=== PATIENT | female | born 1930 | race Caucasian/White ===

== ENCOUNTER → 2016-04-02 | Outpatient (REF) | payer MEDICARE ==
[~2016-04-02] MED LIST: ASPI1TAB PO; ATEN50TA2 PO; BIMA01SOL OU; COUM2TAB10 PO; DRIS50002 PO; FLON1SPR; FLUTISP; LASI80TA PO; LIPI20TA PO; LOSA50TA20 PO; NORT25CA2 PO; OMEP40CA2 PO; PERC5TAB6 PO; SIMB1SUS OU; TRAM37.53 PO; [UNRECOGNIZED DRUG - OTHER] OU; flonase; lumigan OU
[2016-04-02 19:10] LABS: INR 1.7
== END ==
LOC: M SFHCCAPE 10:58
PROVIDERS: ATTEND Internal Medicine
DX: I48.91 Unspecified atrial fibrillation (principal)

== ENCOUNTER → 2016-05-12 | Outpatient (REF) | payer MEDICARE ==
[2016-05-12 16:53] LABS: INR 1.17
== END ==
LOC: M SFHCCAPE 11:10
PROVIDERS: ATTEND Internal Medicine
DX: Z51.81 Encounter for therapeutic drug level monitoring (principal); Z79.01 Long term (current) use of anticoagulants; I48.91 Unspecified atrial fibrillation

== ENCOUNTER → 2016-05-19 | Outpatient (REF) | payer MEDICARE ==
[2016-05-19 16:47] LABS: INR 2.1
== END ==
LOC: M SFHCCAPE 10:11
PROVIDERS: ATTEND Internal Medicine
DX: Z51.81 Encounter for therapeutic drug level monitoring (principal); Z79.01 Long term (current) use of anticoagulants; I48.91 Unspecified atrial fibrillation

== ENCOUNTER → 2016-06-05 | Outpatient (REF) | payer MEDICARE ==
[2016-06-05 18:00] LABS: MEAN CORPUSCULAR HEMOGLOBIN 30.7 pg (27.0-33.0); MEAN CORPUSCULAR HGB CONC 33.3 g/dl (32.0-36.5); MEAN CORPUSCULAR VOLUME 92.1 fl (80.0-96.0); RED CELL DISTRIBUTION WIDTH 13.1 % (11.5-14.5); WHITE BLOOD COUNT 5.7 K/mm3 (4.0-10.0)
[2016-06-05 18:01] LABS: ALBUMIN 3.5 GM/DL (3.2-5.2); ALBUMIN/GLOBULIN RATIO 1.17 (1.00-1.93); BILIRUBIN,TOTAL 0.8 MG/DL (0.2-1.0); CALCIUM LEVEL 9.4 MG/DL (8.8-10.2); CREATININE FOR GFR 1.03 MG/DL (0.55-1.02); GLOMERULAR FILTRATION RATE 54.3 (>32); TOTAL PROTEIN 6.5 GM/DL (6.4-8.2)
== END ==
LOC: M SFHCCAPE 09:44
PROVIDERS: ATTEND Internal Medicine
DX: Z01.818 Encounter for other preprocedural examination (principal); I10 Essential (primary) hypertension; R73.01 Impaired fasting glucose; E78.00 Pure hypercholesterolemia, unspecified; Z79.01 Long term (current) use of anticoagulants; T84.84XD Pain due to internal orthopedic prosthetic devices, implants and grafts, subsequent encounter; R04.0 Epistaxis; K58.9 Irritable bowel syndrome, unspecified; M19.90 Unspecified osteoarthritis, unspecified site; I73.9 Peripheral vascular disease, unspecified

== ENCOUNTER → 2016-07-02 | Outpatient (REF) | payer MEDICARE ==
[2016-07-02 17:11] LABS: INR 2.07
== END ==
LOC: M SFHCPLAZ 10:18
PROVIDERS: ATTEND Internal Medicine
DX: I48.91 Unspecified atrial fibrillation (principal); Z51.81 Encounter for therapeutic drug level monitoring; Z79.01 Long term (current) use of anticoagulants

== ENCOUNTER → 2016-09-25 | Outpatient (REF) | payer MEDICARE ==
[~2016-09-25] MED LIST changes: -COUM2TAB10 PO; +COUM2TAB22 PO; +PERC5TAB12 PO; -PERC5TAB6 PO
[2016-09-25 17:13] LABS: INR 1.36
== END ==
LOC: M SFHCCAPE 09:37
PROVIDERS: ATTEND Internal Medicine
DX: Z51.81 Encounter for therapeutic drug level monitoring (principal); Z79.01 Long term (current) use of anticoagulants; I48.91 Unspecified atrial fibrillation; J22 Unspecified acute lower respiratory infection; H66.002 Acute suppurative otitis media without spontaneous rupture of ear drum, left ear
CPT/HCPCS: 36415; 85610; G0463

== ENCOUNTER → 2016-10-28 | Outpatient (REF) | payer MEDICARE ==
[2016-10-28 17:05] LABS: INR 1.92
== END ==
LOC: M SFHCCAPE 10:12
PROVIDERS: ATTEND Internal Medicine
DX: Z51.81 Encounter for therapeutic drug level monitoring (principal); Z79.01 Long term (current) use of anticoagulants; I48.91 Unspecified atrial fibrillation; L03.115 Cellulitis of right lower limb
CPT/HCPCS: 85610; G0463

== ENCOUNTER → 2016-11-27 | Outpatient (REF) | payer MEDICARE ==
[2016-11-27 17:14] LABS: INR 1.52
== END ==
LOC: M LABDRWCV 16:22
PROVIDERS: ATTEND Nurse Practitioner Family
DX: Z51.81 Encounter for therapeutic drug level monitoring (principal); Z79.01 Long term (current) use of anticoagulants

== ENCOUNTER → 2017-02-03 | Outpatient (REF) | payer MEDICARE | LOC: M SFHCPLAZ 12:25 | PROVIDERS: ATTEND Internal Medicine | DX: I10 Essential (primary) hypertension (principal); R73.01 Impaired fasting glucose; E78.00 Pure hypercholesterolemia, unspecified ==

== ENCOUNTER → 2017-02-04 | Outpatient (REF) | payer MEDICARE ==
[2017-02-04 18:39] LABS: ALBUMIN 3.6 GM/DL (3.2-5.2); ALBUMIN/GLOBULIN RATIO 1.06 (1.00-1.93); ALKALINE PHOSPHATASE 72 U/L (45-117); ALT/SGPT 67 U/L (12-78); ANION GAP 8 MEQ/L (8-16); AST/SGOT 42 U/L (7-37); BILIRUBIN,TOTAL 1.1 MG/DL (0.2-1.0); BLOOD UREA NITROGEN 19 MG/DL (7-18); CALCIUM LEVEL 9.3 MG/DL (8.8-10.2); CARBON DIOXIDE LEVEL 26 MEQ/L (21-32); CHLORIDE LEVEL 106 MEQ/L (98-107); CHOLESTEROL LEVEL 215 MG/DL (<200); CREATININE FOR GFR 0.94 MG/DL (0.55-1.02); GLOMERULAR FILTRATION RATE > 60.0 (>32); GLUCOSE, FASTING 138 MG/DL (83-110); MAGNESIUM LEVEL 1.9 MG/DL (1.8-2.4); POTASSIUM SERUM 4.2 MEQ/L (3.5-5.1); SODIUM LEVEL 140 MEQ/L (136-145); TRIGLYCERIDES LEVEL 74 MG/DL (<150)
== END ==
LOC: M SFHCPLAZ 10:13
PROVIDERS: ATTEND Internal Medicine
DX: I10 Essential (primary) hypertension (principal); R73.01 Impaired fasting glucose; E78.00 Pure hypercholesterolemia, unspecified; I48.91 Unspecified atrial fibrillation

== ENCOUNTER → 2017-05-12 | Outpatient (REF) | payer MEDICARE ==
[2017-05-12 17:23] LABS: ESTIMATED AVERAGE GLUCOSE 128 MG/DL (60-110); HEMOGLOBIN A1c 6.1 %
[2017-05-12 17:33] LABS: ALBUMIN 3.5 GM/DL (3.2-5.2); ALBUMIN/GLOBULIN RATIO 1.09 (1.00-1.93); ALKALINE PHOSPHATASE 81 U/L (45-117); ALT/SGPT 67 U/L (12-78); ANION GAP 10 MEQ/L (8-16); AST/SGOT 58 U/L (7-37); BILIRUBIN,TOTAL 0.7 MG/DL (0.2-1.0); BLOOD UREA NITROGEN 16 MG/DL (7-18); CARBON DIOXIDE LEVEL 28 MEQ/L (21-32); CHLORIDE LEVEL 106 MEQ/L (98-107); CHOLESTEROL LEVEL 191 MG/DL (<200); CREATININE FOR GFR 0.92 MG/DL (0.55-1.30); GLOMERULAR FILTRATION RATE > 60.0 (>32); GLUCOSE, FASTING 106 MG/DL (70-100); HDL CHOLESTEROL 50 MG/DL (>40); LDL CHOLESTEROL 116.8 MG/DL (<100); MAGNESIUM LEVEL 1.8 MG/DL (1.8-2.4); NON-HDL-C 141 MG/DL; POTASSIUM SERUM 4.1 MEQ/L (3.5-5.1); SODIUM LEVEL 144 MEQ/L (136-145); TOTAL PROTEIN 6.7 GM/DL (6.4-8.2); TRIGLYCERIDES LEVEL 121 MG/DL (<150)
[2017-05-12 19:20] LABS: HEMATOCRIT 44.4 % (36.0-47.0); HEMOGLOBIN 14.6 g/dl (12.0-16.0); MEAN CORPUSCULAR HEMOGLOBIN 30.4 pg (27.0-33.0); MEAN CORPUSCULAR HGB CONC 32.9 g/dl (32.0-36.5); MEAN CORPUSCULAR VOLUME 92.3 fl (80.0-96.0); PLATELET COUNT, AUTOMATED 246 10^3/uL (150-450); RED BLOOD COUNT 4.81 10^6/uL (4.00-5.40); RED CELL DISTRIBUTION WIDTH 13.5 % (11.5-14.5); WHITE BLOOD COUNT 6.5 10^3/uL (4.0-10.0)
== END ==
LOC: M SFHCCAPE 09:46
DX: I10 Essential (primary) hypertension (principal); R73.01 Impaired fasting glucose; E78.00 Pure hypercholesterolemia, unspecified; Z51.81 Encounter for therapeutic drug level monitoring; Z79.01 Long term (current) use of anticoagulants
CPT/HCPCS: 83735

== ENCOUNTER → 2017-09-09 | Outpatient (REF) | payer MEDICARE ==
[2017-09-09 17:22] LABS: ANION GAP 11 MEQ/L (8-16); BLOOD UREA NITROGEN 24 MG/DL (7-18); CALCIUM LEVEL 8.9 MG/DL (8.8-10.2); CARBON DIOXIDE LEVEL 27 MEQ/L (21-32); CHLORIDE LEVEL 105 MEQ/L (98-107); CREATININE FOR GFR 1.41 MG/DL (0.55-1.30); GLOMERULAR FILTRATION RATE 37.7 (>32); GLUCOSE, FASTING 124 MG/DL (70-100); POTASSIUM SERUM 4.1 MEQ/L (3.5-5.1); SODIUM LEVEL 143 MEQ/L (136-145)
== END ==
LOC: M SFHCCAPE 08:46
DX: I48.91 Unspecified atrial fibrillation (principal)
CPT/HCPCS: 80048

== ENCOUNTER → 2017-10-15 | Outpatient (REF) | payer MEDICARE ==
[2017-10-15 17:34] LABS: INR 1.49; PROTHROMBIN TIME 18.3 SECONDS (12.1-14.4)
[2017-10-15 18:51] LABS: ANION GAP 11 MEQ/L (8-16); BLOOD UREA NITROGEN 17 MG/DL (7-18); CALCIUM LEVEL 8.9 MG/DL (8.8-10.2); CARBON DIOXIDE LEVEL 26 MEQ/L (21-32); CHLORIDE LEVEL 107 MEQ/L (98-107); CREATININE FOR GFR 0.99 MG/DL (0.55-1.30); GLOMERULAR FILTRATION RATE 56.8 (>32); GLUCOSE, FASTING 155 MG/DL (70-100); POTASSIUM SERUM 4.1 MEQ/L (3.5-5.1); SODIUM LEVEL 144 MEQ/L (136-145)
== END ==
LOC: M SFHCCAPE 09:51
DX: I48.91 Unspecified atrial fibrillation (principal); Z79.01 Long term (current) use of anticoagulants
CPT/HCPCS: 80048

== ENCOUNTER → 2017-11-30 | Outpatient (REF) | payer MEDICARE | LOC: M SFHCPLAZ 12:03 | DX: I48.91 Unspecified atrial fibrillation (principal); R73.01 Impaired fasting glucose; I11.9 Hypertensive heart disease without heart failure; R53.82 Chronic fatigue, unspecified; Z53.8 Procedure and treatment not carried out for other reasons ==

== ENCOUNTER → 2018-02-11 | Outpatient (REF) | payer MEDICARE ==
[2018-02-11 17:20] LABS: INR 2.19; PROTHROMBIN TIME 24.8 SECONDS (12.1-14.4)
== END ==
LOC: M SFHCPLAZ 10:48
DX: I48.91 Unspecified atrial fibrillation (principal); Z51.81 Encounter for therapeutic drug level monitoring; Z79.01 Long term (current) use of anticoagulants; Z23 Encounter for immunization
CPT/HCPCS: 85610

== ENCOUNTER → 2018-07-07 | Outpatient (REF) | payer MEDICARE ==
[~2018-07-07] MED LIST changes: -ASPI1TAB PO; +ASPI81TA26 PO; -DRIS50002 PO; +DRIS50003 PO; +FLUT50SP17; -FLUTISP; -LASI80TA PO; +LASI80TA3 PO; -LOSA50TA20 PO; +LOSA50TA88 PO
[2018-07-07 13:31] LABS: BASO # 0.1 10^3/uL (0.0-0.2); BASO % 1.1 % (0.0-1.0); EOS # 0.3 10^3/uL (0.0-0.50); EOS % 3.4 % (0.0-3.0); HEMATOCRIT 45.2 % (36.0-47.0); HEMOGLOBIN 14.5 g/dl (12.0-15.5); LYMPH # 2.6 10^3/uL (1.5-4.5); LYMPH % 29.9 % (24.0-44.0); MEAN CORPUSCULAR HGB CONC 32.1 g/dl (32.0-36.5); MEAN CORPUSCULAR VOLUME 93.6 fl (80.0-96.0); MONO # 0.8 10^3/uL (0.0-0.8); MONO % 8.8 % (0.0-5.0); NEUTROPHILS % 56.6 % (36.0-66.0); PLATELET COUNT, AUTOMATED 219 10^3/uL (150-450); RED BLOOD COUNT 4.83 10^6/uL (4.00-5.40); WHITE BLOOD COUNT 8.8 10^3/uL (4.0-10.0)
[2018-07-07 14:03] LABS: ALBUMIN 3.2 GM/DL (3.2-5.2); ALT/SGPT 57 U/L (12-78); BILIRUBIN,TOTAL 0.7 MG/DL (0.2-1.0); BLOOD UREA NITROGEN 19 MG/DL (7-18); C REACTIVE PROTEIN QUANTITATIV 0.85 MG/DL (0.00-0.30); CALCIUM LEVEL 8.7 MG/DL (8.8-10.2); CARBON DIOXIDE LEVEL 29 MEQ/L (21-32); CHLORIDE LEVEL 108 MEQ/L (98-107); CHOLESTEROL LEVEL 179 MG/DL (<200); CHOLESTEROL RISK RATIO 3.977 (<5); CREATININE FOR GFR 0.88 MG/DL (0.55-1.30); GLOMERULAR FILTRATION RATE > 60.0 (>32); GLUCOSE, FASTING 115 MG/DL (70-100); HDL CHOLESTEROL 45 MG/DL (>40); LDL CHOLESTEROL 97 MG/DL (<100); MAGNESIUM LEVEL 1.9 MG/DL (1.8-2.4); NON-HDL-C 134 MG/DL; NT-PRO BNP 1805 PG/ML (<450); POTASSIUM SERUM 4.2 MEQ/L (3.5-5.1); SODIUM LEVEL 145 MEQ/L (136-145); TOTAL PROTEIN 6.7 GM/DL (6.4-8.2); TRIGLYCERIDES LEVEL 186 MG/DL (<150)
[2018-07-07 15:13] LABS: ERYTHROCYTE SEDIMENTATION RATE 6 mm/hr (0-42)
[2018-07-07 16:16] LABS: HEMOGLOBIN A1c 6.5 %
== END ==
LOC: M SFHCPLAZ 11:22
PROVIDERS: ATTEND Internal Medicine
DX: I48.91 Unspecified atrial fibrillation (principal); R06.09 Other forms of dyspnea; I11.9 Hypertensive heart disease without heart failure; R73.01 Impaired fasting glucose; E78.00 Pure hypercholesterolemia, unspecified; R04.0 Epistaxis; M19.90 Unspecified osteoarthritis, unspecified site
CPT/HCPCS: 36415; 80053; 80061; 83036; 83735; 83880; 85025; 85610; 85652; 86140; G0463

== ENCOUNTER → 2018-09-22 | Outpatient (REF) | payer MEDICARE ==
[2018-09-23 15:06] LABS: INR 3.37; PROTHROMBIN TIME 34.1 SECONDS (11.8-14.0)
== END ==
LOC: M SFHCCAPE 14:35 → M SFHCPLAZ 14:35
PROVIDERS: ATTEND Nurse Practitioner Adult Health
DX: I48.91 Unspecified atrial fibrillation (principal); L08.9 Local infection of the skin and subcutaneous tissue, unspecified
CPT/HCPCS: 36415; 85610; 87070; 87077; 87186; G0463

== ENCOUNTER → 2018-10-25 | Outpatient (REF) | payer MEDICARE ==
[2018-10-25 17:48] LABS: ALBUMIN 3.6 GM/DL (3.2-5.2); BILIRUBIN,TOTAL 0.6 MG/DL (0.2-1.0); CALCIUM LEVEL 9.6 MG/DL (8.8-10.2); CREATININE FOR GFR 1.06 MG/DL (0.55-1.30); GLOMERULAR FILTRATION RATE 52.3 (>32); POTASSIUM SERUM 4.1 MEQ/L (3.5-5.1); TOTAL PROTEIN 6.8 GM/DL (6.4-8.2)
[2018-10-25 17:51] LABS: INR 1.08; PROTHROMBIN TIME 13.7 SECONDS (11.8-14.0)
[2018-10-25 18:55] LABS: HEMOGLOBIN A1c 6.4 %
== END ==
LOC: M SFHCPLAZ 10:31
PROVIDERS: ATTEND Internal Medicine
DX: I11.9 Hypertensive heart disease without heart failure (principal); R73.01 Impaired fasting glucose; R06.09 Other forms of dyspnea; I48.91 Unspecified atrial fibrillation; Z79.01 Long term (current) use of anticoagulants

== ENCOUNTER 2018-11-23 18:51 | Inpatient (IN) | payer MEDICARE ==
[~2018-11-23] VITALS: Ht 157.5 cm; Wt 97.3 kg
[~2018-11-23 18:51] MED LIST changes: -OMEP40CA2 PO; +OMEP40CA97 PO
[2018-11-23 19:19] LABS: BASO # 0.1 10^3/uL (0.0-0.2); EOS # 0.3 10^3/uL (0.0-0.5); EOS % 3.4 % (0.0-3.0); HEMATOCRIT 47.2 % (36.0-47.0); HEMOGLOBIN 15.4 g/dl (12.0-15.5); LYMPH # 2.3 10^3/uL (1.5-5.0); LYMPH % 32.1 % (24.0-44.0); MEAN CORPUSCULAR HEMOGLOBIN 30.5 pg (27.0-33.0); MEAN CORPUSCULAR HGB CONC 32.6 g/dl (32.0-36.5); MEAN CORPUSCULAR VOLUME 93.5 fl (80.0-96.0); MONO # 0.6 10^3/uL (0.0-0.8); MONO % 8.8 % (0.0-5.0); NEUTROPHILS % 54.4 % (36.0-66.0); PLATELET COUNT, AUTOMATED 220 10^3/uL (150-450); RED BLOOD COUNT 5.05 10^6/uL (4.00-5.40); WHITE BLOOD COUNT 7.3 10^3/uL (4.0-10.0)
[2018-11-23 19:30] LABS: INR 1.18; PROTHROMBIN TIME 14.7 SECONDS (11.8-14.0)
--- NOTE | 2018-11-23 19:34 | ECGEPIP ---
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
[2018-11-23 19:49] LABS: ALBUMIN 3.5 GM/DL (3.2-5.2); ALT/SGPT 54 U/L (12-78); BILIRUBIN,DIRECT 0.4 MG/DL (0.0-0.2); BILIRUBIN,TOTAL 1.3 MG/DL (0.2-1.0); BLOOD UREA NITROGEN 14 MG/DL (7-18); CALCIUM LEVEL 9.2 MG/DL (8.8-10.2); CARBON DIOXIDE LEVEL 31 MEQ/L (21-32); CHLORIDE LEVEL 104 MEQ/L (98-107); CK-MB VALUE MASS < 1.0 NG/ML (<3.6); CPK CREATINE PHOSPHOKINASE 54 U/L (26-192); CREATININE FOR GFR 1.15 MG/DL (0.55-1.30); GLOMERULAR FILTRATION RATE 47.6 (>32); GLUCOSE, FASTING 123 MG/DL (70-100); MB/CK RELATIVE INDEX 1.85 (< OR =4); POTASSIUM SERUM 3.6 MEQ/L (3.5-5.1); SODIUM LEVEL 143 MEQ/L (136-145); TOTAL PROTEIN 6.8 GM/DL (6.4-8.2); TROPONIN I < 0.02 NG/ML (< 0.10)
--- NOTE | 2018-11-23 20:15 | REPVR ---
EXAM: CT Head Without Contrast EXAM DATE/TIME: 11/23/2018 7:19 PM CLINICAL HISTORY: 88 years old, female; Altered mental status/memory loss TECHNIQUE: Imaging protocol: Computed tomography of the head without contrast. Radiation optimization: All CT scans at this facility use at least one of these dose optimization techniques: automated exposure control; mA and/or kV adjustment per patient size (includes targeted exams where dose is matched to clinical indication); or iterative reconstruction. COMPARISON: No relevant prior studies available. FINDINGS: Brain: There is no evidence of intracranial bleed. There are patchy areas of low density in the periventricular white matter consistent with chronic ischemic changes. There is prominence of the occipital horn and temporal horn of left lateral ventricle probably the result of focal atrophy. Ventricles: There is a 2.2 CM low density area contiguous with the occipital horn of left lateral ventricle consistent with an area of old ischemic change. Bones/joints: There is no evidence of fracture. Sinuses: Clear ethmoid sinuses. Mastoid air cells: Clear mastoid air cells. Soft tissues: Unremarkable. Vasculature: There is calcification of the carotid siphon bilaterally. IMPRESSION: 1. Area of old stroke left occipital lobe. 2. Chronic ischemic changes. An MRI scan would be a more sensitive exam for acute ischemic change. Electronically signed by: Johny Burton On 11/23/2018 20:14:37 PM
[2018-11-23] MEDS: WARFARIN SOD 2 MG TAB PO SCH (21:00)
[2018-11-23] MEDS: NORTRIPTYLINE 25 MG CAP PO SCH (21:00)
[2018-11-23] MEDS: ATORVASTATIN 20 MG TAB PO SCH (21:00)
[2018-11-23] MEDS: BRIMONIDINE 0.1% OPHTH SOLN 5 ML OU SCH (21:00)
[2018-11-23 22:14] VITALS: O2SAT 97
[2018-11-23] MEDS ORDERED: TETRACAINE 0.5% OPHTH SOLN 4ML OU ONE (22:15)
--- NOTE | 2018-11-23 22:53 | REPVR ---
EXAM: MR Head Without Contrast EXAM DATE/TIME: 11/23/2018 9:57 PM CLINICAL HISTORY: 88 years old, female; Visual disturbance; Additional info: CVA TECHNIQUE: Imaging protocol: MR of the head without contrast. COMPARISON: CT Head without contrast 11/23/2018 7:15 PM FINDINGS: Brain: There is a linear area of bright signal intensity on the diffusion sequence involving the medial aspect of the temporal lobe following the temporal horn of the right lateral ventricle. This area is low in signal intensity on the ADC and consistent with a new area of ischemic change. In addition there is a small round area of bright signal intensity right occipital lobe probably also representing a small area of ischemic change. There is an area of old stroke left occipital lobe. There are patchy areas of bright signal intensity throughout the white matter consistent with chronic ischemic changes. There is mild diffuse atrophy. Vertebral arteries: There is no flow in the left vertebral artery at the base of the skull. IMPRESSION: On DWI sequence there is a linear area of bright signal intensity medial aspect of the right temporal lobe following the right temporal horn of the lateral ventricle consistent with an area of acute stroke. There is also a 5 mm small round area of bright signal intensity right occipital lobe suspicious for a small area of new stroke. Electronically signed by: Johny Burton On 11/23/2018 22:52:47 PM
--- NOTE | 2018-11-23 22:57 | REPVR ---
EXAM: MR Angiogram Head Without Contrast, Arteries EXAM DATE/TIME: 11/23/2018 9:57 PM CLINICAL HISTORY: 88 years old, female; Visual disturbance; [place]; Central area; Bilateral; Additional info: CVA TECHNIQUE: Imaging protocol: MR angiogram head without contrast. Exam focused on the arteries. 3D rendering: MIP reconstructed images were created and reviewed. COMPARISON: MRA BRAIN W/O CONTRAST 09/07/2008 11:30 AM Left vertebral artery: Suspect occlusion of the left vertebral artery as there is no evidence of significant flow at the level of the base of the skull. Basilar artery: The basilar artery is visualized and there is no vertebrobasilar aneurysm. Other vasculature: There is no evidence of aneurysm of the [place]. Normal appearing middle cerebral arteries. 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
[2018-11-23] MEDS ORDERED: FLUT50SP33 (23:33)
[2018-11-23] MEDS ORDERED: ASPI-161 PO (23:33)
[2018-11-23] MEDS ORDERED: D200CAP2 PO (23:33)
[2018-11-23] MEDS ORDERED: NORT50CA PO (23:33)
[2018-11-24] MEDS ORDERED: CLOPIDOGREL 75 MG TAB PO ONE
[2018-11-24] MEDS ORDERED: WARFARIN SOD 5 MG TAB PO ONE
[2018-11-24] MEDS ORDERED: FURO80TA2 PO (00:01)
[2018-11-24] MEDS ORDERED: VOLT1GEL15 TD (00:01)
[2018-11-24] MEDS ORDERED: WARF4TAB51 PO (00:01)
[2018-11-24] MEDS ORDERED: BRIM1OPD OU (00:04)
[2018-11-24 00:42] LABS: INR 1.24; PROTHROMBIN TIME 15.3 SECONDS (11.8-14.0)
[2018-11-24 00:43] LABS: PARTIAL THROMBOPLASTIN TIME 27.5 SECONDS (25.0-38.4)
--- NOTE | 2018-11-24 01:17 | HPEPDOC ---
General Date of Admission Nov 23, 2018 at 23:48 Date of Service: Nov 24, 2018 Primary Care Physician: Azam Kuo Attending Physician: AYUSH HERNANDEZ DO Chief Complaint The patient is a 88-year-old female admitted with a reason for visit of Afib,Cerebrovasculat Accident,Occlusion Of Vertaer. Source: Patient, Family History of Present Illness Patient is 88 years old female with past medical history of stroke in 2000, patient was on the aspirin 81 mg, hypertension, atrial fibrillation on warfarin presented hospital with headache and flash lights in her eyes. Patient stated that flash lights started few weeks ago, became more intense for past 7-10 days. For past week patient increased difficulties in walking, she notices worsening balance, 2 weeks ago she felt because of dizziness. 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 There is also a 5 mm small round area of bright signal intensity right occipital lobe suspicious for a small area of new stroke on MRI. Of note, patient's INR is subtherapeutic. She states that she usually check INR one time in a month Home Medications Scheduled Aspirin (Aspirin EC) 81 Mg Tablet.dr, 81 MG PO DAILY, (Reported) Atenolol (Atenolol) 50 Mg Tab, 50 MG PO QPM, (Reported) Atenolol (Atenolol) 50 Mg Tab, 25 MG PO DAILY, (Reported) Brimonidine Tartrate (Alphagan P) 0.1% 5ML Drops, 1 DROP OU BID, (Reported) Cholecalciferol (Vitamin D3) (Vitamin D3) 2,000 Unit Capsule, 2,000 UNIT PO DAILY, (Reported) Fluticasone Propionate (Fluticasone Propionate) 15.8 Ml [place].susp, 2 SPRAYS NA DAILY, (Reported) Furosemide (Lasix) 80 Mg Tab, 40 MG PO Q2D, (Reported) Furosemide (Furosemide) 80 Mg Tablet, 80 MG PO Q2D, (Reported) Losartan Potassium (Losartan Potassium) 50 Mg Tab, 25 MG PO QHS, (Reported) Nortriptyline HCl (Nortriptyline HCl) 50 Mg Capsule, 50 MG PO BID, (Reported) Omeprazole (Omeprazole) 40 Mg Cap, 40 MG PO DAILY, (Reported) Warfarin Sodium (Coumadin) 2 Mg Tab, 2 MG PO 3XW, (Reported) THURSDAY, THURSDAY AND THURSDAY AT QHS Warfarin Sodium (Warfarin Sodium) 2 Mg Tablet, 4 MG PO 4XWK, (Reported) THURSDAY, THURSDAY, THURSDAY AND THURSDAY AT [facility] Scheduled PRN Diclofenac Sodium (Voltaren) 100 Gm Gel..gram., 1 DOSE TD DAILY PRN for PAIN, (Reported) APPLIES TO RIGHT THUMB Allergies Coded Allergies: Penicillins (Verified Allergy, Mild, RASH, 11/23/18) GUDELIA Inhibitors (Verified Allergy, Unknown, 11/23/18) SEASONAL ALLERGIES (Verified Allergy, Unknown, 11/23/18) doxycycline (Verified Allergy, Unknown, 11/23/18) ibuprofen (Verified Allergy, Unknown, 11/23/18) prazosin (Verified Allergy, Unknown, 11/23/18) codeine (Verified Adverse Reaction, Mild, CONFUSION, 11/23/18) Past Medical History Medical History Hypertension, atrial fibrillation, stroke in 2000, both knees replacement, migraine, gallbladder removal Surgical History Bilateral knee replacement, cholecystectomy Family History Father had GA Social History * Smoker: former Smoker Alcohol: occationally Drugs: denies A-FIB/CHADSVASC A-FIB History Current/History of A-Fib/PAF?: Yes Current PO Anticoag Therapy: Yes Treatment Treatment ordered: Warfarin Review of Systems Constitutional: Denies: Chills, Fever Eyes: Reports: Vision change (flushes); Denies: Pain, Conjunctivae inflammation ENT: Reports: Head Aches (frontal and occipital headache) Skin: Denies: Rash, Lesions Pulmonary: Denies: Dyspnea, Cough Cardiovascular: Reports: Palpitations; Denies: Chest Pain Gastrointestinal: Denies: Nausea Genitourinary: Denies: Dysuria, Frequency Hematologic: Denies: Bruising Endocrine: Denies: Polydipsia, Polyphagia Musculoskeletal: Denies: Neck Pain, Back Pain Neurological: Reports: Weakness (left leg, left arm), Incoordination; Denies: Numbness Psych: Reports: Mood Normal Physical Examination General Exam: Positive: Alert, Cooperative, No Acute Distress Eye Exam: Positive: PERRLA, EOMI ENT Exam: Positive: Atraumatic Neck Exam: Positive: Supple; Negative: JVD Chest Exam: Positive: Clear to auscultation Heart Exam: Positive: Irregular Rhythm Telemetry: Positive: Atrial fibrillation Abdomen Exam: Positive: Normal bowel sounds Extremity Exam: Negative: Clubbing, Cyanosis Skin Exam: Negative: Nl turgor and temperature Neuro Exam: Positive: Cranial Nerves 3-12 NL, Other (left leg 3 out of 5, left arm 3 out of 5) Psych Exam: Positive: Mental status NL Vital Signs Vital Signs Date Time Temp Pulse Resp B/P (MAP) Pulse Ox O2 Delivery O2 Flow Rate FiO2 11/24/18 00:15 92 97 11/23/18 23:00 17 11/23/18 22:15 140/90 (107) 11/23/18 22:14 Room Air 11/23/18 19:05 99.0 Laboratory Data Labs 24H Laboratory Tests 2 11/23/18 19:12: Immature Granulocyte % (Auto) 0.3, White Blood Count 7.3, Red Blood Count 5.05, Hemoglobin 15.4, Hematocrit 47.2H, Mean Corpuscular Volume 93.5, Mean Corpuscular Hemoglobin 30.5, Mean Corpuscular Hemoglobin Concent 32.6, Red Cell Distribution Width 13.4, Platelet Count 220, Neutrophils (%) (Auto) 54.4, Lymphocytes (%) (Auto) 32.1, Monocytes (%) (Auto) 8.8H, Eosinophils (%) (Auto) 3.4H, Basophils (%) (Auto) 1.0, Neutrophils # (Auto) 4.0, Lymphocytes # (Auto) 2.3, Monocytes # (Auto) 0.6, Eosinophils # (Auto) 0.3, Basophils # (Auto) 0.1, Nucleated Red Blood Cells % (auto) 0.0, Prothrombin Time 14.7H, Prothromb Time International Ratio 1.18, Anion Gap 8, Glomerular Filtration Rate 47.6, Calcium Level 9.2, Aspartate Amino Transf (AST/SGOT) 53H, Alanine Aminotransferase (ALT/SGPT) 54, Alkaline Phosphatase 64, Total Bilirubin 1.3H, Direct Bilirubin 0.4H, Ammonia < 10, Total Creatine Kinase 54, Creatine Kinase MB < 1.0, Creatine Kinase MB Relative Index 1.85, Troponin I < 0.02, Total Protein 6.8, Albumin 3.5, Albumin/Globulin Ratio 1.06, Thyroid Stimulating Hormone (TSH) 2.120 11/23/18 20:35: Bedside Glucose (Misc Panel) 107 11/24/18 00:10: Prothrombin Time 15.3H, Prothromb Time International Ratio 1.24, Activated Partial Thromboplast Time 27.5 CBC/BMP Laboratory Tests 11/23/18 19:12 Red Blood Count 5.05, Mean Corpuscular Volume 93.5, Mean Corpuscular Hemoglobin 30.5, Mean Corpuscular Hemoglobin Concent 32.6, Red Cell Distribution Width 13.4, Neutrophils (%) (Auto) 54.4, Lymphocytes (%) (Auto) 32.1, Monocytes (%) (Auto) 8.8 H, Eosinophils (%) (Auto) 3.4 H, Basophils (%) (Auto) 1.0, Neutrophils # (Auto) 4.0, Lymphocytes # (Auto) 2.3, Monocytes # (Auto) 0.6, Eosinophils # (Auto) 0.3, Basophils # (Auto) 0.1 Assessment/Plan Patient is 88 years old female with past medical history of stroke in 2000, patient was on the aspirin 81 mg, hypertension, atrial fibrillation on warfarin presented hospital with headache and flash lights in her eyes. Patient stated that flash lights started few weeks ago, became more intense for past 7-10 days. For past week patient increased difficulties in walking, she notices worsening balance, 2 weeks ago she felt because of dizziness. 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 There is also a 5 mm small round area of bright signal intensity right occipital lobe suspicious for a small area of new stroke on MRI. Of note, patient's INR is subtherapeutic. She states that she usually check INR one time in a month Problems (1) Cerebrovascular accident Status: Acute Problem Text: Appreciate/agree with the neurologist consult Speech evaluation Aspiration precaution Echo Telemetry Plavix (2) Afib Status: Chronic Problem Text: INR is subtherapeutic Warfarin 5 mg now Continue home dose of warfarin daily, adjust if necessary Heart rate is under control for now (3) Occlusion of vertebral artery Status: Acute Problem Text: Appreciate/agree with neurologist consult Patient will benefit from vascular surgeon consult Plan / VTE VTE Prophylaxis Ordered?: Yes AYUSH HERNANDEZ DO Nov 24, 2018 01:17
[2018-11-24 01:55] VITALS: BP 168/72
[2018-11-24] MEDS: LOSARTAN 50 MG TAB PO SCH ×2 (02:32→20:51)
[2018-11-24] MEDS: ATORVASTATIN 20 MG TAB PO SCH ×2 (02:33→20:52)
[2018-11-24] MEDS: atenoloL 50 MG TAB PO SCH ×2 (02:33→20:55)
[2018-11-24 06:00] VITALS: BP_SYST 142; BP_SYST 159; BP_DIAS 73; BP_DIAS 78
[2018-11-24 06:14] LABS: HEMATOCRIT 42.9 % (36.0-47.0); HEMOGLOBIN 14.2 g/dl (12.0-15.5); MEAN CORPUSCULAR HEMOGLOBIN 30.7 pg (27.0-33.0); MEAN CORPUSCULAR HGB CONC 33.1 g/dl (32.0-36.5); MEAN CORPUSCULAR VOLUME 92.9 fl (80.0-96.0); PLATELET COUNT, AUTOMATED 203 10^3/uL (150-450); RED BLOOD COUNT 4.62 10^6/uL (4.00-5.40); WHITE BLOOD COUNT 7.4 10^3/uL (4.0-10.0)
[2018-11-24 06:25] LABS: INR 1.23; PROTHROMBIN TIME 15.2 SECONDS (11.8-14.0)
[2018-11-24 06:37] LABS: CALCIUM LEVEL 9.2 MG/DL (8.8-10.2); CREATININE FOR GFR 0.97 MG/DL (0.55-1.30); MAGNESIUM LEVEL 1.6 MG/DL (1.8-2.4); POTASSIUM SERUM 3.5 MEQ/L (3.5-5.1)
[2018-11-24] MEDS ORDERED: PREVNAR 13 VACCINE SYRINGE (CPT CODE:90670) IM ONE (09:00)
[2018-11-24] MEDS: OMEPRAZOLE 20 MG CAP PO SCH (09:21)
[2018-11-24] MEDS: NORTRIPTYLINE 25 MG CAP PO SCH ×2 (09:21→20:45)
[2018-11-24] MEDS: CLOPIDOGREL 75 MG TAB PO SCH (09:21)
[2018-11-24] MEDS: FUROSEMIDE 80 MG TAB PO SCH (09:21)
[2018-11-24] MEDS: BRIMONIDINE 0.1% OPHTH SOLN 5 ML OU SCH ×2 (09:25→20:44)
--- NOTE | 2018-11-24 09:29 | REP ---
CAROTID ULTRASOUND: Real-time ultrasound evaluation and duplex Doppler interrogation of the extracranial carotid vasculature is performed. There is mild plaquing and narrowing in both carotid bulbs extending into the internal and external carotid arteries. Luminal narrowing is less than 50%. There is no evidence of hemodynamically significant stenosis of either internal carotid artery. Normal flow velocities are seen. The right vertebral artery demonstrates normal direction of flow. The left vertebral artery is not visualized. RIGHT LEFT Peak systolic velocity ICA 49.3 cm/s 49.9 cm/s End diastolic velocity ICA 14.4 cm/s 16.6 cm/s Peak systolic velocity CCA 59.2 cm/s 70.7 cm/s Peak systolic velocity ECA 48.2 cm/s 53.8 cm/s ICA/CCA ratio 0.83 0.71 IMPRESSION: Bilateral luminal narrowing of the internal carotid arteries less than 50%. No evidence of hemodynamically significant stenosis. Electronically Signed by Jimi Giordano MD 11/24/2018 09:21 A
--- NOTE | 2018-11-24 12:09 | IPNPDOC ---
Text Note Date of Service The patient was seen on 11/24/18. NOTE SUBJECTIVE: No acute events overnight. Patient is aware that she has had a st roke but is confused about what the plan moving forward is. We discussed the need to correct her INR so that she did not get an additional stroke and that we were doing an U/S of her neck to make sure there was no significant stenosis requiring surgery. She restated her symptoms stating that beginning sometime last week and becoming worse on Thursday she experienced subjective dizziness that she thought would resolve. It became worse on Thursday when she began seeing flashing lights. Per the EMR, she follows with Dr. Chavez and on 10/18 her INR was supratherapeutic at ~4 so she was instructed to hold it for 4 days and then restart it but apparently never restarted the medication per [facility] and on 10/25 when it was remeasured, it was 1.08. While today she reports compliance with her medications, her most recent INR was 1.23. Presently the patient continues to complain of subjective dizziness OBJECTIVE: PHYSICAL EXAM: Vitals: (see below) General: No acute distress, sitting comfortably in chair. HEENT: Normocephalic, atraumatic. EOMI. No scleral icterus. Moist mucous membranes. No pharyngeal erythema or uvular deviation. Neck: No JVD, lymphadenopathy, or thyromegaly. Cardiac: RRR, Normal S1 and S2, No murmurs, gallops, rubs. Pulm: Clear to auscultation b/l. Symmetric thorax. No wheezing, crackles, rhonchi Abd: Bowel Sounds present. Abdomen is soft, non-tender, non-distended. Ext: 1+ pitting edema Neuro: CN2-12 intact. Strength in UE and LE intact, I did NOT appreciate decreased strength on my physical exam. LABORATORY DATA, MICROBIOLOGY: Please see below. IMAGING STUDIES: 11/23/[address]: 1. Area of old stroke left occipital lobe. 2. Chronic ischemic changes. An MRI scan would be a more sensitive exam for acute ischemic change. 11/23/18 brain MRI without contrast: On DWI sequence there is a linear area of bright signal intensity medial aspect of the right temporal lobe following the right temporal horn of the lateral ventricle consistent with an area of acute stroke. There is also a 5 mm small round area of bright signal intensity right occipital lobe suspicious for a small area of new stroke. 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 11/24/18 vascular ultrasound: Bilateral luminal narrowing of the internal carotid arteries less than 50%. No evidence of hemodynamically significant stenosis. ASSESSMENT AND PLAN: #. CVA - MRI showing acute stroke in R-temporal, occipital lobes with occlusion of left vertebral artery. Carotid U/S negative. - Neurology is aware of patient and will see them today, recommendations appreciated. - I suspect this stroke is likely due to a subtherapeutic INR, will restart patient's home dose and continue to monitor. She was started on plavix and atorvastatin last night. We will increase her atorvastatin to 40mg as she needs to be on high dose statin. #. Atrial fibrillation -Rate controlled on atenolol, will restart home Coumadin dose and adjust as necessary #. Hypertensive heart disease -Patient receives alternating doses of Lasix every other day. We will continue this for the time being. -Will continue losartan #. GERD - Continue omeprazole DVT prophylaxis:On coumadin VS,Fishbone, I+O VS, Fishbone, I+O Laboratory Tests 11/23/18 19:12 Red Blood Count 5.05, Mean Corpuscular Volume 93.5, Mean Corpuscular Hemoglobin 30.5, Mean Corpuscular Hemoglobin Concent 32.6, Red Cell Distribution Width 13.4, Neutrophils (%) (Auto) 54.4, Lymphocytes (%) (Auto) 32.1, Monocytes (%) (Auto) 8.8 H, Eosinophils (%) (Auto) 3.4 H, Basophils (%) (Auto) 1.0, Neutrophils # (Auto) 4.0, Lymphocytes # (Auto) 2.3, Monocytes # (Auto) 0.6, Eosinophils # (Auto) 0.3, Basophils # (Auto) 0.1 11/24/18 05:44 Red Blood Count 4.62, Mean Corpuscular Volume 92.9, Mean Corpuscular Hemoglobin 30.7, Mean Corpuscular Hemoglobin Concent 33.1, Red Cell Distribution Width 13.5, Calcium Level 9.2 Vital Signs Date Time Temp Pulse Resp B/P (MAP) Pulse Ox O2 Delivery O2 Flow Rate FiO2 11/24/18 06:00 99.1 83 18 142/73 (96) 94 11/23/18 22:14 Room Air I&O- Last 24 Hours up to 6 AM 11/24/18 06:00 Intake Total 60 ml Output Total 575 ml Balance -515 ml GME ATTESTATION GME ATTESTATION My faculty preceptor for this patient encounter was physically present during the encounter and was fully available. All aspects of the patient interview, examination, medical decision making process, and medical care plan development were reviewed and approved by the faculty preceptor. The faculty preceptor is aware and concurs with the plan as stated in the body of this note and will attest to such by his/her cosignature. ATTENDING NOTE I, Naren Chiang, have independently examined this patient and performed my own physical exam, as well as reviewed the documentation and edited where necessary. I have discussed in detail with the resident / student the findings and plan of treatment as documented by the resident / student and edited their note. I agree with their findings and treatment plan and have edited their documentation. I will continue to follow the patient during this hospital stay. SAMY WEBSTER DO Nov 24, 2018 12:09 NAREN CHIANG MD Nov 24, 2018 14:43
[2018-11-24 12:45] VITALS: BP_SYST 110; BP_SYST 112; BP_DIAS 62
[2018-11-24 14:00] VITALS: BP 110/70
[2018-11-24] MEDS: MAGNESIUM CHLORIDE 64 MG TABCR (SLO MAG) PO SCH (14:50)
[2018-11-24 16:00] VITALS: BP 132/64
[2018-11-24] MEDS: WARFARIN SOD 2 MG TAB PO SCH (20:45)
[2018-11-24 22:00] VITALS: BP 140/90
[2018-11-25] MEDS: NYSTATIN 100,000 UNITS/GM TOPICAL PWD 15 GM TOP SCH ×3 (01:15→20:14)
[2018-11-25 06:00] VITALS: BP 145/80
[2018-11-25 06:50] LABS: INR 1.36; PROTHROMBIN TIME 16.5 SECONDS (11.8-14.0)
--- NOTE | 2018-11-25 08:00 | ECHO ---
DATE OF PROCEDURE: 11/24/2018 REFERRING PHYSICIAN: Dr. Dmitriy Kirk REASON FOR ECHOCARDIOGRAM: Cerebral vascular accident (CVA). 2D MEASUREMENT: IVS - 1.1 cm LV - 4.9 cm LVPW - 1.0 cm LA - 4.7 cm Aorta - 2.8 cm IVC - 2.2 cm DOPPLER MEASUREMENT: Peak velocity across the aortic valve - 1.9 m/s Peak velocity across the LVOT - 0.62 m/s Peak gradient across the aortic valve - 14 mmHg Mitral E - 1.6. Maximum tricuspid valve velocity 2.5 m/s 2D COMMENTS: 1. Normal left ventricular size, wall thickness, and normal global left ventricular systolic function. The estimated left ventricular systolic ejection fraction is 60-65%. 2. Mildly enlarged left atrium. Normal right atrium and right ventricle. 3. The atrial septum appeared to be normal without evidence of defect or shunt. 4. Normal aortic root. 5. Trace pericardial effusion noted, no evidence of cardiac component. 6. Mildly calcified aortic valve with minimally restricted leaflet motion. Mildly calcified mitral annulus with normal anterior mitral valve leaflet motion. Normal tricuspid valve. The pulmonic valve and proximal pulmonary artery branches were not well visualized. 7. The inferior vena cava was mildly enlarged, central venous pressure might be elevated. DOPPLER: It detects mild aortic regurgitation, moderate mitral regurgitation, and mild tricuspid regurgitation. The calculated pulmonary artery systolic pressure varies between 30-40 mmHg. Assessment of the left ventricular diastolic function was limited in view of the underlying arrhythmias while the patient seems to be in atrial fibrillation but with a controlled ventricular rate. IMPRESSION: 1. Normal global left ventricular systolic function. 2. Aortic valve sclerosis with mild aortic radiation and trivial aortic stenosis. 3. Mitral annulus calcification with a mildly enlarged left atrium and moderate mitral regurgitation. 4. Mild tricuspid regurgitation with mild pulmonary hypertension. 5. Trace pericardial effusion was noted, no evidence of cardiac tamponade. 6. There are some features of elevated central venous pressure, the inferior vena cava was mildly enlarged. 7. No intracardiac shunt detected in this transthoracic echocardiogram. MTDD
[2018-11-25 08:35] LABS: HEMATOCRIT 42.9 % (36.0-47.0); HEMOGLOBIN 14.1 g/dl (12.0-15.5); MEAN CORPUSCULAR HEMOGLOBIN 30.5 pg (27.0-33.0); MEAN CORPUSCULAR HGB CONC 32.9 g/dl (32.0-36.5); MEAN CORPUSCULAR VOLUME 92.9 fl (80.0-96.0); PLATELET COUNT, AUTOMATED 218 10^3/uL (150-450); RED BLOOD COUNT 4.62 10^6/uL (4.00-5.40); WHITE BLOOD COUNT 7.9 10^3/uL (4.0-10.0)
[2018-11-25 08:37] LABS: CALCIUM LEVEL 8.8 MG/DL (8.8-10.2); CREATININE FOR GFR 1.05 MG/DL (0.55-1.30); GLOMERULAR FILTRATION RATE 52.9 (>32); POTASSIUM SERUM 3.4 MEQ/L (3.5-5.1)
[2018-11-25] MEDS: OMEPRAZOLE 20 MG CAP PO SCH (09:14)
[2018-11-25] MEDS: MAGNESIUM CHLORIDE 64 MG TABCR (SLO MAG) PO SCH (09:14)
[2018-11-25] MEDS: CLOPIDOGREL 75 MG TAB PO SCH (09:15)
[2018-11-25] MEDS: NORTRIPTYLINE 25 MG CAP PO SCH ×2 (09:15→20:09)
[2018-11-25] MEDS: BRIMONIDINE 0.1% OPHTH SOLN 5 ML OU SCH ×2 (09:17→20:09)
[2018-11-25] MEDS: POTASSIUM CHLORIDE 10 MEQ SR TABLET PO SCH ×2 (11:45→20:13)
[2018-11-25 14:00] VITALS: BP 107/49
--- NOTE | 2018-11-25 15:45 | IPNPDOC ---
Text Note Date of Service The patient was seen on 11/25/18. NOTE SUBJECTIVE: No acute events overnight. Patient continues to have periods of d izziness or flashing lights that is worse when sitting up. No additional complaints at this time. Brief HPI: Beginning sometime last week and becoming worse on Thursday she experienced subjective dizziness that she thought would resolve. It became worse on Thursday when she began seeing flashing lights. Per the EMR, she follows with Dr. Kuo and on 10/18 her INR was supra-therapeutic at ~4 so she was instructed to hold it for 4 days and then restart it but apparently never restarted the medication per [facility] and on 10/25 when it was remeasured, it was 1.08. OBJECTIVE: PHYSICAL EXAM: Vitals: (see below) General: No acute distress, resting comfortably in bed with multiple Thursday crossword puzzles completed next to her bed. HEENT: Normocephalic, atraumatic. EOMI. No scleral icterus. Moist mucous membranes. No pharyngeal erythema or uvular deviation. Neck: No JVD, lymphadenopathy, or thyromegaly. Cardiac: RRR, Normal S1 and S2, No murmurs, gallops, rubs. Pulm: Clear to auscultation b/l. Symmetric thorax. No wheezing, crackles, rhonchi Abd: Bowel Sounds present. Abdomen is soft, non-tender, non-distended. Ext: 1+ pitting edema Neuro: CN2-12 intact. Strength intact. Patient experiencing only unilateral dizziness/flashing lights in R-eye, not in left. LABORATORY DATA, MICROBIOLOGY: Please see below. IMAGING STUDIES: 11/23/[address]: 1. Area of old stroke left occipital lobe. 2. Chronic ischemic changes. An MRI scan would be a more sensitive exam for acute ischemic change. 11/23/18 brain MRI without contrast: On DWI sequence there is a linear area of bright signal intensity medial aspect of the right temporal lobe following the right temporal horn of the lateral ventricle consistent with an area of acute stroke. There is also a 5 mm small round area of bright signal intensity right occipital lobe suspicious for a small area of new stroke. 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 11/24/18 vascular ultrasound: Bilateral luminal narrowing of the internal carotid arteries less than 50%. No evidence of hemodynamically significant stenosis. ASSESSMENT AND PLAN: #. CVA - MRI showing acute stroke in R-temporal, occipital lobes with occlusion of left vertebral artery. Carotid U/S negative. - Neurology has seen patient, recommendations appreciated. - I suspect this stroke is likely due to a subtherapeutic INR, will restart patient's home dose and continue to monitor. She was started on plavix and samantha rvastatin last night. We will increase her atorvastatin to 40mg as she needs to be on high dose statin. - Patient continues to work with physical therapy, still not safe for discharge. #. Atrial fibrillation -Rate controlled on atenolol, will restart home Coumadin dose and adjust as necessary #. Hypertensive heart disease -Patient receives alternating doses of Lasix every other day. -Continue losartan #. GERD - Continue omeprazole DVT prophylaxis:On coumadin VS,Fishbone, I+O VS, Fishbone, I+O Laboratory Tests 11/25/18 06:11 Red Blood Count 4.62, Mean Corpuscular Volume 92.9, Mean Corpuscular Hemoglobin 30.5, Mean Corpuscular Hemoglobin Concent 32.9, Red Cell Distribution Width 13.6, Calcium Level 8.8 Vital Signs Date Time Temp Pulse Resp B/P (MAP) Pulse Ox O2 Delivery O2 Flow Rate FiO2 11/25/18 14:00 98.0 79 18 107/49 (68) 97 11/23/18 22:14 Room Air I&O- Last 24 Hours up to 6 AM 11/25/18 06:00 Intake Total 820 ml Output Total 450 ml Balance 370 ml GME ATTESTATION GME ATTESTATION My faculty preceptor for this patient encounter was physically present during the encounter and was fully available. All aspects of the patient interview, examination, medical decision making process, and medical care plan development were reviewed and approved by the faculty preceptor. The faculty preceptor is aware and concurs with the plan as stated in the body of this note and will attest to such by his/her cosignature. ATTENDING NOTE I, Naren Chiang, have independently examined this patient and performed my own physical exam, as well as reviewed the documentation and edited where necessary. I have discussed in detail with the resident / student the findings and plan of treatment as documented by the resident / student and edited their note. I agree with their findings and treatment plan and have edited their documentation. I will continue to follow the patient during this hospital stay. SAMY WEBSTER DO Nov 25, 2018 15:45 NAREN CHIANG MD Nov 25, 2018 16:24
--- NOTE | 2018-11-25 16:52 | CR ---
DATE OF CONSULTATION: 11/25/2018 REASON FOR CONSULTATION: Acute stroke. Jessica Mandel is an 88-year-old female with past medical history for prior stroke in 2000. The patient was on aspirin 81 mg daily as well as Coumadin. She states she ran out of her Coumadin. Her INR was reported to be 1.2 on admission. The patient noted flashing lights out of her visual rodriguez. She was noted to have a right occipital lobe 5 mm small focus of stroke with incidental right temporal lateral to the ventral horn ischemic stroke as well. Her left vertebral artery is occluded. The patient has less than 50% ICA bilateral stenosis. The patient presently has some weakness on the left leg and left arm, some of the weakness in the left leg has been old from prior back trouble. The patient denies any change in speech at the present time. The patient is being dosed on her Coumadin again to keep her INR therapeutic between 2 and 3. The patient's stroke is likely due to subtherapeutic INR. REVIEW OF SYSTEMS 14-point review of systems obtained is negative except as per HPI. ALLERGIES PENICILLIN, GUDELIA INHIBITORS, DOXYCYCLINE, IBUPROFEN, PRAZOSIN, CODEINE. PAST MEDICAL HISTORY Hypertension, atrial fibrillation on anticoagulation, subtherapeutic INR presently, stroke in 2000, migraine headaches. PAST SURGICAL HISTORY Bilateral knee replacement, cholecystectomy. FAMILY HISTORY Noncontributory. SOCIAL HISTORY The patient is a former smoker. Denies use of any alcohol or illicit drugs. PHYSICAL EXAMINATION Blood pressure is 168/72, pulse rate 90, respiratory rate is 18, temperature is 98.1 degrees Fahrenheit, oxygenation 97% on room air. Current height is 5 feet 2 inches. Current weight is 97.3 kg. The patient is awake, alert, oriented to person, place and time. Speech, language and comprehension are intact. Pupils are 2.5 mm round, reactive to light. Extraocular movements are intact in all directions without nystagmus. Sensation V1, V2-V3 is intact to light touch. There is no visual field loss on confrontational testing. Sensation V1, V2-V3 is intact to light touch. No facial asymmetry to activation. Palate elevates symmetrically. Tongue is midline. There is no weakness of sternocleidomastoids. The patient has weakness in bilateral deltoids, grade 5-, biceps of 5/5, triceps on the left is 5- and 5 on the right. Iliopsoas is 5- on the left, iliopsoas quadriceps is 5/5 bilaterally. Tibialis anterior is 5- on the left and 5+ on the right. Sensory is intact to light touch in all four extremities. Coordination without any gross ataxia, dysmetria. Gait deferred. ASSESSMENT 88-year-old female with MRI evidence of right temporal and right occipital ischemic stroke in the setting of subtherapeutic INR of 1.24 in the presence medical noncompliance. The patient running out of her medications. PLAN Continue aspirin 81 mg by mouth (p.o.) daily. Restart warfarin with goal INR between 2 and 3. Physical therapy (PT)/occupational therapy (OT) evaluation. Echocardiogram to be completed. Keep systolic blood pressure 140-180 times 48 hours then normalize. The patient to follow up in the [facility] in 4-6 weeks post discharge.
[2018-11-25] MEDS: WARFARIN SOD 2 MG TAB PO SCH (20:10)
[2018-11-25] MEDS: ATORVASTATIN 20 MG TAB PO SCH (20:12)
[2018-11-25] MEDS: LOSARTAN 50 MG TAB PO SCH (20:12)
[2018-11-25] MEDS: atenoloL 50 MG TAB PO SCH (20:13)
[2018-11-25] MEDS ORDERED: ACETAMINOPHEN 500 MG TAB PO ONE (21:45)
[2018-11-25 22:00] VITALS: BP 128/69
[2018-11-26 06:00] VITALS: BP 139/71
[2018-11-26 07:08] LABS: HEMATOCRIT 43.1 % (36.0-47.0); HEMOGLOBIN 14.3 g/dl (12.0-15.5); MEAN CORPUSCULAR HEMOGLOBIN 31.3 pg (27.0-33.0); MEAN CORPUSCULAR HGB CONC 33.2 g/dl (32.0-36.5); MEAN CORPUSCULAR VOLUME 94.3 fl (80.0-96.0); PLATELET COUNT, AUTOMATED 201 10^3/uL (150-450); RED BLOOD COUNT 4.57 10^6/uL (4.00-5.40); WHITE BLOOD COUNT 7.4 10^3/uL (4.0-10.0)
[2018-11-26 07:19] LABS: INR 1.89; PROTHROMBIN TIME 21.5 SECONDS (11.8-14.0)
[2018-11-26 08:39] LABS: CALCIUM LEVEL 9.2 MG/DL (8.8-10.2); CREATININE FOR GFR 1.07 MG/DL (0.55-1.30); GLOMERULAR FILTRATION RATE 51.8 (>32); POTASSIUM SERUM 3.7 MEQ/L (3.5-5.1)
[2018-11-26] MEDS: NORTRIPTYLINE 25 MG CAP PO SCH ×2 (08:43→21:44)
[2018-11-26] MEDS: OMEPRAZOLE 20 MG CAP PO SCH (08:43)
[2018-11-26] MEDS: FUROSEMIDE 80 MG TAB PO SCH (08:43)
[2018-11-26] MEDS: CLOPIDOGREL 75 MG TAB PO SCH (08:44)
[2018-11-26] MEDS: POTASSIUM CHLORIDE 10 MEQ SR TABLET PO SCH ×2 (08:44→21:45)
[2018-11-26] MEDS: BRIMONIDINE 0.1% OPHTH SOLN 5 ML OU SCH ×2 (08:44→21:45)
[2018-11-26] MEDS: NYSTATIN 100,000 UNITS/GM TOPICAL PWD 15 GM TOP SCH ×2 (08:44→21:41)
[2018-11-26] MEDS: MAGNESIUM CHLORIDE 64 MG TABCR (SLO MAG) PO SCH (08:44)
--- NOTE | 2018-11-26 09:52 | IPNPDOC ---
Text Note Date of Service The patient was seen on 11/26/18. NOTE SUBJECTIVE: No acute events overnight. Patient states her dizziness is signif icantly improved from yesterday. Brief HPI: Beginning sometime last week and becoming worse on Thursday she experienced subjective dizziness that she thought would resolve. It became worse on Thursday when she began seeing flashing lights. Per the EMR, she follows with Dr. Kuo and on 10/18 her INR was supra-therapeutic at ~4 so she was instructed to hold it for 4 days and then restart it but apparently never restarted the medication per [facility] and on 10/25 when it was remeasured, it was 1.08. OBJECTIVE: PHYSICAL EXAM: Vitals: (see below) General: No acute distress, sitting up next to her bed doing cross word puzzles. HEENT: Normocephalic, atraumatic. EOMI. No scleral icterus. Moist mucous mem branes. No pharyngeal erythema or uvular deviation. Neck: No JVD, lymphadenopathy, or thyromegaly. Cardiac: RRR, Normal S1 and S2, No murmurs, gallops, rubs. Pulm: Clear to auscultation b/l. Symmetric thorax. No wheezing, crackles, rhonchi Abd: Bowel Sounds present. Abdomen is soft, non-tender, non-distended. Ext: 1+ pitting edema Neuro: CN2-12 intact. Strength intact. LABORATORY DATA, MICROBIOLOGY: Please see below. IMAGING STUDIES: 11/23/[address]: 1. Area of old stroke left occipital lobe. 2. Chronic ischemic changes. An MRI scan would be a more sensitive exam for acute ischemic change. 11/23/18 brain MRI without contrast: On DWI sequence there is a linear area of bright signal intensity medial aspect of the right temporal lobe following the right temporal horn of the lateral ventricle consistent with an area of acute stroke. There is also a 5 mm small round area of bright signal intensity right occipital lobe suspicious for a small area of new stroke. 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 11/24/18 vascular ultrasound: Bilateral luminal narrowing of the internal carotid arteries less than 50%. No evidence of hemodynamically significant stenosis. ASSESSMENT AND PLAN: #. CVA secondary to afib and subtherapeutic INR - MRI showing acute stroke in R-temporal, occipital lobes with occlusion of left vertebral artery. Carotid U/S negative. - Neurology consulted, recommending 4-6 follow up with [facility] clinic, resume 81 mg aspirin. Plavix will be discontinued. - Continue statin therapy - Continues with PT, they will work with her today, but are anticipating Thursday discharge. #. Atrial fibrillation -Rate controlled on atenolol, INR now 1.89, continue home dose #. Hypertensive heart disease -Patient receives alternating doses of Lasix every other day. -Continue losartan #. GERD - Continue omeprazole DVT prophylaxis: warfarin VS,Fishbone, I+O VS, Fishbone, I+O Laboratory Tests 11/26/18 06:54 Red Blood Count 4.57, Mean Corpuscular Volume 94.3, Mean Corpuscular Hemoglobin 31.3, Mean Corpuscular Hemoglobin Concent 33.2, Red Cell Distribution Width 13.4, Calcium Level 9.2 Vital Signs Date Time Temp Pulse Resp B/P (MAP) Pulse Ox O2 Delivery O2 Flow Rate FiO2 11/26/18 06:00 96.6 75 18 139/71 (93) 96 11/23/18 22:14 Room Air I&O- Last 24 Hours up to 6 AM 11/26/18 06:00 Intake Total 780 ml Output Total 400 ml Balance 380 ml GME ATTESTATION GME ATTESTATION My faculty preceptor for this patient encounter was physically present during the encounter and was fully available. All aspects of the patient interview, examination, medical decision making process, and medical care plan development were reviewed and approved by the faculty preceptor. The faculty preceptor is aware and concurs with the plan as stated in the body of this note and will attest to such by his/her cosignature. ATTENDING NOTE I, Naren Chiang, have independently examined this patient and performed my own physical exam, as well as reviewed the documentation and edited where necessary. I have discussed in detail with the resident / student the findings and plan of treatment as documented by the resident / student and edited their note. I agree with their findings and treatment plan and have edited their documentation. I will continue to follow the patient during this hospital stay. SAMY WEBSTER DO Nov 26, 2018 09:52 NAREN CHIANG MD Nov 26, 2018 14:30
[2018-11-26] MEDS: ASPIRIN 81 MG ENTERIC TAB PO SCH (11:00)
[2018-11-26 14:00] VITALS: BP 139/71
[2018-11-26 20:00] VITALS: BP 152/79
[2018-11-26] MEDS: LOSARTAN 50 MG TAB PO SCH (21:42)
[2018-11-26] MEDS: WARFARIN SOD 2 MG TAB PO SCH (21:43)
[2018-11-26] MEDS: ATORVASTATIN 20 MG TAB PO SCH ×2 (21:44→21:45)
[2018-11-26] MEDS: atenoloL 50 MG TAB PO SCH (21:44)
[2018-11-27 06:00] VITALS: BP 146/79
[2018-11-27 06:33] LABS: HEMATOCRIT 43.6 % (36.0-47.0); HEMOGLOBIN 14.2 g/dl (12.0-15.5); MEAN CORPUSCULAR HEMOGLOBIN 30.8 pg (27.0-33.0); MEAN CORPUSCULAR HGB CONC 32.6 g/dl (32.0-36.5); MEAN CORPUSCULAR VOLUME 94.6 fl (80.0-96.0); PLATELET COUNT, AUTOMATED 208 10^3/uL (150-450); RED BLOOD COUNT 4.61 10^6/uL (4.00-5.40); WHITE BLOOD COUNT 7.4 10^3/uL (4.0-10.0)
[2018-11-27 06:40] LABS: INR 2.48; PROTHROMBIN TIME 26.7 SECONDS (11.8-14.0)
[2018-11-27 06:50] LABS: CALCIUM LEVEL 9.2 MG/DL (8.8-10.2); CREATININE FOR GFR 1.15 MG/DL (0.55-1.30); GLOMERULAR FILTRATION RATE 47.6 (>32); POTASSIUM SERUM 3.6 MEQ/L (3.5-5.1)
[2018-11-27] MEDS: POTASSIUM CHLORIDE 10 MEQ SR TABLET PO SCH ×2 (08:51→21:07)
[2018-11-27] MEDS: MAGNESIUM CHLORIDE 64 MG TABCR (SLO MAG) PO SCH (08:51)
[2018-11-27] MEDS: OMEPRAZOLE 20 MG CAP PO SCH (08:51)
[2018-11-27] MEDS: NORTRIPTYLINE 25 MG CAP PO SCH ×2 (08:52→21:07)
[2018-11-27] MEDS: NYSTATIN 100,000 UNITS/GM TOPICAL PWD 15 GM TOP SCH ×2 (08:52→21:07)
[2018-11-27] MEDS: ASPIRIN 81 MG ENTERIC TAB PO SCH (08:52)
[2018-11-27] MEDS: BRIMONIDINE 0.1% OPHTH SOLN 5 ML OU SCH ×2 (08:52→21:08)
--- NOTE | 2018-11-27 09:12 | IPNPDOC ---
Text Note Date of Service The patient was seen on 11/27/18. NOTE SUBJECTIVE: No acute events overnight. Patient did have some intermittent diz ziness yesterday that resolved after a few minutes. Brief HPI: Beginning sometime last week and becoming worse on Thursday she experienced subjective dizziness that she thought would resolve. It became worse on Thursday when she began seeing flashing lights. Per the EMR, she follows with Dr. Kuo and on 10/18 her INR was supra-therapeutic at ~4 so she was instructed to hold it for 4 days and then restart it but apparently never restarted the medication per [facility] and on 10/25 when it was remeasured, it was 1.08. OBJECTIVE: PHYSICAL EXAM: Vitals: (see below) General: No acute distress, sitting up next to her bed doing cross word puzzles. HEENT: Normocephalic, atraumatic. EOMI. No scleral icterus. Moist mucous membranes. No pharyngeal erythema or uvular deviation. Neck: No JVD, lymphadenopathy, or thyromegaly. Cardiac: RRR, Normal S1 and S2, No murmurs, gallops, rubs. Pulm: Clear to auscultation b/l. Symmetric thorax. No wheezing, crackles, rhonchi Abd: Bowel Sounds present. Abdomen is soft, non-tender, non-distended. Ext: 1+ pitting edema Neuro: CN2-12 intact. Strength intact. LABORATORY DATA, MICROBIOLOGY: Please see below. IMAGING STUDIES: 11/23/[address]: 1. Area of old stroke left occipital lobe. 2. Chronic ischemic changes. An MRI scan would be a more sensitive exam for acute ischemic change. 11/23/18 brain MRI without contrast: On DWI sequence there is a linear area of bright signal intensity medial aspect of the right temporal lobe following the right temporal horn of the lateral ventricle consistent with an area of acute stroke. There is also a 5 mm small round area of bright signal intensity right occipital lobe suspicious for a small area of new stroke. 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 11/24/18 vascular ultrasound: Bilateral luminal narrowing of the internal carotid arteries less than 50%. No evidence of hemodynamically significant stenosis. ASSESSMENT AND PLAN: #. CVA secondary to afib and subtherapeutic INR - MRI showing acute stroke in R-temporal, occipital lobes with occlusion of left vertebral artery. Carotid U/S negative. - Neurology consulted, recommending 4-[address] [facility]rology clinic, resume 81 mg aspirin. - Continue statin therapy - Continues with PT, not safe for D/C at this time, PT recommending home with services. #. Atrial fibrillation -Rate controlled on atenolol, INR now 2.48, lowering dose from 4 to 3mg to maintain therapeutic levels. #. Hypertensive heart disease -Patient receives alternating doses of Lasix every other day. -Continue losartan #. GERD - Continue omeprazole DVT prophylaxis: Warfarin Disposition: Pending PT clearance, Transition to ALC status today VS,Fishbone, I+O VS, Fishbone, I+O Laboratory Tests 11/27/18 06:10 Red Blood Count 4.61, Mean Corpuscular Volume 94.6, Mean Corpuscular Hemoglobin 30.8, Mean Corpuscular Hemoglobin Concent 32.6, Red Cell Distribution Width 13.3, Calcium Level 9.2 Vital Signs Date Time Temp Pulse Resp B/P (MAP) Pulse Ox O2 Delivery O2 Flow Rate FiO2 11/27/18 06:00 98.1 74 18 146/79 (101) 94 11/23/18 22:14 Room Air I&O- Last 24 Hours up to 6 AM 11/27/18 06:00 Intake Total 2040 ml Output Total 1200 ml Balance 840 ml GME ATTESTATION GME ATTESTATION My faculty preceptor for this patient encounter was physically present during the encounter and was fully available. All aspects of the patient interview, examination, medical decision making process, and medical care plan development were reviewed and approved by the faculty preceptor. The faculty preceptor is aware and concurs with the plan as stated in the body of this note and will attest to such by his/her cosignature. ATTENDING NOTE I, Naren Chiang, have independently examined this patient and performed my own physical exam, as well as reviewed the documentation and edited where necessary. I have discussed in detail with the resident / student the findings and plan of treatment as documented by the resident / student and edited their note. I agree with their findings and treatment plan and have edited their documentation. I will continue to follow the patient during this hospital stay. SAMY WEBSTER DO Nov 27, 2018 09:12 NAREN CHIANG MD Nov 27, 2018 14:36
[2018-11-27] MEDS ORDERED: WARFARIN SOD 3 MG TAB PO SCH (21:00)
[2018-11-27] MEDS: ATORVASTATIN 20 MG TAB PO SCH (21:07)
[2018-11-27] MEDS: LOSARTAN 50 MG TAB PO SCH (21:08)
[2018-11-27] MEDS: atenoloL 50 MG TAB PO SCH (21:08)
[2018-11-28 06:00] VITALS: BP 151/86
[2018-11-28 06:28] LABS: HEMATOCRIT 43.1 % (36.0-47.0); HEMOGLOBIN 14.2 g/dl (12.0-15.5); MEAN CORPUSCULAR HEMOGLOBIN 30.3 pg (27.0-33.0); MEAN CORPUSCULAR HGB CONC 32.9 g/dl (32.0-36.5); MEAN CORPUSCULAR VOLUME 92.1 fl (80.0-96.0); PLATELET COUNT, AUTOMATED 202 10^3/uL (150-450); RED BLOOD COUNT 4.68 10^6/uL (4.00-5.40); WHITE BLOOD COUNT 10.2 10^3/uL (4.0-10.0)
[2018-11-28 06:40] LABS: INR 2.79; PROTHROMBIN TIME 29.3 SECONDS (11.8-14.0)
[2018-11-28 06:58] LABS: CALCIUM LEVEL 8.9 MG/DL (8.8-10.2); CREATININE FOR GFR 1.14 MG/DL (0.55-1.30); GLOMERULAR FILTRATION RATE 48.1 (>32)
[2018-11-28] MEDS: NYSTATIN 100,000 UNITS/GM TOPICAL PWD 15 GM TOP SCH ×2 (09:36→21:15)
[2018-11-28] MEDS: ASPIRIN 81 MG ENTERIC TAB PO SCH (09:36)
[2018-11-28] MEDS: NORTRIPTYLINE 25 MG CAP PO SCH ×2 (09:37→21:12)
[2018-11-28] MEDS: MAGNESIUM CHLORIDE 64 MG TABCR (SLO MAG) PO SCH (09:37)
[2018-11-28] MEDS: OMEPRAZOLE 20 MG CAP PO SCH (09:37)
[2018-11-28] MEDS: FUROSEMIDE 40 MG TAB PO SCH (09:37)
[2018-11-28] MEDS: POTASSIUM CHLORIDE 10 MEQ SR TABLET PO SCH ×2 (09:37→21:12)
[2018-11-28] MEDS: BRIMONIDINE 0.1% OPHTH SOLN 5 ML OU SCH ×2 (09:37→21:14)
[2018-11-28] MEDS ORDERED: WARFARIN SOD 2 MG TAB PO SCH (21:00)
[2018-11-28] MEDS: ATORVASTATIN 20 MG TAB PO SCH (21:14)
[2018-11-28] MEDS: atenoloL 50 MG TAB PO SCH (21:14)
[2018-11-28] MEDS: LOSARTAN 50 MG TAB PO SCH (21:14)
[2018-11-29 06:00] VITALS: BP 153/73
[2018-11-29 06:52] LABS: HEMATOCRIT 42.7 % (36.0-47.0); MEAN CORPUSCULAR HEMOGLOBIN 31.2 pg (27.0-33.0); MEAN CORPUSCULAR HGB CONC 32.8 g/dl (32.0-36.5); MEAN CORPUSCULAR VOLUME 95.1 fl (80.0-96.0); PLATELET COUNT, AUTOMATED 198 10^3/uL (150-450); RED BLOOD COUNT 4.49 10^6/uL (4.00-5.40); WHITE BLOOD COUNT 7.3 10^3/uL (4.0-10.0)
[2018-11-29 07:01] LABS: INR 3.35; PROTHROMBIN TIME 33.9 SECONDS (11.8-14.0)
[2018-11-29 07:10] LABS: CALCIUM LEVEL 8.7 MG/DL (8.8-10.2); CREATININE FOR GFR 1.1 MG/DL (0.55-1.30); GLOMERULAR FILTRATION RATE 50.1 (>32); POTASSIUM SERUM 3.9 MEQ/L (3.5-5.1)
[2018-11-29] MEDS: NORTRIPTYLINE 25 MG CAP PO SCH ×2 (09:00→20:24)
[2018-11-29] MEDS: MAGNESIUM CHLORIDE 64 MG TABCR (SLO MAG) PO SCH (09:23)
[2018-11-29] MEDS: ASPIRIN 81 MG ENTERIC TAB PO SCH (09:23)
[2018-11-29] MEDS: POTASSIUM CHLORIDE 10 MEQ SR TABLET PO SCH ×2 (09:24→20:24)
[2018-11-29] MEDS: BRIMONIDINE 0.1% OPHTH SOLN 5 ML OU SCH ×2 (09:24→20:25)
[2018-11-29] MEDS: FUROSEMIDE 40 MG TAB PO SCH (09:24)
[2018-11-29] MEDS: OMEPRAZOLE 20 MG CAP PO SCH (09:24)
[2018-11-29] MEDS: NYSTATIN 100,000 UNITS/GM TOPICAL PWD 15 GM TOP SCH ×2 (09:25→20:25)
[2018-11-29 09:28] VITALS: BP 112/68
[2018-11-29] MEDS: ATORVASTATIN 20 MG TAB PO SCH (20:24)
[2018-11-29] MEDS: LOSARTAN 50 MG TAB PO SCH (20:26)
[2018-11-29] MEDS: atenoloL 50 MG TAB PO SCH (20:26)
[2018-11-30 06:00] VITALS: BP 125/94
[2018-11-30 06:16] LABS: HEMATOCRIT 42.6 % (36.0-47.0); MEAN CORPUSCULAR HEMOGLOBIN 30.5 pg (27.0-33.0); MEAN CORPUSCULAR HGB CONC 32.9 g/dl (32.0-36.5); MEAN CORPUSCULAR VOLUME 92.8 fl (80.0-96.0); PLATELET COUNT, AUTOMATED 221 10^3/uL (150-450); RED BLOOD COUNT 4.59 10^6/uL (4.00-5.40); WHITE BLOOD COUNT 8.1 10^3/uL (4.0-10.0)
[2018-11-30 06:27] LABS: INR 3.49; PROTHROMBIN TIME 35.1 SECONDS (11.8-14.0)
[2018-11-30 06:39] LABS: CALCIUM LEVEL 8.8 MG/DL (8.8-10.2); CREATININE FOR GFR 1.12 MG/DL (0.55-1.30); GLOMERULAR FILTRATION RATE 49.1 (>32); POTASSIUM SERUM 3.9 MEQ/L (3.5-5.1)
[2018-11-30] MEDS: NYSTATIN 100,000 UNITS/GM TOPICAL PWD 15 GM TOP SCH ×2 (09:04→20:01)
[2018-11-30] MEDS: MAGNESIUM CHLORIDE 64 MG TABCR (SLO MAG) PO SCH (09:04)
[2018-11-30] MEDS: BRIMONIDINE 0.1% OPHTH SOLN 5 ML OU SCH ×2 (09:04→20:02)
[2018-11-30] MEDS: NORTRIPTYLINE 25 MG CAP PO SCH ×2 (09:05→20:03)
[2018-11-30] MEDS: POTASSIUM CHLORIDE 10 MEQ SR TABLET PO SCH ×2 (09:05→20:03)
[2018-11-30] MEDS: FUROSEMIDE 40 MG TAB PO SCH (09:05)
[2018-11-30] MEDS: OMEPRAZOLE 20 MG CAP PO SCH (09:05)
[2018-11-30] MEDS: ASPIRIN 81 MG ENTERIC TAB PO SCH (09:05)
[2018-11-30] MEDS: atenoloL 50 MG TAB PO SCH (20:02)
[2018-11-30] MEDS: ATORVASTATIN 20 MG TAB PO SCH (20:03)
[2018-11-30] MEDS: LOSARTAN 50 MG TAB PO SCH (20:03)
[2018-12-01 06:00] VITALS: BP 112/55
[2018-12-01 08:09] LABS: HEMATOCRIT 42.5 % (36.0-47.0); HEMOGLOBIN 13.7 g/dl (12.0-15.5); MEAN CORPUSCULAR HGB CONC 32.2 g/dl (32.0-36.5); MEAN CORPUSCULAR VOLUME 93.2 fl (80.0-96.0); PLATELET COUNT, AUTOMATED 224 10^3/uL (150-450); RED BLOOD COUNT 4.56 10^6/uL (4.00-5.40); WHITE BLOOD COUNT 8.7 10^3/uL (4.0-10.0)
[2018-12-01 08:13] LABS: CALCIUM LEVEL 8.8 MG/DL (8.8-10.2); CREATININE FOR GFR 1.18 MG/DL (0.55-1.30); GLOMERULAR FILTRATION RATE 46.2 (>32)
[2018-12-01 08:19] LABS: INR 2.79; PROTHROMBIN TIME 29.3 SECONDS (11.8-14.0)
[2018-12-01] MEDS: NYSTATIN 100,000 UNITS/GM TOPICAL PWD 15 GM TOP SCH ×2 (09:53→21:47)
[2018-12-01] MEDS: OMEPRAZOLE 20 MG CAP PO SCH (09:53)
[2018-12-01] MEDS: MAGNESIUM CHLORIDE 64 MG TABCR (SLO MAG) PO SCH (09:53)
[2018-12-01] MEDS: NORTRIPTYLINE 25 MG CAP PO SCH ×2 (09:53→21:44)
[2018-12-01] MEDS: BRIMONIDINE 0.1% OPHTH SOLN 5 ML OU SCH ×2 (09:53→21:47)
[2018-12-01] MEDS: POTASSIUM CHLORIDE 10 MEQ SR TABLET PO SCH ×2 (09:54→21:44)
[2018-12-01] MEDS: ASPIRIN 81 MG ENTERIC TAB PO SCH (09:54)
[2018-12-01] MEDS: FUROSEMIDE 40 MG TAB PO SCH (09:54)
[2018-12-01 14:00] VITALS: BP 114/60
[2018-12-01] MEDS: LOSARTAN 50 MG TAB PO SCH (21:45)
[2018-12-01] MEDS: ATORVASTATIN 20 MG TAB PO SCH (21:46)
[2018-12-01] MEDS: atenoloL 50 MG TAB PO SCH (21:46)
[2018-12-02 06:00] VITALS: BP 142/79
[2018-12-02 06:08] LABS: HEMOGLOBIN 14.2 g/dl (12.0-15.5); MEAN CORPUSCULAR HEMOGLOBIN 31.3 pg (27.0-33.0); MEAN CORPUSCULAR VOLUME 94.7 fl (80.0-96.0); PLATELET COUNT, AUTOMATED 215 10^3/uL (150-450); RED BLOOD COUNT 4.54 10^6/uL (4.00-5.40); WHITE BLOOD COUNT 7.7 10^3/uL (4.0-10.0)
[2018-12-02 06:21] LABS: INR 2.4
[2018-12-02 06:32] LABS: CALCIUM LEVEL 8.7 MG/DL (8.8-10.2); CREATININE FOR GFR 1.24 MG/DL (0.55-1.30); GLOMERULAR FILTRATION RATE 43.7 (>32); POTASSIUM SERUM 3.7 MEQ/L (3.5-5.1)
[2018-12-02] MEDS: MAGNESIUM CHLORIDE 64 MG TABCR (SLO MAG) PO SCH (07:55)
[2018-12-02] MEDS: FUROSEMIDE 40 MG TAB PO SCH (07:55)
[2018-12-02] MEDS: OMEPRAZOLE 20 MG CAP PO SCH (07:56)
[2018-12-02] MEDS: NORTRIPTYLINE 25 MG CAP PO SCH ×2 (07:56→20:59)
[2018-12-02] MEDS: BRIMONIDINE 0.1% OPHTH SOLN 5 ML OU SCH ×2 (07:56→21:00)
[2018-12-02] MEDS: POTASSIUM CHLORIDE 10 MEQ SR TABLET PO SCH ×2 (07:56→20:59)
[2018-12-02] MEDS: ASPIRIN 81 MG ENTERIC TAB PO SCH (07:56)
[2018-12-02] MEDS: NYSTATIN 100,000 UNITS/GM TOPICAL PWD 15 GM TOP SCH ×2 (07:57→21:03)
--- NOTE | 2018-12-02 10:04 | IPNPDOC ---
Text Note Date of Service The patient was seen on 12/02/18. NOTE SUBJECTIVE: No acute events since last encounter, patient still reports trans ient dizziness that resolves after some time, it mainly occurs when moving from sitting to standing position. Brief HPI: Beginning sometime last week and becoming worse on Thursday she experienced subjective dizziness that she thought would resolve. It became worse on Thursday when she began seeing flashing lights. Per the EMR, she follows with Dr. Kuo and on 10/18 her INR was supra-therapeutic at ~4 so she was instructed to hold it for 4 days and then restart it but apparently never restarted the medication per [facility] and on 10/25 when it was remeasured, it was 1.08. OBJECTIVE: PHYSICAL EXAM: Vitals: (see below) General: No acute distress, sitting up next to her bed doing cross word puzzles. HEENT: Normocephalic, atraumatic. EOMI. No scleral icterus. Moist mucous membranes. No pharyngeal erythema or uvular deviation. Neck: No JVD, lymphadenopathy, or thyromegaly. Cardiac: RRR, Normal S1 and S2, No murmurs, gallops, rubs. Pulm: Clear to auscultation b/l. Symmetric thorax. No wheezing, crackles, rhonchi Abd: Bowel Sounds present. Abdomen is soft, non-tender, non-distended. Ext: 1+ pitting edema Neuro: CN2-12 intact. Strength intact. LABORATORY DATA, MICROBIOLOGY: Please see below. IMAGING STUDIES: 11/23/[address]: 1. Area of old stroke left occipital lobe. 2. Chronic ischemic changes. An MRI scan would be a more sensitive exam for acute ischemic change. 11/23/18 brain MRI without contrast: On DWI sequence there is a linear area of bright signal intensity medial aspect of the right temporal lobe following the right temporal horn of the lateral ventricle consistent with an area of acute stroke. There is also a 5 mm small round area of bright signal intensity right occipital lobe suspicious for a small area of new stroke. 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 11/24/18 vascular ultrasound: Bilateral luminal narrowing of the internal carotid arteries less than 50%. No evidence of hemodynamically significant stenosis. ASSESSMENT AND PLAN: #. CVA secondary to afib and subtherapeutic INR - MRI showing acute stroke in R-temporal, occipital lobes with occlusion of left vertebral artery. Carotid U/S negative. - Neurology consulted, recommending 4-6 follow up with [facility] clinic, resume 81 mg aspirin. - Continue statin therapy - Patient was anticipated to be stable for discharge today and when I saw her this seemed feasible, however while working with PT she experienced another episode of dizziness and PT feels she remains unsafe at this time. Will await their clearance for discharge. #. Atrial fibrillation -Rate controlled on atenolol, her coumadin was held with last dose on 11/29. She currently is therapeutic, will resume her coumadin at 2 mg beginning tonight. #. Hypertensive heart disease -Patient receives alternating doses of Lasix every other day. -Continue losartan #. GERD - Continue omeprazole DVT prophylaxis: Warfarin Disposition: Pending PT clearance I saw and evaluated the patient. I agree with the findings and plan of care as documented in the above note VS,Jamele, I+O VS, Jamele, I+O Laboratory Tests 12/02/18 05:29 Red Blood Count 4.54, Mean Corpuscular Volume 94.7, Mean Corpuscular Hemoglobin 31.3, Mean Corpuscular Hemoglobin Concent 33.0, Red Cell Distribution Width 13.2, Calcium Level 8.7 L Vital Signs Date Time Temp Pulse Resp B/P (MAP) Pulse Ox O2 Delivery O2 Flow Rate FiO2 12/02/18 06:00 97.2 83 18 142/79 (100) 96 I&O- Last 24 Hours up to 6 AM 12/02/18 05:59 Intake Total 540 ml Output Total 500 ml Balance 40 ml GME ATTESTATION GME ATTESTATION My faculty preceptor for this patient encounter was physically present during the encounter and was fully available. All aspects of the patient interview, examination, medical decision making process, and medical care plan development were reviewed and approved by the faculty preceptor. The faculty preceptor is aware and concurs with the plan as stated in the body of this note and will attest to such by his/her cosignature. SAMY WEBSTER DO Dec 02, 2018 10:04 CHAIM DENISE MD Dec 03, 2018 09:58
[2018-12-02] MEDS ORDERED: FLUBLOK(EGG FREE)(QUAD)INFLUENZA VACC 0.5ML SYRINGE (90682)18YRS&OLDER IM ONE (11:00)
[2018-12-02] MEDS: WARFARIN SOD 2 MG TAB PO SCH (16:48)
[2018-12-02] MEDS: ATORVASTATIN 20 MG TAB PO SCH (20:56)
[2018-12-02] MEDS: LOSARTAN 50 MG TAB PO SCH (20:58)
[2018-12-02] MEDS: atenoloL 50 MG TAB PO SCH (20:59)
[2018-12-03 06:00] VITALS: BP 112/52
[2018-12-03 06:48] LABS: HEMATOCRIT 42.2 % (36.0-47.0); HEMOGLOBIN 13.7 g/dl (12.0-15.5); MEAN CORPUSCULAR HEMOGLOBIN 30.6 pg (27.0-33.0); MEAN CORPUSCULAR HGB CONC 32.5 g/dl (32.0-36.5); MEAN CORPUSCULAR VOLUME 94.4 fl (80.0-96.0); PLATELET COUNT, AUTOMATED 229 10^3/uL (150-450); RED BLOOD COUNT 4.47 10^6/uL (4.00-5.40)
[2018-12-03 06:57] LABS: INR 2.02; PROTHROMBIN TIME 22.6 SECONDS (11.8-14.0)
[2018-12-03 07:11] LABS: CALCIUM LEVEL 8.8 MG/DL (8.8-10.2); CREATININE FOR GFR 1.23 MG/DL (0.55-1.30); GLOMERULAR FILTRATION RATE 44.1 (>32)
[2018-12-03] MEDS: ASPIRIN 81 MG ENTERIC TAB PO SCH (08:25)
[2018-12-03] MEDS: NORTRIPTYLINE 25 MG CAP PO SCH ×2 (08:25→21:17)
[2018-12-03] MEDS: MAGNESIUM CHLORIDE 64 MG TABCR (SLO MAG) PO SCH (08:25)
[2018-12-03] MEDS: BRIMONIDINE 0.1% OPHTH SOLN 5 ML OU SCH ×2 (08:25→21:36)
[2018-12-03] MEDS: POTASSIUM CHLORIDE 10 MEQ SR TABLET PO SCH ×2 (08:26→21:18)
[2018-12-03] MEDS: FUROSEMIDE 40 MG TAB PO SCH (08:26)
[2018-12-03] MEDS: OMEPRAZOLE 20 MG CAP PO SCH (08:26)
[2018-12-03] MEDS: NYSTATIN 100,000 UNITS/GM TOPICAL PWD 15 GM TOP SCH ×2 (08:27→21:36)
[2018-12-03 16:00] VITALS: BP 128/66
[2018-12-03] MEDS: WARFARIN SOD 2 MG TAB PO SCH (16:57)
[2018-12-03] MEDS: ATORVASTATIN 20 MG TAB PO SCH (21:18)
[2018-12-03] MEDS: LOSARTAN 50 MG TAB PO SCH (21:21)
[2018-12-03] MEDS: atenoloL 50 MG TAB PO SCH (21:22)
[2018-12-03 22:00] VITALS: BP 141/71
[2018-12-04 06:00] VITALS: BP 150/78
[2018-12-04 06:45] LABS: HEMATOCRIT 41.2 % (36.0-47.0); HEMOGLOBIN 13.6 g/dl (12.0-15.5); MEAN CORPUSCULAR HEMOGLOBIN 31.3 pg (27.0-33.0); MEAN CORPUSCULAR VOLUME 94.7 fl (80.0-96.0); PLATELET COUNT, AUTOMATED 228 10^3/uL (150-450); RED BLOOD COUNT 4.35 10^6/uL (4.00-5.40); WHITE BLOOD COUNT 8.2 10^3/uL (4.0-10.0)
[2018-12-04 06:56] LABS: INR 1.97; PROTHROMBIN TIME 22.2 SECONDS (11.8-14.0)
[2018-12-04 07:10] LABS: CALCIUM LEVEL 8.9 MG/DL (8.8-10.2); CREATININE FOR GFR 1.17 MG/DL (0.55-1.30); GLOMERULAR FILTRATION RATE 46.7 (>32); POTASSIUM SERUM 3.8 MEQ/L (3.5-5.1)
[2018-12-04] MEDS: POTASSIUM CHLORIDE 10 MEQ SR TABLET PO SCH ×2 (08:37→22:13)
[2018-12-04] MEDS: ASPIRIN 81 MG ENTERIC TAB PO SCH (08:38)
[2018-12-04] MEDS: FUROSEMIDE 40 MG TAB PO SCH (08:38)
[2018-12-04] MEDS: OMEPRAZOLE 20 MG CAP PO SCH (08:38)
[2018-12-04] MEDS: MAGNESIUM CHLORIDE 64 MG TABCR (SLO MAG) PO SCH (08:41)
[2018-12-04] MEDS: NYSTATIN 100,000 UNITS/GM TOPICAL PWD 15 GM TOP SCH ×2 (08:41→22:14)
[2018-12-04] MEDS: NORTRIPTYLINE 25 MG CAP PO SCH ×2 (08:41→22:13)
[2018-12-04] MEDS: BRIMONIDINE 0.1% OPHTH SOLN 5 ML OU SCH ×2 (08:42→22:15)
[2018-12-04 14:00] VITALS: BP 118/55
[2018-12-04] MEDS: WARFARIN SOD 2.5 MG TAB PO SCH (17:37)
[2018-12-04 22:00] VITALS: BP 129/62
[2018-12-04] MEDS: ATORVASTATIN 20 MG TAB PO SCH (22:13)
[2018-12-04] MEDS: atenoloL 50 MG TAB PO SCH (22:15)
[2018-12-04] MEDS: LOSARTAN 50 MG TAB PO SCH (22:15)
[2018-12-05 06:00] VITALS: BP 128/57
[2018-12-05 06:40] LABS: HEMATOCRIT 41.4 % (36.0-47.0); HEMOGLOBIN 13.7 g/dl (12.0-15.5); MEAN CORPUSCULAR HEMOGLOBIN 31.3 pg (27.0-33.0); MEAN CORPUSCULAR HGB CONC 33.1 g/dl (32.0-36.5); MEAN CORPUSCULAR VOLUME 94.5 fl (80.0-96.0); PLATELET COUNT, AUTOMATED 248 10^3/uL (150-450); RED BLOOD COUNT 4.38 10^6/uL (4.00-5.40); WHITE BLOOD COUNT 8.6 10^3/uL (4.0-10.0)
[2018-12-05 06:53] LABS: INR 2.28; PROTHROMBIN TIME 24.9 SECONDS (11.8-14.0)
[2018-12-05 07:06] LABS: CALCIUM LEVEL 8.9 MG/DL (8.8-10.2); CREATININE FOR GFR 1.26 MG/DL (0.55-1.30); GLOMERULAR FILTRATION RATE 42.9 (>32); POTASSIUM SERUM 3.8 MEQ/L (3.5-5.1)
[2018-12-05] MEDS: NORTRIPTYLINE 25 MG CAP PO SCH ×2 (08:45→22:42)
[2018-12-05] MEDS: BRIMONIDINE 0.1% OPHTH SOLN 5 ML OU SCH ×2 (08:45→22:45)
[2018-12-05] MEDS: OMEPRAZOLE 20 MG CAP PO SCH (08:45)
[2018-12-05] MEDS: POTASSIUM CHLORIDE 10 MEQ SR TABLET PO SCH ×2 (08:45→22:43)
[2018-12-05] MEDS: MAGNESIUM CHLORIDE 64 MG TABCR (SLO MAG) PO SCH (08:45)
[2018-12-05] MEDS: ASPIRIN 81 MG ENTERIC TAB PO SCH (08:45)
[2018-12-05] MEDS: FUROSEMIDE 40 MG TAB PO SCH (08:46)
[2018-12-05] MEDS: NYSTATIN 100,000 UNITS/GM TOPICAL PWD 15 GM TOP SCH ×2 (09:38→22:45)
[2018-12-05] MEDS: WARFARIN SOD 2.5 MG TAB PO SCH (17:09)
[2018-12-05 22:00] VITALS: BP 135/76
[2018-12-05] MEDS: atenoloL 50 MG TAB PO SCH (22:43)
[2018-12-05 22:44] VITALS: BP 136/78
[2018-12-05] MEDS: LOSARTAN 50 MG TAB PO SCH (22:44)
[2018-12-05] MEDS: ATORVASTATIN 20 MG TAB PO SCH (22:44)
[2018-12-06 06:00] VITALS: BP 137/53
[2018-12-06 06:36] LABS: HEMATOCRIT 40.1 % (36.0-47.0); HEMOGLOBIN 13.3 g/dl (12.0-15.5); MEAN CORPUSCULAR HEMOGLOBIN 31.2 pg (27.0-33.0); MEAN CORPUSCULAR HGB CONC 33.2 g/dl (32.0-36.5); MEAN CORPUSCULAR VOLUME 94.1 fl (80.0-96.0); PLATELET COUNT, AUTOMATED 246 10^3/uL (150-450); RED BLOOD COUNT 4.26 10^6/uL (4.00-5.40); WHITE BLOOD COUNT 8.3 10^3/uL (4.0-10.0)
[2018-12-06 06:54] LABS: INR 2.55; PROTHROMBIN TIME 27.3 SECONDS (11.8-14.0)
[2018-12-06 07:02] LABS: CREATININE FOR GFR 1.17 MG/DL (0.55-1.30); GLOMERULAR FILTRATION RATE 46.7 (>32); POTASSIUM SERUM 3.9 MEQ/L (3.5-5.1)
[2018-12-06] MEDS: ASPIRIN 81 MG ENTERIC TAB PO SCH (09:52)
[2018-12-06] MEDS: FUROSEMIDE 40 MG TAB PO SCH (09:52)
[2018-12-06] MEDS: OMEPRAZOLE 20 MG CAP PO SCH (09:52)
[2018-12-06] MEDS: NORTRIPTYLINE 25 MG CAP PO SCH (09:52)
[2018-12-06] MEDS: MAGNESIUM CHLORIDE 64 MG TABCR (SLO MAG) PO SCH (09:52)
[2018-12-06] MEDS: POTASSIUM CHLORIDE 10 MEQ SR TABLET PO SCH (09:52)
[2018-12-06] MEDS: NYSTATIN 100,000 UNITS/GM TOPICAL PWD 15 GM TOP SCH (09:53)
[2018-12-06] MEDS: BRIMONIDINE 0.1% OPHTH SOLN 5 ML OU SCH (09:54)
[2018-12-06 14:00] VITALS: BP 134/69
[2018-12-06] MEDS: WARFARIN SOD 2.5 MG TAB PO SCH (17:21)
--- NOTE | 2018-12-06 18:53 | DS.PDOC ---
Discharge Summary General Date of Admission Nov 23, 2018 at 23:48 Date of Discharge 12/06/18 Primary Care Physician: Azam Kuo Attending Physician: CHAIM DENISE MD Specialist/Consultants Involve: SERA LUU MD Discharge Summary PROCEDURES PERFORMED DURING STAY: None. ADMITTING DIAGNOSES: 1. CVA 2. Atrial Fibrillation 3. Occlusion of Vertebral Artery DISCHARGE DIAGNOSES: 1. CVA 2. A-fib 3. Occlusion of Vertebral Artery COMPLICATIONS/CHIEF COMPLAINT: Afib,Cerebrovasculat Accident,Occlusion Of Vertaer. HISTORY OF PRESENT ILLNESS: Patient is am 88 year old female who presented to the [facility] ER with complaint of headache and flashing lights in her eyes. Her visual changes had started a few weeks ago however had increased in intensity over the next 7-10 days. Patient had also noticed increased difficulties in walking. Additionally, she had noticed worsening balance. She did admit to feeling dizzy. The patient had received imaging in the ER which demonstrated occlusion of the left vertebral artery at the base of the skull. Patient also had a a 5 mm small round area of bright signal intensity right occipital lobe suspicious for a small area of new stroke. The patient was subsequently admitted for acute CVA. Neurology was consulted who evaluated the patient. At admission her INR was subtherapeutic secondary to medication noncompliance. The patient was continued on aspirin and warfarin. Patient was evaluated by PT and planned for discharge for home PT and follow-up with Neurology outpatient. DISCHARGE MEDICATIONS: Please see below. ALLERGIES: Please see below. PHYSICAL EXAMINATION ON DISCHARGE: VITAL SIGNS: Please see below. GENERAL: Awake, alert and oriented. appears in no acute distress HEENT: Atraumatic, normocephalic. Eyes are nonicteric. Trachea is midline NECK: No cervical, axillary, or supraclavicular lymphadenopathy CARDIOVASCULAR EXAMINATION: Irregularly irregular rhythm. Normal rate. No clicks rubs, or murmurs RESPIRATORY EXAMINATION: Clear vesicular breath sounds bilaterally with good respiratory effort. No wheezes, rhonchi or rales ABDOMINAL EXAMINATION:Nondistended. Nontender to palpation. Normoactive bowel sounds EXTREMITIES: Trace bilateral edema SKIN: No lesions or rashes NEUROLOGICAL EXAMINATION: CN 2-12 grossly intact PSYCHIATRIC EXAMINATION: Mood and affect appropriate LABORATORY DATA: Please see below. IMAGING: EXAM: CT Head Without Contrast EXAM DATE/TIME: 11/23/2018 7:19 PM CLINICAL HISTORY: 88 years old, female; Altered mental status/memory loss TECHNIQUE: Imaging protocol: Computed tomography of the head without contrast. Radiation optimization: All CT scans at this facility use at least one of these dose optimization techniques: automated exposure control; mA and/or kV adjustment per patient size (includes targeted exams where dose is matched to clinical indication); or iterative reconstruction. COMPARISON: No relevant prior studies available. FINDINGS: Brain: There is no evidence of intracranial bleed. There are patchy areas of low density in the periventricular white matter consistent with chronic ischemic changes. There is prominence of the occipital horn and temporal horn of left lateral ventricle probably the result of focal atrophy. Ventricles: There is a 2.2 CM low density area contiguous with the occipital horn of left lateral ventricle consistent with an area of old ischemic change. Bones/joints: There is no evidence of fracture. Sinuses: Clear ethmoid sinuses. Mastoid air cells: Clear mastoid air cells. Soft tissues: Unremarkable. Vasculature: There is calcification of the carotid siphon bilaterally. IMPRESSION: 1. Area of old stroke left occipital lobe. 2. Chronic ischemic changes. An MRI scan would be a more sensitive exam for acute ischemic change. Electronically signed by: Johny Burton On 11/23/2018 20:14:37 PM EXAM: MR Head Without Contrast EXAM DATE/TIME: 11/23/2018 9:57 PM CLINICAL HISTORY: 88 years old, female; Visual disturbance; Additional info: CVA TECHNIQUE: Imaging protocol: MR of the head without contrast. COMPARISON: CT Head without contrast 11/23/2018 7:15 PM FINDINGS: Brain: There is a linear area of bright signal intensity on the diffusion sequence involving the medial aspect of the temporal lobe following the temporal horn of the right lateral ventricle. This area is low in signal intensity on the ADC and consistent with a new area of ischemic change. In addition there is a small round area of bright signal intensity right occipital lobe probably also representing a small area of ischemic change. There is an area of old stroke left occipital lobe. There are patchy areas of bright signal intensity throughout the white matter consistent with chronic ischemic changes. There is mild diffuse atrophy. Vertebral arteries: There is no flow in the left vertebral artery at the base of the skull. IMPRESSION: On DWI sequence there is a linear area of bright signal intensity medial aspect of the right temporal lobe following the right temporal horn of the lateral ventricle consistent with an area of acute stroke. There is also a 5 mm small round area of bright signal intensity right occipital lobe suspicious for a small area of new stroke. Electronically signed by: Johny Burton On 11/23/2018 22:52:47 PM EXAM: MR Angiogram Head Without Contrast, Arteries EXAM DATE/TIME: 11/23/2018 9:57 PM CLINICAL HISTORY: 88 years old, female; Visual disturbance; [place]; Central area; Bilateral; Additional info: CVA TECHNIQUE: Imaging protocol: MR angiogram head without contrast. Exam focused on the arteries. 3D rendering: MIP reconstructed images were created and reviewed. COMPARISON: MRA BRAIN W/O CONTRAST 09/07/2008 11:30 AM Left vertebral artery: Suspect occlusion of the left vertebral artery as there is no evidence of significant flow at the level of the base of the skull. Basilar artery: The basilar artery is visualized and there is no vertebrobasilar aneurysm. Other vasculature: There is no evidence of aneurysm of the sun[place] of [place]. Normal appearing middle cerebral arteries. 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 There is mild plaquing and narrowing in both carotid bulbs extending into the internal and external carotid arteries. Luminal narrowing is less than 50%. There is no evidence of hemodynamically significant stenosis of either internal carotid artery. Normal flow velocities are seen. The right vertebral artery demonstrates normal direction of flow. The left vertebral artery is not visualized. RIGHT LEFT Peak systolic velocity ICA 49.3 cm/s 49.9 cm/s End diastolic velocity ICA 14.4 cm/s 16.6 cm/s Peak systolic velocity CCA 59.2 cm/s 70.7 cm/s Peak systolic velocity ECA 48.2 cm/s 53.8 cm/s ICA/CCA ratio 0.83 0.71 IMPRESSION: Bilateral luminal narrowing of the internal carotid arteries less than 50%. No evidence of hemodynamically significant stenosis. Electronically Signed by Jimi Giordano MD 11/24/2018 09:21 A PROGNOSIS: Fair ACTIVITY: As tolerated. DIET: As tolerated DISCHARGE PLAN: Patient is to be discharged home with home PT referral. She is to follow-up with Neurology in 2-4 weeks. She is to continue her home dose of [place] rfarin with follow-up with her PCP in 1 week for management of her chronic anticoagulation and INR. Patient will continue 40mg lasix. She will follow-up with her PCP in 1 week for further management of her diuretics DISPOSITION: 01 Home, Self-Care. DISCHARGE CONDITION: Stable. I saw and evaluated the patient. I agree with the findings and plan of care as documented in the documenters note. I spent 45 minutes coordinating this patient's discharge. Vital Signs/I&Os Vital Signs Date Time Temp Pulse Resp B/P (MAP) Pulse Ox O2 Delivery O2 Flow Rate FiO2 12/06/18 14:00 96.8 67 19 134/69 (90) 97 I&O- Last 24 Hours up to 6 AM 12/06/18 06:00 Intake Total 1460 ml Output Total 0 ml Balance 1460 ml Laboratory Data Labs 24H Laboratory Tests 2 12/06/18 06:19: Nucleated Red Blood Cells % (auto) 0.0, Prothrombin Time 27.3H, Prothromb Time International Ratio 2.55, Anion Gap 6L, Glomerular Filtration Rate 46.7, Blood Urea Nitrogen 18, Creatinine 1.17, Sodium Level 141, Potassium Level 3.9, Chloride Level 106, Carbon Dioxide Level 29, Calcium Level 9.0 CBC/BMP Laboratory Tests 12/06/18 06:19 Red Blood Count 4.26, Mean Corpuscular Volume 94.1, Mean Corpuscular Hemoglobin 31.2, Mean Corpuscular Hemoglobin Concent 33.2, Red Cell Distribution Width 13.2, Calcium Level 9.0 Discharge Medications Scheduled Aspirin (Aspirin EC) 81 Mg Tablet.dr, 81 MG PO DAILY, (Reported) Atenolol (Atenolol) 50 Mg Tab, 50 MG PO QPM, (Reported) Brimonidine Tartrate (Alphagan P) 0.1% 5ML Drops, 1 DROP OU BID, (Reported) Cholecalciferol (Vitamin D3) (Vitamin D3) 2,000 Unit Capsule, 2,000 UNIT PO DAILY, (Reported) Fluticasone Propionate (Fluticasone Propionate) 15.8 Ml [place].susp, 2 SPRAYS NA DAILY, (Reported) Furosemide (Lasix) 80 Mg Tab, 40 MG PO Q2D, (Reported) Furosemide (Furosemide) 80 Mg Tablet, 80 MG PO Q2D, (Reported) Losartan Potassium (Losartan Potassium) 50 Mg Tab, 25 MG PO QHS, (Reported) Nortriptyline HCl (Nortriptyline HCl) 50 Mg Capsule, 50 MG PO BID, (Reported) Omeprazole (Omeprazole) 40 Mg Cap, 40 MG PO DAILY, (Reported) Warfarin Sodium (Coumadin) 2 Mg Tab, 2 MG PO 3XW, (Reported) THURSDAY, THURSDAY AND THURSDAY AT [facility] Warfarin Sodium (Warfarin Sodium) 2 Mg Tablet, 4 MG PO 4XWK, (Reported) THURSDAY, THURSDAY, THURSDAY AND THURSDAY AT [facility] Scheduled PRN Diclofenac Sodium (Voltaren) 100 Gm Gel..gram., 1 DOSE TD DAILY PRN for PAIN, (Reported) APPLIES TO RIGHT THUMB Allergies Coded Allergies: Penicillins (Verified Allergy, Mild, RASH, 11/23/18) GUDELIA Inhibitors (Verified Allergy, Unknown, 11/23/18) SEASONAL ALLERGIES (Verified Allergy, Unknown, 11/23/18) doxycycline (Verified Allergy, Unknown, 11/23/18) prazosin (Verified Allergy, Unknown, 11/23/18) codeine (Verified Adverse Reaction, Mild, CONFUSION, 11/23/18) ibuprofen (Verified Adverse Reaction, Mild, ORAL THRUSH, 11/26/18) JOSE G VALENTIN DO Dec 06, 2018 18:53 CHAIM DENISE MD Dec 14, 2018 14:31
== END 2018-12-06 17:20 | disposition home health service (06) | DRG 66 ==
LOC: EDBD 18:51 → M ED 18:51 → M ED INP 23:48 → M MSPAV 11-24 01:49
PROVIDERS: ADMIT Internal Medicine; ATTEND Internal Medicine
DX: I63.212 Cerebral infarction due to unspecified occlusion or stenosis of left vertebral artery (principal); I48.91 Unspecified atrial fibrillation; I11.9 Hypertensive heart disease without heart failure; Z91.14 Patient's other noncompliance with medication regimen; Z79.82 Long term (current) use of aspirin; Z79.899 Other long term (current) drug therapy; Z88.0 Allergy status to penicillin; Z88.5 Allergy status to narcotic agent; Z88.8 Allergy status to other drugs, medicaments and biological substances; Z88.6 Allergy status to analgesic agent; Z86.73 Personal history of transient ischemic attack (TIA), and cerebral infarction without residual deficits; Z87.891 Personal history of nicotine dependence; K21.9 Gastro-esophageal reflux disease without esophagitis

== ENCOUNTER → 2018-12-13 | Outpatient (REF) | payer MEDICARE ==
[~2018-12-13] MED LIST changes: +ASPI-161 PO; +BRIM1OPD OU; +D200CAP2 PO; +FLUT50SP33; +FURO80TA2 PO; +NORT50CA PO; +VOLT1GEL15 TD; +WARF4TAB51 PO
[2018-12-13 16:08] LABS: INR 4.8; PROTHROMBIN TIME 45.2 SECONDS (11.8-14.0)
== END ==
LOC: M SFHCPLAZ 14:04
PROVIDERS: ATTEND Internal Medicine
DX: Z79.01 Long term (current) use of anticoagulants (principal)
CPT/HCPCS: 36415; 85610; 99496; G0463

== ENCOUNTER → 2018-12-16 | Outpatient (REF) | payer MEDICARE ==
[2018-12-16 16:24] LABS: INR 3.47; PROTHROMBIN TIME 34.9 SECONDS (11.8-14.0)
== END ==
LOC: M SFHCCAPE 09:43
PROVIDERS: ATTEND Internal Medicine
DX: Z79.01 Long term (current) use of anticoagulants (principal)

== ENCOUNTER → 2018-12-20 | Outpatient (REF) | payer MEDICARE ==
[2018-12-20 18:37] LABS: INR 1.6; PROTHROMBIN TIME 18.8 SECONDS (11.8-14.0)
== END ==
LOC: M SFHCCAPE 11:04
PROVIDERS: ATTEND Internal Medicine
DX: I11.9 Hypertensive heart disease without heart failure (principal); I48.91 Unspecified atrial fibrillation; Z79.01 Long term (current) use of anticoagulants

== ENCOUNTER → 2018-12-24 | Outpatient (REF) | payer MEDICARE ==
[~2018-12-24] MED LIST changes: +OMEP40CA2 PO; -OMEP40CA97 PO
[2018-12-24 16:48] LABS: HEMATOCRIT 45.4 % (36.0-47.0); HEMOGLOBIN 14.6 g/dl (12.0-15.5); MEAN CORPUSCULAR HEMOGLOBIN 30.5 pg (27.0-33.0); MEAN CORPUSCULAR HGB CONC 32.2 g/dl (32.0-36.5); PLATELET COUNT, AUTOMATED 224 10^3/uL (150-450); RED BLOOD COUNT 4.78 10^6/uL (4.00-5.40); WHITE BLOOD COUNT 7.6 10^3/uL (4.0-10.0)
[2018-12-24 16:49] LABS: ALBUMIN 3.4 GM/DL (3.2-5.2); BILIRUBIN,TOTAL 0.7 MG/DL (0.2-1.0); CALCIUM LEVEL 9.2 MG/DL (8.8-10.2); CHOLESTEROL RISK RATIO 4.5 (<5); CREATININE FOR GFR 1.31 MG/DL (0.55-1.30); MAGNESIUM LEVEL 1.8 MG/DL (1.8-2.4); POTASSIUM SERUM 4.2 MEQ/L (3.5-5.1); TOTAL PROTEIN 7.1 GM/DL (6.4-8.2)
[2018-12-24 16:57] LABS: INR 1.67; PROTHROMBIN TIME 19.4 SECONDS (11.8-14.0)
[2018-12-24 17:32] LABS: MALB URINE SIEMENS 54.6 MG/L
[2018-12-24 18:09] LABS: HEMOGLOBIN A1c 6.5 %
== END ==
LOC: M SFHCCLAY 09:44
PROVIDERS: ATTEND Internal Medicine
DX: R06.09 Other forms of dyspnea (principal); I11.9 Hypertensive heart disease without heart failure; R73.01 Impaired fasting glucose; E78.00 Pure hypercholesterolemia, unspecified; Z79.01 Long term (current) use of anticoagulants

== ENCOUNTER → 2019-01-05 | Outpatient (REF) | payer MEDICARE ==
[~2019-01-05] MED LIST changes: -OMEP40CA2 PO; +OMEP40CA97 PO
[2019-01-05 13:27] LABS: INR 2.71; PROTHROMBIN TIME 28.6 SECONDS (11.8-14.0)
== END ==
LOC: M SHH 12:47
PROVIDERS: ATTEND Internal Medicine
DX: Z79.01 Long term (current) use of anticoagulants (principal); I48.91 Unspecified atrial fibrillation

== ENCOUNTER → 2019-01-24 | Outpatient (REF) | payer MEDICARE ==
[2019-01-24 17:27] LABS: INR 1.78; PROTHROMBIN TIME 20.5 SECONDS (11.8-14.0)
== END ==
LOC: M SFHCCAPE 10:39
PROVIDERS: ATTEND Internal Medicine
DX: I48.91 Unspecified atrial fibrillation (principal)

== ENCOUNTER → 2019-02-07 | Outpatient (REF) | payer MEDICARE ==
[2019-02-07 17:04] LABS: INR 1.58; PROTHROMBIN TIME 18.6 SECONDS (11.8-14.0)
== END ==
LOC: M SFHCPLAZ 09:47
PROVIDERS: ATTEND Internal Medicine
DX: Z51.81 Encounter for therapeutic drug level monitoring (principal)

== ENCOUNTER → 2019-03-07 | Outpatient (REF) | payer MEDICARE ==
[2019-03-07 17:40] LABS: INR 2.36; PROTHROMBIN TIME 25.6 SECONDS (11.8-14.0)
== END ==
LOC: M SFHCCAPE 10:53
PROVIDERS: ATTEND Internal Medicine
DX: Z79.01 Long term (current) use of anticoagulants (principal)

== ENCOUNTER → 2019-03-23 | Outpatient (REF) | payer MEDICARE ==
[2019-03-23 17:13] LABS: INR 1.65; PROTHROMBIN TIME 19.3 SECONDS (11.8-14.0)
== END ==
LOC: M SFHCCAPE 10:47
PROVIDERS: ATTEND Internal Medicine
DX: Z79.01 Long term (current) use of anticoagulants (principal)

== ENCOUNTER → 2019-03-30 | Outpatient (REF) | payer MEDICARE ==
[2019-03-30 17:17] LABS: ALBUMIN 3.6 GM/DL (3.2-5.2); BILIRUBIN,TOTAL 0.7 MG/DL (0.2-1.0); CALCIUM LEVEL 9.1 MG/DL (8.8-10.2); CHOLESTEROL RISK RATIO 4.704 (<5); CREATININE FOR GFR 1.21 MG/DL (0.55-1.30); GLOMERULAR FILTRATION RATE 44.8 (>32); MAGNESIUM LEVEL 1.9 MG/DL (1.8-2.4); POTASSIUM SERUM 4.1 MEQ/L (3.5-5.1)
[2019-03-30 17:28] LABS: HEMATOCRIT 46.5 % (36.0-47.0); HEMOGLOBIN 14.9 g/dl (12.0-15.5); MEAN CORPUSCULAR VOLUME 93.6 fl (80.0-96.0); PLATELET COUNT, AUTOMATED 288 10^3/uL (150-450); RED BLOOD COUNT 4.97 10^6/uL (4.00-5.40); WHITE BLOOD COUNT 8.2 10^3/uL (4.0-10.0)
[2019-03-30 17:42] LABS: HEMOGLOBIN A1c 6.3 %
== END ==
LOC: M SFHCCAPE 09:55
PROVIDERS: ATTEND Internal Medicine
DX: I11.9 Hypertensive heart disease without heart failure (principal); Z79.01 Long term (current) use of anticoagulants; Z86.73 Personal history of transient ischemic attack (TIA), and cerebral infarction without residual deficits; Z79.899 Other long term (current) drug therapy

== ENCOUNTER 2019-04-27 13:25 | Inpatient (IN) | payer MEDICARE ==
[~2019-04-27] VITALS: Ht 157.5 cm; Wt 98.6 kg
[~2019-04-27 13:25] MED LIST changes: -FLUT50SP33; +FLUT50SP33 NARES
--- NOTE | 2019-04-27 14:22 | REP ---
CT BRAIN WITHOUT CONTRAST: HISTORY: Injury in a fall. Comparison head CT study November 23, 2018. CT FINDINGS: Digital preliminary sound engineer radiograph is unremarkable. On bone window settings, the calvarium is intact. No skull fracture is appreciated. There is heavy vascular calcification again noted. On soft tissue window settings, there is a low-density area in the posteromedial temporal lobe on the right consistent with recent infarction. This is new when compared with comparison CT study of November 23, 2018. The diffusion weighted sequence on the MRI study and November 23, 2018 showed a small area of restricted diffusion in this region. The infarct is larger than on that prior diffusion sequence. There is no evidence of intracranial hemorrhage. Fairly extensive small vessel atherosclerotic changes are again noted. There is old encephalomalacia in the left occipital region consistent with previous old infarct in this distribution. This is unchanged. No mass or midline shift is seen. IMPRESSION: Diffuse atrophy and vascular calcification. Recent cortical infarct in the right posteromedial temporal lobe. This is larger than the area of restricted diffusion seen at the time of the November 23, 2018 brain MRI study. There is also an old left occipital lobe infarct unchanged. Small vessel atherosclerotic changes. No other acute abnormality. Electronically Signed by Landry Smith MD 04/27/2019 04:09 P
--- NOTE | 2019-04-27 14:26 | REP ---
Clinical: Trauma. Fall. Technique: Axial noncontrast images from the skull base to the thoracic inlet with coronal and sagittal re-formations. Comparison: None. Findings: Age-related osteopenia and advanced multilevel degenerative disc osteophyte complexes are appreciated. There is no evidence for acute fracture / compression injury or subluxation. Posterior elements and spinous processes are intact. Partially calcified posterior longitudinal ligaments and posterior osteophytes cause moderate canal stenosis to approximately 8 mm AP diameter at the C4-5 and C5-6 levels. Paravertebral soft tissues are grossly unremarkable. Impression: Advanced osteopenia and multilevel degenerative spondylosis. No acute fracture / compression injury or subluxation identified. Electronically Signed by Sarwat Newsome MD 04/27/2019 02:18 P
[2019-04-27 14:50] LABS: BASO # 0.1 10^3/uL (0.0-0.2); BASO % 0.5 % (0.0-1.0); EOS # 0.2 10^3/uL (0.0-0.5); EOS % 1.3 % (0.0-3.0); LYMPH # 2.1 10^3/uL (1.5-5.0); LYMPH % 18.7 % (24.0-44.0); MEAN CORPUSCULAR HEMOGLOBIN 29.3 pg (27.0-33.0); MEAN CORPUSCULAR HGB CONC 31.9 g/dl (32.0-36.5); MEAN CORPUSCULAR VOLUME 91.8 fl (80.0-96.0); MONO # 0.8 10^3/uL (0.0-0.8); MONO % 7.3 % (0.0-5.0); NEUTROPHILS # 8.2 10^3/uL (1.5-8.5); NEUTROPHILS % 71.8 % (36.0-66.0); PLATELET COUNT, AUTOMATED 229 10^3/uL (150-450); RED BLOOD COUNT 5.12 10^6/uL (4.00-5.40); WHITE BLOOD COUNT 11.4 10^3/uL (4.0-10.0)
[2019-04-27 15:02] LABS: INR 1.52
[2019-04-27 15:28] LABS: ALBUMIN 3.6 GM/DL (3.2-5.2); ALT/SGPT 67 U/L (12-78); BILIRUBIN,DIRECT 0.7 MG/DL (0.0-0.2); BILIRUBIN,TOTAL 2.2 MG/DL (0.2-1.0); BLOOD UREA NITROGEN 24 MG/DL (7-18); CARBON DIOXIDE LEVEL 25 MEQ/L (21-32); CHLORIDE LEVEL 106 MEQ/L (98-107); CK-MB VALUE MASS 23.3 NG/ML (<3.6); CPK CREATINE PHOSPHOKINASE 1754 U/L (26-192); GLOMERULAR FILTRATION RATE > 60.0 (>32); GLUCOSE, FASTING 108 MG/DL (70-100); LIPASE 73 U/L (73-393); MB/CK RELATIVE INDEX 1.33 (< OR =4); POTASSIUM SERUM 4.4 MEQ/L (3.5-5.1); SODIUM LEVEL 144 MEQ/L (136-145); TOTAL PROTEIN 6.6 GM/DL (6.4-8.2)
[2019-04-27] MEDS ORDERED: NS 1,000 ML IV ONE ×2 (16:15→17:45)
--- NOTE | 2019-04-27 16:38 | REP ---
Clinical: Trauma. Fall. Technique: Frontal view of the pelvis with neutral and frog lateral views of the right hip. Findings: Age-related osteopenia and degenerative changes are appreciated. No acute fracture or dislocation identified. Impression: No acute fracture dislocation. The Electronically Signed by Sarwat Newsome MD 04/27/2019 04:29 P
[2019-04-27 18:14] LABS: INFLUENZA A AMPLIFICATION NEGATIVE (NEGATIVE); INFLUENZA B AMPLIFICATION NEGATIVE (NEGATIVE)
[2019-04-27] MEDS ORDERED: ATOR1TAB21 PO (18:53)
[2019-04-27] MEDS ORDERED: WARF-18 PO (18:53)
[2019-04-27] MEDS ORDERED: VITAD1000T PO (18:53)
[2019-04-27] MEDS ORDERED: ATEN50TA2 PO (18:53)
--- NOTE | 2019-04-27 20:19 | ECGEPIP ---
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
[2019-04-27] MEDS ORDERED: NS 1,000 ML IV SCH (21:00)
[2019-04-27 22:30] VITALS: BP 136/98
[2019-04-27 22:49] LABS: BLOOD UREA NITROGEN 23 MG/DL (7-18); CALCIUM LEVEL 7.8 MG/DL (8.8-10.2); CARBON DIOXIDE LEVEL 23 MEQ/L (21-32); CHLORIDE LEVEL 110 MEQ/L (98-107); CPK CREATINE PHOSPHOKINASE 992 U/L (26-192); GLOMERULAR FILTRATION RATE > 60.0 (>32); GLUCOSE, FASTING 117 MG/DL (70-100); POTASSIUM SERUM 3.7 MEQ/L (3.5-5.1); SODIUM LEVEL 145 MEQ/L (136-145)
[2019-04-27] MEDS: atenoloL 50 MG TAB PO SCH (23:18)
[2019-04-27] MEDS: WARFARIN SOD 2.5 MG TAB PO SCH (23:18)
[2019-04-27] MEDS: LOSARTAN 50 MG TAB PO SCH (23:18)
[2019-04-28] MEDS: NS 1,000 ML IV SCH ×2 (00:29→20:01)
[2019-04-28] MEDS: BRIMONIDINE 0.1% OPHTH SOLN 5 ML OU SCH ×3 (01:26→20:01)
[2019-04-28] MEDS: NYSTATIN 100,000 UNITS/GM TOPICAL PWD 15 GM TOP SCH ×3 (02:38→20:01)
[2019-04-28 06:00] VITALS: BP 115/80
[2019-04-28 06:21] LABS: MEAN CORPUSCULAR HEMOGLOBIN 29.3 pg (27.0-33.0); MEAN CORPUSCULAR HGB CONC 31.8 g/dl (32.0-36.5); MEAN CORPUSCULAR VOLUME 92.2 fl (80.0-96.0); PLATELET COUNT, AUTOMATED 209 10^3/uL (150-450); RED BLOOD COUNT 4.34 10^6/uL (4.00-5.40); WHITE BLOOD COUNT 9.3 10^3/uL (4.0-10.0)
[2019-04-28 06:28] LABS: HEMOGLOBIN 12.7 g/dl (12.0-15.5)
[2019-04-28] MEDS: ACETAMINOPHEN TAB 650MG DOSE (2X325MG) PO PRN (06:30)
[2019-04-28 06:54] LABS: BLOOD UREA NITROGEN 23 MG/DL (7-18); CALCIUM LEVEL 7.8 MG/DL (8.8-10.2); CARBON DIOXIDE LEVEL 24 MEQ/L (21-32); CHLORIDE LEVEL 110 MEQ/L (98-107); CPK CREATINE PHOSPHOKINASE 769 U/L (26-192); CREATININE FOR GFR 0.84 MG/DL (0.55-1.30); GLOMERULAR FILTRATION RATE > 60.0 (>32); GLUCOSE, FASTING 103 MG/DL (70-100); POTASSIUM SERUM 3.6 MEQ/L (3.5-5.1); SODIUM LEVEL 144 MEQ/L (136-145)
--- NOTE | 2019-04-28 07:26 | REP ---
Portable chest x-ray: Single view. History: Chest pain. Comparison study: June 23, 2017. Findings: The patient is rotated slightly to the left for the current film. Monitoring electrodes are seen. Heart size is borderline unchanged. Pulmonary vasculature is not increased. The pleural angles are sharp. No infiltrate is seen. Impression: Borderline heart size again noted unchanged. No acute disease. Electronically Signed by Landry Smith MD 04/27/2019 03:10 P
--- NOTE | 2019-04-28 07:45 | HPE ---
DATE OF ADMISSION: 04/27/2019 PRIMARY CARE PROVIDER: Dr. Azam Kuo. CHIEF COMPLAINT: Fall at home. HISTORY OF PRESENT ILLNESS (HPI): Jessica is an 89-year-old female who was brought to the emergency department per emergency medical services (EMS) after suffering a fall at home. She says that she got up yesterday because she had to use the bathroom and instead of sitting up slid off of bed and onto the floor. She denies any loss of consciousness or hitting her head. She stayed there until the people who deliver meals to her noticed on the day of admission that she had not picked up her meal from yesterday off the porch. They subsequently called EMS and she was found down in her bedroom. She does have a life alert but did not press it because she could not find it. She says that she has been feeling rather weak lately. She did suffer a stroke in November and does have some residual vision changes and vertigo from that but denies any new changes recently. She also has chronic diarrhea from her inflammatory bowel syndrome (IBS) and she said that she had an diarrhea while she was down at home. She does live alone in [place]. She uses corrective lenses and does use a cane to walk. She also does have chronic bilateral leg pain secondary to spinal stenosis. She denies any chest pain, palpitations or new shortness of breath, though she does state that she does have some chronic shortness of breath secondary to her atrial fibrillation. PAST MEDICAL HISTORY: 1. Hypertension. 2. Atrial fibrillation. 3. Elevated fasting glucose. 4. Irritable bowel syndrome. 5. Long-term use of anticoagulation. 6. Osteoarthritis. 7. Hypercholesterolemia. 8. Peripheral vascular disease. 9. Glaucoma. 10. Lumbar spinal stenosis. 11. Fatty liver. 12. History of transient ischemic attack (TIA). 13. Vitamin D deficiency. 14. Peripheral sensory neuropathy. 15. Osteopenia. 16. Lung nodules. 17. Dyspnea on exertion. 18. Chronic fatigue. PAST SURGICAL HISTORY: 1. Hysterectomy in 1978. 2. Left knee replacement 1991. 3. Right knee replacement in 1993. 4. Glaucoma laser surgery bilaterally in 2006. 5. Laparoscopic cholecystectomy in 2007. 6. Colonoscopy 2009. 7. Cataract extraction right eye including procedure for glaucoma in 2011. 8. Revision of left total knee in 2016. FAMILY HISTORY: Father was at 90 years for kidney failure. Mother at 89 years with heart problems. She has four sons who are alive and healthy. Two sisters and two brothers from lung cancer. One brother from emphysema. HOME MEDICATIONS: - Voltaren 1% gel to hands, shoulders and knees twice a day as needed for arthritis - Flonase nasal spray two sprays in each nostril daily - Alphagan P 0.1% solution eye drops twice a day - aspirin 81 mg daily - vitamin D 3-2000 units daily - atenolol 50 mg 1/2 tablet in the morning and 1 pill at night - Prilosec 40 mg daily - Losartan 50 mg 1/2 tablet nightly - Lasix 80 mg daily - Coumadin 2.5 mg daily - atorvastatin 20 mg daily SOCIAL HISTORY: She lives alone at home in [place]. She is a former smoker and quit greater than 10 years ago. She denies any alcohol or drug use. She does use a cane to walk and has corrective lenses. 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 ALLERGIES: PENICILLIN (hives), MOTRIN (lightheadedness), MINIPRESS, DOXYCYCLINE (thrush), LISINOPRIL, GUDELIA inhibitors and GABAPENTIN. REVIEW OF SYSTEMS: Constitutional: Denies fevers, chills, weight loss or night sweats. HEENT: Denies new visual changes, headaches, scotomas or double vision and denies runny nose, epistaxis, sinus pain, tinnitus, sore throat or odynophagia. Cardiovascular: Denies chest pain, shortness of breath, paroxysmal nocturnal dyspnea, orthopnea, edema or palpitations. Respiratory: Positive for chronic shortness of breath but no increase as of late. She does not use home oxygen. Denies cough, sputum production wheezes, hemoptysis. Gastrointestinal: Denies abdominal pain, difficulty swallowing, nausea, vomiting, constipation, obstipation, hematemesis, melena or tenesmus. Does have chronic on and off diarrhea from her IBS. Genitourinary: Denies incontinence, dysuria, hematuria, nocturia, polyuria. Musculoskeletal: Positive for low back pain and bilateral lower extremity pain that is chronic. Denies any new muscle aches or pains. She denies any new joint swelling or crepitus. Integumentary: Denies any new rashes, pruritus, stria or lesions. Neurology: Positive for vertigo and vision changes after her stroke in November but denies any worsening that is recent. She denies any changes to smell, hearing or taste. Denies any new headaches. She does have chronic pain in her back and lower extremities but denies any new paresthesias or anesthesias, bowel or bladder incontinence/retention. Psychiatric: Denies any new depression, anxiety, paranoia, anhedonia or episodes of chelsey. Endocrine: She does endorse chronic fatigue but denies constipation, dry skin polydipsia, polyuria, polyphagia, tremor, palpitations or visual disturbances. Hematologic: Denies new anemia, purpura, petechiae, easy bruising or bleeding. Lymphatic: Denies any new lumps or bumps anywhere. PHYSICAL EXAMINATION: Vitals: Temperature is 96.7 degrees, pulse is 90 and irregular, respiratory rate is 18 unlabored, blood pressure is 118/67, pulse ox is 98% on room air. General: This is an elderly, obese female who is in no acute distress lying in bed in the stretcher. She is pleasant and cooperative. HEENT: Atraumatic, normocephalic. Pupils are equal, round and reactive to light. She has upper dentures and has her own lower teeth. Neck: Supple and nontender. No masses. Lungs: Clear to auscultation bilaterally. No wheezes, rhonchi or rales. Heart: Irregular rate and rhythm, not tachycardiac. S1-S2 are normal. No audible murmurs, rubs or gallops. Abdomen: Morbidly obese. No palpable organomegaly or masses. Normoactive bowel sounds appreciated. Extremities: Some minimal ankle edema that the patient says is chronic. There is no pitting. She has poorly palpable pulses in the right lower extremity. Scars from bilateral knee replacements are noted. She does have some discomfort upon range of motion testing. Back: No costovertebral angle (CVA) tenderness bilaterally. Neurology: Sensation is intact, muscle strength testing was not done as the patient did not feel like it since she was weak. Cranial nerves II-XII grossly intact. Psychiatric: Mood and affect are appropriate. LABORATORY DATA: CBC: WBC 11.4, hemoglobin 15, hematocrit 47, platelets 229, differential shows 72% neutrophils 19% lymphocytes. Chemistry: Sodium 144, potassium 4.4, chloride 106, carbon dioxide 25, anion gap 13, BUN 24, creatinine 0.90, glucose 108, lactic acid 3.3, calcium 9.0, total bilirubin 2.2, direct bilirubin 0.7, AST 101, ALT 67, alkaline phosphatase 56, total creatinine kinase 1754, CK-MB 23, troponin 0.20, total protein 6.6, albumin 3.6, lipase 73. Coagulation studies: PT 18.0, INR 1.52. Serology: Influenza A negative, influenza B negative. IMAGING: Head CT from 04/27/2019 showed diffuse atrophy and vascular calcification. Cortical infarct in the right posterior medial temporal lobe which is larger than February 22, 2019 brain MRI study. Unchanged old left occipital lobe infarct. Small vessel atherosclerotic changes. No other acute abnormality. Cervical spine CT done 04/27/2019 showed advanced osteopenia and multilevel degenerative spondylosis. No acute fracture compression injury or subluxation identified. Portable chest x-ray done 04/27/2019 showed an intact and midline airway. Bony structures are intact, no fractures are noted. Cardiac silhouette is enlarged. Diaphragms are clear, no effusions are noted. Lung rodriguez are clear. There does look to be some scoliosis in the thoracic spine. Hip and pelvis x-ray done 04/27/2019 showed no acute fracture or dislocation. She does have age-related osteopenia and degenerative changes. EKG shows atrial fibrillation at 94 beats per minute. She also has a right bundle branch block and slightly decreased rate from [id number]. No acute ST or T-wave changes. ASSESSMENT: This is an 89-year-old female who was found down at home after a fall of unknown duration. She was subsequently found to have an elevated CK upon arrival to the emergency department, she will be admitted with routine labs and orders for monitoring of her IV fluids as well as physical therapy evaluation. PLAN: 1. Fall at home. No acute intracranial hemorrhages or fractures were noted on scanning. She does have some chronic diarrhea. She also has noted some increased weakness. She will be evaluated by physical therapy and occupational therapy to see whether or not it is safe for her to go home. 2. Rhabdomyolysis, CK elevated at 1754. Most likely due to her fall. No active chest pain, so her elevated troponin is most likely secondary to both her chronic heart failure and muscle leak. She also did have an elevated lactic acid so we will give her IV fluids and recheck both her lactic acid and her creatinine kinase. She will also receive gentle IV fluid hydration after being bolused as per hospital protocol. 3. Lactic acidosis, most likely secondary to rhabdomyolysis after falling at home. We expect this to resolve with IV fluid resuscitation. 4. Hypertension, continue her home medications of atenolol and losartan. 5. History of stroke and cerebral vascular disease. The area seen on her head CT to be slightly larger than the MRI study done in 2017 in the posterior medial temporal lobe is probably sequela from her stroke. She is on atorvastatin. She has no residual deficits at the moment. Will continue to monitor. She continues on aspirin 81 mg daily. 6. Atrial fibrillation. Continue home Coumadin. She is rate controlled with atenolol. 7. Hypercholesterolemia. Continue home atorvastatin. 8. Peripheral vascular disease. According to notes from her primary care she has been evaluated by a vascular surgeon regularly in the past for lower extremity vascular disease and surgery has not been recommended. She continues on aspirin 81 mg. 9. Gastroesophageal reflux disease. Continue home omeprazole. 10. Deep venous thrombosis (DVT) prophylaxis. The patient is on Coumadin. ADVANCED DIRECTIVES: Are on file with her primary care office. She requested be a DO NOT RESUSCITATE/DO NOT INTUBATE (DNR/DNI). Her healthcare proxy is Avni Mandel and he can be reached at [phone]. DISPOSITION: Inpatient as we expect greater than two midnights.
[2019-04-28] MEDS: OMEPRAZOLE 20 MG CAP PO SCH (09:22)
[2019-04-28] MEDS: ASPIRIN 81 MG ENTERIC TAB PO SCH (09:23)
[2019-04-28] MEDS: atenoloL 50 MG TAB PO SCH ×2 (09:23→20:01)
[2019-04-28] MEDS: VITAMIN D 1,000 INTERNATIONAL UNITS TABLET PO SCH (09:23)
[2019-04-28] MEDS: ATORVASTATIN 20 MG TAB PO SCH (09:25)
[2019-04-28 14:00] VITALS: BP 109/57
[2019-04-28] MEDS: WARFARIN SOD 2.5 MG TAB PO SCH (17:49)
--- NOTE | 2019-04-28 18:59 | IPNPDOC ---
Subjective Date Seen The patient was seen on 04/28/19. Subjective Chief Complaint/HPI jose feels better this morning. she denies any limb weakness/paralysis. She has a poor appetite and has not eaten breakfast yet. Objective Physical Examination General Exam: Positive: Alert, No Acute Distress Eye Exam: Negative: Sclera icteric ENT Exam: Positive: Pharynx Normal Neck Exam: Positive: Supple, JVD Chest Exam: Positive: Clear to auscultation Heart Exam: Positive: Rate Normal Abdomen Exam: Positive: Normal bowel sounds Extremity Exam: Negative: Clubbing, Cyanosis, Edema Skin Exam: Negative: Rash Neuro Exam: Positive: Normal Speech Psych Exam: Positive: Mental status NL Assessment /Plan Assessment # s/p fall with home # Mild Rhabdomyolysis # HTN # Hx stroke # Chronic atrial fib # chronic warfarin anticoagulation (subtherapeutic) Plan: - check UA r/o UTI - continue IVFs - CPK in am - continue warfarin - PT/OT eval - will likely need placement Plan/VTE VTE Prophylaxis Ordered?: No (warfarin) VS, I&O, 24H, [facility] Vital Signs/I&O Vital Signs Date Time Temp Pulse Resp B/P (MAP) Pulse Ox O2 Delivery O2 Flow Rate FiO2 04/28/19 14:00 98.0 78 18 109/57 (74) 96 Room Air I&O- Last 24 Hours up to 6 AM 04/28/19 06:00 Intake Total 2800 ml Output Total 0 ml Balance 2800 ml Laboratory Data 24H LABS Laboratory Tests 2 04/27/19 22:10: Anion Gap 12, Glomerular Filtration Rate > 60.0, Lactic Acid Followup at 4 Hours 1.3, Calcium Level 7.8L, Total Creatine Kinase 992H 04/28/19 05:47: Anion Gap 10, Glomerular Filtration Rate > 60.0, Calcium Level 7.8L, Total Creatine Kinase 769H, Nucleated Red Blood Cells % (auto) 0.0 CBC/BMP Laboratory Tests 04/27/19 22:10 04/28/19 05:47 SVETLANA GUEVARA MD Apr 28, 2019 18:59
[2019-04-28] MEDS: LOSARTAN 50 MG TAB PO SCH (20:01)
[2019-04-28 22:00] VITALS: BP 132/61
[2019-04-29] MEDS: ACETAMINOPHEN TAB 650MG DOSE (2X325MG) PO PRN (04:14)
[2019-04-29 06:00] VITALS: BP 114/60
[2019-04-29 06:09] LABS: HEMATOCRIT 38.2 % (36.0-47.0); HEMOGLOBIN 12.4 g/dl (12.0-15.5); MEAN CORPUSCULAR HEMOGLOBIN 29.5 pg (27.0-33.0); MEAN CORPUSCULAR HGB CONC 32.5 g/dl (32.0-36.5); PLATELET COUNT, AUTOMATED 204 10^3/uL (150-450); WHITE BLOOD COUNT 7.8 10^3/uL (4.0-10.0)
[2019-04-29 06:22] LABS: INR 1.94; PROTHROMBIN TIME 21.9 SECONDS (11.8-14.0)
[2019-04-29 06:33] LABS: BLOOD UREA NITROGEN 22 MG/DL (7-18); CARBON DIOXIDE LEVEL 24 MEQ/L (21-32); CHLORIDE LEVEL 113 MEQ/L (98-107); CPK CREATINE PHOSPHOKINASE 455 U/L (26-192); CREATININE FOR GFR 0.91 MG/DL (0.55-1.30); GLOMERULAR FILTRATION RATE > 60.0 (>32); GLUCOSE, FASTING 113 MG/DL (70-100); POTASSIUM SERUM 3.8 MEQ/L (3.5-5.1); SODIUM LEVEL 145 MEQ/L (136-145)
[2019-04-29] MEDS: BRIMONIDINE 0.1% OPHTH SOLN 5 ML OU SCH ×2 (10:06→20:33)
[2019-04-29] MEDS: NYSTATIN 100,000 UNITS/GM TOPICAL PWD 15 GM TOP SCH ×2 (10:07→20:34)
[2019-04-29] MEDS: VITAMIN D 1,000 INTERNATIONAL UNITS TABLET PO SCH (10:07)
[2019-04-29] MEDS: ATORVASTATIN 20 MG TAB PO SCH (10:07)
[2019-04-29] MEDS: ASPIRIN 81 MG ENTERIC TAB PO SCH (10:07)
[2019-04-29] MEDS: OMEPRAZOLE 20 MG CAP PO SCH (10:07)
[2019-04-29] MEDS: atenoloL 50 MG TAB PO SCH ×2 (10:08→20:32)
--- NOTE | 2019-04-29 12:45 | IPNPDOC ---
Subjective Date Seen The patient was seen on 04/29/19. Subjective Chief Complaint/HPI Lying in bed, awake. No complaints, eager to return home but aware that she'll need rehab placement Objective Physical Examination General Exam: Positive: Alert, No Acute Distress Eye Exam: Negative: Sclera icteric ENT Exam: Positive: Pharynx Normal Neck Exam: Positive: Supple, JVD Chest Exam: Positive: Clear to auscultation Heart Exam: Positive: Rate Normal Abdomen Exam: Positive: Normal bowel sounds Extremity Exam: Negative: Clubbing, Cyanosis, Edema Skin Exam: Negative: Rash Neuro Exam: Positive: Normal Speech Psych Exam: Positive: Mental status NL Assessment /Plan Assessment # s/p fall at home due to old age related debility # Mild Rhabdomyolysis # HTN # Hx stroke # Chronic atrial fib # chronic warfarin anticoagulation Plan: - u.cx pending - discontinue IVFs - CPK levels continue to trend lower - continue warfarin, INR 1.9 this am - medically stable for discharge awaiting bed for SNF placement Plan/VTE VTE Prophylaxis Ordered?: No (warfarin) VS, I&O, 24H, [facility] Vital Signs/I&O Vital Signs Date Time Temp Pulse Resp B/P (MAP) Pulse Ox O2 Delivery O2 Flow Rate FiO2 04/29/19 10:08 88 126/65 04/29/19 06:00 98.6 17 97 04/28/19 22:00 Room Air I&O- Last 24 Hours up to 6 AM 04/29/19 06:00 Intake Total 2385 ml Output Total 250 ml Balance 2135 ml Laboratory Data 24H LABS Laboratory Tests 2 04/28/19 23:00: Urine Color YELLOW, Urine Appearance HAZY, Urine pH 6.0, Urine Specific [place] 1.023, Urine Protein NEGATIVE, Urine Glucose (UA) NEGATIVE, Urine Ketones TRACEH, Urine Blood NEGATIVE, Urine Nitrite NEGATIVE, Urine Bilirubin NEGATIVE, Urine Urobilinogen 2.0H, Urine Leukocyte Esterase 1+H, Urine WBC (Auto) 7H, Urine RBC (Auto) 2, Urine Hyaline Casts (Auto) 3, Urine Bacteria (Auto) 1+H, Urine Squamous Epithelial Cells 6, Urine Transitional Epithelial Cells <1, Urine Mucus (Auto) SMALL, Urine Sperm (Auto) 04/29/19 05:42: Nucleated Red Blood Cells % (auto) 0.0, Prothrombin Time 21.9H, Prothromb Time International Ratio 1.94, Anion Gap 8, Glomerular Filtration Rate > 60.0, Calcium Level 8.0L, Total Creatine Kinase 455H CBC/BMP Laboratory Tests 04/29/19 05:42 Microbiology Microbiology 04/28/19 Urine Culture, Received Pending SVETLANA GUEVARA MD Apr 29, 2019 12:45
[2019-04-29 14:00] VITALS: BP 133/80
[2019-04-29] MEDS: WARFARIN SOD 2.5 MG TAB PO SCH (18:08)
[2019-04-29] MEDS: LOSARTAN 50 MG TAB PO SCH (20:33)
[2019-04-29 22:00] VITALS: BP 162/98
[2019-04-30 06:00] VITALS: BP 141/90
[2019-04-30 07:03] LABS: INR 2.14; PROTHROMBIN TIME 23.7 SECONDS (11.8-14.0)
[2019-04-30 07:15] LABS: BLOOD UREA NITROGEN 16 MG/DL (7-18); CALCIUM LEVEL 8.1 MG/DL (8.8-10.2); CARBON DIOXIDE LEVEL 25 MEQ/L (21-32); CHLORIDE LEVEL 113 MEQ/L (98-107); CPK CREATINE PHOSPHOKINASE 265 U/L (26-192); CREATININE FOR GFR 0.83 MG/DL (0.55-1.30); GLOMERULAR FILTRATION RATE > 60.0 (>32); GLUCOSE, FASTING 107 MG/DL (70-100); POTASSIUM SERUM 3.7 MEQ/L (3.5-5.1); SODIUM LEVEL 144 MEQ/L (136-145)
[2019-04-30 08:15] VITALS: BP 151/63
[2019-04-30] MEDS: ATORVASTATIN 20 MG TAB PO SCH (08:45)
[2019-04-30] MEDS: ASPIRIN 81 MG ENTERIC TAB PO SCH (08:45)
[2019-04-30] MEDS: OMEPRAZOLE 20 MG CAP PO SCH (08:46)
[2019-04-30] MEDS: atenoloL 50 MG TAB PO SCH ×2 (08:47→20:05)
[2019-04-30] MEDS: VITAMIN D 1,000 INTERNATIONAL UNITS TABLET PO SCH (08:47)
[2019-04-30] MEDS: ACETAMINOPHEN TAB 650MG DOSE (2X325MG) PO PRN (08:48)
[2019-04-30] MEDS: BRIMONIDINE 0.1% OPHTH SOLN 5 ML OU SCH ×2 (08:56→20:05)
[2019-04-30] MEDS: NYSTATIN 100,000 UNITS/GM TOPICAL PWD 15 GM TOP SCH ×2 (08:56→20:05)
[2019-04-30] MEDS ORDERED: PILL CUTTER 1 EACH XX PRN (09:00)
[2019-04-30 14:00] VITALS: BP 147/62
--- NOTE | 2019-04-30 14:33 | IPNPDOC ---
Subjective Date Seen The patient was seen on 04/30/19. Subjective Chief Complaint/HPI Jessica is well this am, she's accepts the fact that she needs rehab placement at discharge. Objective Physical Examination General Exam: Positive: Alert, No Acute Distress Eye Exam: Negative: Sclera icteric ENT Exam: Positive: Mucous membr. moist/pink Neck Exam: Positive: Supple, JVD Chest Exam: Positive: Clear to auscultation Heart Exam: Positive: Rate Normal Abdomen Exam: Positive: Normal bowel sounds Extremity Exam: Negative: Clubbing, Cyanosis, Edema Skin Exam: Negative: Rash Neuro Exam: Positive: Normal Speech Psych Exam: Positive: Mental status NL Assessment /Plan Assessment # S/p fall at home due to old age related debility # Mild Rhabdomyolysis - resolved # HTN # Hx stroke # Chronic atrial fib - rate controlled # chronic warfarin anticoagulation Plan: - u.cx final: shows contamination - continue therapeutic warfarin, INR 2.1 - medically stable for discharge awaiting bed for SNF placement Plan/VTE VTE Prophylaxis Ordered?: No (warfarin) VS, I&O, 24H, [facility] Vital Signs/I&O Vital Signs Date Time Temp Pulse Resp B/P (MAP) Pulse Ox O2 Delivery O2 Flow Rate FiO2 04/30/19 14:00 97.6 70 19 147/62 (90) 92 Room Air I&O- Last 24 Hours up to 6 AM 04/30/19 06:00 Intake Total 1000 ml Output Total 1350 ml Balance -350 ml Laboratory Data 24H LABS Laboratory Tests 2 04/30/19 06:35: Prothrombin Time 23.7H, Prothromb Time International Ratio 2.14, Anion Gap 6L, Glomerular Filtration Rate > 60.0, Calcium Level 8.1L, Total Creatine Kinase 265H CBC/BMP Laboratory Tests 04/30/19 06:35 Microbiology Microbiology 04/28/19 Urine Culture - Final, Complete SVETLANA GUEVARA MD Apr 30, 2019 14:33
[2019-04-30] MEDS: WARFARIN SOD 2.5 MG TAB PO SCH (17:12)
[2019-04-30] MEDS: LOSARTAN 50 MG TAB PO SCH (20:04)
[2019-04-30 22:00] VITALS: BP 150/92
[2019-05-01] MEDS: ACETAMINOPHEN TAB 650MG DOSE (2X325MG) PO PRN ×2 (01:26→22:33)
[2019-05-01] MEDS ORDERED: hydrOXYzine 10 MG TAB PO ONE (01:45)
[2019-05-01 06:00] VITALS: BP 156/78
[2019-05-01 07:31] LABS: INR 2.46; PROTHROMBIN TIME 26.5 SECONDS (11.8-14.0)
[2019-05-01 07:32] LABS: BLOOD UREA NITROGEN 14 MG/DL (7-18); CALCIUM LEVEL 8.1 MG/DL (8.8-10.2); CARBON DIOXIDE LEVEL 27 MEQ/L (21-32); CHLORIDE LEVEL 112 MEQ/L (98-107); CPK CREATINE PHOSPHOKINASE 116 U/L (26-192); CREATININE FOR GFR 0.83 MG/DL (0.55-1.30); GLOMERULAR FILTRATION RATE > 60.0 (>32); GLUCOSE, FASTING 106 MG/DL (70-100); POTASSIUM SERUM 3.5 MEQ/L (3.5-5.1); SODIUM LEVEL 144 MEQ/L (136-145)
[2019-05-01] MEDS: IPRATROPIUM 0.5MG/ALBUTEROL 2.5MG INH SOL UD 3ML (DUONEB)(J7620) NEB PRN ×2 (08:17→15:46)
[2019-05-01] MEDS: VITAMIN D 1,000 INTERNATIONAL UNITS TABLET PO SCH (08:49)
[2019-05-01] MEDS: ASPIRIN 81 MG ENTERIC TAB PO SCH (08:49)
[2019-05-01] MEDS: ATORVASTATIN 20 MG TAB PO SCH (08:50)
[2019-05-01] MEDS: OMEPRAZOLE 20 MG CAP PO SCH (08:50)
[2019-05-01] MEDS: atenoloL 50 MG TAB PO SCH ×2 (08:51→20:04)
[2019-05-01] MEDS: NYSTATIN 100,000 UNITS/GM TOPICAL PWD 15 GM TOP SCH ×2 (08:53→20:05)
[2019-05-01] MEDS: BRIMONIDINE 0.1% OPHTH SOLN 5 ML OU SCH ×2 (08:53→20:05)
--- NOTE | 2019-05-01 13:05 | IPNPDOC ---
Subjective Date Seen The patient was seen on 05/01/19. Subjective Chief Complaint/HPI Resting in chair, feels unsteady on her feet when walking to the bathroom. RN notices that she's choking when she is eating. Objective Physical Examination General Exam: Positive: Alert, No Acute Distress Eye Exam: Negative: Sclera icteric ENT Exam: Positive: Mucous membr. moist/pink Neck Exam: Positive: Supple, JVD Chest Exam: Positive: Clear to auscultation Heart Exam: Positive: Rate Normal Abdomen Exam: Positive: Normal bowel sounds Extremity Exam: Negative: Clubbing, Cyanosis, Edema Skin Exam: Negative: Rash Neuro Exam: Positive: Normal Speech Psych Exam: Positive: Mental status NL Assessment /Plan Assessment # S/p fall at home due to old age related debility # Mild Rhabdomyolysis - resolved # HTN # Hx stroke # Chronic atrial fib - rate controlled # chronic warfarin anticoagulation # dysphagia Plan: - u.cx final: shows contamination - continue therapeutic warfarin, INR 2.4 - medically stable for discharge awaiting bed for SNF placement - speech eval Plan/VTE VTE Prophylaxis Ordered?: No (warfarin) VS, I&O, [facility], [facility] Vital Signs/I&O Vital Signs Date Time Temp Pulse Resp B/P (MAP) Pulse Ox O2 Delivery O2 Flow Rate FiO2 05/01/19 08:51 85 158/73 05/01/19 06:00 98.1 19 94 Room Air I&O- Last 24 Hours up to 6 AM 05/01/19 06:00 Intake Total 1200 ml Output Total 750 ml Balance 450 ml Laboratory Data 24H LABS Laboratory Tests 2 05/01/19 06:35: Prothrombin Time 26.5H, Prothromb Time International Ratio 2.46, Anion Gap 5L, Glomerular Filtration Rate > 60.0, Calcium Level 8.1L, Total Creatine Kinase 116 CBC/BMP Laboratory Tests 05/01/19 06:35 Microbiology Microbiology 04/28/19 Urine Culture - Final, Complete SVETLANA GUEVARA MD May 01, 2019 13:05
[2019-05-01 14:00] VITALS: BP 149/65
[2019-05-01] MEDS: WARFARIN SOD 2.5 MG TAB PO SCH (17:44)
[2019-05-01] MEDS: FUROSEMIDE 80 MG TAB PO SCH (19:38)
[2019-05-01] MEDS: LOSARTAN 50 MG TAB PO SCH (20:04)
[2019-05-01 22:00] VITALS: BP 151/73
[2019-05-02 06:00] VITALS: BP 153/86
[2019-05-02 06:07] LABS: INR 2.45; PROTHROMBIN TIME 26.4 SECONDS (11.8-14.0)
[2019-05-02] MEDS: VITAMIN D 1,000 INTERNATIONAL UNITS TABLET PO SCH (09:03)
[2019-05-02] MEDS: ATORVASTATIN 20 MG TAB PO SCH (09:03)
[2019-05-02] MEDS: ASPIRIN 81 MG ENTERIC TAB PO SCH (09:03)
[2019-05-02 09:04] VITALS: BP 150/82
[2019-05-02] MEDS: BRIMONIDINE 0.1% OPHTH SOLN 5 ML OU SCH (09:04)
[2019-05-02] MEDS: NYSTATIN 100,000 UNITS/GM TOPICAL PWD 15 GM TOP SCH (09:04)
[2019-05-02] MEDS: OMEPRAZOLE 20 MG CAP PO SCH (09:04)
[2019-05-02] MEDS: atenoloL 50 MG TAB PO SCH (09:04)
[2019-05-02] MEDS: FUROSEMIDE 80 MG TAB PO SCH (09:04)
--- NOTE | 2019-05-02 10:24 | IPNPDOC ---
Subjective Date Seen The patient was seen on 05/02/19. Subjective Chief Complaint/HPI Resting in chair. No acute issues. Objective Physical Examination General Exam: Positive: Alert, No Acute Distress Eye Exam: Negative: Sclera icteric ENT Exam: Positive: Mucous membr. moist/pink Neck Exam: Positive: Supple, JVD Chest Exam: Positive: Clear to auscultation Heart Exam: Positive: Rate Normal Abdomen Exam: Positive: Normal bowel sounds Extremity Exam: Negative: Clubbing, Cyanosis, Edema Skin Exam: Negative: Rash Neuro Exam: Positive: Normal Speech Psych Exam: Positive: Mental status NL Assessment /Plan Assessment # S/p fall at home due to old age related debility # Mild Rhabdomyolysis - resolved # HTN # Hx stroke # Chronic atrial fib - rate controlled # chronic warfarin anticoagulation # dysphagia Plan: - u.cx final: shows contamination - continue therapeutic warfarin, INR 2.4 - discharge to SNF today - can have speech eval at SNF Plan/VTE VTE Prophylaxis Ordered?: No (warfarin) VS, I&O, 24H, [facility] Vital Signs/I&O Vital Signs Date Time Temp Pulse Resp B/P (MAP) Pulse Ox O2 Delivery O2 Flow Rate FiO2 05/02/19 09:04 80 150/82 05/02/19 06:00 98.5 18 95 Room Air I&O- Last 24 Hours up to 6 AM 05/02/19 06:00 Intake Total 1215 ml Output Total 900 ml Balance 315 ml Laboratory Data 24H LABS Laboratory Tests 2 05/02/19 05:42: Prothrombin Time 26.4H, Prothromb Time International Ratio 2.45 Microbiology Microbiology 04/28/19 Urine Culture - Final, Complete SVETLANA GUEVARA MD May 02, 2019 10:24
--- NOTE | 2019-05-03 19:13 | DSES ---
DATE OF ADMISSION: 04/27/2019 DATE OF DISCHARGE: 05/02/2019 DISCHARGE DIAGNOSES: 1. Status post fall at home due to old age-related debility. 2. Mild rhabdomyolysis, resolved. 3. Hypertension. 4. Chronic atrial fibrillation. 5. Therapeutic chronic warfarin anticoagulation. 6. History of stroke. Procedures performed during this hospitalization and consultants on the case were none. DISPOSITION: The patient is discharged to a custodial facility. Followup laboratories that are pending at the time of discharge are none. DISCHARGE INSTRUCTIONS: The patient is instructed to followup with custodial facility physician or her primary care provider (PCP) in approximately one week. She is to resume taking her home medications including her Coumadin. Coumadin dosing will be done by the assisted. CONDITION ON DISCHARGE: Improved from admission. RELEVANT LABORATORY DATA: Urine culture showed contamination. White blood cell count 7.8, hemoglobin 12.4, hematocrit 38.2, platelet count was 204,000. Sodium 144, potassium 3.5, chloride 112, carbon dioxide is 27, anion gap is 5, BUN is 14, creatinine 0.83, CPK on admission was 1754, by the time she was discharged it had normalized at 116. Influenza A and B were negative. RELEVANT IMAGING STUDIES: CT scan of the head showed no acute pathology. CT of the cervical spine showed no acute fracture. Chest x-ray showed no acute intrathoracic process. X-ray of the right hip showed no evidence of fracture. DISCHARGE MEDICATIONS: Are the following: - baby aspirin daily - atenolol 60 mg at bedtime, 25 mg in the morning - atorvastatin 20 mg daily - Alphagan-P 0.1% 5 mL drops one drop in each eye twice a day - colecalciferol 2000 units daily - Voltaren gel apply daily as needed for arthritis - Flonase two sprays daily as needed for congestion - furosemide 80 mg daily - losartan 25 mg at bedtime - omeprazole 40 mg daily - warfarin 2.5 mg in the evening HOSPITAL COURSE: Mrs. Mandel is an 89-year-old woman who lives alone. She had fallen at home and was unable to get up, so she laid there for some time until it was noticed by her neighbors that she was not taking her meals that were delivered to her by [employer]. Emergency medical services (EMS) was contacted and she was found to be lying on the ground when they entered her home. She was brought to the emergency room where she was found to have mild rhabdomyolysis. Imaging failed to show any evidence of any acute pathology. She was admitted to the hospitalist service for treatment of mild rhabdomyolysis as described above. The patient was hydrated with IV fluids, monitored on the general medical floor. She was noted to be in chronic atrial fibrillation which was rate controlled. Her international normalized ratio (INR) upon admission was not to be subtherapeutic at 1.52. With dosing, she has had success with therapeutic range as above in the goal range of 2-3. The patient was hydrated with IV fluids with improvement in her rhabdomyolysis. She was seen by physical therapy (PT) and occupational therapy (OT) and deemed a candidate for custodial facility. She was unable to mobilize herself effectively. She was subsequently discharged to custodial facility in stable condition. A total of 30 minutes was spent completing all discharge paperwork.
== END 2019-05-02 11:51 | DRG 884 ==
LOC: EDBD 13:25 → M ED 13:25 → M ED INP 20:47 → ENRESERV 21:01 → M MSPAV 22:19
PROVIDERS: ADMIT Internal Medicine; ATTEND Internal Medicine
DX: R54 Age-related physical debility (principal); I48.20 Chronic atrial fibrillation, unspecified; M62.82 Rhabdomyolysis; E87.2 Acidosis; I10 Essential (primary) hypertension; Z86.73 Personal history of transient ischemic attack (TIA), and cerebral infarction without residual deficits; Z79.01 Long term (current) use of anticoagulants; R29.6 Repeated falls; Z79.82 Long term (current) use of aspirin; Z79.899 Other long term (current) drug therapy; M19.90 Unspecified osteoarthritis, unspecified site; E78.00 Pure hypercholesterolemia, unspecified; I73.9 Peripheral vascular disease, unspecified; E55.9 Vitamin D deficiency, unspecified; R91.8 Other nonspecific abnormal finding of lung field; H40.9 Unspecified glaucoma; Z96.651 Presence of right artificial knee joint; Z96.652 Presence of left artificial knee joint; K21.9 Gastro-esophageal reflux disease without esophagitis; Z66 Do not resuscitate; K58.9 Irritable bowel syndrome, unspecified; K76.0 Fatty (change of) liver, not elsewhere classified

== ENCOUNTER → 2019-05-04 | Outpatient (REF) ==
[~2019-05-04] MED LIST changes: +ATOR1TAB21 PO; +VITAD1000T PO; +WARF-18 PO
--- NOTE | 2019-05-04 15:07 | REP ---
Clinical: Shortness of breath. Technique: PA and lateral. Comparison: 04/27/2019, 06/23/2017 Findings: Mediastinum and cardiac silhouette are normal. Chronic changes at the left base. No acute consolidation or effusion. No pneumothorax. Skeletal structures are intact. Impression: Chronic stable changes. No acute consolidation or effusion. Electronically Signed by Sarwat Newsome MD 05/04/2019 02:59 P
[2019-05-04 16:14] LABS: BLOOD UREA NITROGEN 22 MG/DL (7-18); CALCIUM LEVEL 9.9 MG/DL (8.8-10.2); CARBON DIOXIDE LEVEL 33 MEQ/L (21-32); CHLORIDE LEVEL 102 MEQ/L (98-107); CREATININE FOR GFR 1.21 MG/DL (0.55-1.30); GLOMERULAR FILTRATION RATE 44.8 (>32); GLUCOSE, FASTING 148 MG/DL (70-100); NT-PRO BNP 933 PG/ML (<450); POTASSIUM SERUM 3.8 MEQ/L (3.5-5.1); SODIUM LEVEL 140 MEQ/L (136-145); TROPONIN I < 0.02 NG/ML (< 0.10)
--- NOTE | 2019-05-05 22:02 | ECGEPIP ---
[facility] Test Date: 2019-05-04 Pat Name: LOU CAR Department: Room: - Gender: Female Manager Program: : [id number] Requested By: Warner Gallardo Order Number: [id number] Reading MD: Oj Sadler Measurements Intervals [place] Rate: 102 P: [place]: 0 QRS: -29 QRSD: 128 T: -1 QT: 387 QTc: 505 Interpretive Statements ATRIAL FIBRILLATION WITH RAPID VENTRICULAR RESPONSE BORDERLINE LEFT AXIS DEVIATION RIGHT BUNDLE BRANCH BLOCK Increased heart rate compared with 04/27/2019 Electronically Signed on 05-05-2019 22:02:00 EST by Oj Sadler
== END ==
LOC: SKLAB2 13:48
PROVIDERS: ATTEND Family Medicine
DX: I48.91 Unspecified atrial fibrillation (principal); R06.02 Shortness of breath; N18.9 Chronic kidney disease, unspecified

== ENCOUNTER → 2019-05-09 | Outpatient (REF) ==
[2019-05-09 08:46] LABS: HEMATOCRIT 44.5 % (36.0-47.0); HEMOGLOBIN 14.4 g/dl (12.0-15.5); MEAN CORPUSCULAR HEMOGLOBIN 29.4 pg (27.0-33.0); MEAN CORPUSCULAR HGB CONC 32.4 g/dl (32.0-36.5); MEAN CORPUSCULAR VOLUME 90.8 fl (80.0-96.0); PLATELET COUNT, AUTOMATED 270 10^3/uL (150-450); WHITE BLOOD COUNT 8.6 10^3/uL (4.0-10.0)
[2019-05-09 09:10] LABS: CALCIUM LEVEL 8.7 MG/DL (8.8-10.2); CREATININE FOR GFR 1.11 MG/DL (0.55-1.30); GLOMERULAR FILTRATION RATE 49.5 (>32); INR 3.14; POTASSIUM SERUM 3.5 MEQ/L (3.5-5.1); PROTHROMBIN TIME 32.2 SECONDS (11.8-14.0)
== END ==
LOC: SKLAB2 07:00
PROVIDERS: ATTEND Family Medicine
DX: R60.9 Edema, unspecified (principal); I10 Essential (primary) hypertension; Z79.01 Long term (current) use of anticoagulants

== ENCOUNTER → 2019-05-16 | Outpatient (REF) ==
[2019-05-16 08:18] LABS: INR 4.08; PROTHROMBIN TIME 39.7 SECONDS (11.8-14.0)
== END ==
LOC: SKLAB2 07:00
PROVIDERS: ATTEND Family Medicine
DX: Z51.81 Encounter for therapeutic drug level monitoring (principal); Z79.899 Other long term (current) drug therapy

== ENCOUNTER → 2019-05-18 | Outpatient (REF) ==
[2019-05-18 07:02] LABS: INR 2.98; PROTHROMBIN TIME 30.9 SECONDS (11.8-14.0)
== END ==
LOC: SKLAB2 07:00
PROVIDERS: ATTEND Family Medicine
DX: Z51.81 Encounter for therapeutic drug level monitoring (principal); Z79.899 Other long term (current) drug therapy

== ENCOUNTER → 2019-05-23 | Outpatient (REF) ==
[2019-05-23 08:06] LABS: INR 3.48
== END ==
LOC: SKLAB2 07:00
PROVIDERS: ATTEND Family Medicine
DX: Z51.81 Encounter for therapeutic drug level monitoring (principal); Z79.899 Other long term (current) drug therapy

== ENCOUNTER → 2019-05-27 | Outpatient (REF) ==
[2019-05-27 08:59] LABS: INR 2.22; PROTHROMBIN TIME 24.4 SECONDS (11.8-14.0)
== END ==
LOC: SKLAB2 07:00
PROVIDERS: ATTEND Family Medicine
DX: Z79.01 Long term (current) use of anticoagulants (principal)

== ENCOUNTER → 2019-05-30 | Outpatient (REF) ==
[2019-05-30 09:24] LABS: INR 2.75
== END ==
LOC: SKLAB2 07:30
PROVIDERS: ATTEND Family Medicine
DX: Z51.81 Encounter for therapeutic drug level monitoring (principal); Z79.899 Other long term (current) drug therapy

== ENCOUNTER → 2019-06-07 | Outpatient (REF) ==
[2019-06-07 07:20] LABS: INR 4.09; PROTHROMBIN TIME 39.8 SECONDS (11.8-14.0)
== END ==
LOC: SKLAB2 07:00
PROVIDERS: ATTEND Family Medicine
DX: Z79.01 Long term (current) use of anticoagulants (principal)

== ENCOUNTER → 2019-06-11 | Outpatient (REF) | payer MEDICARE ==
[2019-06-11 06:49] LABS: INR 2.88; PROTHROMBIN TIME 30.1 SECONDS (11.8-14.0)
== END ==
LOC: SKLAB2 07:00
PROVIDERS: ATTEND Family Medicine
DX: Z79.01 Long term (current) use of anticoagulants (principal)

== ENCOUNTER → 2019-06-14 | Outpatient (REF) ==
[2019-06-14 07:55] LABS: INR 2.83; PROTHROMBIN TIME 29.7 SECONDS (11.8-14.0)
== END ==
LOC: SKLAB2 07:00
PROVIDERS: ATTEND Family Medicine
DX: Z79.01 Long term (current) use of anticoagulants (principal)

== ENCOUNTER → 2019-06-21 | Outpatient (REF) | payer MEDICARE ==
[2019-06-21 08:13] LABS: INR 2.93; PROTHROMBIN TIME 30.5 SECONDS (11.8-14.0)
== END ==
LOC: SKLAB2 07:00
PROVIDERS: ATTEND Family Medicine
DX: Z79.899 Other long term (current) drug therapy (principal)

== ENCOUNTER → 2019-06-28 | Outpatient (REF) | payer MEDICARE ==
[2019-06-28 08:05] LABS: INR 2.96; PROTHROMBIN TIME 30.7 SECONDS (11.8-14.0)
== END ==
LOC: SKLAB2 07:00
PROVIDERS: ATTEND Family Medicine
DX: Z51.81 Encounter for therapeutic drug level monitoring (principal); Z79.899 Other long term (current) drug therapy

== ENCOUNTER → 2019-06-28 | Outpatient (REF) | payer MEDICARE | LOC: SKLAB2 14:14 | PROVIDERS: ATTEND Family Medicine | DX: Z53.9 Procedure and treatment not carried out, unspecified reason (principal) ==

== ENCOUNTER → 2019-06-29 | Outpatient (REF) | payer MEDICARE ==
[2019-06-29 11:04] LABS: CREATININE FOR GFR 0.97 MG/DL (0.55-1.30); GLOMERULAR FILTRATION RATE 57.8 (>32); POTASSIUM SERUM 3.6 MEQ/L (3.5-5.1)
== END ==
LOC: SKLAB2 07:01
PROVIDERS: ATTEND Family Medicine
DX: I50.9 Heart failure, unspecified (principal)

== ENCOUNTER → 2019-07-13 | Outpatient (REF) | payer MEDICARE ==
[2019-07-13 16:59] LABS: HEMATOCRIT 41.2 % (36.0-47.0); HEMOGLOBIN 13.9 g/dl (12.0-15.5); MEAN CORPUSCULAR HEMOGLOBIN 30.3 pg (27.0-33.0); MEAN CORPUSCULAR HGB CONC 33.7 g/dl (32.0-36.5); PLATELET COUNT, AUTOMATED 267 10^3/uL (150-450); RED BLOOD COUNT 4.58 10^6/uL (4.00-5.40); WHITE BLOOD COUNT 7.4 10^3/uL (4.0-10.0)
[2019-07-13 17:04] LABS: ALBUMIN 3.3 GM/DL (3.2-5.2); BILIRUBIN,TOTAL 1.6 MG/DL (0.2-1.0); CALCIUM LEVEL 9.4 MG/DL (8.8-10.2); CHOLESTEROL RISK RATIO 2.886 (<5); CREATININE FOR GFR 1.09 MG/DL (0.55-1.30); GLOMERULAR FILTRATION RATE 50.5 (>32); MAGNESIUM LEVEL 1.5 MG/DL (1.8-2.4); POTASSIUM SERUM 3.2 MEQ/L (3.5-5.1); TOTAL PROTEIN 6.6 GM/DL (6.4-8.2)
[2019-07-13 17:16] LABS: INR 2.93; PROTHROMBIN TIME 30.5 SECONDS (11.8-14.0)
== END ==
LOC: M SFHCPLAZ 13:51
PROVIDERS: ATTEND Internal Medicine
DX: E78.00 Pure hypercholesterolemia, unspecified (principal); I48.91 Unspecified atrial fibrillation; Z51.81 Encounter for therapeutic drug level monitoring; Z79.01 Long term (current) use of anticoagulants; R06.09 Other forms of dyspnea; I11.9 Hypertensive heart disease without heart failure; R73.01 Impaired fasting glucose
CPT/HCPCS: 80053; 80061; 83036; 83735; 83880; 85027; 85610; G0463

== ENCOUNTER → 2019-08-09 | Outpatient (CLI) | payer MEDICARE | LOC: M LAB 14:12 | PROVIDERS: ATTEND Internal Medicine | DX: I11.9 Hypertensive heart disease without heart failure (principal) ==

== ENCOUNTER → 2019-08-19 | Outpatient (REF) | payer MEDICARE ==
[2019-08-19 17:39] LABS: CALCIUM LEVEL 8.7 MG/DL (8.8-10.2); CREATININE FOR GFR 1.38 MG/DL (0.55-1.30); GLOMERULAR FILTRATION RATE 38.5 (>32); POTASSIUM SERUM 3.6 MEQ/L (3.5-5.1)
[2019-08-19 17:52] LABS: INR 3.26; PROTHROMBIN TIME 33.2 SECONDS (11.8-14.0)
== END ==
LOC: M SFHCCLAY 10:35
PROVIDERS: ATTEND Internal Medicine
DX: I11.9 Hypertensive heart disease without heart failure (principal); Z79.01 Long term (current) use of anticoagulants

== ENCOUNTER → 2019-09-13 | Outpatient (REF) | payer MEDICARE ==
[2019-09-14 12:28] LABS: BASO # 0.1 10^3/uL (0.0-0.2); BASO % 0.9 % (0.0-1.0); EOS # 0.3 10^3/uL (0.0-0.5); EOS % 3.7 % (0.0-3.0); HEMATOCRIT 42.1 % (36.0-47.0); HEMOGLOBIN 13.7 g/dl (12.0-15.5); LYMPH # 2.6 10^3/uL (1.5-5.0); LYMPH % 30.3 % (24.0-44.0); MEAN CORPUSCULAR HEMOGLOBIN 30.2 pg (27.0-33.0); MEAN CORPUSCULAR HGB CONC 32.5 g/dl (32.0-36.5); MEAN CORPUSCULAR VOLUME 92.7 fl (80.0-96.0); MONO # 0.5 10^3/uL (0.0-0.8); MONO % 6.2 % (0.0-5.0); NEUTROPHILS # 5.1 10^3/uL (1.5-8.5); NEUTROPHILS % 58.6 % (36.0-66.0); PLATELET COUNT, AUTOMATED 250 10^3/uL (150-450); RED BLOOD COUNT 4.54 10^6/uL (4.00-5.40); WHITE BLOOD COUNT 8.7 10^3/uL (4.0-10.0)
[2019-09-14 13:38] LABS: HEMOGLOBIN A1c 6.6 %
== END ==
LOC: M SFHCCLAY 13:48
PROVIDERS: ATTEND Internal Medicine
DX: R04.0 Epistaxis (principal); R73.01 Impaired fasting glucose; I11.9 Hypertensive heart disease without heart failure

== ENCOUNTER → 2019-10-28 | Outpatient (CLI) | payer MEDICARE ==
[~2019-10-28] MED LIST changes: +BISA10SU PR; +D31000TA2 PO; +DICL1PAT6 TOP; +FLUD0.1T PO; +JANT3TAB PO; +MECL12.589 PO; +PEG1POW PO; +POTA20TA6 PO; +PRED20TA PO; +SENN-52 PO; +TRAM50TA2 PO; -VITAD1000T PO
[2019-12-15 21:58] LABS: PROTHROMBIN TIME 28.1 SECONDS (12.5-14.3)
[2019-12-15 21:59] LABS: INR 2.56
== END ==
LOC: M LAB 13:25
PROVIDERS: ATTEND Internal Medicine
DX: I11.9 Hypertensive heart disease without heart failure (principal); Z79.01 Long term (current) use of anticoagulants

== ENCOUNTER 2019-12-06 19:25 | Inpatient (IN) | payer MEDICARE ==
[~2019-12-06] VITALS: Ht 157.5 cm; Wt 90.5 kg
[~2019-12-06 19:25] MED LIST changes: -BISA10SU PR; -DICL1PAT6 TOP; -FLUD0.1T PO; -JANT3TAB PO; -MECL12.589 PO; -PEG1POW PO; -POTA20TA6 PO; -PRED20TA PO; -SENN-52 PO; -TRAM50TA2 PO
--- NOTE | 2019-12-06 21:02 | REPVR ---
PROCEDURE INFORMATION: Exam: CT Head Without Contrast Exam date and time: 12/06/2019 8:34 PM Age: 89 years old Clinical indication: Syncope and collapse TECHNIQUE: Imaging protocol: Computed tomography of the head without contrast. Radiation optimization: All CT scans at this facility use at least one of these dose optimization techniques: automated exposure control; mA and/or kV adjustment per patient size (includes targeted exams where dose is matched to clinical indication); or iterative reconstruction. COMPARISON: CT Head without contrast 04/27/2019 1:56 PM FINDINGS: Brain: There is advanced cerebral atrophy. Changes of chronic white matter microvascular disease are present. No signs of a recent infarction or hemorrhage. 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 Ventricles: There is ex vacuo ventricular enlargement without evidence of obstructive hydrocephalus. Bones/joints: Unremarkable. No acute fracture. Paranasal sinuses: Visualized sinuses are unremarkable. No fluid levels. Mastoid air cells: Visualized mastoid air cells are well aerated. Soft tissues: Unremarkable. IMPRESSION: Atrophy and chronic white matter changes. No acute intracranial abnormality. Electronically signed by: Rodolfo Lau On 12/06/2019 21:02:31 PM
--- NOTE | 2019-12-06 21:04 | REPVR ---
PROCEDURE INFORMATION: Exam: XR Right Ankle Exam date and time: 12/06/2019 8:47 PM Age: 89 years old Clinical indication: Other: Swelling upon fall; Additional info: Right ankle swelling/pain S/P fall TECHNIQUE: Imaging protocol: XR Right ankle. Views: 3 or more views. COMPARISON: No relevant prior studies available. FINDINGS: Bones/joints: Slight widening of the lateral ankle joint space on 1 of the frontal views. Ankle mortise is otherwise unremarkable. No fracture or malalignment. Soft tissues: Prominent soft tissue swelling at the ankle. IMPRESSION: 1. Slight widening of the lateral ankle joint space may indicate lateral ligament injury. 2. Soft tissue swelling. No fracture or malalignment. Electronically signed by: Rodolfo Lau On 12/06/2019 21:04:30 PM
[2019-12-06 21:13] LABS: BASO # 0.1 10^3/uL (0.0-0.2); BASO % 0.9 % (0.0-1.0); EOS # 0.2 10^3/uL (0.0-0.5); HEMATOCRIT 42.8 % (36.0-47.0); HEMOGLOBIN 13.9 g/dl (12.0-15.5); LYMPH # 2.2 10^3/uL (1.5-5.0); LYMPH % 24.2 % (24.0-44.0); MEAN CORPUSCULAR HEMOGLOBIN 29.8 pg (27.0-33.0); MEAN CORPUSCULAR HGB CONC 32.5 g/dl (32.0-36.5); MEAN CORPUSCULAR VOLUME 91.8 fl (80.0-96.0); MONO # 0.6 10^3/uL (0.0-0.8); NEUTROPHILS % 65.6 % (36.0-66.0); PLATELET COUNT, AUTOMATED 290 10^3/uL (150-450); RED BLOOD COUNT 4.66 10^6/uL (4.00-5.40); WHITE BLOOD COUNT 9.1 10^3/uL (4.0-10.0)
[2019-12-06 21:31] LABS: INR 2.3; PROTHROMBIN TIME 25.8 SECONDS (12.5-14.3)
[2019-12-06 21:32] LABS: PARTIAL THROMBOPLASTIN TIME 35.4 SECONDS (24.2-38.5)
[2019-12-06 21:40] LABS: BLOOD UREA NITROGEN 23 MG/DL (7-18); CALCIUM LEVEL 9.4 MG/DL (8.8-10.2); CARBON DIOXIDE LEVEL 30 MEQ/L (21-32); CHLORIDE LEVEL 104 MEQ/L (98-107); CK-MB VALUE MASS < 1.0 NG/ML (<3.6); CPK CREATINE PHOSPHOKINASE 61 U/L (26-192); CREATININE FOR GFR 1.28 MG/DL (0.55-1.30); GLUCOSE, FASTING 111 MG/DL (70-100); MAGNESIUM LEVEL 1.9 MG/DL (1.8-2.4); MB/CK RELATIVE INDEX 1.64 (< OR =4); POTASSIUM SERUM 3.9 MEQ/L (3.5-5.1); SODIUM LEVEL 139 MEQ/L (136-145); TROPONIN I < 0.02 NG/ML (< 0.10)
[2019-12-06] MEDS ORDERED: POTA20TA6 PO (23:20)
--- NOTE | 2019-12-06 23:20 | ECGEPIP ---
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
--- NOTE | 2019-12-07 00:45 | HPEPDOC ---
[facility] Medical History & Physical Date of Admission Dec 06, 2019 Date of Service: Dec 06, 2019 Attending Physician: LEONELA COOPER MD History and Physical CHIEF COMPLAINT: fall HISTORY OF PRESENT ILLNESS: Que Mandel is an 89 YO F with AF (on Coumadin) and history of CVAs who presents to ED after a fall at home. The patient reports she fell on her kitchen floor after her maid recently cleaned it with some slippery solution. At baseline, the patient normally walks with a walker. She states that she fell backwards, landing on her tailbone and hurting her right ankle. She denies any loss of consciousness or any lightheadedness or dizziness prior to the fall, stating that she simply lost her balance. Upon further questioning, the patient reports that she has fallen about 5-6 times in the past month at home. She lives alone and her son is about 3 miles away. He does come to help her with her medications. She has been encouraged by her family in the past (following her last CVA in 2018) to seek care home placement, but she states "I do not want to lose my independence." She has also not been eating well. She does state that since her stroke in 2019 she does have some trouble with her vision and occasionally she gets something called the "spinnies" where she gets headaches and some lightheadedness. The majority of her falls have reportedly been mechanical, however. She also intermittently experiences lightheadedness/dizziness when getting out of bed or standing from a chair. PAST MEDICAL HISTORY: 1. Hypertension 2. Atrial fibrillation (on Coumadin) 3. CVA in 2018 with subsequent rehab placement at [facility] 4. History of migraines 5. GERD PAST SURGICAL HISTORY: 1. Cholecystectomy 2. Bilateral knee replacements SOCIAL HISTORY: Lives alone. Has three sons, one of which (Avni) lives within 3 miles. Former smoker, quit > 40 years ago. Enjoys occasional [place]linger, no illicit drugs FAMILY HISTORY: noncontributory ALLERGIES: Please see below. REVIEW OF SYSTEMS: Constitutional: No Weight Change, No Fever, No Chills, No Night Sweats, No Fatigue, No Malaise ENT/Mouth: No Hearing Changes, No Ear Pain, No Nasal Congestion, No Sinus Pain, No Hoarseness, No sore throat, No Rhinorrhea, No Swallowing Difficulty Eyes: No Eye Pain, No Swelling, No Redness, No Foreign Body, No Discharge, No Vision Changes Cardiovascular: No Chest Pain, No SOB, No PND, No Dyspnea on Exertion, No Orthopnea, No Claudication, No Edema, No Palpitations Respiratory: No Cough, No Wheezing, No Smoke Exposure, No Dyspnea Gastrointestinal: No Nausea, No Vomiting, No Diarrhea, No Constipation, No Pain, No Heartburn, No Anorexia, No Dysphagia, No Hematochezia, No Melena, No Flatulence, No Jaundice Genitourinary: No Dysmenorrhea, No DUB, No Dyspareunia, No Dysuria Musculoskeletal: No Arthralgias, No Myalgias, No Joint Swelling, No Joint Stiffness, No Back Pain, No Neck Pain, No Injury History Skin: No Skin Lesions, No Pruritis, No Hair Changes, No Breast/Skin Changes, No Nipple Discharge Neuro: No Weakness, No Numbness, No Paresthesias, No Loss of Consciousness, No Dizziness, No Headache, No Coordination Changes, No Recent Falls Psych: No Anxiety/Panic, No Depression, No Insomnia, No Personality Changes, No Delusions Heme/Lymph: No Bruising, No Bleeding, No Transfusions History, No Lymphadenopathy Endocrine: No Polyuria, No Polydipsia, No Temperature Intolerance HOME MEDICATIONS: Please see below. PHYSICAL EXAMINATION: VITAL SIGNS: see below GENERAL: alert and oriented, in no apparent distress, pleasant and conversant in full sentences. HEENT: PERRL, EOMI, Oral mucous membranes are moist without lesions. NECK: The patient has no noted JVD. No adenopathy is appreciated. No thyromegaly CHEST/LUNGS: Lungs are clear bilaterally without rhonchi, rales, or wheezes. There is no subcutaneous air appreciated. There is no tenderness to the chest wall. HEART: Irregularly irregular. No murmurs, rubs, or gallops are appreciated. Distal pulses are 2+. No carotid bruits appreciated. ABDOMEN: Soft, nontender, and nondistended. Bowel sounds are positive. No organomegaly is appreciated. No masses are appreciated. There are no peritoneal signs. There is no [place] sign. BACK: There is pain and tenderness to palpation over the tailbone EXTREMITIES: No peripheral edema. There is no focal long bone tenderness or deformity. SKIN: The patients skin is warm and dry, without rashes or lesions. PSYCHIATRIC: AAO x 3, normal mood/affect NEUROLOGIC: The patient has 5/5 strength to the upper and lower extremities bilaterally. Sensation is intact throughout. Deep tendon reflexes are 2+ in all four extremities. There are no deficits to the cranial nerves. LABORATORY DATA: See below. IMAGING: ECHOCARDIOGRAM (11/2018): IMPRESSION: 1. Normal global left ventricular systolic function. 2. Aortic valve sclerosis with mild aortic radiation and trivial aortic stenosis. 3. Mitral annulus calcification with a mildly enlarged left atrium and moderate mitral regurgitation. 4. Mild tricuspid regurgitation with mild pulmonary hypertension. 5. Trace pericardial effusion was noted, no evidence of cardiac tamponade. 6. There are some features of elevated central venous pressure, the inferior vena cava was mildly enlarged. 7. No intracardiac shunt detected in this transthoracic echocardiogram. CT HEAD: FINDINGS: Brain: There is advanced cerebral atrophy. Changes of chronic white matter microvascular disease are present. No signs of a recent infarction or hemorrhage. 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 Ventricles: There is ex vacuo ventricular enlargement without evidence of obstructive hydrocephalus. Bones/joints: Unremarkable. No acute fracture. Paranasal sinuses: Visualized sinuses are unremarkable. No fluid levels. Mastoid air cells: Visualized mastoid air cells are well aerated. Soft tissues: Unremarkable. IMPRESSION: Atrophy and chronic white matter changes. No acute intracranial abnormality. R ANKLE XR: IMPRESSION: 1. Slight widening of the lateral ankle joint space may indicate lateral ligament injury. 2. Soft tissue swelling. No fracture or malalignment. MICROBIOLOGY: Please see below. ASSESSMENT: This is an 89-year-old female with atrial fibrillation on Coumadin and history of multiple strokes who presents after mechanical fall at home concerning for syncope versus hypotension secondary to medication side effect. He'll be admitted for further workup. PLAN: 1. Fall: Appears to be most likely mechanical in nature, however cannot rule out syncope versus hypotension from medication side effect -Will check orthostatics -Holding home antihypertensives for time being -Continuous telemetry. EKG shows right bundle branch block, atrial fibrillation consistent with prior EKG -PT/OT consult -Patient recently had echocardiogram in 2019, essentially normal. If patient continues to be syncopal, would consider repeating echo -Pain management with Tylenol 2. Atrial Fibrillation: rate is controlled -Continue Coumadin 3. History of CVAs: -No focal deficits found on neurologic exam. -Continue ASA 4. GERD: -Continue Omeprazole DVT ppx: on Coumadin Vital Signs Vital Signs Date Time Temp Pulse Resp B/P (MAP) Pulse Ox O2 Delivery O2 Flow Rate FiO2 12/06/19 22:16 20 162/86 (111) 95 Room Air 12/06/19 22:10 68 12/06/19 20:46 97.2 Laboratory Data Labs 24H Laboratory Tests 2 12/06/19 20:28: Immature Granulocyte % (Auto) 0.3, Neutrophils (%) (Auto) 65.6, Lymphocytes (%) (Auto) 24.2, Monocytes (%) (Auto) 7.0H, Eosinophils (%) (Auto) 2.0, Basophils (%) (Auto) 0.9, Neutrophils # (Auto) 6.0, Lymphocytes # (Auto) 2.2, Monocytes # (Auto) 0.6, Eosinophils # (Auto) 0.2, Basophils # (Auto) 0.1, Nucleated Red Blood Cells % (auto) 0.0, Prothrombin Time 25.8H, Prothromb Time International Ratio 2.30, Activated Partial Thromboplast Time 35.4, Urine Color YELLOW, Urine Appearance HAZY, Urine pH 7.0, Urine Specific [place] 1.005, Urine Protein NEGATIVE, Urine Glucose (UA) NEGATIVE, Urine Ketones NEGATIVE, Urine Blood 1+H, Urine Nitrite NEGATIVE, Urine Bilirubin NEGATIVE, Urine Urobilinogen 0.2, Urine Leukocyte Esterase NEGATIVE, Urine WBC (Auto) 5H, Urine RBC (Auto) 2, Urine Hyaline Casts (Auto) 4, Urine Bacteria (Auto) 3+H, Urine Squamous Epithelial Cells 12, Urine Mucus (Auto) SMALL, Urine Sperm (Auto) , Anion Gap 5L, Glomerular Filtration Rate 42.0, Lactic Acid Level 1.9, Calcium Level 9.4, Magnesium Level 1.9, Total Creatine Kinase 61, Creatine Kinase MB < 1.0, Creatine Kinase MB Relative Index 1.64, Troponin I < 0.02, Thyroid Stimulating Hormone (TSH) 2.210 CBC/BMP Laboratory Tests 12/06/19 20:28 Home Medications Scheduled Aspirin (Aspirin EC) 81 Mg Tablet.dr, 81 MG PO DAILY Atenolol (Atenolol) 50 Mg Tab, 50 MG PO QHS Atenolol (Atenolol) 50 Mg Tablet, 25 MG PO DAILY Brimonidine Tartrate (Alphagan P) 0.1% 5ML Drops, 1 DROP OU BID Cholecalciferol (Vitamin D3) (Vitamin D3) 1,000 Unit Tablet, 2,000 UNITS PO DAILY Furosemide (Lasix) 80 Mg Tab, 80 MG PO DAILY Losartan Potassium (Losartan Potassium) 50 Mg Tab, 25 MG PO QHS Omeprazole (Omeprazole) 40 Mg Cap, 40 MG PO DAILY Potassium Chloride (Potassium Chloride) 20 Meq Tab.er.prt, 20 MEQ PO DAILY Warfarin Sodium (Warfarin Sodium) 2.5 Mg Tablet, 2.5 MG PO QPM TAKES AT DINNERTIME Scheduled PRN Fluticasone Propionate (Fluticasone Propionate) 15.8 Ml Jones.susp, 2 SPRAYS NA DAILY PRN for NASAL CONGESTION Allergies Coded Allergies: Penicillins (Verified Allergy, Mild, RASH, 11/23/18) GUDELIA Inhibitors (Verified Allergy, Unknown, UNKNOWN REACTION PER FAMILY, 04/27/19) SEASONAL ALLERGIES (Verified Allergy, Unknown, 11/23/18) doxycycline (Verified Allergy, Unknown, UNKNOWN REACTION PER FAMILY, 04/27/19) prazosin (Verified Allergy, Unknown, UNKNOWN REACTION PER FAMILY, 04/27/19) codeine (Verified Adverse Reaction, Mild, CONFUSION, 11/23/18) ibuprofen (Verified Adverse Reaction, Mild, ORAL THRUSH, 11/26/18) A-FIB/CHADSVASC A-FIB History Current/History of A-Fib/PAF?: Yes Current PO Anticoag Therapy: Yes GME ATTESTATION E ATTESTATION My faculty preceptor for this patient encounter was physically present during the encounter and was fully available. All aspects of the patient interview, examination, medical decision making process, and medical care plan development were reviewed and approved by the faculty preceptor. The faculty preceptor is aware and concurs with the plan as stated in the body of this note and will attest to such by his/her cosignature. GME ATTESTATION E ATTESTATION My faculty preceptor for this patient encounter was physically present during the encounter and was fully available. All aspects of the patient interview, examination, medical decision making process, and medical care plan development were reviewed and approved by the faculty preceptor. The faculty preceptor is aware and concurs with the plan as stated in the body of this note and will attest to such by his/her cosignature. ATTENDING NOTE DATE OF SERVICE 12/06/2019 TIME OF SERVICE 11:45PM I agree with the findings as documented by with the addition of the following. Ms. Mandel is an 89yr old F w a hx of frequent falls, A fib, CVA, HTN and migraines who presented for evaluation after having a fall that was preceded by vertigo and lightheadedness - f/u MRI/MRA of the brain to r/o vertebrobasilar insufficiency, resume home BP meds for uncontrolled HTN & PT eval rest per Dr.Be anne H&P BRANDIN ALEGRE MD Dec 07, 2019 00:04 LEONELA COOPER MD Dec 07, 2019 01:42
[2019-12-07 00:52] VITALS: BP 130/55
[2019-12-07] MEDS: DOCUSATE SODIUM 100 MG CAP PO SCH ×3 (01:13→20:06)
[2019-12-07] MEDS: LOSARTAN 50MG TABLET PO SCH ×2 (03:56→21:00)
[2019-12-07 06:00] VITALS: BP 129/72
[2019-12-07 06:15] LABS: HEMATOCRIT 41.6 % (36.0-47.0); HEMOGLOBIN 13.7 g/dl (12.0-15.5); MEAN CORPUSCULAR HEMOGLOBIN 30.1 pg (27.0-33.0); MEAN CORPUSCULAR HGB CONC 32.9 g/dl (32.0-36.5); MEAN CORPUSCULAR VOLUME 91.4 fl (80.0-96.0); PLATELET COUNT, AUTOMATED 279 10^3/uL (150-450); RED BLOOD COUNT 4.55 10^6/uL (4.00-5.40); WHITE BLOOD COUNT 8.1 10^3/uL (4.0-10.0)
[2019-12-07 06:40] LABS: CALCIUM LEVEL 9.5 MG/DL (8.8-10.2); CREATININE FOR GFR 1.25 MG/DL (0.55-1.30); GLOMERULAR FILTRATION RATE 43.2 (>32); MAGNESIUM LEVEL 2.1 MG/DL (1.8-2.4)
[2019-12-07] MEDS ORDERED: FLUBLOK(EGG FREE)(QUAD)INFLUENZA VACC 0.5ML SYRINGE 18YRS & OLDER IM ONE (09:00)
[2019-12-07] MEDS: ASPIRIN 81 MG ENTERIC TAB PO SCH (09:44)
[2019-12-07] MEDS: BRIMONIDINE 0.1% OPHTH SOLN 5 ML OU SCH ×2 (09:44→20:06)
[2019-12-07] MEDS: POTASSIUM CHLORIDE 10 MEQ SR TABLET PO SCH (09:44)
[2019-12-07] MEDS: OMEPRAZOLE 20 MG CAP PO SCH (09:44)
[2019-12-07] MEDS: ACETAMINOPHEN TAB 650MG DOSE (2X325MG) PO PRN (09:45)
[2019-12-07] MEDS: ONDANSETRON 4 MG ORAL DISINTEGRATING TAB PO PRN (10:31)
--- NOTE | 2019-12-07 11:20 | IPNPDOC ---
Text Note Date of Service The patient was seen on 12/07/19. NOTE Patient was seen and examined this morning. She is doing fine and states that she is sure that this was a mechanical fall as a formulary slippery. Denies any syncopal or denies any dizziness at this time PHYSICAL EXAMINATION: GENERAL: alert and oriented, in no apparent distress, pleasant and conversant in full sentences. HEENT: PERRL, EOMI, Oral mucous membranes are moist without lesions. NECK: The patient has no noted JVD. No adenopathy is appreciated. No thyromegaly CHEST/LUNGS: Lungs are clear bilaterally without rhonchi, rales, or wheezes. There is no subcutaneous air appreciated. There is no tenderness to the chest wall. HEART: Irregularly irregular. No murmurs, rubs, or gallops are appreciated. Distal pulses are 2+. No carotid bruits appreciated. ABDOMEN: Soft, nontender, and nondistended. Bowel sounds are positive. No organomegaly is appreciated. No masses are appreciated. There are no peritoneal signs. There is no [place] sign. BACK: There is pain and tenderness to palpation over the tailbone EXTREMITIES: No peripheral edema. There is no focal long bone tenderness or deformity. SKIN: The patients skin is warm and dry, without rashes or lesions. PSYCHIATRIC: AAO x 3, normal mood/affect NEUROLOGIC: The patient has 5/5 strength to the upper and lower extremities bilaterally. Sensation is intact throughout. Deep tendon reflexes are 2+ in all four extremities. There are no deficits to the cranial nerves. LABORATORY DATA: See below. Assessment and plan This is an 89-year-old female with atrial fibrillation on Coumadin and history of multiple strokes who presents after mechanical fall at home concerning for syncope versus hypotension secondary to medication side effect. He'll be admitted for further workup. 1. Fall: Mechanical in nature. Etiology reviewed. No signs of any fractures. Telemetry monitoring overnight. No acute events. We'll continue telemetry monitoring for another 24 hours. No events on developer advisor. She can be di scharged home tomorrow 2. Atrial Fibrillation: rate is controlled, Continue Coumadin 3. History of CVAs: With no residual deficits. Continue aspirin 4. GERD: Continue Omeprazole DVT ppx: on Coumadin Disposition: likely home tomorrow. VS,Fishbone, I+O VS, Fishbone, I+O Laboratory Tests 12/06/19 20:28 12/07/19 05:17 Vital Signs Date Time Temp Pulse Resp B/P (MAP) Pulse Ox O2 Delivery O2 Flow Rate FiO2 12/07/19 06:00 97.2 78 19 129/72 (91) 96 Room Air I&O- Last 24 Hours up to 6 AM 12/07/19 06:00 Intake Total 200 ml Output Total 175 ml Balance 25 ml IVY FONTANEZ MD Dec 07, 2019 11:20
[2019-12-07 14:00] VITALS: BP 111/63
[2019-12-07 16:00] VITALS: BP_SYST 111; BP_SYST 115; BP_SYST 118; BP_DIAS 50; BP_DIAS 53
--- NOTE | 2019-12-07 16:21 | REPVR ---
PROCEDURE INFORMATION: Exam: MR Head Without Contrast Exam date and time: 12/07/2019 1:08 PM Age: 89 years old Clinical indication: Altered mental status/memory loss; Age related cognitive decline; Additional info: R/O CVA TECHNIQUE: Imaging protocol: MR of the head without contrast. COMPARISON: MRI-Brain without Contrast 11/23/2018 9:23 PM FINDINGS: Brain: No restricted diffusion to suggest acute infarction. In comparison the prior study there has been evolution of the right mesial temporal infarction. There also probable prior infarctions left cerebellar hemisphere and left medial occipital lobe.Increased signal intensity of the deep and subcortical white matter on the FLAIR and T2 weighted sequences is most consistent with microangiopathy. There is no acute intracranial hemorrhage or prior microhemorrhage. No flow is seen in the distal left vertebral artery. Cerebral ventricles: The ventricles appear enlarged, but not out of proportion to the degree of parenchymal volume loss. Bones/joints: Unremarkable. Paranasal sinuses: Normal as visualized. No acute sinusitis. Mastoid air cells: Normal as visualized. No mastoid effusion. Orbits: Unremarkable. Soft tissues: Unremarkable. IMPRESSION: No acute cerebral infarction or intracranial hemorrhage. Electronically signed by: Ro Owusu On 12/07/2019 16:20:42 PM
--- NOTE | 2019-12-07 16:26 | REPVR ---
PROCEDURE INFORMATION: Exam: MR Angiogram Head Without Contrast, Arteries Exam date and time: 12/07/2019 1:08 PM Age: 89 years old Clinical indication: Cognitive deficit; Age-related cognitive decline; Additional info: R/O CVA TECHNIQUE: Imaging protocol: MR angiogram head without contrast. Exam focused on the arteries. COMPARISON: MRA BRAIN W/O CONTRAST 11/23/2018 9:23 PM FINDINGS: ANTERIOR CIRCULATION: Right internal carotid artery: Intracranial segment is patent with no significant stenosis. No aneurysm. Right middle cerebral artery: No occlusion or significant stenosis. No aneurysm. Right anterior cerebral artery: No occlusion or significant stenosis. No aneurysm. Left internal carotid artery: Intracranial segment is patent with no significant stenosis. No aneurysm. Left middle cerebral artery: No occlusion or significant stenosis. No aneurysm. Left anterior cerebral artery: No occlusion or significant stenosis. No aneurysm. POSTERIOR CIRCULATION: Right vertebral artery: No occlusion or significant stenosis. No aneurysm. Left vertebral artery: No occlusion or significant stenosis. No aneurysm. Basilar artery: No flow is seen in the left V3 segment and minimal flow is seen in the V4 segment which may be due to back flow from the basilar artery. Right posterior cerebral artery: No occlusion or significant stenosis. No aneurysm. Left posterior cerebral artery: No occlusion or significant stenosis. No aneurysm. IMPRESSION: No acute arterial occlusion. 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 As at time of prior MRA there is no flow in the left V3 segment with little flow in the V4 segment which may be due to back filling from the basilar artery. Electronically signed by: Ro Owusu On 12/07/2019 16:25:54 PM
[2019-12-07] MEDS: WARFARIN SOD 2.5MG TAB PO SCH (17:00)
[2019-12-07 22:00] VITALS: BP_SYST 109; BP_SYST 111; BP_SYST 112; BP_DIAS 68; BP_DIAS 70; BP_DIAS 73
[2019-12-08 06:00] VITALS: BP 116/61
[2019-12-08 06:13] VITALS: BP_SYST 116; BP_SYST 128; BP_SYST 129; BP_DIAS 55; BP_DIAS 59; BP_DIAS 61
[2019-12-08] MEDS: OMEPRAZOLE 20 MG CAP PO SCH (09:21)
[2019-12-08] MEDS: POTASSIUM CHLORIDE 10 MEQ SR TABLET PO SCH (09:21)
[2019-12-08] MEDS: DOCUSATE SODIUM 100 MG CAP PO SCH ×2 (09:21→20:15)
[2019-12-08] MEDS: ONDANSETRON 4 MG ORAL DISINTEGRATING TAB PO PRN (09:22)
[2019-12-08] MEDS: ASPIRIN 81 MG ENTERIC TAB PO SCH (09:22)
[2019-12-08] MEDS: BRIMONIDINE 0.1% OPHTH SOLN 5 ML OU SCH ×2 (09:22→20:15)
--- NOTE | 2019-12-08 11:58 | IPNPDOC ---
Text Note Date of Service The patient was seen on 12/08/19. NOTE Patient was seen and examined this morning. . She states that she gets dizzy and her, but I go is acting up. She was not able to perform very well with physical therapy today. PHYSICAL EXAMINATION: GENERAL: alert and oriented, in no apparent distress, pleasant and conversant in full sentences. HEENT: PERRL, EOMI, Oral mucous membranes are moist without lesions. NECK: The patient has no noted JVD. No adenopathy is appreciated. No thyromegaly CHEST/LUNGS: Lungs are clear bilaterally without rhonchi, rales, or wheezes. There is no subcutaneous air appreciated. There is no tenderness to the chest wall. HEART: Irregularly irregular. No murmurs, rubs, or gallops are appreciated. Distal pulses are 2+. No carotid bruits appreciated. ABDOMEN: Soft, nontender, and nondistended. Bowel sounds are positive. No organomegaly is appreciated. No masses are appreciated. There are no peritoneal signs. There is no [place] sign. BACK: There is pain and tenderness to palpation over the tailbone EXTREMITIES: No peripheral edema. There is no focal long bone tenderness or deformity. SKIN: The patients skin is warm and dry, without rashes or lesions. PSYCHIATRIC: AAO x 3, normal mood/affect NEUROLOGIC: The patient has 5/5 strength to the upper and lower extremities bilaterally. Sensation is intact throughout. Deep tendon reflexes are 2+ in all four extremities. There are no deficits to the cranial nerves. LABORATORY DATA: See below. Assessment and plan This is an 89-year-old female with atrial fibrillation on Coumadin and history of multiple strokes who presents after mechanical fall at home concerning for syncope versus hypotension secondary to medication side effect. He'll be admitted for further workup. 1. Fall: Mechanical in nature. Etiology reviewed. No signs of any fractures. T elemetry monitoring overnight. No acute events. We'll continue telemetry monitoring for another 24 hours. No events on quality assurance monitor body. She can be discharged home tomorrow 2. Atrial Fibrillation: rate is controlled, Continue Coumadin 3. History of CVAs: With no residual deficits. Continue aspirin 4. Vestibular dysfunction and vertigo. The patient has a confirmed diagnosis of vertigo. I will start a short dose of prednisone on her and she will be OBSERVED overnight. DVT ppx: on Coumadin Disposition: likely home tomorrow. VS,Fishbone, I+O VS, Fishbone, I+O Vital Signs Date Time Temp Pulse Resp B/P (MAP) Pulse Ox O2 Delivery O2 Flow Rate FiO2 12/08/19 06:13 61 116/61 (79) 78 129/55 (79) 70 128/59 (82) 12/08/19 06:00 97.4 18 98 12/07/19 14:00 Room Air I&O- Last 24 Hours up to 6 AM 12/08/19 05:59 Intake Total 1040 ml Output Total 175 ml Balance 865 ml IVY FONTANEZ MD Dec 08, 2019 11:58
[2019-12-08] MEDS: predniSONE 20 MG TAB PO SCH (12:40)
[2019-12-08 14:00] VITALS: BP_SYST 120; BP_SYST 125; BP_SYST 134; BP_DIAS 57; BP_DIAS 65; BP_DIAS 73
[2019-12-08] MEDS: ACETAMINOPHEN TAB 650MG DOSE (2X325MG) PO PRN (15:52)
[2019-12-08] MEDS: WARFARIN SOD 2.5MG TAB PO SCH (18:05)
[2019-12-08] MEDS: LOSARTAN 50MG TABLET PO SCH (20:15)
[2019-12-08 22:00] VITALS: BP 146/71
[2019-12-08 22:06] VITALS: BP_SYST 123; BP_SYST 140; BP_SYST 146; BP_DIAS 71; BP_DIAS 80
[2019-12-09] MEDS: ACETAMINOPHEN TAB 650MG DOSE (2X325MG) PO PRN (00:06)
[2019-12-09 06:00] VITALS: BP 130/71
[2019-12-09 06:08] VITALS: BP_SYST 152; BP_SYST 157; BP_SYST 93; BP_DIAS 65; BP_DIAS 71; BP_DIAS 84
[2019-12-09] MEDS: predniSONE 20 MG TAB PO SCH (09:14)
[2019-12-09] MEDS: BRIMONIDINE 0.1% OPHTH SOLN 5 ML OU SCH ×2 (09:14→21:00)
[2019-12-09] MEDS: ASPIRIN 81 MG ENTERIC TAB PO SCH (09:14)
[2019-12-09] MEDS: OMEPRAZOLE 20 MG CAP PO SCH (09:15)
[2019-12-09] MEDS: POTASSIUM CHLORIDE 10 MEQ SR TABLET PO SCH (09:15)
[2019-12-09] MEDS: DOCUSATE SODIUM 100 MG CAP PO SCH ×2 (09:15→20:41)
[2019-12-09] MEDS ORDERED: PRED20TA PO (10:59)
--- NOTE | 2019-12-09 11:08 | DS.PDOC ---
Discharge Summary General Date of Admission Dec 06, 2019 at 22:41 Date of Discharge 12/09/19 Discharge Summary CHIEF COMPLAINT: fall Final diagnosis Mechanical fall Were diagnosed HISTORY OF PRESENT ILLNESS: Que Mandel is an 89 YO F with AF (on Coumadin) and history of CVAs who presents to ED after a fall at home. The patient reports she fell on her kitchen floor after her maid recently cleaned it with some slippery solution. At baseline, the patient normally walks with a walker. She states that she fell backwards, landing on her tailbone and hurting her right ankle. She denies any loss of consciousness or any lightheadedness or dizziness prior to the fall, stating that she simply lost her balance. Upon further questioning, the patient reports that she has fallen about 5-6 times in the past month at home. She lives alone and her son is about 3 miles away. He does come to help her with her medications. She has been encouraged by her family in the past (following her last CVA in 2018) to seek residential placement, but she states "I do not want to lose my independence." Workload was initiated and the patient got orthostatic vitals done which came out to be negative. CT scan of the head was negative and other x-rays to rule out any fractures were negative as well. She was on atenolol 50 twice a day as well as Lasix. 8D daily. Along with that she was on losartan. She did not get any of her Lasix as well as her atenolol was held, and her heart rate as well as blood pressures remained stable. I do not see a very clear-cut indication of her being on Lasix. I have reviewed her 2-D echo as well. Gave her an option and discussed with her in detail regarding reevaluation of her medications, especially Lasix and she states that she would feel more comfortable if she follows up with her PCP and decides about that. She has been advised to make sure to discuss in detail regarding her medications, but she Lasix as well as atenolol. In my opinion, ethanol 50 is more than sufficient for her. For now. Also, because of her were diagnosed and a vestibular etiologies. One dose of prednisone helped her and I'm going to give her 20 mg for 5 days in total. 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 She was given option for rehabilitation placement as well, but she states that she wants to go home. She is medically optimized and maximal benefit from this admission has been opting. She is high risk of admission because of her dizziness secondary to her vertigo. She has been advised to be extremely cautious as she could have recurrent falls. PHYSICAL EXAMINATION: GENERAL: alert and oriented, in no apparent distress, pleasant and conversant in full sentences. HEENT: PERRL, EOMI, Oral mucous membranes are moist without lesions. NECK: The patient has no noted JVD. No adenopathy is appreciated. No thyromegaly CHEST/LUNGS: Lungs are clear bilaterally without rhonchi, rales, or wheezes. There is no subcutaneous air appreciated. There is no tenderness to the chest wall. HEART: Irregularly irregular. No murmurs, rubs, or gallops are appreciated. Distal pulses are 2+. No carotid bruits appreciated. ABDOMEN: Soft, nontender, and nondistended. Bowel sounds are positive. No organomegaly is appreciated. No masses are appreciated. There are no peritoneal signs. There is no [place] sign. BACK: There is pain and tenderness to palpation over the tailbone EXTREMITIES: No peripheral edema. There is no focal long bone tenderness or deformity. SKIN: The patients skin is warm and dry, without rashes or lesions. PSYCHIATRIC: AAO x 3, normal mood/affect NEUROLOGIC: The patient has 5/5 strength to the upper and lower extremities bilaterally. Sensation is intact throughout. Deep tendon reflexes are 2+ in all four extremities. There are no deficits to the cranial nerves. LABORATORY DATA: See below. IMAGING: ECHOCARDIOGRAM (11/2018): IMPRESSION: 1. Normal global left ventricular systolic function. 2. Aortic valve sclerosis with mild aortic radiation and trivial aortic stenosis. 3. Mitral annulus calcification with a mildly enlarged left atrium and moderate mitral regurgitation. 4. Mild tricuspid regurgitation with mild pulmonary hypertension. 5. Trace pericardial effusion was noted, no evidence of cardiac tamponade. 6. There are some features of elevated central venous pressure, the inferior vena cava was mildly enlarged. 7. No intracardiac shunt detected in this transthoracic echocardiogram. CT HEAD: FINDINGS: Brain: There is advanced cerebral atrophy. Changes of chronic white matter microvascular disease are present. No signs of a recent infarction or hemorrhage. 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 Ventricles: There is ex vacuo ventricular enlargement without evidence of obstructive hydrocephalus. Bones/joints: Unremarkable. No acute fracture. Paranasal sinuses: Visualized sinuses are unremarkable. No fluid levels. Mastoid air cells: Visualized mastoid air cells are well aerated. Soft tissues: Unremarkable. IMPRESSION: Atrophy and chronic white matter changes. No acute intracranial abnormality. R ANKLE XR: IMPRESSION: 1. Slight widening of the lateral ankle joint space may indicate lateral ligament injury. 2. Soft tissue swelling. No fracture or malalignment. Mediictations. As per discharge reconciliation medication list. Activity as tolerated Diet. 2 g sodium diet Follow-up appointments. PCP in 1 week. Condition on discharge. Patient is medically optimized for discharge Discharge disposition: Home Total time spent on this discharge including coordination of care, review of chart documentation and actual patient contact is around 35 minutes Vital Signs/I&Os Vital Signs Date Time Temp Pulse Resp B/P (MAP) Pulse Ox O2 Delivery O2 Flow Rate FiO2 12/09/19 06:08 88 157/84 (108) 98 93/65 (74) 80 152/71 (98) 12/09/19 06:00 98.6 20 98 12/08/19 14:00 Room Air I&O- Last 24 Hours up to 6 AM 12/09/19 06:00 Intake Total 1710 ml Output Total 775 ml Balance 935 ml Discharge Medications Scheduled Aspirin (Aspirin EC) 81 Mg Tablet.dr, 81 MG PO DAILY, (Reported) Atenolol (Atenolol) 50 Mg Tablet, 25 MG PO DAILY, (Reported) Brimonidine Tartrate (Alphagan P) 0.1% 5ML Drops, 1 DROP OU BID, (Reported) Cholecalciferol (Vitamin D3) (Vitamin D3) 1,000 Unit Tablet, 2,000 UNITS PO DAILY, (Reported) Furosemide (Lasix) 80 Mg Tab, 80 MG PO DAILY, (Reported) Losartan Potassium (Losartan Potassium) 50 Mg Tab, 25 MG PO QHS, (Reported) Omeprazole (Omeprazole) 40 Mg Cap, 40 MG PO DAILY, (Reported) Potassium Chloride (Potassium Chloride) 20 Meq Tab.er.prt, 20 MEQ PO DAILY, (Reported) Prednisone (Prednisone) 20 Mg Tablet, 1 TAB PO DAILY Warfarin Sodium (Warfarin Sodium) 2.5 Mg Tablet, 2.5 MG PO QPM, (Reported) TAKES AT DINNERTIME Scheduled PRN Fluticasone Propionate (Fluticasone Propionate) 15.8 Ml [place].susp, 2 SPRAYS NA DAILY PRN for NASAL CONGESTION, (Reported) Allergies Coded Allergies: Penicillins (Verified Allergy, Mild, RASH, 11/23/18) GUDELIA Inhibitors (Verified Allergy, Unknown, UNKNOWN REACTION PER FAMILY, 04/27/19) SEASONAL ALLERGIES (Verified Allergy, Unknown, 11/23/18) doxycycline (Verified Allergy, Unknown, UNKNOWN REACTION PER FAMILY, 04/27/19) prazosin (Verified Allergy, Unknown, UNKNOWN REACTION PER FAMILY, 04/27/19) codeine (Verified Adverse Reaction, Mild, CONFUSION, 11/23/18) ibuprofen (Verified Adverse Reaction, Mild, ORAL THRUSH, 11/26/18) IVY FONTANEZ MD Dec 09, 2019 11:08
[2019-12-09 14:00] VITALS: BP 133/85
[2019-12-09] MEDS: WARFARIN SOD 2.5MG TAB PO SCH (17:34)
[2019-12-09 20:41] VITALS: BP 137/86
[2019-12-09] MEDS: LOSARTAN 50MG TABLET PO SCH (20:41)
[2019-12-09 22:00] VITALS: BP 137/86
[2019-12-10 06:00] VITALS: BP 121/76
[2019-12-10] MEDS: ASPIRIN 81 MG ENTERIC TAB PO SCH (09:45)
[2019-12-10] MEDS: POTASSIUM CHLORIDE 10 MEQ SR TABLET PO SCH (09:45)
[2019-12-10] MEDS: DOCUSATE SODIUM 100 MG CAP PO SCH (09:45)
[2019-12-10] MEDS: OMEPRAZOLE 20 MG CAP PO SCH (09:46)
[2019-12-10] MEDS: predniSONE 20 MG TAB PO SCH (09:46)
[2019-12-10] MEDS: BRIMONIDINE 0.1% OPHTH SOLN 5 ML OU SCH (09:46)
[2019-12-10] MEDS: ONDANSETRON 4 MG ORAL DISINTEGRATING TAB PO PRN (11:44)
--- NOTE | 2019-12-15 10:23 | REP ---
LUMBAR SPINE SERIES: FIVE VIEWS HISTORY: History of a fall. FINDINGS: There are surgical clips in the right upper quadrant of the abdomen. Lumbar vertebral body heights are preserved. No fracture or collapse is seen. There is degenerative disc disease at L4-5 and L3-4. At L4-5, there is a grade 1, degenerative, 7 mm, spondylolisthesis. There is advanced osteoarthritic facet hypertrophy bilaterally at L4-5 and L5-S1. There are L3-4 osteoarthritic facet changes as well. Vascular calcification is noted in a normal caliber aorta. Spondylolisthesis is not new, although it is slightly more prominent on the MRI study from 2016. No other malalignment. Psoas margins are symmetric. Sacrum and SI joints are intact. There is a 1 cm area of sacral sclerosis on the right consistent with degenerative change. Minimal spurring is seen at the SI joints. IMPRESSION: No fracture or collapse seen. Degenerative spondylosis changes including a grade 1 L4-5 spondylolisthesis. No acute bony abnormality. MTDD
== END 2019-12-10 13:39 | disposition home health service (06) | DRG 93 ==
LOC: EDBD 19:25 → M ED 19:25 → M ED INP 22:41 → ENRESERV 23:36 → M MSPAV 12-07 00:52
PROVIDERS: ADMIT Internal Medicine; ATTEND Internal Medicine
DX: R29.6 Repeated falls (principal); I48.91 Unspecified atrial fibrillation; Z79.01 Long term (current) use of anticoagulants; Z86.73 Personal history of transient ischemic attack (TIA), and cerebral infarction without residual deficits; I27.20 Pulmonary hypertension, unspecified; Z79.82 Long term (current) use of aspirin; Z79.899 Other long term (current) drug therapy; Z88.0 Allergy status to penicillin; Z88.5 Allergy status to narcotic agent; Z88.6 Allergy status to analgesic agent; Z88.8 Allergy status to other drugs, medicaments and biological substances; I10 Essential (primary) hypertension; G43.909 Migraine, unspecified, not intractable, without status migrainosus; K21.9 Gastro-esophageal reflux disease without esophagitis; Z96.651 Presence of right artificial knee joint; Z96.653 Presence of artificial knee joint, bilateral

== ENCOUNTER 2019-12-17 04:38 | Inpatient (IN) | payer MEDICARE ==
[~2019-12-17] VITALS: Ht 157.5 cm; Wt 94.4 kg
[~2019-12-17 04:38] MED LIST changes: +POTA20TA6 PO; +PRED20TA PO
--- NOTE | 2019-12-17 05:45 | REPVR ---
PROCEDURE INFORMATION: Exam: CT Head Without Contrast Exam date and time: 12/17/2019 5:08 AM Age: 89 years old Clinical indication: Injury or trauma; Fall; Concussion/head injury; Consciousness not specified; Additional info: Altered mental status TECHNIQUE: Imaging protocol: Computed tomography of the head without contrast. Radiation optimization: All CT scans at this facility use at least one of these dose optimization techniques: automated exposure control; mA and/or kV adjustment per patient size (includes targeted exams where dose is matched to clinical indication); or iterative reconstruction. COMPARISON: CT Head without contrast 12/06/2019 8:30 PM FINDINGS: Brain: There is mild patchy low attenuation of deep white matter. There are bilateral areas of old infarct along the inferior medial aspects of the occipital lobes, right greater than left with extension into the posteromedial aspect of the right temporal lobe. There is slight prominence of the peripheral sulci. Cerebral ventricles: There is mild prominence of the central ventricular system. Bones/joints: Unremarkable. No acute fracture. Paranasal sinuses: Visualized sinuses are unremarkable. No fluid levels. Mastoid air cells: Visualized mastoid air cells are well aerated. Soft tissues: Unremarkable. IMPRESSION: 1. There has been no change since 12/06/2019. No acute interval intracranial process is identified. 2. Mild chronic ischemic white matter change and atrophy with areas of old infarct involving the posterior cerebral artery distributions bilaterally, right greater than left. Electronically signed by: Abundio Grullon On 12/17/2019 05:45:14 AM
[2019-12-17 05:56] LABS: BASO # 0.1 10^3/uL (0.0-0.2); BASO % 0.7 % (0.0-1.0); EOS # 0.2 10^3/uL (0.0-0.5); EOS % 1.2 % (0.0-3.0); HEMOGLOBIN 14.5 g/dl (12.0-15.5); LYMPH # 4.1 10^3/uL (1.5-5.0); LYMPH % 31.1 % (24.0-44.0); MEAN CORPUSCULAR VOLUME 91.1 fl (80.0-96.0); MONO # 1.5 10^3/uL (0.0-0.8); MONO % 11.1 % (0.0-5.0); NEUTROPHILS # 7.2 10^3/uL (1.5-8.5); NEUTROPHILS % 55.5 % (36.0-66.0); PLATELET COUNT, AUTOMATED 275 10^3/uL (150-450); RED BLOOD COUNT 4.83 10^6/uL (4.00-5.40)
--- NOTE | 2019-12-17 06:02 | REPVR ---
PROCEDURE INFORMATION: Exam: XR Chest, 1 View Exam date and time: 12/17/2019 5:39 AM Age: 89 years old Clinical indication: Other: Altered mental status TECHNIQUE: Imaging protocol: XR of the chest Views: 1 view. COMPARISON: CR Chest, 2 view PA, Lat 05/04/2019 2:41 PM FINDINGS: Lungs: Unremarkable. No consolidation. Pleural space: Unremarkable. No pleural effusion. No pneumothorax. Heart/Mediastinum: Unremarkable. No cardiomegaly. Vasculature: Atherosclerotic disease of the thoracic aorta. Bones/joints: Degenerative changes in bilateral shoulders. Multilevel degenerative disease of the thoracic spine. Mild dextroscoliosis. IMPRESSION: No acute cardiopulmonary pathology. Electronically signed by: Tan Padilla On 12/17/2019 06:02:54 AM
[2019-12-17 06:35] LABS: ALBUMIN 3.5 GM/DL (3.2-5.2); ALT/SGPT 39 U/L (12-78); BILIRUBIN,DIRECT 0.3 MG/DL (0.0-0.2); BLOOD UREA NITROGEN 38 MG/DL (7-18); CALCIUM LEVEL 9.3 MG/DL (8.8-10.2); CARBON DIOXIDE LEVEL 27 MEQ/L (21-32); CHLORIDE LEVEL 105 MEQ/L (98-107); CK-MB VALUE MASS < 1.0 NG/ML (<3.6); CPK CREATINE PHOSPHOKINASE 36 U/L (26-192); CREATININE FOR GFR 1.47 MG/DL (0.55-1.30); GLOMERULAR FILTRATION RATE 35.8 (>32); GLUCOSE, FASTING 109 MG/DL (70-100); MB/CK RELATIVE INDEX 2.78 (< OR =4); POTASSIUM SERUM 3.5 MEQ/L (3.5-5.1); SODIUM LEVEL 141 MEQ/L (136-145); TOTAL PROTEIN 7.2 GM/DL (6.4-8.2); TROPONIN I < 0.02 NG/ML (< 0.10)
[2019-12-17] MEDS ORDERED: ONDANSETRON 4MG/2ML VIAL IV ONE (06:45)
[2019-12-17] MEDS ORDERED: MECLIZINE 25 MG TABLET PO ONE (06:45)
[2019-12-17] MEDS ORDERED: ATEN50TA2 PO (07:34)
--- NOTE | 2019-12-17 09:20 | REPVR ---
PROCEDURE INFORMATION: Exam: XR Right Knee Exam date and time: 12/17/2019 8:42 AM Age: 89 years old Clinical indication: Injury or trauma; Fall; Sprain or strain; Patella or knee; Bilateral; Prior surgery; Surgery date: 6+ months; Additional info: Fall, knee pain TECHNIQUE: Imaging protocol: XR Right knee. Views: 4 or more views. COMPARISON: CR Knee, Ap, Lat 11/30/2015 8:22 AM FINDINGS: Bones/joints: Status right knee arthroplasty. Hardware is without evidence of migration or loosening. Normal alignment. Osteopenia. Soft tissues: Normal. Vasculature: Atherosclerotic disease. IMPRESSION: Status post right knee arthroplasty in appropriate alignment. PROCEDURE INFORMATION: Exam: XR Left Knee Exam date and time: 12/17/2019 8:42 AM Age: 89 years old Clinical indication: Injury or trauma; Fall; Sprain or strain; Patella or knee; Bilateral; Prior surgery; Surgery date: 6+ months; Additional info: Fall, knee pain TECHNIQUE: Imaging protocol: XR Left knee. Views: 4 or more views. COMPARISON: CR Knee, Ap, Lat 11/30/2015 8:22 AM FINDINGS: Bones/joints: Status left knee arthroplasty. Hardware is without evidence of migration or loosening. Normal alignment. Osteopenia. Joint effusion. Soft tissues: Normal. Vasculature: Atherosclerotic disease. IMPRESSION: Status post left knee arthroplasty in appropriate alignment. Joint effusion. Electronically signed by: Tan Padilla On 12/17/2019 09:20:14 AM
[2019-12-17 09:24] LABS: INR 3.52; PROTHROMBIN TIME 36.1 SECONDS (12.5-14.3)
--- NOTE | 2019-12-17 09:25 | HPEPDOC ---
[facility] Medical History & Physical Date of Admission Dec 17, 2019 Date of Service: Dec 17, 2019 Attending Physician: INGA DILLON MD History and Physical CHIEF COMPLAINT: Fall HISTORY OF PRESENT ILLNESS: 89 y/o F with PMHx AF, HTN, AF on coumadin, CVA, migraines, gerd with recent admission for dizzines/ falls. Pt cleared PT and dizziness improved, however suspected to have high risk for admission. Pt lives alone is not interested in assisted living or placement. Pt denies CP/SOB/palpitations. No N/V/abd pain. No syncope. Pt states son was present during this fall. No tongue trauma, syncope, bowel/bladder incontinence. No seizure activity. PAST MEDICAL HISTORY:As per HPI PAST SURGICAL HISTORY: 1. Cholecystectomy 2. Bilateral knee replacements SOCIAL HISTORY: Lives alone. Has three sons, one of which (Avni) lives within 3 miles. Former smoker, quit > 40 years ago. no illicit drugs FAMILY HISTORY:noncontributory ALLERGIES: Please see below. REVIEW OF SYSTEMS: HEENT: Denies sore throat/headache CARDIOVASCULAR: Denies chest pain/palpitations RESPIRATORY: Denies shortness of breath/cough GASTROINTESTINAL: denies nausea/vomiting GENITOURINARY: Denies dysuria/urinary urgency. MUSCULOSKELETAL: Denies myalgias/arthralgias NEUROLOGICAL: Denies any focal weakness HOME MEDICATIONS: Please see below. PHYSICAL EXAMINATION: Vitals: (see below) General: No acute distress, laying comfortably in bed. HEENT: Moist mucous membranes. Neck: No JVD or lymphadenopathy Cardiac: RRR, No murmurs Pulm: Clear to auscultation b/l. No wheezing, rhonchi Abd: NT/ND + BS Ext: No edema or cyanosis. Full ROM B/l knees; mild bruising b/l knees. no swelling. no bleeding. distal pulses intact. Neuro: Strength 5/5 BUE and BLE. CN 2-12 intact. F to N intact Negative pronator drift. Negative Babinki. Sensation to fine touch intact. LABORATORY DATA: See below. IMAGING: CT Head - no acute intracranial pathology CXR - no infiltrate MRA head IMPRESSION: No acute arterial occlusion. 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 As at time of prior MRA there is no flow in the left V3 segment with little flow in the V4 segment which may be due to back filling from the basilar artery. MRI Brain 12/07/19 IMPRESSION: No acute cerebral infarction or intracranial hemorrhage. ASSESSMENT/PLAN: 1. Vertigo with frequent falls; h/ CVA with posterior circulation involvement. Meclizine prn. PT/OT. check orthostatics. 2. Diarrhea improved. Start IVF given elevated cr; dehydration. 3. HTN -controlled cont home meds 4. AF on coumadin - Check INR; dose accordingly. 5. H/o CVA 2000, 2018. 6. H/o migraines controlled 7.H/o GERD. 8. Knee pain - x rays ordered. DVT Prophy: on coumadin Vital Signs Vital Signs Date Time Temp Pulse Resp B/P (MAP) Pulse Ox O2 Delivery O2 Flow Rate FiO2 12/17/19 08:31 70 98 12/17/19 08:30 152/67 (95) 12/17/19 06:31 16 Room Air 12/17/19 05:07 98.5 Laboratory Data Labs 24H Laboratory Tests 2 12/17/19 05:22: Immature Granulocyte % (Auto) 0.4, Neutrophils (%) (Auto) 55.5, Lymphocytes (%) (Auto) 31.1, Monocytes (%) (Auto) 11.1H, Eosinophils (%) (Auto) 1.2, Basophils (%) (Auto) 0.7, Neutrophils # (Auto) 7.2, Lymphocytes # (Auto) 4.1, Monocytes # (Auto) 1.5H, Eosinophils # (Auto) 0.2, Basophils # (Auto) 0.1, Nucleated Red Blood Cells % (auto) 0.0, Urine Color YELLOW, Urine Appearance HAZY, Urine pH 6.0, Urine Specific [place] 1.006, Urine Protein NEGATIVE, Urine Glucose (UA) NEGATIVE, Urine Ketones NEGATIVE, Urine Blood NEGATIVE, Urine Nitrite NEGATIVE, Urine Bilirubin NEGATIVE, Urine Urobilinogen 0.2, Urine Leukocyte Esterase TRACEH, Urine WBC (Auto) 0, Urine RBC (Auto) 2, Urine Hyaline Casts (Auto) 0, Urine Bacteria (Auto) 1+H, Urine Squamous Epithelial Cells 1, Urine Amorphous Sediment SMALLH, Urine Sperm (Auto) , Anion Gap 9, Glomerular Filtration Rate 35.8, Calcium Level 9.3, Total Bilirubin 1.0, Direct Bilirubin 0.3H, Aspartate Amino Transf (AST/SGOT) 27, Alanine Aminotransferase (ALT/SGPT) 39, Alkaline Phosphatase 67, Total Creatine Kinase 36, Creatine Kinase MB < 1.0, Creatine Kinase MB Relative Index 2.78, Troponin I < 0.02, Total Protein 7.2, Albumin 3.5, Albumin/Globulin Ratio 0.9L, Thyroid Stimulating Hormone (TSH) 1.960 12/17/19 05:40: 12/17/19 06:34: Bedside Glucose (Misc Panel) 101 CBC/BMP Laboratory Tests 12/17/19 05:22 Microbiology Microbiology 12/17/19 Urine Culture, Received Pending Home Medications Scheduled Aspirin (Aspirin EC) 81 Mg Tablet.dr, 81 MG PO DAILY Atenolol (Atenolol) 50 Mg Tablet, 25 MG PO DAILY Atenolol (Atenolol) 50 Mg Tablet, 50 MG PO QHS Brimonidine Tartrate (Alphagan P) 0.1% 5ML Drops, 1 DROP OU BID Cholecalciferol (Vitamin D3) (Vitamin D3) 1,000 Unit Tablet, 2,000 UNITS PO DAILY Furosemide (Lasix) 80 Mg Tab, 80 MG PO DAILY Losartan Potassium (Losartan Potassium) 50 Mg Tab, 25 MG PO QHS Omeprazole (Omeprazole) 40 Mg Cap, 40 MG PO DAILY Potassium Chloride (Potassium Chloride) 20 Meq Tab.er.prt, 20 MEQ PO DAILY Warfarin Sodium (Warfarin Sodium) 2.5 Mg Tablet, 2.5 MG PO QPM TAKES AT DINNERTIME Scheduled PRN Fluticasone Propionate (Fluticasone Propionate) 15.8 Ml [place].susp, 2 SPRAYS [place]AR[place] DAILY PRN for NASAL CONGESTION Allergies Coded Allergies: Penicillins (Verified Allergy, Mild, RASH, 11/23/18) GUDELIA Inhibitors (Verified Allergy, Unknown, UNKNOWN REACTION PER FAMILY, 04/27/19) SEASONAL ALLERGIES (Verified Allergy, Unknown, 11/23/18) doxycycline (Verified Allergy, Unknown, UNKNOWN REACTION PER FAMILY, 04/27/19) prazosin (Verified Allergy, Unknown, UNKNOWN REACTION PER FAMILY, 04/27/19) codeine (Verified Adverse Reaction, Mild, CONFUSION, 11/23/18) ibuprofen (Verified Adverse Reaction, Mild, ORAL THRUSH, 11/26/18) A-FIB/CHADSVASC A-FIB History Current/History of A-Fib/PAF?: Yes Current PO Anticoag Therapy: Yes ABED,INGA MD Dec 17, 2019 09:25
[2019-12-17 10:57] VITALS: BP 118/59
[2019-12-17] MEDS: NS 1,000 ML IV SCH ×2 (11:14→22:11)
[2019-12-17 11:30] VITALS: BP_SYST 118; BP_SYST 120; BP_SYST 88; BP_DIAS 60; BP_DIAS 68; BP_DIAS 86
[2019-12-17 14:00] VITALS: BP 126/61
[2019-12-17] MEDS: VITAMIN D 1,000 INTERNATIONAL UNITS TABLET PO SCH (15:44)
[2019-12-17] MEDS: ASPIRIN 81 MG ENTERIC TAB PO SCH (15:44)
[2019-12-17] MEDS: OMEPRAZOLE 20 MG CAP PO SCH (15:45)
[2019-12-17] MEDS: ACETAMINOPHEN TAB 650MG DOSE (2X325MG) PO PRN (15:45)
[2019-12-17 18:00] VITALS: BP 111/59
[2019-12-17] MEDS: BRIMONIDINE 0.1% OPHTH SOLN 5 ML OU SCH (20:34)
[2019-12-17] MEDS ORDERED: atenoloL 50 MG TAB PO SCH (21:00)
[2019-12-17 21:54] VITALS: BP_SYST 123; BP_SYST 84; BP_SYST 96; BP_DIAS 48; BP_DIAS 61; BP_DIAS 62
[2019-12-17 22:00] VITALS: BP 112/51
[2019-12-18 06:00] VITALS: BP 139/86
[2019-12-18 06:11] LABS: HEMATOCRIT 39.1 % (36.0-47.0); HEMOGLOBIN 12.7 g/dl (12.0-15.5); MEAN CORPUSCULAR HEMOGLOBIN 30.1 pg (27.0-33.0); MEAN CORPUSCULAR HGB CONC 32.5 g/dl (32.0-36.5); MEAN CORPUSCULAR VOLUME 92.7 fl (80.0-96.0); PLATELET COUNT, AUTOMATED 256 10^3/uL (150-450); RED BLOOD COUNT 4.22 10^6/uL (4.00-5.40); WHITE BLOOD COUNT 10.6 10^3/uL (4.0-10.0)
[2019-12-18 06:55] LABS: CREATININE FOR GFR 1.42 MG/DL (0.55-1.30); GLOMERULAR FILTRATION RATE 37.3 (>32); POTASSIUM SERUM 3.8 MEQ/L (3.5-5.1)
[2019-12-18] MEDS: OMEPRAZOLE 20 MG CAP PO SCH (08:42)
[2019-12-18] MEDS: BRIMONIDINE 0.1% OPHTH SOLN 5 ML OU SCH ×2 (08:42→20:22)
[2019-12-18] MEDS: ASPIRIN 81 MG ENTERIC TAB PO SCH (08:42)
[2019-12-18] MEDS: VITAMIN D 1,000 INTERNATIONAL UNITS TABLET PO SCH (08:42)
[2019-12-18] MEDS ORDERED: atenoloL 25 MG TAB PO SCH (09:00)
[2019-12-18 09:52] LABS: INR 3.97; PROTHROMBIN TIME 39.7 SECONDS (12.5-14.3)
[2019-12-18 10:00] VITALS: BP_SYST 126; BP_SYST 133; BP_SYST 83; BP_DIAS 61; BP_DIAS 64; BP_DIAS 65
--- NOTE | 2019-12-18 10:31 | IPNPDOC ---
Text Note Date of Service The patient was seen on 12/18/19. NOTE Subjective: Pt feels well. Denies any complaints. Diarrhea resolved. No N/V/abd pain . PHYSICAL EXAMINATION: Vitals: (see below) General: No acute distress, laying comfortably in bed. HEENT: Moist mucous membranes. Neck: No JVD or lymphadenopathy Cardiac: RRR, No murmurs Pulm: Clear to auscultation b/l. No wheezing, rhonchi Abd: NT/ND + BS Ext: No edema or cyanosis. Full ROM B/l knees; mild bruising b/l knees. no swelling. no bleeding. distal pulses intact. Neuro: Strength 5/5 BUE and BLE. CN 2-12 intact. F to N intact Negative pronator drift. Negative Babinki. Sensation to fine touch intact. LABORATORY DATA: See below. IMAGING: CT Head - no acute intracranial pathology CXR - no infiltrate MRA head IMPRESSION: No acute arterial occlusion. 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 As at time of prior MRA there is no fl ow in the left V3 segment with little flow in the V4 segment which may be due to back filling from the basilar artery. MRI Brain 12/07/19 IMPRESSION: No acute cerebral infarction or intracranial he morrhage. ASSESSMENT/PLAN: 1. Vertigo with frequent falls; h/ CVA with posterior circulation involvement. Meclizine prn. PT/OT. + orthostatics with symptoms. IVF, Start compression stock ings. Consider midodrine if persistent. Check am tsh and cortisol. 2. Diarrhea improved. Start IVF given elevated cr; dehydration. 3. HTN -Hold home meds given orthostatic hypotension. 4. AF on coumadin - Check INR; dose accordingly. 5. H/o CVA 2000, 2018. 6. H/o migraines controlled 7.H/o GERD. 8. Knee pain - x rays ordered. DVT Prophy: on coumadin, inr >3 - no coumadin today VS,Fishbone, I+O VS, Fishbone, I+O Laboratory Tests 12/18/19 05:44 Vital Signs Date Time Temp Pulse Resp B/P (MAP) Pulse Ox O2 Delivery O2 Flow Rate FiO2 12/18/19 06:00 98.3 71 18 139/86 (103) 94 12/17/19 18:00 Room Air I&O- Last 24 Hours up to 6 AM 12/18/19 06:00 Intake Total 1680 ml Output Total 500 ml Balance 1180 ml INGA DILLON MD Dec 18, 2019 10:31
[2019-12-18] MEDS: ACETAMINOPHEN TAB 650MG DOSE (2X325MG) PO PRN ×2 (11:13→20:22)
[2019-12-18] MEDS: MECLIZINE 12.5 MG TAB PO PRN (12:33)
[2019-12-18 14:00] VITALS: BP 118/57
[2019-12-18] MEDS ORDERED: WARFARIN SOD 2.5MG TAB PO SCH (17:00)
[2019-12-18 18:00] VITALS: BP 128/56
[2019-12-18 22:00] VITALS: BP 135/64
[2019-12-18 23:33] VITALS: BP_SYST 116; BP_SYST 135; BP_SYST 84; BP_DIAS 58; BP_DIAS 60; BP_DIAS 63
[2019-12-19] MEDS ORDERED: NS 500 ML IV ONE (03:30)
[2019-12-19] MEDS: ACETAMINOPHEN TAB 650MG DOSE (2X325MG) PO PRN (04:14)
--- NOTE | 2019-12-19 05:59 | ECGEPIP ---
[facility] - ED Test Date: 2019-12-17 Pat Name: LOU CAR Department: Room: [place] [address] Gender: Female [employer]: : [id number] Requested By: JOSE G Andrea Order Number: [id number] Reading MD: Jose Alejandro Shaw Measurements Intervals [place] Rate: 56 P: MI: 0 QRS: -5 QRSD: 142 T: -4 QT: 462 QTc: 446 Interpretive Statements ATRIAL FIBRILLATION WITH SLOW VENTRICULAR RESPONSE RIGHT BUNDLE BRANCH BLOCK SIMILAR TO 12/06/19 Electronically Signed on 12-19-2019 5:58:14 EDT by Jose Alejandro Shaw
[2019-12-19 06:00] VITALS: BP 153/78
[2019-12-19] MEDS: OMEPRAZOLE 20 MG CAP PO SCH (09:03)
[2019-12-19] MEDS: traMADol 50 MG TAB PO PRN ×2 (09:03→20:13)
[2019-12-19] MEDS: ASPIRIN 81 MG ENTERIC TAB PO SCH (09:04)
[2019-12-19] MEDS: VITAMIN D 1,000 INTERNATIONAL UNITS TABLET PO SCH (09:04)
[2019-12-19] MEDS: BRIMONIDINE 0.1% OPHTH SOLN 5 ML OU SCH ×2 (09:08→20:01)
[2019-12-19 09:30] LABS: INR 3.72; PROTHROMBIN TIME 37.7 SECONDS (12.5-14.3)
[2019-12-19 10:00] VITALS: BP 160/78
[2019-12-19] MEDS: MECLIZINE 12.5 MG TAB PO PRN (10:25)
[2019-12-19] MEDS: MIDODRINE 2.5 MG TAB PO SCH ×2 (12:17→16:23)
[2019-12-19 14:00] VITALS: BP 110/92
--- NOTE | 2019-12-19 14:38 | IPNPDOC ---
Text Note Date of Service The patient was seen on 12/19/19. NOTE Subjective: Pt feels well. Denies any complaints. Still orthostatic. PHYSICAL EXAMINATION: Vitals: (see below) General: No acute distress, laying comfortably in bed. HEENT: Moist mucous membranes. Neck: No JVD or lymphadenopathy Cardiac: RRR, No murmurs Pulm: Clear to auscultation b/l. No wheezing, rhonchi Abd: NT/ND + BS Ext: No edema or cyanosis. Full ROM B/l knees; mild bruising b/l knees. no swelling. no bleeding. distal pulses intact. Neuro: Strength 5/5 BUE and BLE. CN 2-12 intact. F to N intact Negative pronator drift. Negative Babinki. Sensation to fine touch intact. LABORATORY DATA: See below. IMAGING: CT Head - no acute intracranial pathology CXR - no infiltrate MRA head IMPRESSION: No acute arterial occlusion. 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 As at time of prior MRA there is no flow in the left V3 segment with little flow in the V4 segment which may be due to back filling from the basilar artery. MRI Brain 12/07/19 IMPRESSION: No acute cerebral infarction or intracranial hemorrhage. ASSESSMENT/PLAN: 1. Vertigo with frequent falls; h/ CVA with posterior circulation involvement. Meclizine prn. PT/OT. + orthostatics with symptoms. IVF, Start compression stockings. Will start low dose midodrine as it is persistent. Check am tsh and cortisol. 2. Diarrhea improved. Start IVF given elevated cr; dehydration. 3. HTN -Hold home meds given orthostatic hypotension. 4. AF on coumadin - Check INR; dose accordingly. 5. H/o CVA 2000, 2018. 6. H/o migraines controlled 7.H/o GERD. 8. Knee pain - x rays negative for fx DVT Prophy: on coumadin, inr >3 - no coumadin today VS,Fishbone, I+O VS, Fishbone, I+O Vital Signs Date Time Temp Pulse Resp B/P (MAP) Pulse Ox O2 Delivery O2 Flow Rate FiO2 12/19/19 14:00 97.8 73 16 110/92 (98) 98 Room Air I&O- Last 24 Hours up to 6 AM 10/5/20 06:00 Intake Total 1930 ml Output Total 750 ml Balance 1180 ml INGA DILLON MD Dec 19, 2019 14:38
[2019-12-19 18:00] VITALS: BP 130/84
[2019-12-19] MEDS ORDERED: PERCOCET 5MG/325MG TAB PO ONE (18:30)
[2019-12-19 18:50] VITALS: BP_SYST 122; BP_SYST 133; BP_SYST 170; BP_DIAS 76; BP_DIAS 82; BP_DIAS 89
[2019-12-19 22:00] VITALS: BP 161/77
[2019-12-20] VITALS (7 sets, daily range): BP systolic 106–162; BP diastolic 53–94
[2019-12-20] MEDS: MECLIZINE 12.5 MG TAB PO PRN ×2 (00:11→12:01)
[2019-12-20] MEDS: ACETAMINOPHEN TAB 650MG DOSE (2X325MG) PO PRN (05:39)
[2019-12-20 05:53] LABS: BASO # 0.1 10^3/uL (0.0-0.2); BASO % 0.6 % (0.0-1.0); EOS # 0.5 10^3/uL (0.0-0.5); EOS % 4.4 % (0.0-3.0); HEMATOCRIT 36.9 % (36.0-47.0); HEMOGLOBIN 11.9 g/dl (12.0-15.5); LYMPH # 3.6 10^3/uL (1.5-5.0); LYMPH % 30.3 % (24.0-44.0); MEAN CORPUSCULAR HEMOGLOBIN 30.1 pg (27.0-33.0); MEAN CORPUSCULAR HGB CONC 32.2 g/dl (32.0-36.5); MEAN CORPUSCULAR VOLUME 93.4 fl (80.0-96.0); MONO # 1.2 10^3/uL (0.0-0.8); MONO % 9.9 % (0.0-5.0); NEUTROPHILS # 6.5 10^3/uL (1.5-8.5); NEUTROPHILS % 54.3 % (36.0-66.0); PLATELET COUNT, AUTOMATED 227 10^3/uL (150-450); RED BLOOD COUNT 3.95 10^6/uL (4.00-5.40); WHITE BLOOD COUNT 11.9 10^3/uL (4.0-10.0)
[2019-12-20 06:03] LABS: INR 2.81; PROTHROMBIN TIME 30.3 SECONDS (12.5-14.3)
[2019-12-20 06:14] LABS: CALCIUM LEVEL 8.7 MG/DL (8.8-10.2); CREATININE FOR GFR 1.02 MG/DL (0.55-1.30); GLOMERULAR FILTRATION RATE 54.6 (>32)
[2019-12-20] MEDS: OMEPRAZOLE 20 MG CAP PO SCH (08:06)
[2019-12-20] MEDS: ASPIRIN 81 MG ENTERIC TAB PO SCH (08:06)
[2019-12-20] MEDS: VITAMIN D 1,000 INTERNATIONAL UNITS TABLET PO SCH (08:06)
[2019-12-20] MEDS: BRIMONIDINE 0.1% OPHTH SOLN 5 ML OU SCH ×2 (08:06→20:24)
[2019-12-20] MEDS: MIDODRINE 2.5 MG TAB PO SCH (08:10)
[2019-12-20] MEDS: FLUDROCORTISONE ACETATE 0.1 MG TAB PO SCH (10:10)
[2019-12-20] MEDS: ONDANSETRON 4MG/2ML VIAL IV PRN ×2 (10:10→20:23)
--- NOTE | 2019-12-20 16:05 | IPNPDOC ---
Text Note Date of Service The patient was seen on 12/20/19. NOTE Subjective: Pt feels well. Denies any complaints. Still dizzy with change of posture however no orthostatic hypotension noted this morning. Continues to have knee pain. PHYSICAL EXAMINATION: Vitals: (see below) General: No acute distress, sitting up in chair. HEENT: Moist mucous membranes, NC/AT, no icterus Neck: No JVD or lymphadenopathy Cardiac: RRR, No murmurs/ rub or gallop Pulm: Clear to auscultation b/l. No wheezing, rhonchi Abd: NT/ND + BS Ext: No edema or cyanosis. Full ROM B/l knees; mild bruising b/l knees. no swelling. no bleeding. distal pulses intact. Neuro: Strength 5/5 BUE and BLE. CN 2-12 intact. no nystagmus Negative pronator drift. Negative Babinki. Sensation to fine touch intact. LABORATORY and radilogy DATA: reviewed. IMAGING: CT Head - no acute intracranial pathology CXR - no infiltrate MRA head IMPRESSION: No acute arterial occlusion. 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 As at time of prior MRA there is no flow in the left V3 segment with little flow in the V4 segment which may be due to back filling from the basilar artery. MRI Brain 12/07/19 IMPRESSION: No acute cerebral infarction or intracranial hemorrhage. ASSESSMENT/PLAN: 89 y/o F with PMHx AF, HTN, AF on coumadin, CVA, migraines, gerd with recent admission for dizzines/ falls presented to ED for dizziness, fall x 2 at home and diarrhea. Chronic Vertigo with frequent falls; Due to her most recent stroke in 2019. CVA with posterior circulation involvement. Meclizine prn. worsened due to orthostatic hypotension may be due to diarrhea and lasix. compression stockings. Fludrocortisone. PT/OT recommends continued rehab after discharge. Diarrhea with mild dehydration this probably caused orthostatic hypotension and worsening of chronic vertigo. improved HTN with orthostatic hypotension atenolol, lasix and losartan held. Chronic AFib on coumadin INR therapeutic now was supratherapeutic on admission. will reduce dose to 1.5 mg daily H/o CVA 2000, 2018. continue ASA. H/o migraines controlled H/o GERD. ppi Knee pain x rays negative for fx . Has advanced tricompartmental OA. tylenol, tramadol, diclofenac patch DVT Prophy: on coumadin VS,Fishbone, I+O VS, Fishbone, I+O Laboratory Tests 12/20/19 05:28 Vital Signs Date Time Temp Pulse Resp B/P (MAP) Pulse Ox O2 Delivery O2 Flow Rate FiO2 12/20/19 14:00 97.7 83 18 126/56 (79) 96 Room Air l I&O- Last 24 Hours up to 6 AM 12/20/19 06:00 Intake Total 970 ml Output Total 325 ml Balance 645 ml SIM HERNANDEZ MD Dec 20, 2019 16:05
[2019-12-20] MEDS ORDERED: PILL CUTTER 1 EACH XX PRN (16:15)
[2019-12-20] MEDS: traMADol 50 MG TAB PO SCH ×2 (16:43→20:23)
[2019-12-20] MEDS: WARFARIN SOD 3MG TAB PO SCH (16:43)
[2019-12-20] MEDS: DICLOFENAC EPOLAMINE 1.3 % PATCH TOP SCH (20:23)
[2019-12-20] MEDS: ACETAMINOPHEN 500 MG TAB PO SCH (20:23)
[2019-12-21] VITALS (8 sets, daily range): BP systolic 110–151; BP diastolic 52–80
[2019-12-21 06:38] LABS: BASO # 0.1 10^3/uL (0.0-0.2); BASO % 0.5 % (0.0-1.0); EOS # 0.4 10^3/uL (0.0-0.5); EOS % 3.8 % (0.0-3.0); HEMATOCRIT 34.6 % (36.0-47.0); HEMOGLOBIN 11.3 g/dl (12.0-15.5); LYMPH # 3.3 10^3/uL (1.5-5.0); LYMPH % 30.2 % (24.0-44.0); MEAN CORPUSCULAR HEMOGLOBIN 30.3 pg (27.0-33.0); MEAN CORPUSCULAR HGB CONC 32.7 g/dl (32.0-36.5); MEAN CORPUSCULAR VOLUME 92.8 fl (80.0-96.0); MONO # 1.1 10^3/uL (0.0-0.8); MONO % 10.4 % (0.0-5.0); NEUTROPHILS % 54.6 % (36.0-66.0); PLATELET COUNT, AUTOMATED 208 10^3/uL (150-450); RED BLOOD COUNT 3.73 10^6/uL (4.00-5.40); WHITE BLOOD COUNT 10.9 10^3/uL (4.0-10.0)
[2019-12-21 06:49] LABS: INR 2.02; PROTHROMBIN TIME 23.3 SECONDS (12.5-14.3)
[2019-12-21 07:01] LABS: BLOOD UREA NITROGEN 15 MG/DL (7-18); CALCIUM LEVEL 8.9 MG/DL (8.8-10.2); CARBON DIOXIDE LEVEL 27 MEQ/L (21-32); CHLORIDE LEVEL 110 MEQ/L (98-107); CREATININE FOR GFR 0.85 MG/DL (0.55-1.30); GLOMERULAR FILTRATION RATE > 60.0 (>32); GLUCOSE, FASTING 124 MG/DL (70-100); POTASSIUM SERUM 3.9 MEQ/L (3.5-5.1); SODIUM LEVEL 142 MEQ/L (136-145)
[2019-12-21] MEDS: ASPIRIN 81 MG ENTERIC TAB PO SCH (09:23)
[2019-12-21] MEDS: OMEPRAZOLE 20 MG CAP PO SCH (09:24)
[2019-12-21] MEDS: VITAMIN D 1,000 INTERNATIONAL UNITS TABLET PO SCH (09:24)
[2019-12-21] MEDS: ACETAMINOPHEN 500 MG TAB PO SCH ×2 (09:24→21:03)
[2019-12-21] MEDS: traMADol 50 MG TAB PO SCH ×3 (09:24→21:04)
[2019-12-21] MEDS: BRIMONIDINE 0.1% OPHTH SOLN 5 ML OU SCH ×2 (09:25→21:04)
[2019-12-21] MEDS: DICLOFENAC EPOLAMINE 1.3 % PATCH TOP SCH ×2 (09:25→21:03)
[2019-12-21] MEDS: MECLIZINE 12.5 MG TAB PO PRN (09:25)
[2019-12-21] MEDS: FLUDROCORTISONE ACETATE 0.1 MG TAB PO SCH (09:25)
[2019-12-21] MEDS ORDERED: MIRALAX *UNIT DOSE* 17GM PACKET PO PRN (13:45)
[2019-12-21] MEDS: MECLIZINE 12.5 MG TAB PO SCH ×2 (14:09→21:03)
[2019-12-21] MEDS: SENOKOT S TAB PO SCH ×2 (14:09→21:03)
[2019-12-21] MEDS: BISACODYL 10 MG SUPP PR SCH ×2 (14:25→20:34)
[2019-12-21] MEDS: WARFARIN SOD 3MG TAB PO SCH (16:51)
--- NOTE | 2019-12-21 17:51 | IPNPDOC ---
Text Note Date of Service The patient was seen on 12/21/19. NOTE Subjective: Pt feels better today, less dizziness. Was able to participate with PT. Still dizzy with change of posture however no orthostatic hypotension noted this morning. Continues to have knee pain. PHYSICAL EXAMINATION: Vitals: (see below) General: No acute distress, sitting up in chair. HEENT: Moist mucous membranes, NC/AT, no icterus Neck: No JVD or lymphadenopathy Cardiac: RRR, No murmurs/ rub or gallop Pulm: Clear to auscultation b/l. No wheezing, rhonchi Abd: NT/ND + BS Ext: No edema or cyanosis. Full ROM B/l knees; mild bruising b/l knees. no swelling. no bleeding. distal pulses intact. Neuro: No focal neurodeficits. LABORATORY and radilogy DATA: reviewed. IMAGING: CT Head - no acute intracranial pathology CXR - no infiltrate MRA head IMPRESSION: No acute arterial occlusion. 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 As at time of prior MRA there is no flow in the left V3 segment with little flow in the V4 segment which may be due to back filling from the basilar artery. MRI Brain 12/07/19 IMPRESSION: No acute cerebral infarction or intracranial hemorrhage. ASSESSMENT/PLAN: 89 y/o F with PMHx HTN, AF on coumadin, CVA, migraines, gerd with recent admission for dizzines/ fall presented to ED for dizziness, falls x 2 at home and diarrhea. Chronic Vertigo with frequent falls; Due to her most recent stroke in 2019. CVA with posterior circulation involvement. Meclizine No BPPV worsened due to orthostatic hypotension may be due to diarrhea and lasix. compression stockings. Fludrocortisone. PT/OT recommends continued rehab after discharge. Diarrhea with mild dehydration this probably caused orthostatic hypotension and worsening of chronic vertigo. improved HTN with orthostatic hypotension asix and losartan held. will restart atenolol at lower dosage Chronic AFib on coumadin INR therapeutic now was supratherapeutic on admission. will reduce dose to 1.5 mg daily will restart atenolol as pulse rising. H/o CVA 2000, 2018. continue ASA. H/o migraines controlled H/o GERD. ppi Knee pain x rays negative for fx , harware in position. tylenol, tramadol, diclofenac patch DVT Prophy: on coumadin VS,Fishbone, I+O VS, Fishbone, I+O Laboratory Tests 12/21/19 05:26 Vital Signs Date Time Temp Pulse Resp B/P (MAP) Pulse Ox O2 Delivery O2 Flow Rate FiO2 12/21/19 16:52 18 Room Air 12/21/19 14:00 78 92 113/53 (73) 120/54 (76) 12/21/19 14:00 98.5 99 I&O- Last 24 Hours up to 6 AM 12/21/19 07:00 Intake Total 1305 ml Output Total 300 ml Balance 1005 ml SIM HERNANDEZ MD Dec 21, 2019 17:51
[2019-12-21] MEDS: atenoloL 25 MG TAB PO SCH (20:35)
[2019-12-22 06:00] VITALS: BP 140/71
[2019-12-22] MEDS: MECLIZINE 12.5 MG TAB PO SCH ×2 (06:01→14:35)
[2019-12-22] MEDS: FLUDROCORTISONE ACETATE 0.1 MG TAB PO SCH (08:47)
[2019-12-22] MEDS: VITAMIN D 1,000 INTERNATIONAL UNITS TABLET PO SCH (08:47)
[2019-12-22] MEDS: SENOKOT S TAB PO SCH (08:47)
[2019-12-22] MEDS: atenoloL 25 MG TAB PO SCH (08:48)
[2019-12-22] MEDS: OMEPRAZOLE 20 MG CAP PO SCH (08:48)
[2019-12-22] MEDS: ASPIRIN 81 MG ENTERIC TAB PO SCH (08:48)
[2019-12-22] MEDS: ACETAMINOPHEN 500 MG TAB PO SCH (08:48)
[2019-12-22] MEDS: traMADol 50 MG TAB PO SCH (08:49)
[2019-12-22] MEDS: BISACODYL 10 MG SUPP PR SCH (08:49)
[2019-12-22] MEDS: BRIMONIDINE 0.1% OPHTH SOLN 5 ML OU SCH (08:49)
[2019-12-22] MEDS: DICLOFENAC EPOLAMINE 1.3 % PATCH TOP SCH (08:50)
[2019-12-22] MEDS ORDERED: FLUD0.1T PO (11:35)
[2019-12-22] MEDS ORDERED: SENN-52 PO (11:35)
[2019-12-22] MEDS ORDERED: DICL1PAT6 TOP (11:35)
[2019-12-22] MEDS ORDERED: BISA10SU PR (11:35)
[2019-12-22] MEDS ORDERED: TRAM50TA2 PO (11:35)
[2019-12-22] MEDS ORDERED: PEG1POW PO (11:35)
[2019-12-22] MEDS ORDERED: ATEN50TA2 PO (11:35)
[2019-12-22] MEDS ORDERED: MECL12.589 PO (11:35)
[2019-12-22] MEDS ORDERED: JANT3TAB PO (11:37)
[2019-12-22 14:00] VITALS: BP 140/79
[2019-12-22] MEDS ORDERED: WARFARIN SOD 2MG TAB PO SCH (17:00)
--- NOTE | 2019-12-23 12:28 | DS.PDOC ---
Discharge Summary General Date of Admission Dec 17, 2019 at 08:42 Date of Discharge 12/22/19 Discharge Summary PROCEDURES PERFORMED DURING STAY: [None]. DISCHARGE DIAGNOSES: Orthostatic hypotension Acute on Chronic vertigo worsening due to orthostatic hypotension, dehydration, lasix Recurrent falls with trauma to left knee. Diarrhea resolved. SECONDARY DIAGNOSIS: Hypertension Chronic A fib on coumadin H/O Multiple CVAs with chronic vertigo from posterior circulation stroke GERD Migraine COMPLICATIONS/CHIEF COMPLAINT: Diarrhea, Vertigo. HOSPITAL COURSE: 89 y/o F with PMHx HTN, AF on coumadin, CVA, migraines, gerd with recent admission for dizzines/ fall presented to ED for dizziness, falls x 2 at home and diarrhea. Chronic Vertigo with frequent falls; Due to her most recent stroke in 2019. CVA with posterior circulation involvement. Meclizine No BPPV worsened due to orthostatic hypotension may be due to diarrhea and lasix. compression stockings. Fludrocortisone. PT/OT recommends continued rehab after discharge. Diarrhea with mild dehydration this probably caused orthostatic hypotension and worsening of chronic vertigo. improved HTN with orthostatic hypotension lasix and losartan held. will restart atenolol at lower dosage Chronic AFib on coumadin INR therapeutic now was supratherapeutic on admission. will reduce dose to 1.5 mg daily will restart atenolol as pulse rising. H/o CVA 2000, 2018. continue ASA. H/o migraines controlled H/o GERD. ppi Knee pain x rays negative for fx , hardware in position. tylenol, tramadol, diclofenac patch DVT Prophy: on coumadin DISCHARGE MEDICATIONS: Please see below. ALLERGIES: Please see below. PHYSICAL EXAMINATION ON DISCHARGE: VITAL SIGNS: Please see below. General: No acute distress, sitting up in chair. HEENT: Moist mucous membranes, NC/AT, no icterus Neck: No JVD or lymphadenopathy Cardiac: RRR, No murmurs/ rub or gallop Pulm: Clear to auscultation b/l. No wheezing, rhonchi Abd: NT/ND + BS Ext: No edema or cyanosis. Full ROM B/l knees; mild bruising b/l knees. no swelling. no bleeding. distal pulses intact. Neuro: No focal neurodeficits. LABORATORY DATA: Please see below. IMAGING: CT Head - no acute intracranial pathology CXR - no infiltrate MRA head IMPRESSION: No acute arterial occlusion. There is probable o cclusion of the left vertebral artery. As at time of prior MRA there is no flow in the left V3 segment with little flow in the V4 segment which may be due to back filling from the basilar artery. MRI Brain 12/07/19 IMPRESSION: No acute cerebral infarction or intracranial hemorrhage. ACTIVITY: [As tolerated]. DIET: As tolerated DISPOSITION: 62 D/T Rehab Facility. DISCHARGE CONDITION: [Stable]. TIME SPENT ON DISCHARGE: 35 minutes. Vital Signs/I&Os Vital Signs Date Time Temp Pulse Resp B/P (MAP) Pulse Ox O2 Delivery O2 Flow Rate FiO2 12/22/19 14:00 97.6 78 15 140/79 (99) 97 Room Air I&O- Last 24 Hours up to 6 AM 12/23/19 06:00 Intake Total 355 ml Output Total 0 ml Balance 355 ml Microbiology Microbiology 12/17/19 Urine Culture - Final, Complete Discharge Medications Scheduled Aspirin (Aspirin EC) 81 Mg Tablet.dr, 81 MG PO DAILY, (Reported) Atenolol (Atenolol) 50 Mg Tablet, 25 MG PO BID Brimonidine Tartrate (Alphagan P) 0.1% 5ML Drops, 1 DROP OU BID, (Reported) Cholecalciferol (Vitamin D3) (Vitamin D3) 1,000 Unit Tablet, 2,000 UNITS PO DAILY, (Reported) Diclofenac Epolamine (Diclofenac Epolamine) 1 Each Patch.td12, 1 PATCH TOP Q12H Fludrocortisone Acetate (Fludrocortisone Acetate) 0.1 Mg Tablet, 0.1 MG PO DAILY Meclizine HCl (Meclizine HCl) 12.5 Mg Tablet, 12.5 MG PO TID Omeprazole (Omeprazole) 40 Mg Cap, 40 MG PO DAILY, (Reported) Sennosides/Docusate Sodium (Senna Plus Tablet) 1 Each Tablet, 2 TAB PO BID Tramadol HCl (Tramadol HCl) 50 Mg Tablet, 50 MG PO TID Warfarin Sodium (Jantoven) 3 Mg Tablet, 2 MG PO DAILY@17 Scheduled PRN Bisacodyl (Bisacodyl) 10 Mg Supp.rect, 10 MG SD BIDP PRN for CONSTIPATION Fluticasone Propionate (Fluticasone Propionate) 15.8 Ml [place].susp, 2 SPRAYS NARES DAILY PRN for NASAL CONGESTION, (Reported) Polyethylene Glycol 3350 (Polyethylene Glycol 3350) 17 Gm Powd.pack, 1 PKT PO DAILYPRN PRN for CONSTIPATION Allergies Coded Allergies: Penicillins (Verified Allergy, Mild, RASH, 11/23/18) GUDELIA Inhibitors (Verified Allergy, Unknown, UNKNOWN REACTION PER FAMILY, 04/27/19) SEASONAL ALLERGIES (Verified Allergy, Unknown, 11/23/18) doxycycline (Verified Allergy, Unknown, UNKNOWN REACTION PER FAMILY, 04/27/19) prazosin (Verified Allergy, Unknown, UNKNOWN REACTION PER FAMILY, 04/27/19) codeine (Verified Adverse Reaction, Mild, CONFUSION, 11/23/18) ibuprofen (Verified Adverse Reaction, Mild, ORAL THRUSH, 11/26/18) SIM HERNANDEZ MD Dec 23, 2019 12:28
== END 2019-12-22 16:02 | DRG 57 ==
LOC: M ED 04:38 → M ED INP 08:42 → ENRESERV 09:57 → M MSPAV 10:56
PROVIDERS: ADMIT Internal Medicine; ATTEND Internal Medicine Nephrology
DX: I69.398 Other sequelae of cerebral infarction (principal); I48.20 Chronic atrial fibrillation, unspecified; R29.6 Repeated falls; R42 Dizziness and giddiness; I10 Essential (primary) hypertension; R19.7 Diarrhea, unspecified; I95.1 Orthostatic hypotension; G43.909 Migraine, unspecified, not intractable, without status migrainosus; K21.9 Gastro-esophageal reflux disease without esophagitis; Z79.01 Long term (current) use of anticoagulants; E86.0 Dehydration; Z79.82 Long term (current) use of aspirin; Z79.899 Other long term (current) drug therapy; Z88.0 Allergy status to penicillin; Z88.5 Allergy status to narcotic agent; Z88.6 Allergy status to analgesic agent; Z88.8 Allergy status to other drugs, medicaments and biological substances; Z96.653 Presence of artificial knee joint, bilateral

== ENCOUNTER 2019-12-22 11:12 | Inpatient (IN) | payer MEDICARE ==
[~2019-12-22] VITALS: Ht 157.5 cm; Wt 94.0 kg
[2019-12-22] MEDS ORDERED: SENN-52 PO (11:35)
[2019-12-22] MEDS ORDERED: FLUD0.1T PO (11:35)
[2019-12-22] MEDS ORDERED: BISA10SU PR (11:35)
[2019-12-22] MEDS ORDERED: TRAM50TA2 PO (11:35)
[2019-12-22] MEDS ORDERED: DICL1PAT6 TOP (11:35)
[2019-12-22] MEDS ORDERED: PEG1POW PO (11:35)
[2019-12-22] MEDS ORDERED: ATEN50TA2 PO (11:35)
[2019-12-22] MEDS ORDERED: MECL12.589 PO (11:35)
[2019-12-22] MEDS ORDERED: JANT3TAB PO (11:37)
--- NOTE | 2019-12-22 16:09 | HPEPDOC ---
Surfboard Designer Note DATE OF ADMISSION: 12-22-19 DATE OF SERVICE: 12-22-19 TIME OF ADMISSION: Please refer to physician's admission order. SOURCE OF ADMISSION INFORMATION: [facility] record and patient CHIEF COMPLAINT: vertigo with falls in setting of recent stroke HISTORY OF PRESENT ILLNESS: 89F pmf afib on Coumadin, recent posterior circulation stroke with persistent dizziness, HTN, migraines, GERD with frequent falls who presented to [facility] ED on 12-17-19 complaining of dizziness and diarrhea. CTH showed Mild chronic ischemic white matter change and atrophy with areas of old infarct involving the posteri or cerebral artery distributions bilaterally, right greater than left. She was found to have KRYSTLE, orthostasis and leukocytosis and provided with IVF. Adjustments were made to her blood pressure medications and she was started on Florinef for BP support, found to have impairments in mobility and ADLs and deemed medically appropriate for discharge to ARU on 12-22-19. She reports her legs do tend to swell up and that she has a chronic cough. REVIEW OF SYSTEMS: The following is a completed review of systems and has been reviewed. Review of systems otherwise unremarkable. PAIN: Patient self reports no pain EYES: No recent vision changes EARS, NOSE, & THROAT: No throat pain, or dysphagia, or rhinorrhea CARDIOVASCULAR: Denies chest pain or palpitations PULMONARY: Denies shortness of breath, +dry cough GASTROINTESTINAL: Denies constipation/diarrhea GENITOURINARY: denies dysuria MUSCULOSKELETAL:generalized weakness, left shoulder and right knee pain with movement NEUROLOGICAL:+vertigo HEMATOLOGICAL:denies easy bruising SKIN: intact PSYCHIATRIC: Unremarkable All other review of systems found to be negative. PAST MEDICAL HISTORY: as per HPI PAST SURGICAL HISTORY: Bilat TKR, cholecystectomy ALLERGIES: Please see below. MEDICATIONS: Please see below. SOCIAL HISTORY: Ex-smoker, no drugs/etoh DIET: low salt PHYSICAL EXAMINATION: VITAL SIGNS: Please see below. GENERAL: Pleasant and cooperative. No acute distress. HEENT: PERRL. Extraocular movements intact. Clear conjunctiva CARDIOVASCULAR: Regular rate and rhythm. No murmurs, rubs, or gallops LUNGS: +scattered wheeze ABDOMEN: Soft, nontender, nondistended. Positive bowel sounds. Normal active bowel sounds NEUROLOGICAL: Alert and oriented times three. Cranial nerves II through XII grossly intact. Sensation grossly intact except slightly diminished LLE EXTREMITIES: 5\5 strength bilateral upper extremities with restricted ROM left shoulder. 5\5 strength right lower extremity. 5/5 strength in left lower ext remity. (+) bilat LE edema, negative Homans SKIN: intact LABORATORY DATA: Please see below. IMAGING:Imaging documentation personally reviewed by record FUNCTIONAL STATUS: Premorbid: Modified-Independent with all activities of daily life as well as mobility On Admission: Mod-Assist for functional transfers, bed mobility, ambulation, ADLs GOALS: Mod-I household distances for ambulation, functional transfers, dressing, bathing, toileting, bed mobility ASSESSMENT:89-year-old F with past medical history of posterior circulation CVA who presents status post recurrent falls and vertigo PLAN: 1. Rehab- PT/OT advance mobility and ADLs, strengthen/stretch/maintain ROM all 4 limbs, avoid Jimbo-maneuver/[place]-hallpike maneuver given hx of stroke 2. Neuro- persistent vertigo likely central in etiology due to recent posterior circulation infarct in 2019 limiting her overall mobility and contributing to recurrent falls -meclizine for vertigo -c/u ASA for secondary stroke prevention 3. resp- encourage incentive spirometry, monitor for infection -Duonebs for wheeze on exam and hx of smoknig 4.Cardiac- hx of afib, c/u coumadin with daily INRs, beta-hailey -recent orthostatics, f/u Fludrocortisone -medicine consulted to assist in overall management -patient's diuretic recently held due to orthostatics, will fluid restrict 1800cc with daily weights as suspect some degree of CHF given hx of LE edema 5. GI ppx- omeprazole 6. DVT ppx on coumadin, teds 7. GI- monitor for diarrhea 8. Pain- right knee OA worse after fall, tylenol and tramadol 9. Dispo- TBD POST ADMISSION PHYSICIAN EVALUATION: Medical and functional status: Description of medical status, medical assessment: As above. Rehabilitation diagnosis and current and prior cold morbid medical conditions as above. Risk of complications and plans to mitigate them as above. Description of functional status current status is as above. Prior status as above. Status compared to preadmission: There are no clinically significant differences between the patient's current status and the information described on the preadmission screening document. Treatment plan anticipated: Treatment plan is as described above. Required disciplines including physical therapy, occupational therapy, others as noted above. Intensity of services: 3 hours a day, 6 days a week. Special considerations: There are no specific special or safety considerations that would likely preclude immediate implementation of an intensive rehabi litation program or subsequently influence the plan of care. ATTESTATION: Considering all the information above, it is my best judgment that this patient requires intensive rehabilitation therapy as described above and an inpatient hospital environment due to the complexity of nursing, medical, and rehabilitation needs required by the patient. Furthermore, this patient can reasonably be expected to participate in an benefit from an inpatient rehabilitation stay with an interdisciplinary team approach to the delivery of rehabilitation care under the direction and supervision of rehabilitation physician. PROGNOSIS: good ESTIMATED LENGTH OF STAY:14-18 days. PROJECTED DISCHARGE DESTINATION: Home with family support and any durable medical equipment required to increase functional safety and mobility. TIME SPENT COUNSELING AND COORDINATING INITIAL CARE: Greater than 70 minutes. Vital Signs Vital Signs Date Time Temp Pulse Resp B/P (MAP) Pulse Ox O2 Delivery O2 Flow Rate FiO2 12/22/19 16:38 97.5 70 17 133/63 (86) 98 Room Air Home Medications Scheduled Aspirin (Aspirin EC) 81 Mg Tablet.dr, 81 MG PO DAILY, (Reported) Atenolol (Atenolol) 50 Mg Tablet, 25 MG PO BID Brimonidine Tartrate (Alphagan P) 0.1% 5ML Drops, 1 DROP OU BID, (Reported) Cholecalciferol (Vitamin D3) (Vitamin D3) 1,000 Unit Tablet, 2,000 UNITS PO DAILY, (Reported) Diclofenac Epolamine (Diclofenac Epolamine) 1 Each Patch.td12, 1 PATCH TOP Q12H Fludrocortisone Acetate (Fludrocortisone Acetate) 0.1 Mg Tablet, 0.1 MG PO DAILY Meclizine HCl (Meclizine HCl) 12.5 Mg Tablet, 12.5 MG PO TID Omeprazole (Omeprazole) 40 Mg Cap, 40 MG PO DAILY, (Reported) Sennosides/Docusate Sodium (Senna Plus Tablet) 1 Each Tablet, 2 TAB PO BID Tramadol HCl (Tramadol HCl) 50 Mg Tablet, 50 MG PO TID Warfarin Sodium (Jantoven) 3 Mg Tablet, 2 MG PO DAILY@17 Scheduled PRN Bisacodyl (Bisacodyl) 10 Mg Supp.rect, 10 MG MS BIDP PRN for CONSTIPATION Fluticasone Propionate (Fluticasone Propionate) 15.8 Ml [place].susp, 2 SPRAYS NARES DAILY PRN for NASAL CONGESTION, (Reported) Polyethylene Glycol 3350 (Polyethylene Glycol 3350) 17 Gm Powd.pack, 1 PKT PO DAILYPRN PRN for CONSTIPATION Allergies Coded Allergies: Penicillins (Verified Allergy, Mild, RASH, 11/23/18) GUDELIA Inhibitors (Verified Allergy, Unknown, UNKNOWN REACTION PER FAMILY, 04/27/19) SEASONAL ALLERGIES (Verified Allergy, Unknown, 11/23/18) doxycycline (Verified Allergy, Unknown, UNKNOWN REACTION PER FAMILY, 04/27/19) prazosin (Verified Allergy, Unknown, UNKNOWN REACTION PER FAMILY, 04/27/19) codeine (Verified Adverse Reaction, Mild, CONFUSION, 11/23/18) ibuprofen (Verified Adverse Reaction, Mild, ORAL THRUSH, 11/26/18) A-FIB/CHADSVASC A-FIB History Current/History of A-Fib/PAF?: Yes Current PO Anticoag Therapy: Yes JUJU BLANDON MD Dec 22, 2019 16:09
[2019-12-22] MEDS ORDERED: MOM 30ML SUSPENSION UDC PO PRN (16:15)
[2019-12-22 16:38] VITALS: BP 133/63
[2019-12-22] MEDS ORDERED: PILL CUTTER 1 EACH XX PRN (16:45)
[2019-12-22] MEDS: WARFARIN SOD 2MG TAB PO SCH (18:37)
[2019-12-22 20:00] VITALS: BP 149/74
[2019-12-22] MEDS: REMEDY PHYTOPLEX Z-GUARD PASTE 113GM TUBE (FROM STOREROOM PRODUCT) TOP SCH (21:00)
[2019-12-22] MEDS: traMADol 50 MG TAB PO PRN (21:10)
[2019-12-22] MEDS: BRIMONIDINE 0.1% OPHTH SOLN 5 ML OU SCH (21:11)
[2019-12-22] MEDS: FLUTICASONE PROP 0.05% NASAL SPRAY 16 GM (FLONASE) NARES SCH (21:11)
[2019-12-22] MEDS: ACETAMINOPHEN 500 MG TAB PO SCH (21:11)
[2019-12-22] MEDS: MECLIZINE 12.5 MG TAB PO SCH (21:11)
[2019-12-22] MEDS: atenoloL 25 MG TAB PO SCH (21:11)
[2019-12-22] MEDS: SODIUM CHLORIDE NASAL 0.65% SPRAY BTL (OCEAN) SCH (21:11)
[2019-12-23 06:00] VITALS: BP 146/73
[2019-12-23 07:01] LABS: BASO # 0.1 10^3/uL (0.0-0.2); BASO % 0.6 % (0.0-1.0); EOS # 0.4 10^3/uL (0.0-0.5); HEMATOCRIT 35.3 % (36.0-47.0); HEMOGLOBIN 11.1 g/dl (12.0-15.5); LYMPH # 3.1 10^3/uL (1.5-5.0); LYMPH % 32.7 % (24.0-44.0); MEAN CORPUSCULAR HEMOGLOBIN 29.6 pg (27.0-33.0); MEAN CORPUSCULAR HGB CONC 31.4 g/dl (32.0-36.5); MEAN CORPUSCULAR VOLUME 94.1 fl (80.0-96.0); MONO # 0.8 10^3/uL (0.0-0.8); MONO % 8.3 % (0.0-5.0); NEUTROPHILS # 5.1 10^3/uL (1.5-8.5); NEUTROPHILS % 54.1 % (36.0-66.0); PLATELET COUNT, AUTOMATED 206 10^3/uL (150-450); RED BLOOD COUNT 3.75 10^6/uL (4.00-5.40); WHITE BLOOD COUNT 9.4 10^3/uL (4.0-10.0)
[2019-12-23] MEDS: IPRATROPIUM 0.5MG/ALBUTEROL 2.5MG INH SOL UD 3ML (DUONEB) NEB SCH ×3 (07:23→20:35)
[2019-12-23 07:26] LABS: ALBUMIN 2.5 GM/DL (3.2-5.2); ALT/SGPT 26 U/L (12-78); BLOOD UREA NITROGEN 15 MG/DL (7-18); CALCIUM LEVEL 8.5 MG/DL (8.8-10.2); CARBON DIOXIDE LEVEL 26 MEQ/L (21-32); CHLORIDE LEVEL 110 MEQ/L (98-107); CREATININE FOR GFR 0.89 MG/DL (0.55-1.30); GLOMERULAR FILTRATION RATE > 60.0 (>32); GLUCOSE, FASTING 98 MG/DL (70-100); POTASSIUM SERUM 4.3 MEQ/L (3.5-5.1); SODIUM LEVEL 143 MEQ/L (136-145); TOTAL PROTEIN 5.7 GM/DL (6.4-8.2)
[2019-12-23 08:18] LABS: INR 2.23; PROTHROMBIN TIME 25.2 SECONDS (12.5-14.3)
[2019-12-23] MEDS: ASPIRIN 81 MG ENTERIC TAB PO SCH (08:25)
[2019-12-23] MEDS: VITAMIN D 1,000 INTERNATIONAL UNITS TABLET PO SCH (08:25)
[2019-12-23] MEDS: ACETAMINOPHEN 500 MG TAB PO SCH ×3 (08:25→20:57)
[2019-12-23] MEDS: MECLIZINE 12.5 MG TAB PO SCH ×3 (08:26→20:56)
[2019-12-23] MEDS: FLUDROCORTISONE ACETATE 0.1 MG TAB PO SCH (08:26)
[2019-12-23] MEDS: atenoloL 25 MG TAB PO SCH ×2 (08:26→20:57)
[2019-12-23] MEDS: OMEPRAZOLE 20 MG CAP PO SCH (08:26)
[2019-12-23] MEDS: FLUTICASONE PROP 0.05% NASAL SPRAY 16 GM (FLONASE) NARES SCH ×2 (08:27→20:56)
[2019-12-23] MEDS: SODIUM CHLORIDE NASAL 0.65% SPRAY BTL (OCEAN) SCH ×2 (08:27→20:56)
[2019-12-23] MEDS: LIDOCAINE 5% (LIDODERM) PATCH TD SCH (08:27)
[2019-12-23] MEDS: REMEDY PHYTOPLEX Z-GUARD PASTE 113GM TUBE (FROM STOREROOM PRODUCT) TOP SCH ×3 (08:27→20:57)
[2019-12-23] MEDS: BRIMONIDINE 0.1% OPHTH SOLN 5 ML OU SCH ×2 (08:27→20:56)
[2019-12-23 14:00] VITALS: BP 152/76
--- NOTE | 2019-12-23 15:48 | IPNPDOC ---
Text Note Date of Service The patient was seen on 12/23/19. NOTE Subjective: No any acute events overnight. Patient denied fever, chills, nausea, vomiting, diarrhea or dysuria Objective: GENERAL APPEARANCE: NAD HEENT: no scleral icterus, no JVD, EOMI CARDIOVASCULAR: S1S2 LUNGS: CTA ABDOMEN: soft & not tender w palpitation MUSCULOSKELETAL: no cyanosis, no swelling INTEGUMENT: no generalized pallor NEUROLOGICAL: cranial nerve function from 2-12 intact intact, follows commands, speech not dysarthric 89-year-old F with past medical history of posterior circulation CVA who presents status post recurrent falls and vertigo Vertigo Continue meclizine Continue PT/OT Status post CVA Continue aspirin COPD Not in acute exacerbation Continue inhalers Atrial fibrillation Continue Coumadin Blood pressure under control GERD PPI VS,Fishbone, I+O VS, Fishbone, I+O Laboratory Tests 12/23/19 06:46 Vital Signs Date Time Temp Pulse Resp B/P (MAP) Pulse Ox O2 Delivery O2 Flow Rate FiO2 12/23/19 08:26 71 146/73 12/23/19 06:00 97.9 18 97 Room Air I&O- Last 24 Hours up to 6 AM 12/23/19 06:00 Intake Total 250 ml Balance 250 ml AYUSH HERNANDEZ DO Dec 23, 2019 15:48
[2019-12-23] MEDS: WARFARIN SOD 2MG TAB PO SCH (16:26)
[2019-12-23 20:00] VITALS: BP 143/67
[2019-12-23] MEDS: **NOTE PATIENT COMMENT** MISC XX SCH (20:58)
[2019-12-24 06:24] VITALS: BP 152/80
[2019-12-24 06:35] LABS: INR 2.37; PROTHROMBIN TIME 26.5 SECONDS (12.5-14.3)
[2019-12-24] MEDS: LIDOCAINE 5% (LIDODERM) PATCH TD SCH (07:50)
[2019-12-24] MEDS: FLUDROCORTISONE ACETATE 0.1 MG TAB PO SCH (07:51)
[2019-12-24] MEDS: VITAMIN D 1,000 INTERNATIONAL UNITS TABLET PO SCH (07:51)
[2019-12-24] MEDS: MECLIZINE 12.5 MG TAB PO SCH ×3 (07:51→20:30)
[2019-12-24] MEDS: atenoloL 25 MG TAB PO SCH ×2 (07:51→20:29)
[2019-12-24] MEDS: OMEPRAZOLE 20 MG CAP PO SCH (07:51)
[2019-12-24] MEDS: FLUTICASONE PROP 0.05% NASAL SPRAY 16 GM (FLONASE) NARES SCH ×2 (07:52→20:29)
[2019-12-24] MEDS: ASPIRIN 81 MG ENTERIC TAB PO SCH (07:52)
[2019-12-24] MEDS: SODIUM CHLORIDE NASAL 0.65% SPRAY BTL (OCEAN) SCH ×2 (07:52→20:29)
[2019-12-24] MEDS: BRIMONIDINE 0.1% OPHTH SOLN 5 ML OU SCH ×2 (07:52→20:29)
[2019-12-24] MEDS: ACETAMINOPHEN 500 MG TAB PO SCH ×3 (07:52→20:30)
[2019-12-24] MEDS: IPRATROPIUM 0.5MG/ALBUTEROL 2.5MG INH SOL UD 3ML (DUONEB) NEB SCH ×3 (07:57→20:32)
[2019-12-24] MEDS: REMEDY PHYTOPLEX Z-GUARD PASTE 113GM TUBE (FROM STOREROOM PRODUCT) TOP SCH ×3 (09:00→20:31)
[2019-12-24 14:00] VITALS: BP 142/68
[2019-12-24] MEDS: WARFARIN SOD 2MG TAB PO SCH (16:06)
[2019-12-24 20:00] VITALS: BP 156/70
[2019-12-24] MEDS: **NOTE PATIENT COMMENT** MISC XX SCH (21:12)
[2019-12-25 06:17] VITALS: BP 142/60
[2019-12-25 06:29] LABS: INR 2.49; PROTHROMBIN TIME 27.5 SECONDS (12.5-14.3)
[2019-12-25] MEDS: IPRATROPIUM 0.5MG/ALBUTEROL 2.5MG INH SOL UD 3ML (DUONEB) NEB SCH ×3 (07:58→20:00)
[2019-12-25] MEDS: VITAMIN D 1,000 INTERNATIONAL UNITS TABLET PO SCH (08:50)
[2019-12-25] MEDS: ACETAMINOPHEN 500 MG TAB PO SCH ×3 (08:50→20:47)
[2019-12-25] MEDS: OMEPRAZOLE 20 MG CAP PO SCH (08:50)
[2019-12-25] MEDS: ASPIRIN 81 MG ENTERIC TAB PO SCH (08:50)
[2019-12-25] MEDS: SODIUM CHLORIDE NASAL 0.65% SPRAY BTL (OCEAN) SCH ×2 (08:50→20:48)
[2019-12-25] MEDS: atenoloL 25 MG TAB PO SCH ×2 (08:50→20:46)
[2019-12-25] MEDS: LIDOCAINE 5% (LIDODERM) PATCH TD SCH (08:50)
[2019-12-25] MEDS: BRIMONIDINE 0.1% OPHTH SOLN 5 ML OU SCH ×2 (08:50→20:48)
[2019-12-25] MEDS: MECLIZINE 12.5 MG TAB PO SCH ×3 (08:50→20:47)
[2019-12-25] MEDS: FLUTICASONE PROP 0.05% NASAL SPRAY 16 GM (FLONASE) NARES SCH ×2 (08:50→20:48)
[2019-12-25] MEDS: FLUDROCORTISONE ACETATE 0.1 MG TAB PO SCH (08:50)
[2019-12-25] MEDS: REMEDY PHYTOPLEX Z-GUARD PASTE 113GM TUBE (FROM STOREROOM PRODUCT) TOP SCH ×3 (08:53→20:51)
[2019-12-25 14:00] VITALS: BP 158/79
[2019-12-25] MEDS: WARFARIN SOD 2MG TAB PO SCH (16:23)
[2019-12-25 20:15] VITALS: BP 140/70
[2019-12-25] MEDS: **NOTE PATIENT COMMENT** MISC XX SCH (20:51)
[2019-12-26 06:00] VITALS: BP 160/88
[2019-12-26] MEDS: IPRATROPIUM 0.5MG/ALBUTEROL 2.5MG INH SOL UD 3ML (DUONEB) NEB SCH ×3 (06:16→20:03)
[2019-12-26 06:31] LABS: INR 2.45; PROTHROMBIN TIME 27.1 SECONDS (12.5-14.3)
[2019-12-26] MEDS: MECLIZINE 12.5 MG TAB PO SCH ×2 (08:00→17:12)
[2019-12-26] MEDS: ASPIRIN 81 MG ENTERIC TAB PO SCH (08:00)
[2019-12-26] MEDS: FLUDROCORTISONE ACETATE 0.1 MG TAB PO SCH (08:00)
[2019-12-26] MEDS: VITAMIN D 1,000 INTERNATIONAL UNITS TABLET PO SCH (08:01)
[2019-12-26] MEDS: atenoloL 25 MG TAB PO SCH ×2 (08:01→20:38)
[2019-12-26] MEDS: ACETAMINOPHEN 500 MG TAB PO SCH ×3 (08:01→20:37)
[2019-12-26] MEDS: LIDOCAINE 5% (LIDODERM) PATCH TD SCH (08:01)
[2019-12-26] MEDS: OMEPRAZOLE 20 MG CAP PO SCH (08:01)
[2019-12-26] MEDS: BRIMONIDINE 0.1% OPHTH SOLN 5 ML OU SCH ×2 (08:05→20:39)
[2019-12-26] MEDS: FLUTICASONE PROP 0.05% NASAL SPRAY 16 GM (FLONASE) NARES SCH ×2 (08:05→20:38)
[2019-12-26] MEDS: SODIUM CHLORIDE NASAL 0.65% SPRAY BTL (OCEAN) SCH ×2 (08:05→20:38)
[2019-12-26] MEDS: REMEDY PHYTOPLEX Z-GUARD PASTE 113GM TUBE (FROM STOREROOM PRODUCT) TOP SCH ×3 (08:07→20:39)
[2019-12-26] MEDS: traMADol 50 MG TAB PO PRN (13:21)
[2019-12-26 14:00] VITALS: BP 155/70
[2019-12-26] MEDS: WARFARIN SOD 2MG TAB PO SCH (17:13)
--- NOTE | 2019-12-26 17:32 | IPNPDOC ---
PM&R Progress Note DATE OF SERVICE: Dec 26, 2019 [employer] Remediation Consultant Progress Note DATE OF ADMISSION: Dec 22, 2019 at 16:05 INPATIENT REHABILITATION ADMISSION DAY: #4 SUBJECTIVE: Patient is an 89-year-old female on anticoagulation for Afib with vertigo, hypertension, anemia, episodic headaches nausea without vomiting, occasional diarrhea, bilateral left worse than right knee pain after several falling episodes. She notes bowels moving well and more normal now, son who is visiting notes previous episodes where her blood pressure was dropping when she stood up, possibly contributing to unsteadiness in gait. Son clarifies prior CVA 5-10 years ago, she had no focal deficits, but episodic dizziness. Imaging noted for old infarct posterior cerebral artery distributions bilaterally, right greater than left. She is participating in PT OT and gaining strength daily, pain abating with medication adjustments and lidoderm patch. REVIEW OF SYSTEMS: Completed 14 pt review of systems unremarkable except as mentioned in interim subjective history. ALLERGIES: See Below MEDICATIONS: Reviewed, see below, requesting pharmacy consult for additional suggestions on possible drug interactions or needed adjustments that may be impacting recurrent orthostasis and dizziness issues. OBJECTIVE: VITAL SIGNS: Please see below. PHYSICAL EXAMINATION: GENERAL: morbidly obese, sitting up in bed, no acute distress. HEENT: Normocephalic, atraumatic. No facial droop. EOMI. CN II-XII intact CARDIOVASCULAR: S1, S2, irregular rate. bilateral edema mild left calf tenderness negative Tiffanie's. LUNGS: Decreased breath sounds, no rales rhonchi or wheezes throughout. ABDOMEN: Soft, nontender, obese, soft. Normoactive bowel sounds throughout. MUSCULOSKELETAL: MMT: 5/5 bilateral knee extension. 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 NEUROLOGICAL: Answers all question appropriately. SKIN: intact LABORATORY DATA: Reviewed. Please see below. MICROBIOLOGY: Please see below. ASSESSMENT AND PLAN: 89-year-old hypertensive lady with past medical history of posterior circulation CVA who presents status post recurrent falls, contusing knees and continued vertigo PLAN: 1. Rehab- PT/OT advance mobility and ADLs, strengthen/stretch/maintain ROM all 4 limbs, avoid Jimbo-maneuver/[place]-hallpike maneuver given hx of stroke 2. Neuro- persistent vertigo likely central in etiology due to recent posterior circulation infarct in 2019 limiting her overall mobility and contributing to recurrent falls, possibility of further aggravation from orthostatic hypotensio n, will add gudelia wraps which will also help address edema. -meclizine for vertigo seems to be helping -c/u ASA for secondary stroke prevention in addition to warfarin for afib 3. resp- encourage incentive spirometry, monitor for infection -Duonebs for wheeze on exam and hx of smoknig 4.Cardiac- hx of afib, c/u coumadin with daily INRs, beta-hailey -recent orthostatics, f/u Fludrocortisone , will check for orthostatic changes, BP elevated, may need to back off meclizine -medicine consulted to assist in overall management -patient's diuretic recently held due to orthostatics, will fluid restrict 1800cc with daily weights as suspect some degree of CHF given hx of LE edema 5. GI ppx- omeprazole 6. DVT ppx on coumadin will need to adjust and recheck PT/INR slightly above target on 7. GI- monitor for diarrhea 8. Pain- right knee OA worse after fall, tylenol and tramadol, Lidoderm seem to be helping, can also offer ice 9. Dispo- TBD TIME SPENT: Chart Review, examination and documentation [30] minutes. Allergies Coded Allergies: Penicillins (Verified Allergy, Mild, RASH, 11/23/18) GUDELIA Inhibitors (Verified Allergy, Unknown, UNKNOWN REACTION PER FAMILY, 04/27/19) SEASONAL ALLERGIES (Verified Allergy, Unknown, 11/23/18) doxycycline (Verified Allergy, Unknown, UNKNOWN REACTION PER FAMILY, 04/27/19) prazosin (Verified Allergy, Unknown, UNKNOWN REACTION PER FAMILY, 04/27/19) codeine (Verified Adverse Reaction, Mild, CONFUSION, 11/23/18) ibuprofen (Verified Adverse Reaction, Mild, ORAL THRUSH, 11/26/18) Vital Signs Vital Signs Date Time Temp Pulse Resp B/P (MAP) Pulse Ox O2 Delivery O2 Flow Rate FiO2 12/26/19 14:00 97.1 84 18 155/70 (98) 96 Room Air Laboratory Data Labs 24H Laboratory Tests 2 12/26/19 05:25: Prothrombin Time 27.1H, Prothromb Time International Ratio 2.45 Current Medications Current Medications Current Medications Medications (Trade) Dose Ordered Sig/Gemini Route PRN Reason Start Time Stop Time Status Last Admin Dose Admin Acetaminophen (Tylenol Tab) 1,000 mg TID PO 12/22/19 21:00 12/26/19 08:01 Albuterol/ Ipratropium (Duoneb (Ipr 0.5mg/Alb 2.5mg)) 3 ml RTID NEB 12/22/19 20:00 12/26/19 06:16 Aspirin (Ecotrin) 81 mg DAILY PO 12/23/19 09:00 12/26/19 08:00 Atenolol (Tenormin) 25 mg BID PO 12/22/19 21:00 12/26/19 08:01 Brimonidine Tartrate (Alphagan P 0.1%) 1 drop BID OU 12/22/19 21:00 12/26/19 08:05 Fludrocortisone Acetate (Florinef) 0.1 mg DAILY PO 12/23/19 09:00 12/26/19 08:00 Fluticasone Propionate (Flonase 0.05% Nasal [place]) 1 spray BID NARES 12/22/19 21:00 12/26/19 08:05 Lidocaine (Lidoderm Patch) 1 patch DAILY TD 12/23/19 09:00 12/26/19 08:01 Magnesium Hydroxide (Milk Of Magnesia) 30 ml DAILYPRN PRN PO CONSTIPATION 12/22/19 16:15 Meclizine HCl (Antivert) 12.5 mg TID PO 12/22/19 21:00 12/26/19 08:00 Non-Formulary Medication ( See Comment Field Below ) REMOVE LIDODERM PATCH DAILY@21 XX 12/23/19 21:00 12/25/19 20:51 Omeprazole (PriLOSEC) 40 mg DAILY PO 12/23/19 09:00 12/26/19 08:01 Sodium Chloride ([place] Nasal [place]) 2 spray BID NA 12/22/19 21:00 12/26/19 08:05 Tramadol HCl (Ultram) 25 mg Q4HP PRN PO MODERATE PAIN (PS 5-7) 12/22/19 16:15 12/26/19 13:21 Vitamin D (Vitamin D) 2,000 units DAILY PO 12/23/19 09:00 12/26/19 08:01 Warfarin Sodium (Coumadin) 2 mg DAILY@17 PO 12/22/19 17:00 12/25/19 16:23 CABRERA COOLEY MD Dec 26, 2019 16:34
[2019-12-26 20:00] VITALS: BP 168/94
[2019-12-26] MEDS ORDERED: **hydrALAZINE HCL** 25 MG TAB PO ONE (20:00)
[2019-12-26] MEDS: **NOTE PATIENT COMMENT** MISC XX SCH (20:39)
[2019-12-26 22:00] VITALS: BP 150/84
[2019-12-27] MEDS: traMADol 50 MG TAB PO PRN (00:17)
[2019-12-27 06:20] VITALS: BP 176/102
[2019-12-27] MEDS: IPRATROPIUM 0.5MG/ALBUTEROL 2.5MG INH SOL UD 3ML (DUONEB) NEB SCH ×3 (06:35→20:45)
[2019-12-27] MEDS: atenoloL 25 MG TAB PO SCH ×2 (06:35→20:54)
[2019-12-27 07:30] VITALS: BP_SYST 148; BP_SYST 170; BP_DIAS 84; BP_DIAS 92; BP_DIAS 96
[2019-12-27 08:19] LABS: BASO # 0.1 10^3/uL (0.0-0.2); BASO % 0.6 % (0.0-1.0); EOS # 0.2 10^3/uL (0.0-0.5); EOS % 1.6 % (0.0-3.0); HEMATOCRIT 35.8 % (36.0-47.0); HEMOGLOBIN 11.4 g/dl (12.0-15.5); LYMPH # 1.8 10^3/uL (1.5-5.0); LYMPH % 14.1 % (24.0-44.0); MEAN CORPUSCULAR HEMOGLOBIN 29.4 pg (27.0-33.0); MEAN CORPUSCULAR HGB CONC 31.8 g/dl (32.0-36.5); MEAN CORPUSCULAR VOLUME 92.3 fl (80.0-96.0); MONO # 0.6 10^3/uL (0.0-0.8); MONO % 4.8 % (0.0-5.0); NEUTROPHILS % 78.4 % (36.0-66.0); PLATELET COUNT, AUTOMATED 276 10^3/uL (150-450); RED BLOOD COUNT 3.88 10^6/uL (4.00-5.40); WHITE BLOOD COUNT 12.8 10^3/uL (4.0-10.0)
[2019-12-27 08:36] LABS: INR 2.64; PROTHROMBIN TIME 28.8 SECONDS (12.5-14.3)
[2019-12-27] MEDS: REMEDY PHYTOPLEX Z-GUARD PASTE 113GM TUBE (FROM STOREROOM PRODUCT) TOP SCH ×3 (09:00→20:52)
[2019-12-27 09:12] LABS: ALBUMIN 2.9 GM/DL (3.2-5.2); BILIRUBIN,TOTAL 1.4 MG/DL (0.2-1.0); CALCIUM LEVEL 8.8 MG/DL (8.8-10.2); CREATININE FOR GFR 0.99 MG/DL (0.55-1.30); GLOMERULAR FILTRATION RATE 56.5 (>32); POTASSIUM SERUM 4.3 MEQ/L (3.5-5.1); TOTAL PROTEIN 6.4 GM/DL (6.4-8.2)
[2019-12-27] MEDS: LIDOCAINE 5% (LIDODERM) PATCH TD SCH (09:20)
[2019-12-27] MEDS: ACETAMINOPHEN 500 MG TAB PO SCH ×3 (09:20→20:55)
[2019-12-27] MEDS: MECLIZINE 12.5 MG TAB PO PRN (09:20)
[2019-12-27] MEDS: ASPIRIN 81 MG ENTERIC TAB PO SCH (09:21)
[2019-12-27] MEDS: VITAMIN D 1,000 INTERNATIONAL UNITS TABLET PO SCH (09:21)
[2019-12-27] MEDS: OMEPRAZOLE 20 MG CAP PO SCH (09:21)
[2019-12-27] MEDS: FLUTICASONE PROP 0.05% NASAL SPRAY 16 GM (FLONASE) NARES SCH ×3 (09:22→21:00)
[2019-12-27] MEDS: BRIMONIDINE 0.1% OPHTH SOLN 5 ML OU SCH ×3 (09:22→21:00)
[2019-12-27] MEDS: SODIUM CHLORIDE NASAL 0.65% SPRAY BTL (OCEAN) SCH ×3 (09:22→21:00)
[2019-12-27 09:45] VITALS: BP 146/80
[2019-12-27 10:45] VITALS: BP 144/86
[2019-12-27 14:00] VITALS: BP 141/84
[2019-12-27] MEDS ORDERED: SCOPOLAMINE 1MG TRANSDERMAL PATCH TOP SCH (14:45)
[2019-12-27] MEDS ORDERED: FUROSEMIDE 40MG/4ML VIAL (J1940) IV ONE (15:15)
[2019-12-27 15:38] LABS: ABG HCO3 24.9 MEQ/L (22.0-26.0); ABG O2 SATURATION 95.1 % (95.0-99.0); ABG PARTIAL PRESSURE CO2 37.3 mmHg (35.0-45.0); ABG PARTIAL PRESSURE O2 75.4 mmHg (75.0-100.0); ABG STANDARD HCO3 25.3 MEQ/L (22.0-26.0); ABG TOTAL CO2 26.1 MEQ/L (23.0-31.0); ABG pH (ARTERIAL) 7.443 UNITS (7.350-7.450)
--- NOTE | 2019-12-27 16:07 | IPNPDOC ---
Text Note Date of Service The patient was seen on 12/27/19. NOTE Subjective: Patient is-year-old female with a PMHx of A. fib (on Coumadin), HTN, CVA (2000, 2018), Migraines, GERD, who presented to the hospital on 12/17/2019 with complaints of a fall after she had reported dizziness. Patient has had a recent hospitalization on 12/05 and was discharged on 12/08 for a similar presentation. MRI and MRA of her head on 12/06 was negative for any acute arterial occlusion or acute cerebellar infarction or intracranial he morrhage. Patient was admitted to the hospitalist service on 12/16 for further evaluation and treatment of her vertigo. She was subsequently discharged to the acute rehabilitation unit on 12/22 for continued physical therapy. I was called for additional evaluation of this patient on 12/27/2019. Patient was seen and examined at the bedside. Currently patient was seen laying in bed, appeared to be asleep, but once awake, alert and oriented 3. Patient denied any chest pain, shortness of breath. Does report a cough with some sputum production. Denies any abdominal pain, nausea, vomiting. Did report bowel movement yesterday. Denies any urinary discomfort. Objective: Vitals (See below) General: Lying in bed, appears comfortable, AAOx3 HEENT: NC, AT CVS: +S1S2 Lungs: Fair air entry b/l, bilateral lower lung rodriguez reveal crackles, no rhonchi or wheezing Abdomen: Soft, ND, NT, Extremities: 1-2+ pitting edema at feet. Legs are wrapped in [place] bandages, - Calf tenderness Assessment and plan: Reported shortness of breath - likely 2/2 discontinuation of diuretics - Upon evaluation of patient this afternoon she was on room air, breathing appropriately - no respiratory distress - As per nursing staff patient required supplemental oxygen to maintain saturations earlier in the day - BNP elevated - ABG noted and grossly normal - CXR is consistent with fluid overload - Will order ECHO - Will start IV line and provide a single dose of IV furosemide Low grade fever / Leukocytosis - possibly 2/2 PNA, possibly 2/2 UTI - Review systems indicates the patient has reported some cough - Leukocytosis with neutrophil predominance - Lactic acid normal - Will check UA with reflex culture - Will get CT chest to evaluate for PNA - Will check procalcitonin Chronic Vertigo with frequent falls - likely 2/2 most recent stroke in 2019. CVA with posterior circulation involvement - Likely acutely worsened with orthostatic hypotension - c/w Meclizine - Will resume Fludrocortisone and compression stocking / [place] wrapping - PT and OT as per ARU HTN with orthostatic hypotension - Will resume diuretics; will start IV line with furosemide 40 IV 1 time - c/w Atenolol Chronic A. Fib on Coumadin - Patient has had episodes of uncontrolled A. fib this morning - INR is therapeutic - Continue with rate control with atenolol - Continue with full anticoagulation with warfarin HCVA 2000 and 2018 - c/w ASA Migraines GERD - c/w Omeprazole Knee pain - c/w Pain control w/ Diclofenac patch / Tylenol PRN DVT Prophylaxis - c/w full anticoagulation with Coumadin VS,Fishbone, I+O VS, Fishbone, I+O Laboratory Tests 12/27/19 08:07 Vital Signs Date Time Temp Pulse Resp B/P (MAP) Pulse Ox O2 Delivery O2 Flow Rate FiO2 12/27/19 10:45 72 22 144/86 (105) 86 Room Air 12/27/19 09:45 98.9 I&O- Last 24 Hours up to 6 AM 12/27/19 05:59 Intake Total 1350 ml Balance 1350 ml MARY CHIANG MD Dec 27, 2019 16:07
--- NOTE | 2019-12-27 16:47 | REPVR ---
PROCEDURE INFORMATION: Exam: CT Chest Without Contrast Exam date and time: 12/27/2019 4:25 PM Age: 89 years old Clinical indication: Shortness of breath; Additional info: SOB TECHNIQUE: Imaging protocol: Computed tomography of the chest without contrast. 3D rendering (Not supervised by radiologist): MIP and/or 3D reconstructed images were created by the technologist. Radiation optimization: All CT scans at this facility use at least one of these dose optimization techniques: automated exposure control; mA and/or kV adjustment per patient size (includes targeted exams where dose is matched to clinical indication); or iterative reconstruction. COMPARISON: ID Chest, 2 view PA, Lat 12/27/2019 8:32 AM FINDINGS: Lungs: Small amount of bilateral atelectasis is seen possibly compressive. Pleural space: There is a small to moderate right effusion. There is a small left effusion. Heart: There is a small pericardial effusion. There is severe mitral valve calcifications. Mild aortic and coronary artery calcifications are seen. Aorta: Ectasia of the ascending aorta 32 mm. No aortic aneurysm. Lymph nodes: Unremarkable. No enlarged lymph nodes. Bones/joints: Moderate arthritic changes are seen in the spine. Soft tissues: Unremarkable. IMPRESSION: Bilateral effusions with pericardial fluid. There is no evidence of pulmonary edema. There is bibasilar atelectasis Electronically signed by: Kike Larios On 12/27/2019 16:47:31 PM
[2019-12-27] MEDS: WARFARIN SOD 2MG TAB PO SCH (18:11)
[2019-12-27] MEDS: SCOPOLAMINE 1MG TRANSDERMAL PATCH TOP SCH (18:12)
[2019-12-27] MEDS: **NOTE PATIENT COMMENT** MISC XX SCH (20:52)
[2019-12-27 21:56] VITALS: BP 178/79
[2019-12-28 05:55] VITALS: BP 150/82
[2019-12-28] MEDS: atenoloL 25 MG TAB PO SCH ×2 (07:13→20:32)
[2019-12-28] MEDS: VITAMIN D 1,000 INTERNATIONAL UNITS TABLET PO SCH (07:13)
[2019-12-28] MEDS: SODIUM CHLORIDE NASAL 0.65% SPRAY BTL (OCEAN) SCH ×2 (07:14→20:34)
[2019-12-28] MEDS: ASPIRIN 81 MG ENTERIC TAB PO SCH (07:14)
[2019-12-28] MEDS: ACETAMINOPHEN 500 MG TAB PO SCH ×3 (07:14→20:33)
[2019-12-28] MEDS: LIDOCAINE 5% (LIDODERM) PATCH TD SCH ×2 (07:14→12:18)
[2019-12-28] MEDS: OMEPRAZOLE 20 MG CAP PO SCH (07:14)
[2019-12-28] MEDS: BRIMONIDINE 0.1% OPHTH SOLN 5 ML OU SCH ×2 (07:15→20:33)
[2019-12-28] MEDS: FLUTICASONE PROP 0.05% NASAL SPRAY 16 GM (FLONASE) NARES SCH ×2 (07:15→20:33)
[2019-12-28] MEDS: REMEDY PHYTOPLEX Z-GUARD PASTE 113GM TUBE (FROM STOREROOM PRODUCT) TOP SCH ×3 (07:17→20:34)
[2019-12-28 07:45] LABS: HEMATOCRIT 31.7 % (36.0-47.0); MEAN CORPUSCULAR HEMOGLOBIN 29.4 pg (27.0-33.0); MEAN CORPUSCULAR HGB CONC 31.5 g/dl (32.0-36.5); MEAN CORPUSCULAR VOLUME 93.2 fl (80.0-96.0); PLATELET COUNT, AUTOMATED 227 10^3/uL (150-450); WHITE BLOOD COUNT 7.6 10^3/uL (4.0-10.0)
[2019-12-28] MEDS: IPRATROPIUM 0.5MG/ALBUTEROL 2.5MG INH SOL UD 3ML (DUONEB) NEB SCH ×3 (07:55→20:00)
[2019-12-28 08:00] LABS: INR 2.96; PROTHROMBIN TIME 31.5 SECONDS (12.5-14.3)
[2019-12-28 08:04] LABS: BLOOD UREA NITROGEN 11 MG/DL (7-18); CALCIUM LEVEL 8.3 MG/DL (8.8-10.2); CARBON DIOXIDE LEVEL 29 MEQ/L (21-32); CHLORIDE LEVEL 108 MEQ/L (98-107); CREATININE FOR GFR 0.93 MG/DL (0.55-1.30); GLOMERULAR FILTRATION RATE > 60.0 (>32); GLUCOSE, FASTING 106 MG/DL (70-100); MAGNESIUM LEVEL 1.7 MG/DL (1.8-2.4); POTASSIUM SERUM 3.8 MEQ/L (3.5-5.1); SODIUM LEVEL 144 MEQ/L (136-145)
[2019-12-28] MEDS ORDERED: FUROSEMIDE 40MG/4ML VIAL (J1940) IV ONE (08:30)
[2019-12-28] MEDS ORDERED: MAG SULF 1GM/100ML (MAG RUN) 1 GM in IV 1 EA IV ONE ×2 (08:30→09:00)
[2019-12-28] MEDS: traMADol 50 MG TAB PO PRN (10:37)
[2019-12-28] MEDS: FLUDROCORTISONE ACETATE 0.1 MG TAB PO SCH (10:37)
--- NOTE | 2019-12-28 10:37 | ECHO ---
DATE OF PROCEDURE: 12/27/2019 Age: 89 Gender: Female Height: 157 cm Weight: 96.2 kg REFERRING PHYSICIAN: Naren Perez M.D. INDICATION: Localized edema unspecified. MEASUREMENTS: 2D Measurements: Left atrium 4.4 cm Intraventricular septum 1.17 cm Posterior wall 1.08 cm Left ventricle diastole 4.8 cm Aortic root 2.6 cm Proximal ascending aorta 3.3 cm Inferior vena cava 2.1 cm (more than 50% respiratory variation) Doppler Measurements: No aortic stenosis Trace aortic regurgitation Aortic valve velocity 233 cm/s LVOT velocity 48.4 cm/s No mitral regurgitation No mitral stenosis Aortic valve velocity (continuous-wave) 153 cm/s Mean mitral valve gradient 3 mmHg Trace tricuspid regurgitation Estimated right ventricular systolic pressure 47-52 mmHg Estimated right atrial pressure 5-10 mmHg No pulmonic regurgitation 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 This was a moderately technically difficult echocardiogram with the patient supine during the study. CONCLUSIONS: 1. Suggestive of moderate elevation of estimated right ventricle systolic pressure (46-52 mmHg). Suggestive of normal central venous pressure (5-10 mmHg). 2. Normal left ventricle internal dimensions and wall thickness. Normal regional left ventricular (LV) wall motion and wall thickening. Normal left ventricular (LV) systolic function. Left ventricular ejection fraction (LVEF) 55% by visual estimate. Unable to adequately assess left ventricular (LV) diastolic function in the setting of atrial fibrillation. 3. Mild left atrial dilatation. 4. Moderate mitral annular calcification. No mitral regurgitation or stenosis. 5. Moderate aortic valve sclerosis of a 3-cuspid aortic valve. No aortic stenosis. Trace aortic regurgitation. 6. Tiny pericardial effusion observed over the right atrial free wall. No diastolic chamber collapse. 7. Moderately technically difficult echocardiogram. [facility]
[2019-12-28] MEDS ORDERED: LIDOCAINE 5% (LIDODERM) PATCH TD ONE (11:30)
--- NOTE | 2019-12-28 13:06 | IPNPDOC ---
PM&R Progress Note DATE OF SERVICE: Dec 27, 2019 Refuge Manager Progress Note DATE OF ADMISSION: Dec 22, 2019 at 16:05 INPATIENT REHABILITATION ADMISSION DAY: #5 DATE OF SERVICE: Dec 27, 2019 SUBJECTIVE: Patient is an 89-year-old female on anticoagulation for Afib with vertigo, hypertension, anemia, episodic headaches, nausea without vomiting, occasional diarrhea, bilateral left worse than right knee pain after several falling episodes. She notes bowels moving well and more normal now, concern for orthostatic changes confirmed with drop in BP from 170s to 140s. Therapy notes she was having some improvement with the meclizine. However, there also has been some confusion which may be related to new medication changes. She is participating in PT OT and gaining strength daily, pain abating with medication adjustments , and modalities. However, still very sore in the knees. We appreciate hospitalist consultation for ongoing medical challenges including low-grade temperature and leukocytosis. REVIEW OF SYSTEMS: Completed 14 pt review of systems unremarkable except as mentioned in interim subjective history. ALLERGIES: See Below MEDICATIONS: Reviewed, see below, pharmacy consulted for additional suggestions on possible drug interactions or needed adjustments that may be impacting recurrent orthostasis and dizziness issues, agreed consideration of another agent such as scopolamine might be indicated. Perhaps first we will have a trial off meclizine and see if its mostly orthostasis or medication effect. OBJECTIVE: VITAL SIGNS: Please see below. PHYSICAL EXAMINATION: GENERAL: morbidly obese, sitting up in bed, no acute distress. HEENT: Normocephalic, atraumatic. No facial droop. EOMI. CN II-XII intact CARDIOVASCULAR: S1, S2, irregular rate. bilateral edema mild left calf tenderness negative Tiffanie's. LUNGS: Decreased breath sounds, increased by basilar crackles and wheezes throughout. ABDOMEN: Soft, nontender, obese, soft. Normoactive bowel sounds throughout. MUSCULOSKELETAL: MMT: Healed bilateral TKR scars , 2+ edema bilateral lower extremities , 5/5 bilateral knee extension. 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 NEUROLOGICAL: Answers all question appropriately. SKIN: intact LABORATORY DATA: Reviewed. Please see below. MICROBIOLOGY: Please see below. ASSESSMENT AND PLAN: 89-year-old hypertensive lady with past medical history of posterior circulation CVA who presents status post recurrent falls, contusing knees and continued vertigo and fairly significant orthostatic hypotensive changes. PLAN: 1. Rehab- PT/OT advance mobility and ADLs, strengthen/stretch/maintain ROM all 4 limbs, avoid Jimbo-maneuver/[place]-hallpike maneuver given hx of stroke 2. Neuro- persistent vertigo likely central in etiology due to recent posterior circulation infarct in 2019 limiting her overall mobility and contributing to recurrent falls, possibility of further aggravation from orthostatic hypotension, will add gudelia wraps which will also help address lower extremity edema. -c/u ASA for secondary stroke prevention in addition to warfarin for afib 3. resp- encourage incentive spirometry, monitor for infection particularly with low-grade temp and mild leukocytosis -Duonebs for wheeze on exam and hx of smoknig 4.Cardiac- hx of afib, c/u coumadin with daily INRs, beta-hailey -recent orthostatics, f/u Fludrocortisone , will check for orthostatic changes, BP elevated, may need to back off meclizine. 5. recheck urine for possible recurrent UTI -medicine consulted to assist in overall management -patient's diuretic recently held due to orthostatics, will fluid restrict 1800cc with daily weights as suspect some degree of CHF with lung changes and increased peripheral edema 5. GI ppx- omeprazole 6. DVT ppx on coumadin will need to adjust and recheck PT/INR slightly above target on 7. GI- monitor for diarrhea 8. Pain- right knee OA worse after fall, tylenol and tramadol, Lidoderm seem to be helping, can also offer ice 9. Dispo- TBD TIME SPENT: Chart Review, examination and documentation 60 minutes. Allergies Coded Allergies: Penicillins (Verified Allergy, Mild, RASH, 11/23/18) GUDELIA Inhibitors (Verified Allergy, Unknown, UNKNOWN REACTION PER FAMILY, 04/27/19) SEASONAL ALLERGIES (Verified Allergy, Unknown, 11/23/18) doxycycline (Verified Allergy, Unknown, UNKNOWN REACTION PER FAMILY, 04/27/19) prazosin (Verified Allergy, Unknown, UNKNOWN REACTION PER FAMILY, 04/27/19) codeine (Verified Adverse Reaction, Mild, CONFUSION, 11/23/18) ibuprofen (Verified Adverse Reaction, Mild, ORAL THRUSH, 11/26/18) Vital Signs Vital Signs Date Time Temp Pulse Resp B/P (MAP) Pulse Ox O2 Delivery O2 Flow Rate FiO2 12/28/19 11:25 18 12/28/19 07:13 78 150/82 12/28/19 05:55 97.1 95 Room Air Laboratory Data CBC/BMP Laboratory Tests 12/28/19 07:18 Labs 24H Laboratory Tests 2 12/27/19 13:02: 12/27/19 13:05: Lactic Acid Level 2.0 12/27/19 15:23: Blood Gas Bicarbonate Standard 25.3, Arterial Blood pH 7.443, Arterial Blood Partial Pressure CO2 37.3, Arterial Blood Partial Pressure O2 75.4, Arterial Blood Total CO2 26.1, Arterial Blood HCO3 24.9, Arterial Blood Base Excess 1.0, Arterial Blood Oxygen Saturation 95.1 12/27/19 16:30: Urine Color YELLOW, Urine Appearance CLEAR, Urine pH 6.0, Urine Specific [place] 1.010, Urine Protein NEGATIVE, Urine Glucose (UA) NEGATIVE, Urine Ketones NEGATIVE, Urine Blood 1+H, Urine Nitrite NEGATIVE, Urine Bilirubin NEGATIVE, Urine Urobilinogen 0.2, Urine Leukocyte Esterase NEGATIVE, Urine WBC (Auto) 2, Urine RBC (Auto) 4H, Urine Hyaline Casts (Auto) 0, Urine Bacteria (Auto) 1+H, U rine Squamous Epithelial Cells 1, Urine Mucus (Auto) SMALL, Urine Sperm (Auto) 12/27/19 17:48: Ammonia 28 12/28/19 07:18: Nucleated Red Blood Cells % (auto) 0.0, Prothrombin Time 31.5H, Prothromb Time International Ratio 2.96, Anion Gap 7L, Glomerular Filtration Rate > 60.0, Calcium Level 8.3L, Magnesium Level 1.7L Current Medications Current Medications Current Medications Medications (Trade) Dose Ordered Sig/Gemini Route PRN Reason Start Time Stop Time Status Last Admin Dose Admin Acetaminophen (Tylenol Tab) 1,000 mg TID PO 12/22/19 21:00 12/28/19 07:14 Albuterol/ Ipratropium (Duoneb (Ipr 0.5mg/Alb 2.5mg)) 3 ml RTID NEB 12/22/19 20:00 12/28/19 07:55 Aspirin (Ecotrin) 81 mg DAILY PO 12/23/19 09:00 12/28/19 07:14 Atenolol (Tenormin) 25 mg BID PO 12/22/19 21:00 12/28/19 07:13 Brimonidine Tartrate (Alphagan P 0.1%) 1 drop BID OU 12/22/19 21:00 12/28/19 07:15 Fludrocortisone Acetate (Florinef) 0.1 mg DAILY PO 12/23/19 09:00 12/28/19 10:37 Fluticasone Propionate (Flonase 0.05% Nasal [place]) 1 spray BID NARES 12/22/19 21:00 12/28/19 07:15 Lidocaine (Lidoderm Patch) 1 patch DAILY TD 12/28/19 09:00 12/28/19 12:18 Lidocaine (Lidoderm Patch) 1 patch DAILY TD 12/23/19 09:00 12/28/19 07:14 Magnesium Hydroxide (Milk Of Magnesia) 30 ml DAILYPRN PRN PO CONSTIPATION 12/22/19 16:15 Meclizine HCl (Antivert) 12.5 mg BIDP PRN PO HYPOTENSION 12/26/19 19:30 12/27/19 09:20 Meclizine HCl (Antivert) 12.5 mg TID PO 12/22/19 21:00 12/26/19 19:32 DC 12/26/19 17:12 Non-Formulary Medication ( See Comment Field Below ) REMOVE LIDODERM PATCH DAILY@ XX 12/28/19 21:00 12/28/19 12:00 DC Non-Formulary Medication ( See Comment Field Below ) REMOVE LIDODERM PATCH DAILY@21 XX 12/28/19 21:00 Non-Formulary Medication ( See Comment Field Below ) REMOVE LIDODERM PATCH DAILY@ XX 12/23/19 21:00 12/27/19 20:52 Omeprazole (PriLOSEC) 40 mg DAILY PO 12/23/19 09:00 12/28/19 07:14 Scopolamine (Scopolamine) 1 mg Q72H TOP 12/27/19 14:45 12/27/19 14:36 DC Scopolamine (Scopolamine) 1 mg Q72H TOP 12/27/19 16:00 12/27/19 18:12 Sodium Chloride ([place] Nasal [place]) 2 spray BID NA 12/22/19 21:00 12/28/19 07:14 Tramadol HCl (Ultram) 25 mg Q4HP PRN PO SEVERE PAIN (PS 8-10) 12/22/19 16:15 12/28/19 12:52 DC 12/28/19 10:37 Vitamin D (Vitamin D) 2,000 units DAILY PO 12/23/19 09:00 12/28/19 07:13 Warfarin Sodium (Coumadin) 2 mg DAILY@17 PO 12/22/19 17:00 Hold 12/27/19 18:11 CABRERA COOLEY MD Dec 28, 2019 13:05
--- NOTE | 2019-12-28 13:16 | IPNPDOC ---
PM&R Progress Note DATE OF SERVICE: Dec 28, 2019 [employer] Progress Note DATE OF ADMISSION: Dec 22, 2019 at 16:05 INPATIENT REHABILITATION ADMISSION DAY: #6 DATE OF SERVICE: Dec 28, 2019 SUBJECTIVE: Patient is an 89-year-old female on anticoagulation for Afib with vertigo, hypertension, anemia, episodic headaches, nausea without vomiting, occasional diarrhea, bilateral left worse than right knee pain after several falling episodes. She notes bowels moving well yesterday raised concern for orthostatic changes confirmed with drop in BP from 170s to 140s. Therapy notes she was having some improvement with the meclizine, when held yesterday, dizziness worsened tremendously. Scopolamine patch applied last night and seems to be helping somewhat today and less confusion today. Appreciate hospitalist service, UA, chest x-ray and CT was ordered. Negative for UTI, cardiomegaly and vascular congestion, facial fluid and bilateral effusions noted with CHF with interstitial edema pattern. She seemed to diuresed nicely overnight with Lasix and is in much better status this morning. Less orthostatic changes. REVIEW OF SYSTEMS: Completed 14 pt review of systems unremarkable except as mentioned in interim subjective history. ALLERGIES: See Below OBJECTIVE: VITAL SIGNS: Please see below. PHYSICAL EXAMINATION: GENERAL: morbidly obese, sitting up in bed, less distress. HEENT: Normocephalic, atraumatic. No facial droop. EOMI. CN II-XII intact CARDIOVASCULAR: S1, S2, irregular rate, left bilateral edema mild bilateral an kle and left calf tenderness negative Tiffanie's. LUNGS: Decreased breath sounds, persisting, but somewhat diminished basilar crackles throughout. ABDOMEN: Soft, nontender, obese, soft. Normoactive bowel sounds throughout. MUSCULOSKELETAL: MMT: Healed bilateral TKR scars , 1+ edema bilateral lower extr emities , 5/5 bilateral knee extension. 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 NEUROLOGICAL: Answers all question appropriately. SKIN: intact LABORATORY DATA: Reviewed. Please see below. MICROBIOLOGY: Please see below. ASSESSMENT AND PLAN: 89-year-old hypertensive lady with past medical history of posterior circulation CVA who presents status post recurrent falls, contusing knees, noted to be anemic and with continued vertigo and fairly significant orthostatic hypotensive changes, responded to diuresis recent exacerbation of CHF. PLAN: 1. Rehab- PT/OT advance mobility and ADLs, strengthen/stretch/maintain ROM all 4 limbs, avoid Jimbo-maneuver/Daquan-hallpike maneuver given hx of stroke 2. Neuro- persistent vertigo likely central in etiology due to recent posterior circulation infarct in 2019 limiting her overall mobility and contributing to recurrent falls, possibility of further aggravation from orthostatic hypotension, will add gudelia wraps which will also help address lower extremity edema. -c/u ASA for secondary stroke prevention in addition to warfarin for afib 3. resp- encourage incentive spirometry, monitor for infection particularly with low-grade temp and mild leukocytosis -Duonebs for wheeze on exam and hx of smoking, diuretics as indicated per hospitalist service 4.Cardiac- hx of afib, c/u coumadin with daily INRs, beta-hailey , INR bumped up to 2.96. Will hold Coumadin today. Anemia with H&H 3.410. We'll add vitamin supplementation. Blood pressure seems more stable today, will discuss with hospitalist if B hailey remains optimal management or if dose or agent change indicated. -recent orthostatics, f/u Fludrocortisone , will check for orthostatic changes, BP elevated, may need to back off meclizine. 5. recheck urine for possible recurrent UTI -medicine consulted to assist in overall management -patient's diuretic recently held due to orthostatics, will fluid restrict 1800cc with daily weights as suspect some degree of CHF with lung changes and increased peripheral edema 5. GI ppx- omeprazole 6. DVT ppx on coumadin will need to adjust and recheck PT/INR slightly above target on 7. GI- monitor for diarrhea 8. Pain- right knee OA worse after fall, tylenol Lidoderm seem to be helping, can also offer ice and a period. Continue wrapping lower extremities 9. Dispo- home with family TIME SPENT: Chart Review, examination, care coordination and documentation 40 minutes. Allergies Coded Allergies: Penicillins (Verified Allergy, Mild, RASH, 11/23/18) GUDELIA Inhibitors (Verified Allergy, Unknown, UNKNOWN REACTION PER FAMILY, 04/27/19) SEASONAL ALLERGIES (Verified Allergy, Unknown, 11/23/18) doxycycline (Verified Allergy, Unknown, UNKNOWN REACTION PER FAMILY, 04/27/19) prazosin (Verified Allergy, Unknown, UNKNOWN REACTION PER FAMILY, 04/27/19) codeine (Verified Adverse Reaction, Mild, CONFUSION, 11/23/18) ibuprofen (Verified Adverse Reaction, Mild, ORAL THRUSH, 11/26/18) Vital Signs Vital Signs Date Time Temp Pulse Resp B/P (MAP) Pulse Ox O2 Delivery O2 Flow Rate FiO2 12/28/19 11:25 18 12/28/19 07:13 78 150/82 12/28/19 05:55 97.1 95 Room Air Laboratory Data CBC/BMP Laboratory Tests 12/28/19 07:18 Labs 24H Laboratory Tests 2 12/27/19 15:23: Blood Gas Bicarbonate Standard 25.3, Arterial Blood pH 7.443, Arterial Blood Partial Pressure CO2 37.3, Arterial Blood Partial Pressure O2 75.4, Arterial Blood Total CO2 26.1, Arterial Blood HCO3 24.9, Arterial Blood Base Excess 1.0, Arterial Blood Oxygen Saturation 95.1 12/27/19 16:30: Urine Color YELLOW, Urine Appearance CLEAR, Urine pH 6.0, Urine Specific [place] 1.010, Urine Protein NEGATIVE, Urine Glucose (UA) NEGATIVE, Urine Ketones NEGATIVE, Urine Blood 1+H, Urine Nitrite NEGATIVE, Urine Bilirubin NEGATIVE, Urine Urobilinogen 0.2, Urine Leukocyte Esterase NEGATIVE, Urine WBC (Auto) 2, Urine RBC (Auto) 4H, Urine Hyaline Casts (Auto) 0, Urine Bacteria (Auto) 1+H, Urine Squamous Epithelial Cells 1, Urine Mucus (Auto) SMALL, Urine Sperm (Auto) 12/27/19 17:48: Ammonia 28 12/28/19 07:18: Nucleated Red Blood Cells % (auto) 0.0, Prothrombin Time 31.5H, Prothromb Time International Ratio 2.96, Anion Gap 7L, Glomerular Filtration Rate > 60.0, Calcium Level 8.3L, Magnesium Level 1.7L Current Medications Current Medications Current Medications Medications (Trade) Dose Ordered Sig/Gemini Route PRN Reason Start Time Stop Time Status Last Admin Dose Admin Acetaminophen (Tylenol Tab) 1,000 mg TID PO 12/22/19 21:00 12/28/19 07:14 Albuterol/ Ipratropium (Duoneb (Ipr 0.5mg/Alb 2.5mg)) 3 ml RTID NEB 12/22/19 20:00 12/28/19 07:55 Aspirin (Ecotrin) 81 mg DAILY PO 12/23/19 09:00 12/28/19 07:14 Atenolol (Tenormin) 25 mg BID PO 12/22/19 21:00 12/28/19 07:13 Brimonidine Tartrate (Alphagan P 0.1%) 1 drop BID OU 12/22/19 21:00 12/28/19 07:15 Fludrocortisone Acetate (Florinef) 0.1 mg DAILY PO 12/23/19 09:00 12/28/19 10:37 Fluticasone Propionate (Flonase 0.05% Nasal [place]) 1 spray BID NARES 12/22/19 21:00 12/28/19 07:15 Lidocaine (Lidoderm Patch) 1 patch DAILY TD 12/28/19 09:00 12/28/19 12:18 Lidocaine (Lidoderm Patch) 1 patch DAILY TD 12/23/19 09:00 12/28/19 07:14 Magnesium Hydroxide (Milk Of Magnesia) 30 ml DAILYPRN PRN PO CONSTIPATION 12/22/19 16:15 Meclizine HCl (Antivert) 12.5 mg BIDP PRN PO HYPOTENSION 12/26/19 19:30 12/27/19 09:20 Meclizine HCl (Antivert) 12.5 mg TID PO 12/22/19 21:00 12/26/19 19:32 DC 12/26/19 17:12 Non-Formulary Medication ( See Comment Field Below ) REMOVE LIDODERM PATCH DAILY@21 XX 12/28/19 21:00 12/28/19 12:00 DC Non-Formulary Medication ( See Comment Field Below ) REMOVE LIDODERM PATCH DAILY@21 XX 12/28/19 21:00 Non-Formulary Medication ( See Comment Field Below ) REMOVE LIDODERM PATCH DAILY@21 XX 12/23/19 21:00 12/27/19 20:52 Omeprazole (PriLOSEC) 40 mg DAILY PO 12/23/19 09:00 12/28/19 07:14 Scopolamine (Scopolamine) 1 mg Q72H TOP 12/27/19 14:45 12/27/19 14:36 DC Scopolamine (Scopolamine) 1 mg Q72H TOP 12/27/19 16:00 12/27/19 18:12 Sodium Chloride ([place] Nasal [place]) 2 spray BID NA 12/22/19 21:00 12/28/19 07:14 Tramadol HCl (Ultram) 25 mg Q4HP PRN PO SEVERE PAIN (PS 8-10) 12/22/19 16:15 12/28/19 12:52 DC 12/28/19 10:37 Vitamin D (Vitamin D) 2,000 units DAILY PO 12/23/19 09:00 12/28/19 07:13 Warfarin Sodium (Coumadin) 2 mg DAILY@17 PO 12/22/19 17:00 Hold 12/27/19 18:11 CABRERA COOLEY MD Dec 28, 2019 13:16
--- NOTE | 2019-12-28 13:55 | IPNPDOC ---
Text Note Date of Service The patient was seen on 12/28/19. NOTE Subjective: Patient is-year-old female with a PMHx of A. fib (on Coumadin), HTN, CVA (2000, 2018), Migraines, GERD, who presented to the hospital on 12/17/2019 with complaints of a fall after she had reported dizziness. Patient has had a recent hospitalization on 12/05 and was discharged on 12/08 for a similar presentation. MRI and MRA of her head on 12/06 was negative for any acute arterial occlusion or acute cerebellar infarction or intracranial he morrhage. Patient was admitted to the hospitalist service on 12/16 for further evaluation and treatment of her vertigo. She was subsequently discharged to the acute rehabilitation unit on 12/22 for continued physical therapy. I was called for additional evaluation of this patient on 12/27/2019. Patient was seen and examined at the bedside. Patient was seen laying in bed, did not appear to be in any distress. Patient reported that she has an uneventful evening denies any chest pain, shortness of breath. Does report a nonproductive cough. Denies any abdominal pain, nausea, vomiting, diarrhea. Denies any urinary discomfort. Patient has not been out of bed this morning. Objective: Vitals (See below) General: Patient is laying in bed, does not appear to be in any acute distress, is awake, alert and oriented 3 HEENT: NC, AT CVS: +S1S2 Lungs: Air entry is fair bilaterally without any evidence of rhonchi, wheezing or crackles this morning Abdomen: Soft, remains nondistended and nontender Extremities: No blair bandaging this morning. However, there is 1+ pitting edema at ankles, - Calf tenderness Assessment and plan: Reported shortness of breath - possibly 2/2 discontinuation of diuretics - This morning patient reported that she was feeling fine, denies any shortness of breath - Did not require any supplemental oxygen - BNP elevated - ABG noted and grossly normal - CXR 12/26: is consistent with fluid overload - CT chest 12/26: Bilateral effusions with pericardial fluid. There is no evidence of pulmonary edema. There is bibasilar atelectasis - ECHO 12/26: 1. Suggestive of moderate elevation of estimated right ventricle systolic pressure (46-52 mmHg). Suggestive of normal central venous pressure (5- 10 mmHg). 2. Normal left ventricle internal dimensions and wall thickness. Normal regional left ventricular (LV) wall motion and wall thickening. Normal left ventricular (LV) systolic function. Left ventricular ejection fraction (LVEF) 55% by visual estimate. Unable to adequately assess left ventricular (LV) diastolic function in the setting of atrial fibrillation. 3. Mild left atrial dilatation. 4. Moderate mitral annular calcification. No mitral regurgitation or stenosis. 5. Moderate aortic valve sclerosis of a 3-cuspid aortic valve. No aortic stenosis. Trace aortic regurgitation. 6. Tiny pericardial effusion observed over the right atrial free wall. No diastolic chamber collapse. 7. Moderately technically difficult echocardiogram. - s/p Furosemide 40 IV yesterday; will provide additional Furosemide today s/p Low grade fever / Leukocytosis - likely 2/2 reactive etiology, unlikely 2/2 PNA or UTI - Patient has only reported a non-productive cough, possibly 2/2 atelectasis / pleural effusions - Leukocytosis normalized - Lactic acid normal - UA negative - CT (above) without evidence of PNA - Procalcitonin pending Chronic Vertigo with frequent falls - likely 2/2 most recent stroke in 2019. CVA with posterior circulation involvement - Likely acutely worsened with orthostatic hypotension - c/w Meclizine - c/w Fludrocortisone and compression stocking / blair wrapping - PT and OT as per ARU HTN with orthostatic hypotension - c/w Atenolol Chronic A. Fib on Coumadin - Patient has remained rate controlled this morning - INR is approaching upper limitis - c/w rate control with atenolol at current dose - Warfarin will be held today CVA 2000 and 2018 - c/w ASA Migraines GERD - c/w Omeprazole Knee pain - c/w Pain control w/ Diclofenac patch / Tylenol PRN DVT Prophylaxis - c/w full anticoagulation with Coumadin; will be held today VS,Fishbone, I+O VS, Fishbone, I+O Laboratory Tests 12/28/19 07:18 Vital Signs Date Time Temp Pulse Resp B/P (MAP) Pulse Ox O2 Delivery O2 Flow Rate FiO2 12/28/19 11:25 18 12/28/19 07:13 78 150/82 12/28/19 05:55 97.1 95 Room Air I&O- Last 24 Hours up to 6 AM 12/28/19 06:00 Intake Total 540 ml Output Total 1050 ml Balance -510 ml MARY CHIANG MD Dec 28, 2019 13:55
[2019-12-28 14:15] VITALS: BP_SYST 136; BP_SYST 139; BP_SYST 141; BP_DIAS 76; BP_DIAS 83; BP_DIAS 93
[2019-12-28 20:00] VITALS: BP 136/94
[2019-12-28] MEDS: **NOTE PATIENT COMMENT** MISC XX SCH ×2 (20:34→20:35)
[2019-12-28] MEDS ORDERED: **NOTE PATIENT COMMENT** MISC XX SCH (21:00)
[2019-12-29 06:19] VITALS: BP 168/72
[2019-12-29] MEDS: IPRATROPIUM 0.5MG/ALBUTEROL 2.5MG INH SOL UD 3ML (DUONEB) NEB SCH ×2 (07:35→13:58)
[2019-12-29 07:48] LABS: INR 2.79
[2019-12-29] MEDS: MECLIZINE 12.5 MG TAB PO PRN (08:27)
[2019-12-29] MEDS: FLUDROCORTISONE ACETATE 0.1 MG TAB PO SCH (08:27)
[2019-12-29] MEDS: VITAMIN D 1,000 INTERNATIONAL UNITS TABLET PO SCH (08:27)
[2019-12-29] MEDS: OMEPRAZOLE 20 MG CAP PO SCH (08:27)
[2019-12-29] MEDS: atenoloL 25 MG TAB PO SCH ×2 (08:28→20:42)
[2019-12-29] MEDS: ACETAMINOPHEN 500 MG TAB PO SCH ×3 (08:29→20:42)
[2019-12-29] MEDS: ASPIRIN 81 MG ENTERIC TAB PO SCH (08:29)
[2019-12-29] MEDS: LIDOCAINE 5% (LIDODERM) PATCH TD SCH ×2 (08:38→08:39)
[2019-12-29] MEDS: REMEDY PHYTOPLEX Z-GUARD PASTE 113GM TUBE (FROM STOREROOM PRODUCT) TOP SCH ×3 (08:39→20:43)
[2019-12-29] MEDS: FLUTICASONE PROP 0.05% NASAL SPRAY 16 GM (FLONASE) NARES SCH ×2 (08:40→20:42)
[2019-12-29] MEDS: SODIUM CHLORIDE NASAL 0.65% SPRAY BTL (OCEAN) SCH ×2 (08:40→20:43)
[2019-12-29] MEDS: BRIMONIDINE 0.1% OPHTH SOLN 5 ML OU SCH ×2 (08:40→20:43)
--- NOTE | 2019-12-29 10:32 | IPNPDOC ---
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 She notes bowels moving well and normal now, She seemed to do well yesterday with the Scopolamine and leg wrapping, however this morning OT notes immediate di fficulty with attempt to ambulate to bathroom due to profound dizziness. Diuresis with Lasix seems to have helped CHF . However, still very sore in the knees. We appreciate hospitalist consultation for ongoing medical challenges, CXRY, CT noted for CHF, no pneumonia, ECHO noted for suggestive of moderate elevation of estimated right ventricle systolic pressure (46-52 mmHg), EF 55%. She has been afebrile. REVIEW OF SYSTEMS: Completed 14 pt review of systems unremarkable except as mentioned in interim subjective history. ALLERGIES: See Below MEDICATIONS: Reviewed, see below, Scopolamine seemed helpful yesterday, remains on Flourinef . OBJECTIVE: VITAL SIGNS: Please see below. PHYSICAL EXAMINATION: GENERAL: morbidly obese, sitting up in bed, no acute distress. HEENT: Normocephalic, atraumatic. No facial droop. EOMI. CN II-XII intact CARDIOVASCULAR: S1, S2, irregular rate. less bilateral edema mild left calf tenderness negative Tiffanie's, tender right more than left Achilles, calves wrapped to mid calf. LUNGS: Decreased breath sounds, fewer crackles, wheezes throughout. IC only 500 ABDOMEN: Soft, nontender, obese, soft. Normoactive bowel sounds throughout. MUSCULOSKELETAL: MMT: Healed bilateral TKR scars , 2+ edema bilateral lower extremities , 5/5 bilateral knee extension. 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 NEUROLOGICAL: Answers all question appropriately. SKIN: intact LABORATORY DATA: Reviewed. Please see below. Hct slight drop, INR still a bit supratherapeutic MICROBIOLOGY: Please see below. ASSESSMENT AND PLAN: 89-year-old hypertensive lady with past medical history of posterior circulation CVA who presents status post recurrent falls, contusing knees and continued vertigo and fairly significant orthostatic hypotensive changes. PLAN: 1. Rehab- PT/OT advance mobility and ADLs, strengthen/stretch/maintain ROM all 4 limbs, avoid Jimbo-maneuver/Daquan-hallpike maneuver given hx of stroke. Encourage monitoring of O2 levels with exertional activities. 2. Neuro- persistent vertigo likely central in etiology due to recent posterior circulation infarct in 2019 limiting her overall mobility and contributing to recurrent falls, possibility of further aggravation from orthostatic hypotension, will add gudelia wraps which will also help address lower extremity edema. -c/u ASA for secondary stroke prevention in addition to warfarin for afib 3. resp- encourage incentive spirometry, monitor for infection particularly with episodic low-grade temp and mild leukocytosis -Duonebs for wheeze on exam and hx of smokning will add acapella and continue to encourage incentive spirometry 4.Cardiac- hx of afib, c/u coumadin with daily INRs, beta-hailey -recent orthostatics, f/u Fludrocortisone , will check for orthostatic changes, BP elevated, may need to back off meclizine. 5. recheck urine for possible recurrent UTI -medicine consulted to assist in overall management -patient's diuretic recently held due to orthostatics, will fluid restrict 1800cc with daily weights as suspect some degree of CHF with lung changes and increased peripheral edema 5. GI ppx- omeprazole 6. DVT ppx on coumadin will need to adjust and recheck PT/INR slightly above target on 7. GI- monitor for diarrhea 8. Pain- right knee OA worse after fall, tylenol and tramadol, Lidoderm seem to be helping, can also offer ice 9. Dispo- TBD, home alone much of the day may not be realistic unless remains at wheelchair level. Suggested home video tour/family conference to troubleshoot and make best determination for safest discharge planning, however given the setback wit h CHF, labile BP, severe vertigo limiting consistent progress, it appears additional time will be needed to permit her the best opportunity to regain optimal functional capacity. TIME SPENT: Chart Review, examination and documentation 40 minutes. Allergies Coded Allergies: Penicillins (Verified Allergy, Mild, RASH, 11/23/18) GUDELIA Inhibitors (Verified Allergy, Unknown, UNKNOWN REACTION PER FAMILY, 04/27/19) SEASONAL ALLERGIES (Verified Allergy, Unknown, 11/23/18) doxycycline (Verified Allergy, Unknown, UNKNOWN REACTION PER FAMILY, 04/16 05/05) prazosin (Verified Allergy, Unknown, UNKNOWN REACTION PER FAMILY, 04/27/19) codeine (Verified Adverse Reaction, Mild, CONFUSION, 11/23/18) ibuprofen (Verified Adverse Reaction, Mild, ORAL THRUSH, 11/26/18) Vital Signs Vital Signs Date Time Temp Pulse Resp B/P (MAP) Pulse Ox O2 Delivery O2 Flow Rate FiO2 12/29/19 08:28 66 168/72 12/29/19 06:19 97.1 19 93 Room Air Laboratory Data Labs 24H Laboratory Tests 2 12/29/19 07:20: Prothrombin Time 30.0H, Prothromb Time International Ratio 2.79 Current Medications Current Medications Current Medications Medications (Trade) Dose Ordered Sig/Gemini Route PRN Reason Start Time Stop Time Status Last Admin Dose Admin Acetaminophen (Tylenol Tab) 1,000 mg TID PO 12/22/19 21:00 12/29/19 08:29 Albuterol/ Ipratropium (Duoneb (Ipr 0.5mg/Alb 2.5mg)) 3 ml RTID NEB 12/22/19 20:00 12/29/19 07:35 Aspirin (Ecotrin) 81 mg DAILY PO 12/23/19 09:00 12/29/19 08:29 Atenolol (Tenormin) 25 mg BID PO 12/22/19 21:00 12/29/19 08:28 Brimonidine Tartrate (Alphagan P 0.1%) 1 drop BID OU 12/22/19 21:00 12/29/19 08:40 Fludrocortisone Acetate (Florinef) 0.1 mg DAILY PO 12/23/19 09:00 12/29/19 08:27 Fluticasone Propionate (Flonase 0.05% Nasal [place]) 1 spray BID NARES 12/22/19 21:00 12/29/19 08:40 Lidocaine (Lidoderm Patch) 1 patch DAILY TD 12/28/19 09:00 12/29/19 08:39 Lidocaine (Lidoderm Patch) 1 patch DAILY TD 12/23/19 09:00 12/29/19 08:38 Magnesium Hydroxide (Milk Of Magnesia) 30 ml DAILYPRN PRN PO CONSTIPATION 12/22/19 16:15 Meclizine HCl (Antivert) 12.5 mg BIDP PRN PO dizziness 12/26/19 19:30 12/29/19 08:27 Meclizine HCl (Antivert) 12.5 mg TID PO 12/22/19 21:00 12/26/19 19:32 DC 12/26/19 17:12 Non-Formulary Medication ( See Comment Field Below ) REMOVE LIDODERM PATCH DAILY@21 XX 12/28/19 21:00 12/28/19 12:00 DC Non-Formulary Medication ( See Comment Field Below ) REMOVE LIDODERM PATCH DAILY@21 XX 12/28/19 21:00 12/28/19 20:35 Non-Formulary Medication ( See Comment Field Below ) REMOVE LIDODERM PATCH DAILY@21 XX 12/23/19 21:00 12/28/19 20:34 Omeprazole (PriLOSEC) 40 mg DAILY PO 12/23/19 09:00 12/29/19 08:27 Scopolamine (Scopolamine) 1 mg Q72H TOP 12/27/19 14:45 12/27/19 14:36 DC Scopolamine (Scopolamine) 1 mg Q72H TOP 12/27/19 16:00 12/27/19 18:12 Sodium Chloride ([place] Nasal [place]) 2 spray BID NA 12/22/19 21:00 12/29/19 08:40 Tramadol HCl (Ultram) 25 mg Q4HP PRN PO SEVERE PAIN (PS 8-10) 12/22/19 16:15 12/28/19 12:52 DC 12/28/19 10:37 Vitamin D (Vitamin D) 2,000 units DAILY PO 12/23/19 09:00 12/29/19 08:27 Warfarin Sodium (Coumadin) 2 mg DAILY@17 PO 12/22/19 17:00 12/27/19 18:11 CABRERA COOLEY MD Dec 29, 2019 10:32
--- NOTE | 2019-12-29 10:34 | IPNPDOC ---
Text Note Date of Service The patient was seen on 12/29/19. NOTE Subjective: Patient is-year-old female with a PMHx of A. fib (on Coumadin), HTN, CVA (2000, 2018), Migraines, GERD, who presented to the hospital on 12/17/2019 with complaints of a fall after she had reported dizziness. Patient has had a recent hospitalization on 12/05 and was discharged on 12/08 for a similar presentation. MRI and MRA of her head on 12/06 was negative for any acute arterial occlusion or acute cerebellar infarction or intracranial hemorrhage. Patient was admitted to the hospitalist service on 12/16 for further evaluation and treatment of her vertigo. She was subsequently discharged to the acute re habilitation unit on 12/22 for continued physical therapy. I was called for additional evaluation of this patient on 12/27/2019. Patient was seen and examined at the bedside. Patient was seen sitting up in a wheelchair reported that she still experiencing some vertigo-like symptoms. Denies any chest pain, palpitations. Patient does report some shortness of breath with exertion reports a nonproductive cough. Denies any nausea, vomiting, abdominal pain, diarrhea, or urinary discomfort. Patient is unsure of any lower extremity swelling. Objective: Vitals (See below) General: Sitting up in chair, does not appear to be in any distress, awake, alert and oriented 3 HEENT: NC, AT CVS: +S1S2 Lungs: Air entry is fair bilaterally. There are crackles, patient of bilateral lower lung rodriguez. No wheezing or rhonchi Abdomen: Obese but soft, nondistended, nontender Extremities: Ankles reveal 1+ pitting edema, partial blair wrappings noted on legs, - Calf tenderness Assessment and plan: Reported shortness of breath - possibly 2/2 discontinuation of diuretics - Patient was sitting up in a wheelchair reports that she does experience shortness of breath with exertion - Currently not on submental oxygen; saturating well on room air - BNP elevated - ABG noted and grossly normal - CXR 12/26: is consistent with fluid overload - CT chest 12/26: Bilateral effusions with pericardial fluid. There is no evidence of pulmonary edema. There is bibasilar atelectasis - ECHO 12/26: 1. Suggestive of moderate elevation of estimated right ventricle systolic pressure (46-52 mmHg). Suggestive of normal central venous pressure (5- 10 mmHg). 2. Normal left ventricle internal dimensions and wall thickness. Normal regional left ventricular (LV) wall motion and wall thickening. Normal left ventricular (LV) systolic function. Left ventricular ejection fraction (LVEF) 55% by visual estimate. Unable to adequately assess left ventricular (LV) diastolic function in the setting of atrial fibrillation. 3. Mild left atrial dilatation. 4. Moderate mitral annular calcification. No mitral regurgitation or stenosis. 5. Moderate aortic valve sclerosis of a 3-cuspid aortic valve. No aortic stenosis. Trace aortic regurgitation. 6. Tiny pericardial effusion observed over the right atrial free wall. No diastolic chamber collapse. 7. Moderately technically difficult echocardiogram. - s/p Furosemide 40 x 2 doses - Will likely provide additional diuretics today (will check BMP / CXR) s/p Low grade fever / Leukocytosis - likely 2/2 reactive etiology, unlikely 2/2 PNA or UTI - Patient has only reported a non-productive cough, possibly 2/2 atelectasis / pleural effusions - Leukocytosis normalized - Lactic acid normal - UA negative - CT (above) without evidence of PNA - Procalcitonin pending Normocytic anemia - Baseline Hg of 12; Hg yesterday was 10 - No evidence of bleeding - Will repeat CBC Chronic Vertigo with frequent falls - likely 2/2 most recent stroke in 2019. CVA with posterior circulation involvement - Likely acutely worsened with orthostatic hypotension - This morning., patient's blair wrappings were only partially covering her legs - will reinstruct nursing staff to increase blair wrappings up to knee - c/w Meclizine; will adjust parameters - c/w Fludrocortisone and compression stocking / blair wrapping - PT and OT as per ARU HTN with orthostatic hypotension - c/w Atenolol Chronic A. Fib on Coumadin - Patient has remained rate controlled this morning - INR is therapeutic - c/w rate control with atenolol at current dose - Warfarin will be resumed today CVA 2000 and 2018 - c/w ASA Migraines GERD - c/w Omeprazole Knee pain - c/w Pain control w/ Diclofenac patch / Tylenol PRN DVT Prophylaxis - c/w full anticoagulation with Coumadin VS,Fishbone, I+O VS, Fishbone, I+O Vital Signs Date Time Temp Pulse Resp B/P (MAP) Pulse Ox O2 Delivery O2 Flow Rate FiO2 10/15/20 08:28 66 168/72 12/29/19 06:19 97.1 19 93 Room Air I&O- Last 24 Hours up to 6 AM 12/29/19 06:00 Intake Total 720 ml Balance 720 ml MARY CHIANG MD Dec 29, 2019 10:34
[2019-12-29 10:49] LABS: HEMATOCRIT 34.8 % (36.0-47.0); HEMOGLOBIN 11.2 g/dl (12.0-15.5); MEAN CORPUSCULAR HGB CONC 32.2 g/dl (32.0-36.5); MEAN CORPUSCULAR VOLUME 93.3 fl (80.0-96.0); PLATELET COUNT, AUTOMATED 273 10^3/uL (150-450); RED BLOOD COUNT 3.73 10^6/uL (4.00-5.40); WHITE BLOOD COUNT 6.6 10^3/uL (4.0-10.0)
--- NOTE | 2019-12-29 11:07 | REPVR ---
PROCEDURE INFORMATION: Exam: XR Chest, 1 View Exam date and time: 12/29/2019 10:16 AM Age: 89 years old Clinical indication: Dyspnea; Additional info: Evaluate effusions TECHNIQUE: Imaging protocol: XR of the chest Views: 1 view. COMPARISON: CT Chest without contrast 12/27/2019 4:21 PM FINDINGS: Lungs: No central pulmonary vascular congestion. Very mild bilateral lower lung airspace opacities consistent with atelectasis. Pleural space: Stable small bilateral pleural effusions, right greater than left. No evident pneumothorax. Heart/Mediastinum: The cardiac silhouette is mildly diffusely enlarged. Vasculature: Aortic atherosclerotic calcification. Bones/joints: No acute osseous abnormality. IMPRESSION: 1. Stable small bilateral pleural effusions, right greater than left. 2. Very mild bilateral lower lung atelectasis. 3. Mild cardiomegaly. Electronically signed by: Jovany Urban On 12/29/2019 11:07:23 AM
[2019-12-29 11:22] LABS: BLOOD UREA NITROGEN 12 MG/DL (7-18); CARBON DIOXIDE LEVEL 28 MEQ/L (21-32); CHLORIDE LEVEL 107 MEQ/L (98-107); CREATININE FOR GFR 0.88 MG/DL (0.55-1.30); GLOMERULAR FILTRATION RATE > 60.0 (>32); GLUCOSE, FASTING 124 MG/DL (70-100); MAGNESIUM LEVEL 1.8 MG/DL (1.8-2.4); POTASSIUM SERUM 3.7 MEQ/L (3.5-5.1); SODIUM LEVEL 143 MEQ/L (136-145)
[2019-12-29] MEDS ORDERED: FUROSEMIDE 20MG/2ML VIAL (J1940) IV ONE (12:00)
--- NOTE | 2019-12-29 16:13 | REP ---
CHEST X-RAY: TWO VIEWS HISTORY: Shortness of breath. COMPARISON CHEST X-RAY: 12/17/2019 FINDINGS: Cardiomegaly is observed. Cardiothoracic ratio today is 53.8%. Pulmonary vasculature is cephalized and congested. There is fissural thickening and blunting of the lateral and posterior pleural angles indicating small amounts of pleural effusions. There are some He B and C lines visible, and the findings are compatible with CHF and mild to moderate interstitial pulmonary edema. No focal infiltrate. IMPRESSION: Cardiomegaly, fissural fluid, vascular congestion, and small bilateral effusions. He B lines indicating mild to moderate CHF with pulmonary edema. MTDD
[2019-12-29 17:53] VITALS: BP_SYST 158; BP_SYST 159; BP_SYST 160; BP_DIAS 74; BP_DIAS 79
[2019-12-29 20:00] VITALS: BP 166/79
[2019-12-29] MEDS: ASCORBIC ACID 500 MG TAB PO SCH (20:42)
[2019-12-29] MEDS: **NOTE PATIENT COMMENT** MISC XX SCH ×2 (20:43)
[2019-12-30 05:59] VITALS: BP 152/70
[2019-12-30] MEDS: IPRATROPIUM 0.5MG/ALBUTEROL 2.5MG INH SOL UD 3ML (DUONEB) NEB SCH ×3 (07:16→20:01)
--- NOTE | 2019-12-30 08:31 | IPNPDOC ---
PM&R Progress Note DATE OF SERVICE: Dec 30, 2019 Newspaper Inserter Progress Note DATE OF ADMISSION: Dec 22, 2019 at 16:05 INPATIENT REHABILITATION ADMISSION DAY: #8 DATE OF SERVICE: Dec 29, 2019 SUBJECTIVE: Patient is an 89-year-old female on anticoagulation for Afib with vertigo, hypertension with orthostatic hypotension, anemia, episodic headaches, nausea without vomiting, no diarrhea, stools regular and formed last few days, bilateral episodic left worse than right knee pain after several falling episodes. She seemed to do well yesterday with the Scopolamine and leg wrapping and notes less dizziness. Diuresis with Lasix seems to have helped CHF however has not dropped much weight, still short of breath at times and IC 500. Right ankle tendonitis discomfort seems predominant, less sore in the knees. We appreciate hospitalist consultation for ongoing medical challenges, repeat CXRY yesterday no worse, prior CT noted for CHF, no pneumonia, ECHO noted for suggestive of moderate elevation of estimated right ventricle systolic pressure (46-52 mmHg), EF 55%. Blood pressure spikes to 190s, seems associated with distress and then comes back down and still vacillates. Seems to be picture of some type of dysautonomia . She has been afebrile. FUNCTIONAL STATUS: PT notes yesterday that Orthostatics checked w/ seated BP of 158/69 and standing of 133/61. GUDELIA wraps re-adjusted and orthostatics rechecked with sitting at 140/77, standing 146/66, and prolonged standing 147/69. Pt completed toilet transfer at [facility] for safety and was able to demonstrate proper brief and hygiene management at set up. She went to to a trial of climbing a few steps with CTGA. REVIEW OF SYSTEMS: Completed 14 pt review of systems unremarkable except as mentioned in interim subjective history. ALLERGIES: See Below MEDICATIONS: Reviewed, see below, Scopolamine helpful remains on Flourinef and as needed Meclizine. OBJECTIVE: VITAL SIGNS: Please see below. PHYSICAL EXAMINATION: GENERAL: morbidly obese, lying in bed, tolerates gradual supine to sit with less dizziness, no acute distress. HEENT: Normocephalic, atraumatic. No facial droop. EOMI. No nystagmus noted thus far this week. CN II-XII intact CARDIOVASCULAR: S1, S2, irregular rate. LUNGS: Decreased breath sounds, fewer crackles, wheezes throughout. IC only 500 ABDOMEN: Soft, nontender, obese, soft. Normoactive bowel sounds throughout. MUSCULOSKELETAL: MMT: Healed bilateral TKR scars , less bilateral edema no left calf tenderness negative Tiffanie's, tender right more than left Achilles, calves wrapped to mid calf. lower extremities , 5/5 bilateral knee extension. 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 NEUROLOGICAL: Answers all question appropriately. No focal deficits and less dizziness thus far today. SKIN: intact LABORATORY DATA: Reviewed. Please see below. Hct slight drop, INR still a bit supratherapeutic MICROBIOLOGY: Please see below. ASSESSMENT AND PLAN: 89-year-old hypertensive lady with past medical history of posterior circulation CVA who presents status post recurrent falls, contusing knees and continued vertigo and fairly significant orthostatic hypotensive changes, CHF responding to diuresis, however still with limited cardiopulmonary reservesph. PLAN: 1. Rehab- PT/OT advance mobility and ADLs, strengthen/stretch/maintain ROM all 4 limbs, avoid Jimbo-maneuver/[place]-hallpike maneuver given hx of stroke. Encourage monitoring of O2 levels with exertional activities. Add thigh high SOBEIDA for better control postural BP changes contributing to vertigo 2. Neuro- persistent vertigo likely central in etiology due to recent posterior circulation infarct in 2019 limiting her overall mobility and contributing to recurrent falls, possibility of further aggravation from orthostatic hypotension. -c/u ASA for secondary stroke prevention in addition to warfarin for afib 3. resp- encourage incentive spirometry, monitor for infection particularly with episodic low-grade temp and mild leukocytosis and limited volumes. Has Acapella, encourage use of device -Duonebs for wheeze on exam and hx of smokning will add acapella and continue to encourage incentive spirometry 4.Cardiac- hx of afib, c/u coumadin with daily INRs, beta-hailey may need agent change with spikes in BP and positional drops. Coumadin was supratherapeutic, will reassess and probably resume today. -recent orthostatics, f/u Fludrocortisone , will check for orthostatic changes, BP elevated, back off meclizine as Scopolamine taking effect. 5. continue rehab nursing -medicine consulted to assist in overall management - fluid restrict 1800cc with daily weights as suspect some degree of CHF with lung changes and increased peripheral edema 5. GI ppx- omeprazole 6. DVT ppx on coumadin will need to adjust and recheck PT/INR slightly above target on 7. GI- monitor for diarrhea 8. Pain- right knee OA worse after fall, tylenol and tramadol, Lidoderm seem to be helping, can also offer ice, add cheryl Tyler since possible NSAID sensitivity 9. Dispo- TBD, home alone much of the day may not be realistic unless remains at wheelchair level. Suggested home video tour/family conference to troubleshoot and make best determination for safest discharge planning, however given the setback wit h CHF, labile BP, severe vertigo limiting consistent progress, it appears additional time will be needed to permit her the best opportunity to regain optimal functional capacity. CM to coordinate family conference to discuss. TIME SPENT: Chart Review, examination and documentation 40 minutes. Allergies Coded Allergies: Penicillins (Verified Allergy, Mild, RASH, 11/23/18) GUDELIA Inhibitors (Verified Allergy, Unknown, UNKNOWN REACTION PER FAMILY, 04/27/19) SEASONAL ALLERGIES (Verified Allergy, Unknown, 11/23/18) doxycycline (Verified Allergy, Unknown, UNKNOWN REACTION PER FAMILY, 04/27/19) prazosin (Verified Allergy, Unknown, UNKNOWN REACTION PER FAMILY, 04/27/19) codeine (Verified Adverse Reaction, Mild, CONFUSION, 11/23/18) ibuprofen (Verified Adverse Reaction, Mild, ORAL THRUSH, 11/26/18) Vital Signs Vital Signs Date Time Temp Pulse Resp B/P (MAP) Pulse Ox O2 Delivery O2 Flow Rate FiO2 12/30/19 05:59 97.7 72 19 152/70 (97) 97 Room Air Laboratory Data Labs 24H Laboratory Tests 2 12/30/19 08:04: Current Medications Current Medications Current Medications Medications (Trade) Dose Ordered Sig/Gemini Route PRN Reason Start Time Stop Time Status Last Admin Dose Admin Acetaminophen (Tylenol Tab) 1,000 mg TID PO 12/22/19 21:00 12/29/19 20:42 Albuterol/ Ipratropium (Duoneb (Ipr 0.5mg/Alb 2.5mg)) 3 ml RTID NEB 12/22/19 20:00 12/30/19 07:16 Ascorbic Acid (Vitamin C) 500 mg BID PO 12/29/19 21:00 12/29/19 20:42 Aspirin (Ecotrin) 81 mg DAILY PO 12/23/19 09:00 12/29/19 08:29 Atenolol (Tenormin) 25 mg BID PO 12/22/19 21:00 12/29/19 20:42 Brimonidine Tartrate (Alphagan P 0.1%) 1 drop BID OU 12/22/19 21:00 12/29/19 20:43 Ferrous Gluconate (Fergon) 324 mg DAILY PO 12/30/19 09:00 Fludrocortisone Acetate (Florinef) 0.1 mg DAILY PO 12/23/19 09:00 12/29/19 08:27 Fluticasone Propionate (Flonase 0.05% Nasal [place]) 1 spray BID NARES 12/22/19 21:00 12/29/19 20:42 Lidocaine (Lidoderm Patch) 1 patch DAILY TD 12/28/19 09:00 12/29/19 08:39 Lidocaine (Lidoderm Patch) 1 patch DAILY TD 12/23/19 09:00 12/29/19 08:38 Magnesium Hydroxide (Milk Of Magnesia) 30 ml DAILYPRN PRN PO CONSTIPATION 12/22/19 16:15 Meclizine HCl (Antivert) 12.5 mg BIDP PRN PO dizziness 12/26/19 19:30 12/29/19 08:27 Meclizine HCl (Antivert) 12.5 mg TID PO 12/22/19 21:00 12/26/19 19:32 DC 12/26/19 17:12 Non-Formulary Medication ( See Comment Field Below ) REMOVE LIDODERM PATCH DAILY@21 XX 12/28/19 21:00 12/28/19 12:00 DC Non-Formulary Medication ( See Comment Field Below ) REMOVE LIDODERM PATCH DAILY@21 XX 12/28/19 21:00 12/29/19 20:43 Non-Formulary Medication ( See Comment Field Below ) REMOVE LIDODERM PATCH DAILY@21 XX 12/23/19 21:00 12/29/19 20:43 Omeprazole (PriLOSEC) 40 mg DAILY PO 12/23/19 09:00 12/29/19 08:27 Scopolamine (Scopolamine) 1 mg Q72H TOP 12/27/19 14:45 12/27/19 14:36 DC Scopolamine (Scopolamine) 1 mg Q72H TOP 12/27/19 16:00 12/27/19 18:12 Sodium Chloride ([place] Nasal [place]) 2 spray BID NA 12/22/19 21:00 12/29/19 20:43 Tramadol HCl (Ultram) 25 mg Q4HP PRN PO SEVERE PAIN (PS 8-10) 12/22/19 16:15 12/28/19 12:52 DC 12/28/19 10:37 Vitamin D (Vitamin D) 2,000 units DAILY PO 12/23/19 09:00 12/29/19 08:27 Warfarin Sodium (Coumadin) 2 mg DAILY@17 PO 12/22/19 17:00 12/27/19 18:11 CABRERA COOLEY MD Dec 30, 2019 08:31
[2019-12-30 08:34] LABS: INR 2.18; PROTHROMBIN TIME 24.8 SECONDS (12.5-14.3)
[2019-12-30] MEDS: REMEDY PHYTOPLEX Z-GUARD PASTE 113GM TUBE (FROM STOREROOM PRODUCT) TOP SCH ×3 (09:00→20:44)
[2019-12-30] MEDS: FERROUS GLUCONATE 324 MG TAB PO SCH (09:20)
[2019-12-30] MEDS: LIDOCAINE 5% (LIDODERM) PATCH TD SCH ×2 (09:20→09:27)
[2019-12-30] MEDS: OMEPRAZOLE 20 MG CAP PO SCH (09:20)
[2019-12-30] MEDS: ASCORBIC ACID 500 MG TAB PO SCH ×2 (09:21→20:50)
[2019-12-30] MEDS: VITAMIN D 1,000 INTERNATIONAL UNITS TABLET PO SCH (09:23)
[2019-12-30] MEDS: ASPIRIN 81 MG ENTERIC TAB PO SCH (09:23)
[2019-12-30] MEDS: ACETAMINOPHEN 500 MG TAB PO SCH ×3 (09:24→20:50)
[2019-12-30] MEDS: atenoloL 25 MG TAB PO SCH ×2 (09:25→20:50)
[2019-12-30] MEDS: BRIMONIDINE 0.1% OPHTH SOLN 5 ML OU SCH ×2 (09:26→20:49)
[2019-12-30] MEDS: FLUTICASONE PROP 0.05% NASAL SPRAY 16 GM (FLONASE) NARES SCH ×2 (09:26→20:49)
[2019-12-30] MEDS: SODIUM CHLORIDE NASAL 0.65% SPRAY BTL (OCEAN) SCH ×2 (09:26→20:49)
[2019-12-30] MEDS: FLUDROCORTISONE ACETATE 0.1 MG TAB PO SCH (10:45)
[2019-12-30] MEDS: ANALGESIC BALM CRM 120 GM TOP SCH ×2 (13:03→20:49)
[2019-12-30 14:00] VITALS: BP 139/74
[2019-12-30] MEDS: WARFARIN SOD 2MG TAB PO SCH (17:42)
[2019-12-30] MEDS: SCOPOLAMINE 1MG TRANSDERMAL PATCH TOP SCH (17:42)
[2019-12-30 20:30] VITALS: BP 145/74
[2019-12-30] MEDS: **NOTE PATIENT COMMENT** MISC XX SCH ×2 (20:43)
[2019-12-31 05:43] VITALS: BP 140/67
[2019-12-31] MEDS: IPRATROPIUM 0.5MG/ALBUTEROL 2.5MG INH SOL UD 3ML (DUONEB) NEB SCH ×3 (07:22→19:24)
[2019-12-31 07:33] LABS: INR 1.94; PROTHROMBIN TIME 22.6 SECONDS (12.5-14.3)
[2019-12-31 08:00] VITALS: BP 180/80
[2019-12-31] MEDS: SODIUM CHLORIDE NASAL 0.65% SPRAY BTL (OCEAN) SCH ×2 (09:00→20:50)
[2019-12-31] MEDS: FLUDROCORTISONE ACETATE 0.1 MG TAB PO SCH (09:28)
[2019-12-31] MEDS: OMEPRAZOLE 20 MG CAP PO SCH (09:28)
[2019-12-31] MEDS: FERROUS GLUCONATE 324 MG TAB PO SCH (09:28)
[2019-12-31] MEDS: ASPIRIN 81 MG ENTERIC TAB PO SCH (09:28)
[2019-12-31] MEDS: VITAMIN D 1,000 INTERNATIONAL UNITS TABLET PO SCH (09:29)
[2019-12-31] MEDS: ASCORBIC ACID 500 MG TAB PO SCH ×2 (09:29→20:57)
[2019-12-31] MEDS: ACETAMINOPHEN 500 MG TAB PO SCH ×3 (09:30→20:57)
[2019-12-31] MEDS: atenoloL 25 MG TAB PO SCH ×2 (09:30→20:57)
[2019-12-31] MEDS: LIDOCAINE 5% (LIDODERM) PATCH TD SCH ×2 (09:32→09:35)
[2019-12-31] MEDS: FLUTICASONE PROP 0.05% NASAL SPRAY 16 GM (FLONASE) NARES SCH ×2 (09:38→20:50)
[2019-12-31] MEDS: BRIMONIDINE 0.1% OPHTH SOLN 5 ML OU SCH ×2 (09:38→20:50)
[2019-12-31] MEDS: ANALGESIC BALM CRM 120 GM TOP SCH ×2 (09:39→20:52)
[2019-12-31] MEDS: REMEDY PHYTOPLEX Z-GUARD PASTE 113GM TUBE (FROM STOREROOM PRODUCT) TOP SCH ×3 (09:40→20:51)
[2019-12-31 14:00] VITALS: BP 160/75
[2019-12-31] MEDS: WARFARIN SOD 2MG TAB PO SCH (16:28)
[2019-12-31] MEDS: **NOTE PATIENT COMMENT** MISC XX SCH ×2 (20:51)
[2019-12-31] MEDS: MECLIZINE 12.5 MG TAB PO PRN (20:59)
[2019-12-31 21:54] VITALS: BP 158/90
[2020-01-01 06:07] VITALS: BP 158/68
[2020-01-01] MEDS: IPRATROPIUM 0.5MG/ALBUTEROL 2.5MG INH SOL UD 3ML (DUONEB) NEB SCH ×3 (07:17→20:19)
[2020-01-01] MEDS: VITAMIN D 1,000 INTERNATIONAL UNITS TABLET PO SCH (07:53)
[2020-01-01] MEDS: ASCORBIC ACID 500 MG TAB PO SCH ×2 (07:53→20:45)
[2020-01-01] MEDS: ASPIRIN 81 MG ENTERIC TAB PO SCH (07:53)
[2020-01-01] MEDS: atenoloL 25 MG TAB PO SCH ×2 (07:54→20:46)
[2020-01-01] MEDS: OMEPRAZOLE 20 MG CAP PO SCH (07:54)
[2020-01-01] MEDS: FERROUS GLUCONATE 324 MG TAB PO SCH (07:54)
[2020-01-01] MEDS: FLUDROCORTISONE ACETATE 0.1 MG TAB PO SCH (07:54)
[2020-01-01] MEDS: SODIUM CHLORIDE NASAL 0.65% SPRAY BTL (OCEAN) SCH ×2 (07:55→20:37)
[2020-01-01] MEDS: ACETAMINOPHEN 500 MG TAB PO SCH ×3 (07:55→20:45)
[2020-01-01] MEDS: FLUTICASONE PROP 0.05% NASAL SPRAY 16 GM (FLONASE) NARES SCH ×2 (07:55→20:37)
[2020-01-01] MEDS: LIDOCAINE 5% (LIDODERM) PATCH TD SCH ×2 (07:56→07:57)
[2020-01-01] MEDS: BRIMONIDINE 0.1% OPHTH SOLN 5 ML OU SCH ×2 (07:56→20:38)
[2020-01-01 07:58] LABS: INR 2.03; PROTHROMBIN TIME 23.4 SECONDS (12.5-14.3)
[2020-01-01] MEDS: ANALGESIC BALM CRM 120 GM TOP SCH ×2 (07:58→20:37)
[2020-01-01] MEDS: REMEDY PHYTOPLEX Z-GUARD PASTE 113GM TUBE (FROM STOREROOM PRODUCT) TOP SCH ×3 (07:58→20:38)
[2020-01-01 08:00] VITALS: BP 182/94
[2020-01-01 09:00] VITALS: BP 178/90
--- NOTE | 2020-01-01 10:36 | IPNPDOC ---
Text Note Date of Service The patient was seen on 01/01/20. NOTE Hypertensive now not controlled with atenolol No orthostatic hypotension any more. Will stop fludrocortisone. Start on amlodipine. VS,Fishbone, I+O VS, Fishbone, I+O Vital Signs Date Time Temp Pulse Resp B/P (MAP) Pulse Ox O2 Delivery O2 Flow Rate FiO2 01/01/20 07:54 80 182/94 01/01/20 06:07 96.6 18 95 Room Air I&O- Last 24 Hours up to 6 AM 01/01/20 06:00 Intake Total 520 ml Balance 520 ml SIM HERNANDEZ MD Jan 01, 2020 10:36
[2020-01-01] MEDS ORDERED: amLODIPine 5 MG TAB PO ONE (10:45)
[2020-01-01 12:15] VITALS: BP 139/65
[2020-01-01] MEDS: MECLIZINE 12.5 MG TAB PO PRN ×2 (12:21→20:45)
[2020-01-01 14:00] VITALS: BP 168/72
[2020-01-01] MEDS: WARFARIN SOD 2MG TAB PO SCH (16:15)
[2020-01-01 20:00] VITALS: BP 168/82
[2020-01-01] MEDS: **NOTE PATIENT COMMENT** MISC XX SCH ×2 (20:38)
[2020-01-02 06:01] VITALS: BP 162/78
[2020-01-02 06:26] LABS: INR 2.13; PROTHROMBIN TIME 24.3 SECONDS (12.5-14.3)
[2020-01-02] MEDS: IPRATROPIUM 0.5MG/ALBUTEROL 2.5MG INH SOL UD 3ML (DUONEB) NEB SCH ×3 (07:27→21:15)
[2020-01-02] MEDS: ASPIRIN 81 MG ENTERIC TAB PO SCH (08:22)
[2020-01-02] MEDS: amLODIPine 5 MG TAB PO SCH (08:22)
[2020-01-02] MEDS: VITAMIN D 1,000 INTERNATIONAL UNITS TABLET PO SCH (08:22)
[2020-01-02] MEDS: ASCORBIC ACID 500 MG TAB PO SCH ×2 (08:22→20:33)
[2020-01-02] MEDS: ACETAMINOPHEN 500 MG TAB PO SCH ×3 (08:23→20:34)
[2020-01-02] MEDS: OMEPRAZOLE 20 MG CAP PO SCH (08:23)
[2020-01-02] MEDS: LIDOCAINE 5% (LIDODERM) PATCH TD SCH ×2 (08:23→08:24)
[2020-01-02] MEDS: atenoloL 25 MG TAB PO SCH ×2 (08:23→20:33)
[2020-01-02] MEDS: FERROUS GLUCONATE 324 MG TAB PO SCH (08:23)
[2020-01-02] MEDS: REMEDY PHYTOPLEX Z-GUARD PASTE 113GM TUBE (FROM STOREROOM PRODUCT) TOP SCH ×3 (08:24→20:35)
[2020-01-02] MEDS: BRIMONIDINE 0.1% OPHTH SOLN 5 ML OU SCH ×2 (08:24→20:34)
[2020-01-02] MEDS: FLUTICASONE PROP 0.05% NASAL SPRAY 16 GM (FLONASE) NARES SCH ×2 (08:24→20:34)
[2020-01-02] MEDS: SODIUM CHLORIDE NASAL 0.65% SPRAY BTL (OCEAN) SCH ×2 (08:24→20:34)
[2020-01-02] MEDS: ANALGESIC BALM CRM 120 GM TOP SCH ×2 (08:25→20:35)
[2020-01-02 09:24] VITALS: BP_SYST 167; BP_SYST 177; BP_SYST 180; BP_DIAS 77; BP_DIAS 81; BP_DIAS 87
[2020-01-02 10:40] VITALS: BP_SYST 149; BP_SYST 153; BP_SYST 159; BP_DIAS 72; BP_DIAS 74
[2020-01-02 10:42] VITALS: BP 163/75
[2020-01-02 14:00] VITALS: BP 120/60
--- NOTE | 2020-01-02 15:29 | IPNPDOC ---
PM&R Progress Note DATE OF SERVICE: Jan 02, 2020 Multimedia Designer Progress Note DATE OF ADMISSION: Dec 22, 2019 at 16:05 INPATIENT REHABILITATION ADMISSION DAY: #11 DATE OF SERVICE: Jan 02, 2020 SUBJECTIVE: Patient is an 89-year-old female on anticoagulation for Afib with vertigo, hypertension with improving orthostatic hypotension, persisting anemia, episodic headaches, nausea without vomiting, no diarrhea, stools regular and formed last few days, bilateral episodic left worse than right knee pain after several falling episodes. Dizziness has improved with the Scopolamine and leg wrapping. Diuresis with Lasix seems to have helped CHF however has not dropped much weight, still short of breath at times and IC 500. Right ankle tendonitis discomfort improving with wrapping, less sore in the knees.. She has been afebrile. Family conference held today with 4 sons, one present. 3. On phone as well as the patient, PT, OT, nursing, case management regarding realistic options for discharge planning. Despite increasing challenges and multiple falls, the patient remained recalcitrant about trying to go home alone. Family express reasonable concern with this plan and after extensive discussion was mutually agreed that interim transition to subacute rehabilitation and assisted living may be the most feasible short-term solution for her safety and quality of life. This understood that she will need to gain some degree of independence possible use of a bedside commode and there may be additional expenses for assisted care in the facility. FUNCTIONAL STATUS: PT Orthostatics checks improving w/ seated BP of 180/87 and standing of 177/81, supine 167/77. Bed mobility standby assistance, requires increased time and rest breaks due to vertigo. During any transitional movements. At times she is able to ambulate with wheeled walker and has been able to climb up to 6 steps with contact-guard assist. At Pt completed toilet transfer at [facility] for safety and was able to demonstrate proper brief and hygiene management at set up. She went through a trial of climbing a few steps with CTGA. REVIEW OF SYSTEMS: Completed 14 pt review of systems unremarkable except as mentioned in interim subjective history. ALLERGIES: See Below MEDICATIONS: Reviewed, see below, Scopolamine helpful remains on Flourinef and as needed Meclizine. OBJECTIVE: VITAL SIGNS: Please see below. She remains afebrile. PHYSICAL EXAMINATION: GENERAL: morbidly obese, lying in bed, tolerates gradual supine to sit with less dizziness, no acute distress. HEENT: Normocephalic, atraumatic. No facial droop. EOMI. No nystagmus. CN II-XII intact CARDIOVASCULAR: S1, S2, irregular rate. LUNGS: Decreased breath sounds, fewer crackles, wheezes throughout. IC only 500 ABDOMEN: Soft, nontender, obese, soft. Normoactive bowel sounds throughout. MUSCULOSKELETAL: MMT: Healed bilateral TKR scars , no left calf tenderness negative Tiffanie's, left tender right more than left Achilles, SOBEIDA hose in place with less edema. lower extremities , 5/5 bilateral knee extension. 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 NEUROLOGICAL: Answers all question appropriately. No focal deficits and less dizziness thus far today. SKIN: intact LABORATORY DATA: Reviewed. Please see below. Hct slight drop, INR still a bit supratherapeutic MICROBIOLOGY: Please see below. ASSESSMENT AND PLAN: 89-year-old hypertensive lady with past medical history of posterior circulation CVA who presents status post recurrent falls, contusing knees and continued vertigo and fairly significant orthostatic hypotensive changes, CHF responding to diuresis, however still with limited cardiopulmonary reserves. PLAN: 1. Rehab- PT/OT advance mobility and ADLs, strengthen/stretch/maintain ROM all 4 limbs. Encourage monitoring of O2 levels with exertional activities. Added thigh high SOBEIDA with better control postural BP changes contributing to vertigo 2. Neuro- persistent vertigo likely central in etiology due to recent posterior circulation infarct in 2019 limiting her overall mobility and contributing to recurrent falls, possibility of further aggravation from orthostatic hypotension. -c/u ASA for secondary stroke prevention in addition to warfarin for afib 3. resp- encourage incentive spirometry, monitor for infection particularly with episodic low-grade temp and mild leukocytosis and limited volumes. Has Acapella, encourage use of device -Duonebs for wheeze on exam and hx of smokning will add acapella and continue to encourage incentive spirometry 4.Cardiac- hx of afib, c/u coumadin with daily INRs and adjust the dose downward alternating 2 and 1 mg and now at 2.13 from supratherapeutic levels. Internal medicine added amiodarone to beta-hailey to address spikes in BP . Hospitalists D/C Fludrocortisone, will continue monitoring orthostatic changes. 5. continue rehab nursing -medicine consulted to assist in overall management - fluid restrict 1800cc with daily weights 5. GI ppx- omeprazole 6. DVT ppx on coumadin will continue to adjust and recheck PT/INR now at target. 7. GI- monitor for diarrhea 8. Pain- right knee OA worse after fall, tylenol , Lidoderm seem to be helping, can also offer ice, add Biofreeze gel 9. Dispo- family conference held, and realistically if we can get her to goal of independence with toileting and mobility at a wheelchair level, short distances with front-wheeled walker transition to to subacute rehabilitation and eventual assisted living may be the most practical solution given the psychosocial circumstances. TIME SPENT: Chart Review, examination and documentation 75 minutes. Allergies Coded Allergies: Penicillins (Verified Allergy, Mild, RASH, 11/23/18) GUDELIA Inhibitors (Verified Allergy, Unknown, UNKNOWN REACTION PER FAMILY, 04/27/19) SEASONAL ALLERGIES (Verified Allergy, Unknown, 11/23/18) doxycycline (Verified Allergy, Unknown, UNKNOWN REACTION PER FAMILY, 04/27/19) prazosin (Verified Allergy, Unknown, UNKNOWN REACTION PER FAMILY, 04/27/19) codeine (Verified Adverse Reaction, Mild, CONFUSION, 11/23/18) ibuprofen (Verified Adverse Reaction, Mild, ORAL THRUSH, 11/26/18) Vital Signs Vital Signs Date Time Temp Pulse Resp B/P (MAP) Pulse Ox O2 Delivery O2 Flow Rate FiO2 01/02/20 14:00 97.6 72 18 120/60 (80) 96 Room Air Laboratory Data Labs 24H Laboratory Tests 2 01/02/20 05:52: Prothrombin Time 24.3H, Prothromb Time International Ratio 2.13 Current Medications Current Medications Current Medications Medications (Trade) Dose Ordered Sig/Gemini Route PRN Reason Start Time Stop Time Status Last Admin Dose Admin Acetaminophen (Tylenol Tab) 1,000 mg TID PO 12/22/19 21:00 01/02/20 08:23 Albuterol/ Ipratropium (Duoneb (Ipr 0.5mg/Alb 2.5mg)) 3 ml RTID NEB 12/22/19 20:00 01/02/20 07:27 Amlodipine Besylate (Norvasc) 5 mg DAILY PO 01/02/20 09:00 01/02/20 08:22 Ascorbic Acid (Vitamin C) 500 mg BID PO 12/29/19 21:00 01/02/20 08:22 Aspirin (Ecotrin) 81 mg DAILY PO 12/23/19 09:00 01/02/20 08:22 Atenolol (Tenormin) 25 mg BID PO 12/22/19 21:00 01/02/20 08:23 Brimonidine Tartrate (Alphagan P 0.1%) 1 drop BID OU 12/22/19 21:00 01/02/20 08:24 Ferrous Gluconate (Fergon) 324 mg DAILY PO 12/30/19 09:00 01/02/20 08:23 Fludrocortisone Acetate (Florinef) 0.1 mg DAILY PO 12/23/19 09:00 01/01/20 10:35 DC 01/01/20 07:54 Fluticasone Propionate (Flonase 0.05% Nasal [place]) 1 spray BID NARES 12/22/19 21:00 01/02/20 08:24 Lidocaine (Lidoderm Patch) 1 patch DAILY TD 12/28/19 09:00 01/02/20 08:24 Lidocaine (Lidoderm Patch) 1 patch DAILY TD 12/23/19 09:00 01/02/20 08:23 Magnesium Hydroxide (Milk Of Magnesia) 30 ml DAILYPRN PRN PO CONSTIPATION 12/22/19 16:15 Meclizine HCl (Antivert) 12.5 mg BIDP PRN PO dizziness 12/26/19 19:30 01/01/20 20:45 Meclizine HCl (Antivert) 12.5 mg TID PO 12/22/19 21:00 12/26/19 19:32 DC 12/26/19 17:12 Menthol/Methyl Salicylate (Bengay Cream) APPLY TO RIGHT ACHIL... BID TOP 12/30/19 09:00 01/02/20 08:25 Non-Formulary Medication ( See Comment Field Below ) REMOVE LIDODERM PATCH DAILY@21 XX 12/28/19 21:00 12/28/19 12:00 DC Non-Formulary Medication ( See Comment Field Below ) REMOVE LIDODERM PATCH DAILY@21 XX 12/28/19 21:00 01/01/20 20:38 Non-Formulary Medication ( See Comment Field Below ) REMOVE LIDODERM PATCH DAILY@21 XX 12/23/19 21:00 01/01/20 20:38 Omeprazole (PriLOSEC) 40 mg DAILY PO 12/23/19 09:00 01/02/20 08:23 Scopolamine (Scopolamine) 1 mg Q72H TOP 12/27/19 14:45 12/27/19 14:36 DC Scopolamine (Scopolamine) 1 mg Q72H TOP 12/27/19 16:00 12/30/19 17:42 Sodium Chloride ([place] Nasal [place]) 2 spray BID NA 12/22/19 21:00 01/02/20 08:24 Tramadol HCl (Ultram) 25 mg Q4HP PRN PO SEVERE PAIN (PS 8-10) 12/22/19 16:15 12/28/19 12:52 DC 12/28/19 10:37 Vitamin D (Vitamin D) 2,000 units DAILY PO 12/23/19 09:00 01/02/20 08:22 Warfarin Sodium (Coumadin) 2 mg DAILY@17 PO 12/22/19 17:00 01/01/20 16:15 CABRERA COOLEY MD Jan 02, 2020 15:29
[2020-01-02] MEDS: SCOPOLAMINE 1MG TRANSDERMAL PATCH TOP SCH (16:10)
[2020-01-02] MEDS: WARFARIN SOD 2MG TAB PO SCH (16:10)
[2020-01-02 20:00] VITALS: BP 160/72
[2020-01-02] MEDS: **NOTE PATIENT COMMENT** MISC XX SCH ×2 (20:35)
[2020-01-03] MEDS: IPRATROPIUM 0.5MG/ALBUTEROL 2.5MG INH SOL UD 3ML (DUONEB) NEB SCH ×3 (06:18→21:25)
[2020-01-03 06:21] VITALS: BP 168/78
[2020-01-03 06:31] LABS: INR 1.93; PROTHROMBIN TIME 22.5 SECONDS (12.5-14.3)
[2020-01-03] MEDS: FERROUS GLUCONATE 324 MG TAB PO SCH (08:50)
[2020-01-03] MEDS: VITAMIN D 1,000 INTERNATIONAL UNITS TABLET PO SCH (08:50)
[2020-01-03] MEDS: ACETAMINOPHEN 500 MG TAB PO SCH ×3 (08:50→20:39)
[2020-01-03] MEDS: atenoloL 25 MG TAB PO SCH ×2 (08:51→20:40)
[2020-01-03] MEDS: amLODIPine 5 MG TAB PO SCH (08:51)
[2020-01-03] MEDS: OMEPRAZOLE 20 MG CAP PO SCH (08:51)
[2020-01-03] MEDS: ASPIRIN 81 MG ENTERIC TAB PO SCH (08:51)
[2020-01-03] MEDS: ASCORBIC ACID 500 MG TAB PO SCH ×2 (08:51→20:40)
[2020-01-03] MEDS: LIDOCAINE 5% (LIDODERM) PATCH TD SCH ×2 (08:52)
[2020-01-03] MEDS: SODIUM CHLORIDE NASAL 0.65% SPRAY BTL (OCEAN) SCH ×2 (08:52→20:40)
[2020-01-03] MEDS: BRIMONIDINE 0.1% OPHTH SOLN 5 ML OU SCH ×2 (08:52→20:40)
[2020-01-03] MEDS: ANALGESIC BALM CRM 120 GM TOP SCH ×2 (08:52→20:41)
[2020-01-03] MEDS: FLUTICASONE PROP 0.05% NASAL SPRAY 16 GM (FLONASE) NARES SCH ×2 (08:52→20:40)
[2020-01-03] MEDS: REMEDY PHYTOPLEX Z-GUARD PASTE 113GM TUBE (FROM STOREROOM PRODUCT) TOP SCH ×3 (08:53→20:41)
[2020-01-03 09:38] VITALS: BP_SYST 135; BP_SYST 139; BP_SYST 167; BP_DIAS 63; BP_DIAS 66; BP_DIAS 74
[2020-01-03 14:00] VITALS: BP_SYST 138; BP_SYST 142; BP_SYST 156; BP_DIAS 68; BP_DIAS 70; BP_DIAS 78
--- NOTE | 2020-01-03 14:23 | IPNPDOC ---
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 Dizziness has improved with the Scopolamine and leg wrapping. Diuresis with Lasix seems to have helped CHF however has not dropped much weight, still short of breath at times and IC 500. Right lower extremity discomfort improving with wrapping. She has been afebrile. Family conference held yesterday. Case discussed today in team conference including the home health provider familiar with the family who indicates long-standing challenges compliance. She was enjoying breakfast this morning, did not seem to have severe dizziness has the day began. FUNCTIONAL STATUS: PT- Toilet transfers standby assistance, continues complaints of dizziness, one able to participate car and standby assistance for sit to stand and transfers with rolling walker and contact-guard assistance compensate for fear of falling. REVIEW OF SYSTEMS: Completed 14 pt review of systems unremarkable except as mentioned in interim subjective history. ALLERGIES: See Below MEDICATIONS: Reviewed, see below, Scopolamine helpful remains on Flourinef and as needed Meclizine. OBJECTIVE: VITAL SIGNS: Please see below. She remains afebrile. Orthostatics checks notes some changes on 135/66, supine, 139/63, sitting, 167/74 standing heart rate went from 89-105 PHYSICAL EXAMINATION: GENERAL: morbidly obese, lying in bed, tolerates gradual supine to sit with less dizziness, no acute distress. HEENT: Normocephalic, atraumatic. No facial droop. EOMI. No nystagmus. CN II-XII intact CARDIOVASCULAR: S1, S2, irregular rate. LUNGS: Decreased breath sounds, fewer crackles, wheezes throughout. IC only 500 ABDOMEN: Soft, nontender, obese, soft. Normoactive bowel sounds throughout. MUSCULOSKELETAL: MMT: Healed bilateral TKR scars , no left calf tenderness negative Tiffanie's, left tender right more than left Achilles, SOBEIDA hose in place with less edema. lower extremities , 5/5 bilateral knee extension. 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 NEUROLOGICAL: Answers all question appropriately. No focal deficits and less dizziness. SKIN: intact LABORATORY DATA: Reviewed. Please see below. Hct slight drop, INR dropped a little low 1.93 on alternating 04/16, will see where she settles out tomorrow. MICROBIOLOGY: Please see below. ASSESSMENT AND PLAN: 89-year-old hypertensive lady with past medical history of posterior circulation CVA who presents status post recurrent falls, contusing knees and continued vertigo and fairly significant orthostatic hypotensive changes, CHF responding to diuresis, however still with limited cardiopulmonary reserves. PLAN: 1. Rehab- PT/OT advance mobility and ADLs, strengthen/stretch/maintain ROM all 4 limbs. Encourage monitoring of O2 levels with exertional activities. Added thigh high SOBEIDA with better control postural BP changes contributing to vertigo 2. Neuro- persistent vertigo likely central in etiology due to recent posterior circulation infarct in 2019 limiting her overall mobility and contributing to recurrent falls, possibility of further aggravation from orthostatic hypotension. -c/u ASA for secondary stroke prevention in addition to warfarin for afib 3. Resp- encourage incentive spirometry, monitor for infection. Has Acapella, encourage use of device -Duonebs for wheeze on exam and hx of smoking continue to encourage incentive spirometry 4.Cardiac- hx of afib, c/u coumadin with daily INRs and adjust the dose downward alternating 2 and 1 may need to bump up. Internal medicine added amiodarone to beta-hailey to address spikes in BP . Hospitalists D/C Fludrocortisone, will continue monitoring orthostatic changes. TEDS seem to be helping. 5. continue rehab nursing -medicine consulted to assist in overall management - fluid restrict 1800cc with daily weights 5. GI ppx- omeprazole 6. DVT ppx on coumadin will continue to adjust and recheck PT/INR now at target. 7. GI- monitor for diarrhea 8. Pain- right knee OA worse after fall, tylenol , Lidoderm seem to be helping, can also offer ice, add Biofreeze gel 9. Dispo- family conference held, and realistically if we can get her to goal of independence with toileting and mobility at a wheelchair level, short distances with front-wheeled walker transition possibly transition through subacute rehabilitation and eventual assisted living may be the most practical solution given the physiological and psychosocial circumstances. TIME SPENT: Chart Review, examination Team meeting and documentation 75 minutes. Allergies Coded Allergies: Penicillins (Verified Allergy, Mild, RASH, 11/23/18) GUDELIA Inhibitors (Verified Allergy, Unknown, UNKNOWN REACTION PER FAMILY, 04/27/19) SEASONAL ALLERGIES (Verified Allergy, Unknown, 11/23/18) doxycycline (Verified Allergy, Unknown, UNKNOWN REACTION PER FAMILY, 04/27/19) prazosin (Verified Allergy, Unknown, UNKNOWN REACTION PER FAMILY, 04/27/19) codeine (Verified Adverse Reaction, Mild, CONFUSION, 11/23/18) ibuprofen (Verified Adverse Reaction, Mild, ORAL THRUSH, 11/26/18) Vital Signs Vital Signs Date Time Temp Pulse Resp B/P (MAP) Pulse Ox O2 Delivery O2 Flow Rate FiO2 01/03/20 14:00 80 138/70 (92) 80 142/68 (92) 74 156/78 (104) 01/03/20 06:21 97.6 17 96 Room Air Laboratory Data Labs 24H Laboratory Tests 2 01/03/20 05:59: Prothrombin Time 22.5H, Prothromb Time International Ratio 1.93 Current Medications Current Medications Current Medications Medications (Trade) Dose Ordered Sig/Gemini Route PRN Reason Start Time Stop Time Status Last Admin Dose Admin Acetaminophen (Tylenol Tab) 1,000 mg TID PO 12/22/19 21:00 01/03/20 08:50 Albuterol/ Ipratropium (Duoneb (Ipr 0.5mg/Alb 2.5mg)) 3 ml RTID NEB 12/22/19 20:00 01/03/20 06:18 Amlodipine Besylate (Norvasc) 5 mg DAILY PO 01/02/20 09:00 01/03/20 08:51 Ascorbic Acid (Vitamin C) 500 mg BID PO 12/29/19 21:00 01/03/20 08:51 Aspirin (Ecotrin) 81 mg DAILY PO 12/23/19 09:00 01/03/20 08:51 Atenolol (Tenormin) 25 mg BID PO 12/22/19 21:00 01/03/20 08:51 Brimonidine Tartrate (Alphagan P 0.1%) 1 drop BID OU 12/22/19 21:00 01/03/20 08:52 Ferrous Gluconate (Fergon) 324 mg DAILY PO 12/30/19 09:00 01/03/20 08:50 Fludrocortisone Acetate (Florinef) 0.1 mg DAILY PO 12/23/19 09:00 01/01/20 10:35 DC 01/01/20 07:54 Fluticasone Propionate (Flonase 0.05% Nasal [place]) 1 spray BID NARES 12/22/19 21:00 01/03/20 08:52 Lidocaine (Lidoderm Patch) 1 patch DAILY TD 12/28/19 09:00 01/03/20 08:52 Lidocaine (Lidoderm Patch) 1 patch DAILY TD 12/23/19 09:00 01/03/20 08:52 Magnesium Hydroxide (Milk Of Magnesia) 30 ml DAILYPRN PRN PO CONSTIPATION 12/22/19 16:15 Meclizine HCl (Antivert) 12.5 mg BIDP PRN PO dizziness 12/26/19 19:30 01/01/20 20:45 Meclizine HCl (Antivert) 12.5 mg TID PO 12/22/19 21:00 12/26/19 19:32 DC 12/26/19 17:12 Menthol/Methyl Salicylate (Bengay Cream) APPLY TO RIGHT ACHIL... BID TOP 12/30/19 09:00 01/03/20 08:52 Non-Formulary Medication ( See Comment Field Below ) REMOVE LIDODERM PATCH DAILY@ XX 12/28/19 21:00 12/28/19 12:00 DC Non-Formulary Medication ( See Comment Field Below ) REMOVE LIDODERM PATCH DAILY@ XX 12/28/19 21:00 01/02/20 20:35 Non-Formulary Medication ( See Comment Field Below ) REMOVE LIDODERM PATCH DAILY@ XX 12/23/19 21:00 01/02/20 20:35 Nystatin (Mycostatin Powder, Nystop) Apply BID PRN for Rash un... BIDP PRN TOP RASH 01/02/20 23:00 Omeprazole (PriLOSEC) 40 mg DAILY PO 12/23/19 09:00 01/03/20 08:51 Scopolamine (Scopolamine) 1 mg Q72H TOP 12/27/19 14:45 12/27/19 14:36 DC Scopolamine (Scopolamine) 1 mg Q72H TOP 12/27/19 16:00 01/02/20 16:10 Sodium Chloride ([place] Nasal [place]) 2 spray BID NA 12/22/19 21:00 01/03/20 08:52 Tramadol HCl (Ultram) 25 mg Q4HP PRN PO SEVERE PAIN (PS 8-10) 12/22/19 16:15 12/28/19 12:52 DC 12/28/19 10:37 Vitamin D (Vitamin D) 2,000 units DAILY PO 12/23/19 09:00 01/03/20 08:50 Warfarin Sodium (Coumadin) 2 mg DAILY@17 PO 12/22/19 17:00 01/02/20 16:10 CABRERA COOLEY MD Jan 03, 2020 14:23
[2020-01-03] MEDS: WARFARIN SOD 2MG TAB PO SCH (17:22)
[2020-01-03 20:00] VITALS: BP 132/95
[2020-01-03] MEDS: **NOTE PATIENT COMMENT** MISC XX SCH ×2 (20:41)
[2020-01-03] MEDS: NYSTATIN 100,000 UNITS/GM TOPICAL PWD 15 GM TOP PRN (22:13)
[2020-01-04] MEDS ORDERED: ONDANSETRON 4 MG ORAL DISINTEGRATING TAB PO PRN (02:45)
[2020-01-04] MEDS: IPRATROPIUM 0.5MG/ALBUTEROL 2.5MG INH SOL UD 3ML (DUONEB) NEB SCH ×3 (05:55→21:03)
[2020-01-04 06:00] VITALS: BP_SYST 146; BP_SYST 178; BP_SYST 181; BP_DIAS 79; BP_DIAS 86; BP_DIAS 92
[2020-01-04 06:49] LABS: INR 2.25; PROTHROMBIN TIME 25.4 SECONDS (12.5-14.3)
[2020-01-04 07:30] VITALS: BP 149/92
[2020-01-04] MEDS: OMEPRAZOLE 20 MG CAP PO SCH (08:43)
[2020-01-04] MEDS: ASPIRIN 81 MG ENTERIC TAB PO SCH (08:43)
[2020-01-04] MEDS: ASCORBIC ACID 500 MG TAB PO SCH ×2 (08:43→21:18)
[2020-01-04] MEDS: FERROUS GLUCONATE 324 MG TAB PO SCH (08:44)
[2020-01-04] MEDS: VITAMIN D 1,000 INTERNATIONAL UNITS TABLET PO SCH (08:44)
[2020-01-04] MEDS: atenoloL 25 MG TAB PO SCH ×2 (08:44→21:24)
[2020-01-04] MEDS: amLODIPine 5 MG TAB PO SCH (08:45)
[2020-01-04] MEDS: FLUTICASONE PROP 0.05% NASAL SPRAY 16 GM (FLONASE) NARES SCH ×2 (08:47→21:00)
[2020-01-04] MEDS: BRIMONIDINE 0.1% OPHTH SOLN 5 ML OU SCH ×2 (08:47→21:19)
[2020-01-04] MEDS: SODIUM CHLORIDE NASAL 0.65% SPRAY BTL (OCEAN) SCH ×2 (08:47→21:00)
[2020-01-04] MEDS: ANALGESIC BALM CRM 120 GM TOP SCH ×2 (08:49→21:21)
[2020-01-04] MEDS: REMEDY PHYTOPLEX Z-GUARD PASTE 113GM TUBE (FROM STOREROOM PRODUCT) TOP SCH ×3 (08:49→21:22)
[2020-01-04] MEDS: ACETAMINOPHEN 500 MG TAB PO SCH ×3 (09:00→21:23)
[2020-01-04] MEDS: LIDOCAINE 5% (LIDODERM) PATCH TD SCH ×2 (09:00)
--- NOTE | 2020-01-04 13:59 | IPNPDOC ---
PM&R Progress Note DATE OF SERVICE: Jan 04, 2020 Support Analyst Progress Note DATE OF ADMISSION: Dec 22, 2019 at 16:05 DATE OF SERVICE: Jan 04, 2020 INPATIENT REHABILITATION ADMISSION DAY: #13 SUBJECTIVE: Patient is an 89-year-old female on anticoagulation for Afib with vertigo, hypertension with improving orthostatic hypotension, persisting anemia, episodic headaches, nausea without vomiting, no diarrhea, stools regular and formed last few days, bilateral episodic left worse than right knee pain after several falling episodes. Dizziness had improved with the Scopolamine and leg wrapping. Diuresis with Lasix seems to have helped CHF however she has not dropped much weight, still short of breath at times and IC 500. Right lower extremity discomfort improving with wrapping. She has been afebrile, however, continues to be challenged with the dizziness. Working on slowing lipase of transitional movements. She is at times able to ambulate and ascend stairs, others can barely sit up, severely nauseous. FUNCTIONAL STATUS: PT- Toilet transfers standby assistance, continues complaints of dizziness, Pt's son present during part of session. Pt with inc amb distance this afternoon and overall attention to task, still with orthostatic changes and dizziness. SBA with transfers. REVIEW OF SYSTEMS: Completed 14 pt review of systems unremarkable except as mentioned in interim subjective history. ALLERGIES: See Below MEDICATIONS: Reviewed, see below, Scopolamine helpful OBJECTIVE: VITAL SIGNS: Please see below. She remains afebrile. Orthostatics checks notes some changes on 161/87, supine, 181/91 sitting, 142/62 standing PHYSICAL EXAMINATION: GENERAL: lying in bed, tolerates gradual supine to sit with less dizziness, no acute distress. HEENT: Normocephalic, atraumatic. No facial droop. EOMI. No nystagmus. CN II-XII intact CARDIOVASCULAR: S1, S2, irregular rate. LUNGS: Decreased breath sounds, fewer crackles. IC only 500 ABDOMEN: Soft, nontender, obese, soft. Normoactive bowel sounds throughout. MUSCULOSKELETAL: MMT: Healed bilateral TKR scars , no calf tenderness negative Tiffanie's, SOBEIDA hose in place with less edema. lower extremities , 5/5 bilateral knee extension. 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 NEUROLOGICAL: Answers all question appropriately. No focal deficits and less dizziness. SKIN: intact LABORATORY DATA: Reviewed. Please see below. Hct slight drop, INR 2.25, continue current alternate dosing. MICROBIOLOGY: Please see below. ASSESSMENT AND PLAN: 89-year-old hypertensive lady with past medical history of posterior circulation CVA who presents status post recurrent falls, contusing knees and continued vertigo and fairly significant orthostatic hypotensive changes, CHF responding to diuresis, however still with limited cardiopulmonary reserves. PLAN: 1. Rehab- PT/OT advance mobility and ADLs, strengthen/stretch/maintain ROM all 4 limbs. Encourage monitoring of O2 levels with exertional activities. Added thigh high SOBEIDA with better control postural BP changes contributing to vertigo, will add abdominal binder to see if that helps further with control when going from sit to stand. 2. Neuro- persistent vertigo likely central in etiology due to recent posterior circulation infarct in 2019 limiting her overall mobility and contributing to recurrent falls, possibility of further aggravation from orthostatic hypotension. -c/u ASA for secondary stroke prevention in addition to warfarin for afib 3. Resp- encourage incentive spirometry, monitor for infection. Has Acapella, encourage use of device -Duonebs for wheeze on exam and hx of smoking 4.Cardiac- hx of afib, c/u coumadin with daily INRs and adjust the dose downward alternating 2 and 1 better today. SBP spikes, but then big orthostatic shift at times, will continue to monitor, hold on BP med changes for now. Will continue monitoring orthostatic changes. TEDS seem to be helping. 5. continue rehab nursing -medicine consulted to assist in overall management - fluid restrict 1800cc with daily weights 5. GI ppx- omeprazole 6. DVT ppx on coumadin will continue to adjust and recheck PT/INR now at target. 7. GI- monitor for diarrhea 8. Pain- right knee OA worse after fall, tylenol , Lidoderm seem to be helping, can also offer ice, add Biofreeze gel 9. Dispo- family conference held, and realistically if we can get her to goal of independence with toileting and mobility at a wheelchair level, short distances with front-wheeled walker transition possibly transition through subacute rehabilitation and eventual assisted living may be the most practical solution given the physiological and psychosocial circumstances. TIME SPENT: Chart Review, examination Team meeting and documentation 30 minutes. Allergies Coded Allergies: Penicillins (Verified Allergy, Mild, RASH, 11/23/18) GUDELIA Inhibitors (Verified Allergy, Unknown, UNKNOWN REACTION PER FAMILY, 04/27/19) SEASONAL ALLERGIES (Verified Allergy, Unknown, 11/23/18) doxycycline (Verified Allergy, Unknown, UNKNOWN REACTION PER FAMILY, 04/27/19) prazosin (Verified Allergy, Unknown, UNKNOWN REACTION PER FAMILY, 04/27/19) codeine (Verified Adverse Reaction, Mild, CONFUSION, 11/23/18) ibuprofen (Verified Adverse Reaction, Mild, ORAL THRUSH, 11/26/18) Vital Signs Vital Signs Date Time Temp Pulse Resp B/P (MAP) Pulse Ox O2 Delivery O2 Flow Rate FiO2 01/04/20 08:44 88 149/92 01/04/20 07:30 96 Room Air 01/03/20 20:00 97.6 18 Laboratory Data Labs 24H Laboratory Tests 2 01/04/20 06:15: Prothrombin Time 25.4H, Prothromb Time International Ratio 2.25 Current Medications Current Medications Current Medications Medications (Trade) Dose Ordered Sig/Gemini Route PRN Reason Start Time Stop Time Status Last Admin Dose Admin Acetaminophen (Tylenol Tab) 1,000 mg TID PO 12/22/19 21:00 01/03/20 20:39 Albuterol/ Ipratropium (Duoneb (Ipr 0.5mg/Alb 2.5mg)) 3 ml RTID NEB 12/22/19 20:00 01/04/20 05:55 Amlodipine Besylate (Norvasc) 5 mg DAILY PO 01/02/20 09:00 01/04/20 08:45 Ascorbic Acid (Vitamin C) 500 mg BID PO 12/29/19 21:00 01/04/20 08:43 Aspirin (Ecotrin) 81 mg DAILY PO 12/23/19 09:00 01/04/20 08:43 Atenolol (Tenormin) 25 mg BID PO 12/22/19 21:00 01/04/20 08:44 Brimonidine Tartrate (Alphagan P 0.1%) 1 drop BID OU 12/22/19 21:00 01/04/20 08:47 Ferrous Gluconate (Fergon) 324 mg DAILY PO 12/30/19 09:00 01/04/20 08:44 Fludrocortisone Acetate (Florinef) 0.1 mg DAILY PO 12/23/19 09:00 01/01/20 10:35 DC 01/01/20 07:54 Fluticasone Propionate (Flonase 0.05% Nasal [place]) 1 spray BID NARES 12/22/19 21:00 01/04/20 08:47 Lidocaine (Lidoderm Patch) 1 patch DAILY TD 12/28/19 09:00 01/04/20 09:00 Lidocaine (Lidoderm Patch) 1 patch DAILY TD 12/23/19 09:00 01/04/20 09:00 Magnesium Hydroxide (Milk Of Magnesia) 30 ml DAILYPRN PRN PO CONSTIPATION 12/22/19 16:15 Meclizine HCl (Antivert) 12.5 mg BIDP PRN PO dizziness 12/26/19 19:30 01/01/20 20:45 Meclizine HCl (Antivert) 12.5 mg TID PO 12/22/19 21:00 12/26/19 19:32 DC 12/26/19 17:12 Menthol/Methyl Salicylate (Bengay Cream) APPLY TO RIGHT ACHIL... BID TOP 12/30/19 09:00 01/04/20 08:49 Non-Formulary Medication ( See Comment Field Below ) REMOVE LIDODERM PATCH DAILY@ XX 12/28/19 21:00 12/28/19 12:00 DC Non-Formulary Medication ( See Comment Field Below ) REMOVE LIDODERM PATCH DAILY@ XX 12/28/19 21:00 01/02/20 20:35 Non-Formulary Medication ( See Comment Field Below ) REMOVE LIDODERM PATCH DAILY@ XX 12/23/19 21:00 01/02/20 20:35 Nystatin (Mycostatin Powder, Nystop) Apply BID PRN for Rash un... BIDP PRN TOP RASH 01/02/20 23:00 01/03/20 22:13 Omeprazole (PriLOSEC) 40 mg DAILY PO 12/23/19 09:00 01/04/20 08:43 Ondansetron HCl (Zofran Odt) 4 mg Q6HP PRN PO NAUSEA OR VOMITING 01/04/20 02:45 Scopolamine (Scopolamine) 1 mg Q72H TOP 12/27/19 14:45 12/27/19 14:36 DC Scopolamine (Scopolamine) 1 mg Q72H TOP 12/27/19 16:00 01/02/20 16:10 Sodium Chloride ([place] Nasal [place]) 2 spray BID NA 12/22/19 21:00 01/04/20 08:47 Tramadol HCl (Ultram) 25 mg Q4HP PRN PO SEVERE PAIN (PS 8-10) 12/22/19 16:15 12/28/19 12:52 DC 12/28/19 10:37 Vitamin D (Vitamin D) 2,000 units DAILY PO 12/23/19 09:00 01/04/20 08:44 Warfarin Sodium (Coumadin) 2 mg DAILY@17 PO 12/22/19 17:00 01/03/20 17:22 CABRERA COOLEY MD Jan 04, 2020 13:59
[2020-01-04 15:04] VITALS: BP_SYST 138; BP_SYST 156; BP_SYST 160; BP_DIAS 72; BP_DIAS 80; BP_DIAS 84
[2020-01-04] MEDS: WARFARIN SOD 2MG TAB PO SCH (18:08)
[2020-01-04 21:00] VITALS: BP_SYST 126; BP_SYST 132; BP_SYST 142; BP_DIAS 74; BP_DIAS 80; BP_DIAS 82
[2020-01-04] MEDS: **NOTE PATIENT COMMENT** MISC XX SCH ×2 (21:22)
[2020-01-05 06:08] VITALS: BP_SYST 148; BP_SYST 160; BP_SYST 162; BP_DIAS 80; BP_DIAS 82; BP_DIAS 84
[2020-01-05 07:47] LABS: INR 2.07; PROTHROMBIN TIME 23.8 SECONDS (12.5-14.3)
[2020-01-05] MEDS: IPRATROPIUM 0.5MG/ALBUTEROL 2.5MG INH SOL UD 3ML (DUONEB) NEB SCH ×3 (08:27→20:11)
[2020-01-05] MEDS: ANALGESIC BALM CRM 120 GM TOP SCH ×4 (09:00→20:41)
[2020-01-05] MEDS: ACETAMINOPHEN 500 MG TAB PO SCH ×3 (09:37→20:40)
--- NOTE | 2020-01-05 09:37 | IPNPDOC ---
PM&R Progress Note DATE OF SERVICE: Jan 05, 2020 Cad Draftsman Progress Note DATE OF ADMISSION: Dec 22, 2019 at 16:05 INPATIENT REHABILITATION ADMISSION DAY: #[14] SUBJECTIVE: Patient is an 89-year-old female on anticoagulation for Afib with vertigo, hypertension with improving orthostatic hypotension, persisting anemia, episodic headaches, nausea without vomiting, no diarrhea, stools regular and formed last few days, bilateral episodic left worse than right knee pain after several falling episodes. Dizziness has improved with Scopolamine and leg wrapping. Diuresis with Lasix previously helped CHF and respiratory issues, however she has gained back 5kg from 10.18, still short of breath at times and IC 500. Right lower extremity discomfort improving with wrapping. She has been afebrile, however, continues to be challenged with the dizziness. She is at times able to ambulate for longer distances and ascend stairs, other times can barely sit up, severely nauseous. FUNCTIONAL STATUS: PT- Toilet transfers standby assistance, continues complaints of dizziness. Pt with inc amb distance this afternoon and overall attention to task, still with orthostatic changes and dizziness. SBA with transfers. REVIEW OF SYSTEMS: Completed 14 pt review of systems unremarkable except as mentioned in interim subjective history. ALLERGIES: See Below MEDICATIONS: Reviewed, see below, Scopolamine helpful OBJECTIVE: VITAL SIGNS: Please see below. She remains afebrile. Orthostatics checks notes some changes on 148/84, supine, 162/82 sitting, 160/80 standing PHYSICAL EXAMINATION: GENERAL: lying in bed, tolerates gradual supine to sit with less dizziness, no acute distress. HEENT: Normocephalic, atraumatic. No facial droop. EOMI. No nystagmus. CN II-XII intact CARDIOVASCULAR: S1, S2, irregular rate. LUNGS: Decreased breath sounds, fewer crackles. IC only 500 ABDOMEN: Soft, nontender, obese, soft. Normoactive bowel sounds throughout. MUSCULOSKELETAL: MMT: Healed bilateral TKR scars , no calf tenderness negative Tiffanie's, SOBEIDA hose in place with less edema. lower extremities , 5/5 bilateral knee extension. 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 Notes pain left shoulder girdle bicipital region. NEUROLOGICAL: Answers all question appropriately. No focal deficits and less dizziness, completed all of breakfast this morning SKIN: intact LABORATORY DATA: Reviewed. Please see below. Hct slight drop, INR 2.07, continue current alternate dosing, maintaining therapeutic range MICROBIOLOGY: Please see below. ASSESSMENT AND PLAN: 89-year-old hypertensive lady with past medical history of posterior circulation CVA who presents status post recurrent falls, contusing knees and continued vertigo and fairly significant orthostatic hypotensive changes, CHF responded to diuresis, however still with limited cardiopulmonary reserves and regained weight. PLAN: 1. Rehab- PT/OT advance mobility and ADLs, strengthen/stretch/maintain ROM all 4 limbs. Encourage monitoring of O2 levels with exertional activities. Added thigh high SOBEIDA with better control postural BP changes contributing to vertigo, added abdominal binder and that seems to help further with control when going from sit to stand. 2. Neuro- persistent vertigo likely central in etiology due to recent posterior circulation infarct in 2019 limiting her overall mobility and contributing to recurrent falls, possibility of further aggravation from orthostatic hypotension. -c/u ASA for secondary stroke prevention in addition to warfarin for afib 3. Resp- encourage incentive spirometry, monitor for infection. Has Acapella, encourage use of device -Duonebs for wheeze on exam and hx of smoking 4.Cardiac- hx of afib, c/u coumadin with daily INRs and adjust the dose downward alternating 2 and 1 better today. SBP spikes, but then big orthostatic shift at times, will continue to monitor, hold on BP med changes for now. Will continue monitoring orthostatic changes. TEDS seem to be helping. 5. continue rehab nursing -medicine consulted to assist in overall management, may need another touch of diuretic today. - fluid restrict 1800cc with daily weights 5. GI ppx- omeprazole 6. DVT ppx on coumadin will continue to adjust and recheck PT/INR now at target. 7. GI- monitor for diarrhea 8. Pain- right knee OA worse after fall, left shoulder, possibly related to transfer/gait leaning on walker, continue tylenol , Lidoderm seem to be helping, can also offer ice, added Biofreeze gel 9. Dispo- family conference held, and realistically if we can get her to goal of independence with toileting and mobility at a wheelchair level, short distances with front-wheeled walker transition possibly transition through subacute rehabilitation and eventual assisted living may be the most practical solution given the physiological and psychosocial circumstances. TIME SPENT: Chart Review, examination Team meeting and documentation 30 minutes. Allergies Coded Allergies: Penicillins (Verified Allergy, Mild, RASH, 11/23/18) GUDELIA Inhibitors (Verified Allergy, Unknown, UNKNOWN REACTION PER FAMILY, 04/27/19) SEASONAL ALLERGIES (Verified Allergy, Unknown, 11/23/18) doxycycline (Verified Allergy, Unknown, UNKNOWN REACTION PER FAMILY, 04/27/19) prazosin (Verified Allergy, Unknown, UNKNOWN REACTION PER FAMILY, 04/27/19) codeine (Verified Adverse Reaction, Mild, CONFUSION, 11/23/18) ibuprofen (Verified Adverse Reaction, Mild, ORAL THRUSH, 11/26/18) Vital Signs Vital Signs Date Time Temp Pulse Resp B/P (MAP) Pulse Ox O2 Delivery O2 Flow Rate FiO2 01/05/20 06:13 98.1 18 96 Room Air 01/05/20 06:08 73 148/84 (105) 70 162/82 (108) 82 160/80 (106) Laboratory Data Labs 24H Laboratory Tests 2 01/05/20 07:11: Prothrombin Time 23.8H, Prothromb Time International Ratio 2.07 Current Medications Current Medications Current Medications Medications (Trade) Dose Ordered Sig/Gemini Route PRN Reason Start Time Stop Time Status Last Admin Dose Admin Acetaminophen (Tylenol Tab) 1,000 mg TID PO 12/22/19 21:00 01/04/20 21:23 Albuterol/ Ipratropium (Duoneb (Ipr 0.5mg/Alb 2.5mg)) 3 ml RTID NEB 12/22/19 20:00 01/05/20 08:27 Amlodipine Besylate (Norvasc) 5 mg DAILY PO 01/02/20 09:00 01/04/20 08:45 Ascorbic Acid (Vitamin C) 500 mg BID PO 12/29/19 21:00 01/04/20 21:18 Aspirin (Ecotrin) 81 mg DAILY PO 12/23/19 09:00 01/04/20 08:43 Atenolol (Tenormin) 25 mg BID PO 12/22/19 21:00 01/04/20 21:24 Brimonidine Tartrate (Alphagan P 0.1%) 1 drop BID OU 12/22/19 21:00 01/04/20 21:19 Ferrous Gluconate (Fergon) 324 mg DAILY PO 12/30/19 09:00 01/04/20 08:44 Fludrocortisone Acetate (Florinef) 0.1 mg DAILY PO 12/23/19 09:00 01/01/20 10:35 DC 01/01/20 07:54 Fluticasone Propionate (Flonase 0.05% Nasal [place]) 1 spray BID NARES 12/22/19 21:00 01/04/20 08:47 Lidocaine (Lidoderm Patch) 1 patch DAILY TD 12/28/19 09:00 01/04/20 09:00 Lidocaine (Lidoderm Patch) 1 patch DAILY TD 12/23/19 09:00 01/04/20 09:00 Magnesium Hydroxide (Milk Of Magnesia) 30 ml DAILYPRN PRN PO CONSTIPATION 12/22/19 16:15 Meclizine HCl (Antivert) 12.5 mg BIDP PRN PO dizziness 12/26/19 19:30 01/01/20 20:45 Meclizine HCl (Antivert) 12.5 mg TID PO 12/22/19 21:00 12/26/19 19:32 DC 12/26/19 17:12 Menthol/Methyl Salicylate (Bengay Cream) APPLY TO RIGHT ACHIL... BID TOP 12/30/19 09:00 01/04/20 21:21 Non-Formulary Medication ( See Comment Field Below ) REMOVE LIDODERM PATCH DAILY@21 XX 12/28/19 21:00 12/28/19 12:00 DC Non-Formulary Medication ( See Comment Field Below ) REMOVE LIDODERM PATCH DAILY@21 XX 12/28/19 21:00 01/04/20 21:22 Non-Formulary Medication ( See Comment Field Below ) REMOVE LIDODERM PATCH DAILY@21 XX 12/23/19 21:00 01/04/20 21:22 Nystatin (Mycostatin Powder, Nystop) Apply BID PRN for Rash un... BIDP PRN TOP RASH 01/02/20 23:00 01/03/20 22:13 Omeprazole (PriLOSEC) 40 mg DAILY PO 12/23/19 09:00 01/04/20 08:43 Ondansetron HCl (Zofran Odt) 4 mg Q6HP PRN PO NAUSEA OR VOMITING 01/04/20 02:45 Scopolamine (Scopolamine) 1 mg Q72H TOP 12/27/19 14:45 12/27/19 14:36 DC Scopolamine (Scopolamine) 1 mg Q72H TOP 12/27/19 16:00 01/02/20 16:10 Sodium Chloride ([place] Nasal [place]) 2 spray BID NA 12/22/19 21:00 01/04/20 08:47 Tramadol HCl (Ultram) 25 mg Q4HP PRN PO SEVERE PAIN (PS 8-10) 12/22/19 16:15 12/28/19 12:52 DC 12/28/19 10:37 Vitamin D (Vitamin D) 2,000 units DAILY PO 12/23/19 09:00 01/04/20 08:44 Warfarin Sodium (Coumadin) 2 mg DAILY@17 PO 12/22/19 17:00 01/04/20 18:08 CABRERA COOLEY MD Jan 05, 2020 09:37
[2020-01-05] MEDS: MECLIZINE 12.5 MG TAB PO PRN (09:39)
[2020-01-05] MEDS: LIDOCAINE 5% (LIDODERM) PATCH TD SCH ×2 (10:17→10:18)
[2020-01-05] MEDS: VITAMIN D 1,000 INTERNATIONAL UNITS TABLET PO SCH (10:19)
[2020-01-05] MEDS: ASPIRIN 81 MG ENTERIC TAB PO SCH (10:19)
[2020-01-05] MEDS: ASCORBIC ACID 500 MG TAB PO SCH ×2 (10:19→20:39)
[2020-01-05] MEDS: OMEPRAZOLE 20 MG CAP PO SCH (10:19)
[2020-01-05] MEDS: FERROUS GLUCONATE 324 MG TAB PO SCH (10:19)
[2020-01-05] MEDS: amLODIPine 5 MG TAB PO SCH (10:29)
[2020-01-05] MEDS: atenoloL 25 MG TAB PO SCH ×2 (10:29→20:39)
[2020-01-05] MEDS: REMEDY PHYTOPLEX Z-GUARD PASTE 113GM TUBE (FROM STOREROOM PRODUCT) TOP SCH ×3 (10:30→20:42)
[2020-01-05] MEDS: FLUTICASONE PROP 0.05% NASAL SPRAY 16 GM (FLONASE) NARES SCH ×2 (10:32→20:43)
[2020-01-05] MEDS: SODIUM CHLORIDE NASAL 0.65% SPRAY BTL (OCEAN) SCH ×2 (10:32→20:43)
[2020-01-05] MEDS: BRIMONIDINE 0.1% OPHTH SOLN 5 ML OU SCH ×2 (10:32→20:44)
[2020-01-05 14:00] VITALS: BP 165/70
[2020-01-05] MEDS: WARFARIN SOD 2MG TAB PO SCH (16:13)
[2020-01-05] MEDS: SCOPOLAMINE 1MG TRANSDERMAL PATCH TOP SCH (16:15)
[2020-01-05 20:30] VITALS: BP_SYST 142; BP_SYST 148; BP_SYST 162; BP_DIAS 74; BP_DIAS 82; BP_DIAS 84
[2020-01-05] MEDS: **NOTE PATIENT COMMENT** MISC XX SCH ×2 (20:42→20:43)
[2020-01-06 06:25] VITALS: BP_SYST 132; BP_SYST 136; BP_DIAS 80; BP_DIAS 82
[2020-01-06 06:41] LABS: INR 2.3; PROTHROMBIN TIME 25.8 SECONDS (12.5-14.3)
[2020-01-06] MEDS: IPRATROPIUM 0.5MG/ALBUTEROL 2.5MG INH SOL UD 3ML (DUONEB) NEB SCH ×3 (07:31→20:32)
[2020-01-06] MEDS: FERROUS GLUCONATE 324 MG TAB PO SCH (09:00)
[2020-01-06] MEDS: REMEDY PHYTOPLEX Z-GUARD PASTE 113GM TUBE (FROM STOREROOM PRODUCT) TOP SCH ×3 (09:00→21:00)
[2020-01-06] MEDS: ASPIRIN 81 MG ENTERIC TAB PO SCH (09:13)
[2020-01-06] MEDS: VITAMIN D 1,000 INTERNATIONAL UNITS TABLET PO SCH (09:13)
[2020-01-06] MEDS: ASCORBIC ACID 500 MG TAB PO SCH ×2 (09:13→21:10)
[2020-01-06] MEDS: OMEPRAZOLE 20 MG CAP PO SCH (09:13)
[2020-01-06] MEDS: LIDOCAINE 5% (LIDODERM) PATCH TD SCH ×2 (09:14→09:17)
[2020-01-06] MEDS: ANALGESIC BALM CRM 120 GM TOP SCH ×4 (09:17→21:00)
[2020-01-06] MEDS: BRIMONIDINE 0.1% OPHTH SOLN 5 ML OU SCH ×2 (09:18→21:13)
[2020-01-06] MEDS: FLUTICASONE PROP 0.05% NASAL SPRAY 16 GM (FLONASE) NARES SCH ×2 (09:19→21:13)
[2020-01-06] MEDS: SODIUM CHLORIDE NASAL 0.65% SPRAY BTL (OCEAN) SCH ×2 (09:19→21:13)
[2020-01-06] MEDS: ACETAMINOPHEN 500 MG TAB PO SCH ×3 (09:20→21:11)
[2020-01-06] MEDS: atenoloL 25 MG TAB PO SCH ×2 (09:23→21:11)
[2020-01-06] MEDS: amLODIPine 5 MG TAB PO SCH (09:23)
[2020-01-06 14:00] VITALS: BP 162/73
--- NOTE | 2020-01-06 14:46 | IPNPDOC ---
PM&R Progress Note DATE OF SERVICE: Jan 06, [address] [employer] [address] Super[employer] Progress Note DATE OF ADMISSION: Dec 22, 2019 at 16:05 INPATIENT REHABILITATION ADMISSION DAY: #15 SUBJECTIVE: Patient is an 89-year-old female on anticoagulation for Afib with vertigo, hypertension with improving orthostatic hypotension, persisting anemia, episodic headaches, nausea without vomiting, no diarrhea, stools regular and formed last few days, bilateral episodic left worse than right knee pain after several falling episodes. Dizziness has improved with Scopolamine and leg wrapping. Diuresis with Lasix previously helped CHF and respiratory issues, however she has gained back 5kg from 10.18, still short of breath at times and IC 500. Right lower extremity discomfort improving with wrapping. She has been afebrile, however, continues to be challenged with the dizziness. She is at times able to ambulate for longer distances and ascend stairs, other times can barely sit up, severely nauseous. FUNCTIONAL STATUS: PT- Toilet transfers standby assistance, continues complaints of dizziness. Pt with inc amb distance this afternoon and overall attention to task, still with orthostatic changes and dizziness. SBA with transfers. Orthostasis improving. Patient was able to engage in hospital puzzle for visual scanning and vestibular challenge. REVIEW OF SYSTEMS: Completed 14 pt review of systems unremarkable except as mentioned in interim subjective history. ALLERGIES: See Below MEDICATIONS: Reviewed, see below, Scopolamine helpful OBJECTIVE: VITAL SIGNS: Please see below. She remains afebrile. Orthostatics checks. Continue with less variability today. PHYSICAL EXAMINATION: GENERAL: lying in bed, tolerates gradual supine to sit with less dizziness, no acute distress. HEENT: Normocephalic, atraumatic. No facial droop. EOMI. No nystagmus. CN II-XII intact CARDIOVASCULAR: S1, S2, irregular rate. LUNGS: Decreased breath sounds, fewer crackles. ABDOMEN: Soft, nontender, obese, soft. Normoactive bowel sounds throughout. MUSCULOSKELETAL: MMT: Healed bilateral TKR scars , no calf tenderness negative Tiffanie's, SOBEIDA hose in place with less edema. lower extremities , 5/5 bilateral knee extension. 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 Notes pain left shoulder girdle bicipital region. NEUROLOGICAL: Answers all question appropriately. No focal deficits and less dizziness, completed all of breakfast this morning SKIN: intact LABORATORY DATA: Reviewed. Please see below. INR 2.3, continue current alternate dosing, maintaining therapeutic range MICROBIOLOGY: Please see below. ASSESSMENT AND PLAN: 89-year-old hypertensive lady with past medical history of posterior circulation CVA who presents status post recurrent falls, contusing knees and continued vertigo and fairly significant orthostatic hypotensive changes, CHF responded to diuresis, however still with limited cardiopulmonary reserves and regained weight. PLAN: 1. Rehab- PT/OT advance mobility and ADLs, strengthen/stretch/maintain ROM all 4 limbs. Encourage monitoring of O2 levels with exertional activities. Added thigh high SOBEIDA with better control postural BP changes contributing to vertigo, added abdominal binder and that seems to help further with control when going from sit to stand. 2. Neuro- persistent vertigo likely central in etiology due to recent posterior circulation infarct in 2019 limiting her overall mobility and contributing to recurrent falls, possibility of further aggravation from orthostatic hypotension. -c/u ASA for secondary stroke prevention in addition to warfarin for afib 3. Resp- encourage incentive spirometry, monitor for infection. Has Acapella, encourage use of device -Duonebs for wheeze on exam and hx of smoking 4.Cardiac- hx of afib, c/u coumadin with daily INRs and adjust the dose downward alternating 2 and 1 better today. SBP spikes, but then big orthostatic shift at times, will continue to monitor, hold on BP med changes for now. Will continue monitoring orthostatic changes. TEDS seem to be helping. 5. continue rehab nursing -medicine consulted to assist in overall management, may need another touch of diuretic today. - fluid restrict 1800cc with daily weights 5. GI ppx- omeprazole 6. DVT ppx on coumadin will continue to adjust and recheck PT/INR now at target. 7. GI- monitor for diarrhea 8. Pain- right knee OA worse after fall, left shoulder, possibly related to transfer/gait leaning on walker, continue tylenol , Lidoderm seem to be helping, can also offer ice, added Biofreeze gel 9. Dispo- family conference held, and realistically if we can get her to goal of independence with toileting and mobility at a wheelchair level, short distances with front-wheeled walker transition possibly transition through subacute rehabilitation and eventual assisted living may be the most practical solution given the physiological and psychosocial circumstances. TIME SPENT: Chart Review, examination Team meeting and documentation 30 minutes. Allergies Coded Allergies: Penicillins (Verified Allergy, Mild, RASH, 11/23/18) GUDELIA Inhibitors (Verified Allergy, Unknown, UNKNOWN REACTION PER FAMILY, 04/27/19) SEASONAL ALLERGIES (Verified Allergy, Unknown, 11/23/18) doxycycline (Verified Allergy, Unknown, UNKNOWN REACTION PER FAMILY, 04/27/19) prazosin (Verified Allergy, Unknown, UNKNOWN REACTION PER FAMILY, 04/27/19) codeine (Verified Adverse Reaction, Mild, CONFUSION, 11/23/18) ibuprofen (Verified Adverse Reaction, Mild, ORAL THRUSH, 11/26/18) Vital Signs Vital Signs Date Time Temp Pulse Resp B/P (MAP) Pulse Ox O2 Delivery O2 Flow Rate FiO2 01/06/20 14:00 97.8 77 18 162/73 (102) 95 Room Air Laboratory Data Labs 24H Laboratory Tests 2 01/06/20 06:09: Prothrombin Time 25.8H, Prothromb Time International Ratio 2.30 Current Medications Current Medications Current Medications Medications (Trade) Dose Ordered Sig/Gemini Route PRN Reason Start Time Stop Time Status Last Admin Dose Admin Acetaminophen (Tylenol Tab) 1,000 mg TID PO 12/22/19 21:00 01/06/20 09:20 Albuterol/ Ipratropium (Duoneb (Ipr 0.5mg/Alb 2.5mg)) 3 ml RTID NEB 12/22/19 20:00 01/06/20 07:31 Amlodipine Besylate (Norvasc) 5 mg DAILY PO 01/02/20 09:00 01/06/20 09:23 Ascorbic Acid (Vitamin C) 500 mg BID PO 12/29/19 21:00 01/06/20 09:13 Aspirin (Ecotrin) 81 mg DAILY PO 12/23/19 09:00 01/06/20 09:13 Atenolol (Tenormin) 25 mg BID PO 12/22/19 21:00 01/06/20 09:23 Brimonidine Tartrate (Alphagan P 0.1%) 1 drop BID OU 12/22/19 21:00 01/06/20 09:18 Ferrous Gluconate (Fergon) 324 mg DAILY PO 12/30/19 09:00 01/05/20 10:19 Fludrocortisone Acetate (Florinef) 0.1 mg DAILY PO 12/23/19 09:00 01/01/20 10:35 DC 01/01/20 07:54 Fluticasone Propionate (Flonase 0.05% Nasal [place]) 1 spray BID NARES 12/22/19 21:00 01/06/20 09:19 Lidocaine (Lidoderm Patch) 1 patch DAILY TD 12/28/19 09:00 01/06/20 09:17 Lidocaine (Lidoderm Patch) 1 patch DAILY TD 12/23/19 09:00 01/06/20 09:14 Magnesium Hydroxide (Milk Of Magnesia) 30 ml DAILYPRN PRN PO CONSTIPATION 12/22/19 16:15 Meclizine HCl (Antivert) 12.5 mg BIDP PRN PO dizziness 12/26/19 19:30 01/05/20 09:39 Meclizine HCl (Antivert) 12.5 mg TID PO 12/22/19 21:00 12/26/19 19:32 DC 12/26/19 17:12 Menthol/Methyl Salicylate (Bengay Cream) BID TOP 01/05/20 09:00 01/06/20 09:18 Menthol/Methyl Salicylate (Bengay Cream) APPLY TO RIGHT ACHIL... BID TOP 12/30/19 09:00 01/06/20 09:17 Non-Formulary Medication ( See Comment Field Below ) REMOVE LIDODERM PATCH DAILY@21 XX 12/28/19 21:00 12/28/19 12:00 DC Non-Formulary Medication ( See Comment Field Below ) REMOVE LIDODERM PATCH DAILY@ XX 12/28/19 21:00 01/05/20 20:43 Non-Formulary Medication ( See Comment Field Below ) REMOVE LIDODERM PATCH DAILY@ XX 12/23/19 21:00 01/05/20 20:42 Nystatin (Mycostatin Powder, Nystop) Apply BID PRN for Rash un... BIDP PRN TOP RASH 01/02/20 23:00 01/03/20 22:13 Omeprazole (PriLOSEC) 40 mg DAILY PO 12/23/19 09:00 01/06/20 09:13 Ondansetron HCl (Zofran Odt) 4 mg Q6HP PRN PO NAUSEA OR VOMITING 01/04/20 02:45 Scopolamine (Scopolamine) 1 mg Q72H TOP 12/27/19 14:45 12/27/19 14:36 DC Scopolamine (Scopolamine) 1 mg Q72H TOP 12/27/19 16:00 01/05/20 16:15 Sodium Chloride ([place] Nasal [place]) 2 spray BID NA 12/22/19 21:00 01/06/20 09:19 Tramadol HCl (Ultram) 25 mg Q4HP PRN PO SEVERE PAIN (PS 8-10) 12/22/19 16:15 12/28/19 12:52 DC 12/28/19 10:37 Vitamin D (Vitamin D) 2,000 units DAILY PO 12/23/19 09:00 01/06/20 09:13 Warfarin Sodium (Coumadin) 2 mg DAILY@17 PO 12/22/19 17:00 01/05/20 16:13 CABRERA COOLEY MD Jan 06, 2020 14:46
[2020-01-06] MEDS: WARFARIN SOD 2MG TAB PO SCH (16:20)
[2020-01-06] MEDS: LACTOBACILLUS ACIDOPHILUS CAP (BACID) PO SCH ×2 (16:20→21:10)
[2020-01-06 16:23] VITALS: BP_SYST 140; BP_SYST 147; BP_SYST 166; BP_DIAS 73; BP_DIAS 77; BP_DIAS 96
[2020-01-06 20:00] VITALS: BP_SYST 140; BP_SYST 154; BP_DIAS 68; BP_DIAS 80
[2020-01-06] MEDS: **NOTE PATIENT COMMENT** MISC XX SCH ×2 (21:17→21:18)
[2020-01-07 05:59] VITALS: BP_SYST 154; BP_SYST 162; BP_SYST 164; BP_DIAS 76; BP_DIAS 78; BP_DIAS 80
[2020-01-07 06:00] VITALS: BP 162/76
[2020-01-07] MEDS: IPRATROPIUM 0.5MG/ALBUTEROL 2.5MG INH SOL UD 3ML (DUONEB) NEB SCH ×3 (07:30→20:16)
[2020-01-07] MEDS: REMEDY PHYTOPLEX Z-GUARD PASTE 113GM TUBE (FROM STOREROOM PRODUCT) TOP SCH ×3 (09:00→21:00)
[2020-01-07] MEDS ORDERED: LOSARTAN 25 MG TAB PO SCH (09:00)
[2020-01-07] MEDS: FERROUS GLUCONATE 324 MG TAB PO SCH (09:00)
[2020-01-07] MEDS: LACTOBACILLUS ACIDOPHILUS CAP (BACID) PO SCH ×3 (09:21→21:03)
[2020-01-07] MEDS: VITAMIN D 1,000 INTERNATIONAL UNITS TABLET PO SCH (09:21)
[2020-01-07] MEDS: ASCORBIC ACID 500 MG TAB PO SCH ×2 (09:21→21:03)
[2020-01-07] MEDS: OMEPRAZOLE 20 MG CAP PO SCH (09:21)
[2020-01-07] MEDS: ASPIRIN 81 MG ENTERIC TAB PO SCH (09:21)
[2020-01-07] MEDS: ACETAMINOPHEN 500 MG TAB PO SCH ×3 (09:22→21:05)
[2020-01-07] MEDS: LIDOCAINE 5% (LIDODERM) PATCH TD SCH ×2 (09:22)
[2020-01-07] MEDS: ANALGESIC BALM CRM 120 GM TOP SCH ×4 (09:23→21:00)
[2020-01-07] MEDS: atenoloL 25 MG TAB PO SCH ×2 (09:27→21:03)
[2020-01-07] MEDS: amLODIPine 5 MG TAB PO SCH (09:27)
[2020-01-07] MEDS: BRIMONIDINE 0.1% OPHTH SOLN 5 ML OU SCH ×2 (09:27→21:11)
[2020-01-07] MEDS: SODIUM CHLORIDE NASAL 0.65% SPRAY BTL (OCEAN) SCH ×2 (09:27→21:00)
[2020-01-07] MEDS: FLUTICASONE PROP 0.05% NASAL SPRAY 16 GM (FLONASE) NARES SCH ×2 (09:27→21:11)
[2020-01-07 15:26] VITALS: BP_SYST 151; BP_SYST 167; BP_SYST 175; BP_DIAS 75; BP_DIAS 79; BP_DIAS 93
[2020-01-07] MEDS: WARFARIN SOD 2MG TAB PO SCH (17:04)
[2020-01-07 19:57] VITALS: BP_SYST 150; BP_SYST 156; BP_SYST 162; BP_DIAS 74; BP_DIAS 80
[2020-01-07 20:00] VITALS: BP 150/74
[2020-01-07] MEDS: **NOTE PATIENT COMMENT** MISC XX SCH ×2 (21:13)
[2020-01-08 06:34] VITALS: BP_SYST 137; BP_SYST 142; BP_SYST 161; BP_DIAS 76; BP_DIAS 78; BP_DIAS 87
[2020-01-08 06:40] VITALS: BP 142/87
[2020-01-08] MEDS: IPRATROPIUM 0.5MG/ALBUTEROL 2.5MG INH SOL UD 3ML (DUONEB) NEB SCH ×3 (07:22→19:33)
[2020-01-08] MEDS: OMEPRAZOLE 20 MG CAP PO SCH (08:51)
[2020-01-08] MEDS: ASPIRIN 81 MG ENTERIC TAB PO SCH (08:51)
[2020-01-08] MEDS: LIDOCAINE 5% (LIDODERM) PATCH TD SCH ×2 (08:52→08:53)
[2020-01-08] MEDS: ASCORBIC ACID 500 MG TAB PO SCH ×2 (08:52→21:03)
[2020-01-08] MEDS: LACTOBACILLUS ACIDOPHILUS CAP (BACID) PO SCH ×3 (08:52→21:02)
[2020-01-08] MEDS: ACETAMINOPHEN 500 MG TAB PO SCH ×3 (08:52→21:04)
[2020-01-08] MEDS: VITAMIN D 1,000 INTERNATIONAL UNITS TABLET PO SCH (08:52)
[2020-01-08] MEDS: ANALGESIC BALM CRM 120 GM TOP SCH ×4 (08:53→21:06)
[2020-01-08] MEDS: SODIUM CHLORIDE NASAL 0.65% SPRAY BTL (OCEAN) SCH ×2 (08:54→21:05)
[2020-01-08] MEDS: REMEDY PHYTOPLEX Z-GUARD PASTE 113GM TUBE (FROM STOREROOM PRODUCT) TOP SCH ×3 (08:54→21:00)
[2020-01-08] MEDS: BRIMONIDINE 0.1% OPHTH SOLN 5 ML OU SCH ×2 (08:54→21:06)
[2020-01-08] MEDS: FLUTICASONE PROP 0.05% NASAL SPRAY 16 GM (FLONASE) NARES SCH ×2 (08:55→21:05)
[2020-01-08] MEDS: amLODIPine 5 MG TAB PO SCH (08:57)
[2020-01-08] MEDS: FERROUS GLUCONATE 324 MG TAB PO SCH (08:58)
[2020-01-08] MEDS: atenoloL 25 MG TAB PO SCH ×2 (08:58→21:04)
[2020-01-08 14:00] VITALS: BP_SYST 134; BP_SYST 135; BP_SYST 140; BP_DIAS 56; BP_DIAS 78; BP_DIAS 80
[2020-01-08] MEDS: WARFARIN SOD 2MG TAB PO SCH (16:52)
[2020-01-08] MEDS: SCOPOLAMINE 1MG TRANSDERMAL PATCH TOP SCH (16:55)
[2020-01-08 20:15] VITALS: BP 149/88
[2020-01-08] MEDS: MECLIZINE 12.5 MG TAB PO PRN (21:03)
[2020-01-08] MEDS: **NOTE PATIENT COMMENT** MISC XX SCH ×2 (21:03)
[2020-01-09 06:00] VITALS: BP 138/77
[2020-01-09] MEDS: IPRATROPIUM 0.5MG/ALBUTEROL 2.5MG INH SOL UD 3ML (DUONEB) NEB SCH ×3 (06:13→20:31)
[2020-01-09] MEDS: OMEPRAZOLE 20 MG CAP PO SCH (09:07)
[2020-01-09] MEDS: LIDOCAINE 5% (LIDODERM) PATCH TD SCH ×2 (09:07→09:10)
[2020-01-09] MEDS: LACTOBACILLUS ACIDOPHILUS CAP (BACID) PO SCH ×3 (09:08→20:18)
[2020-01-09] MEDS: FERROUS GLUCONATE 324 MG TAB PO SCH (09:08)
[2020-01-09] MEDS: ASPIRIN 81 MG ENTERIC TAB PO SCH (09:08)
[2020-01-09] MEDS: ASCORBIC ACID 500 MG TAB PO SCH ×2 (09:08→20:19)
[2020-01-09] MEDS: VITAMIN D 1,000 INTERNATIONAL UNITS TABLET PO SCH (09:08)
[2020-01-09] MEDS: ACETAMINOPHEN 500 MG TAB PO SCH ×3 (09:08→20:20)
[2020-01-09] MEDS: atenoloL 25 MG TAB PO SCH ×2 (09:09→20:19)
[2020-01-09] MEDS: amLODIPine 5 MG TAB PO SCH (09:09)
[2020-01-09] MEDS: SODIUM CHLORIDE NASAL 0.65% SPRAY BTL (OCEAN) SCH ×2 (09:10→20:19)
[2020-01-09] MEDS: FLUTICASONE PROP 0.05% NASAL SPRAY 16 GM (FLONASE) NARES SCH ×2 (09:10→20:19)
[2020-01-09] MEDS: BRIMONIDINE 0.1% OPHTH SOLN 5 ML OU SCH ×2 (09:11→20:19)
[2020-01-09] MEDS: ANALGESIC BALM CRM 120 GM TOP SCH ×4 (09:12→20:19)
[2020-01-09] MEDS: REMEDY PHYTOPLEX Z-GUARD PASTE 113GM TUBE (FROM STOREROOM PRODUCT) TOP SCH ×3 (09:13→20:19)
--- NOTE | 2020-01-09 13:00 | IPNPDOC ---
PM&R Progress Note DATE OF SERVICE: Jan 09, 2020 [employer] Clerk Progress Note DATE OF ADMISSION: Dec 22, 2019 at 16:05 INPATIENT REHABILITATION ADMISSION DAY: #18 SUBJECTIVE: Patient is an 89-year-old female on anticoagulation for Afib with vertigo, hypertension with orthostatic hypotension is improving last week with use of leg wraps and abdominal binder, however, has resumed again today, dropping from 147 to the low 130s. Her condition is further compounded by persisting anemia, episodic headaches, nausea without vomiting, , bilateral episodic left worse than right knee pain after several falling episodes, and intermittent bowel issues. Dizziness has improved with Scopolamine and leg wra pping. Diuresis with Lasix previously helped CHF and respiratory issues, weight holding steady at 95-96 kg. She remains still short of breath at times and limited IC 500. Right lower extremity discomfort improving with wrapping. She has made progress with ambulation, transfers, self-care activities, however continues to be challenged with the dizziness. She is at times able to ambulate for longer distances and ascend stairs, other times can barely sit up, severely nauseous. FUNCTIONAL STATUS: PT- Toilet transfers standby assistance, continues complaints of dizziness. Pt with orthostatic changes and dizziness. SBA with transfers. She continues to work on looks 70, strengthening and static balance in standing with wide and narrow base of support with visual distractors. She requires tactile cues to prevent posterior loss of balance. REVIEW OF SYSTEMS: Completed 14 pt review of systems unremarkable except as mentioned in interim subjective history. ALLERGIES: See Below MEDICATIONS: Reviewed, see below, Scopolamine helpful OBJECTIVE: VITAL SIGNS: Please see below. She remains afebrile. Orthostatics checks noted for supine systolic 147, dropped to 133 sitting and 131, standing. PHYSICAL EXAMINATION: GENERAL: lying in bed, tolerates gradual supine to sit with less dizziness, no acute distress. HEENT: Normocephalic, atraumatic. No facial droop. EOMI. No nystagmus. CN II-XII intact CARDIOVASCULAR: S1, S2, irregular rate. LUNGS: Decreased breath sounds, fewer crackles. ABDOMEN: Soft, nontender, obese, soft. Normoactive bowel sounds throughout. MUSCULOSKELETAL: MMT: Healed bilateral TKR scars , no calf tenderness negative Tiffanie's, SOBEIDA hose in place with less edema. lower extremities , 5/5 bilateral knee extension. 5/5 strength bilateral elbow flexion hot dip galvanizer, dorsiflexion, plantar flexion. Notes less pain left shoulder girdle bicipital region. NEUROLOGICAL: Answers all question appropriately. SKIN: intact LABORATORY DATA: Reviewed. Please see below. INR 2.3, continue current alternate dosing, maintaining therapeutic range MICROBIOLOGY: Please see below. ASSESSMENT AND PLAN: 89-year-old hypertensive lady with past medical history of posterior circulation CVA who presents status post recurrent falls, contusing knees and continued vertigo and fairly significant orthostatic hypotensive changes, CHF responded to diuresis, however still with limited cardiopulmonary reserves and regained weig ht. PLAN: 1. Rehab- PT/OT advance mobility and ADLs, strengthen/stretch/maintain ROM all 4 limbs. Encourage monitoring of O2 levels with exertional activities. Added thigh high SOBEIDA with better control postural BP changes contributing to vertigo, added abdominal binder and that seems to help further with control when going from sit to stand. 2. Neuro- persistent vertigo likely central in etiology due to recent posterior circulation infarct in 2019 limiting her overall mobility and contributing to recurrent falls, possibility of further aggravation from orthostatic hypotension. -c/u ASA for secondary stroke prevention in addition to warfarin for afib 3. Resp- encourage incentive spirometry, monitor for infection. Has Acapella, encourage use of device, still poor IC volumes -Duonebs for wheeze on exam and hx of smoking 4.Cardiac- hx of afib, c/u coumadin with daily INRs and adjust the dose downward alternating 2 and 1 better today. SBP spikes, but then big orthostatic shift at times, will continue to monitor, hold on BP med changes for now. Will continue monitoring orthostatic changes. TEDS and binder seem to be helping. 5. continue rehab nursing -medicine consulted to assist in overall management, may need another touch of diuretic for dyspnea. - fluid restrict 1800cc with daily weights 5. GI ppx- omeprazole 6. DVT ppx on coumadin will continue to adjust and recheck PT/INR now at target. 7. GI- monitor for diarrhea 8. Pain- right knee OA worse after fall, left shoulder, possibly related to transfer/gait leaning on walker, continue tylenol , Lidoderm seem to be helping, can also offer ice, added Biofreeze gel prn. 9. Dispo- family conference held, and realistically if we can get her to goal of independence with toileting and mobility at a wheelchair level, short distances with front-wheeled walker transition possibly transition through subacute rehabilitation and eventual assisted living may be the most practical solution given the physiological and psychosocial circumstances. TIME SPENT: Chart Review, examination Team meeting and documentation 30 minutes. Allergies Coded Allergies: Penicillins (Verified Allergy, Mild, RASH, 11/23/18) GUDELIA Inhibitors (Verified Allergy, Unknown, UNKNOWN REACTION PER FAMILY, 04/27/19) SEASONAL ALLERGIES (Verified Allergy, Unknown, 11/23/18) doxycycline (Verified Allergy, Unknown, UNKNOWN REACTION PER FAMILY, 04/27/19) prazosin (Verified Allergy, Unknown, UNKNOWN REACTION PER FAMILY, 04/27/19) codeine (Verified Adverse Reaction, Mild, CONFUSION, 11/23/18) ibuprofen (Verified Adverse Reaction, Mild, ORAL THRUSH, 11/26/18) Vital Signs Vital Signs Date Time Temp Pulse Resp B/P (MAP) Pulse Ox O2 Delivery O2 Flow Rate FiO2 01/09/20 09:09 76 138/77 01/09/20 06:00 98.7 18 94 Room Air Current Medications Current Medications Current Medications Medications (Trade) Dose Ordered Sig/Gemini Route PRN Reason Start Time Stop Time Status Last Admin Dose Admin Acetaminophen (Tylenol Tab) 1,000 mg TID PO 12/22/19 21:00 01/09/20 09:08 Albuterol/ Ipratropium (Duoneb (Ipr 0.5mg/Alb 2.5mg)) 3 ml RTID NEB 12/22/19 20:00 01/09/20 06:13 Amlodipine Besylate (Norvasc) 5 mg DAILY PO 01/02/20 09:00 01/09/20 09:09 Ascorbic Acid (Vitamin C) 500 mg BID PO 12/29/19 21:00 01/09/20 09:08 Aspirin (Ecotrin) 81 mg DAILY PO 12/23/19 09:00 01/09/20 09:08 Atenolol (Tenormin) 25 mg BID PO 12/22/19 21:00 01/09/20 09:09 Brimonidine Tartrate (Alphagan P 0.1%) 1 drop BID OU 12/22/19 21:00 01/09/20 09:11 Ferrous Gluconate (Fergon) 324 mg DAILY PO 12/30/19 09:00 01/09/20 09:08 Fludrocortisone Acetate (Florinef) 0.1 mg DAILY PO 12/23/19 09:00 01/01/20 10:35 DC 01/01/20 07:54 Fluticasone Propionate (Flonase 0.05% Nasal [place]) 1 spray BID NARES 12/22/19 21:00 01/09/20 09:10 Lactobacillus Acidophilus (Bacid) 1 ea TID PO 01/06/20 16:00 01/09/20 09:08 Lidocaine (Lidoderm Patch) 1 patch DAILY TD 12/28/19 09:00 01/09/20 09:10 Lidocaine (Lidoderm Patch) 1 patch DAILY TD 12/23/19 09:00 01/09/20 09:07 Losartan Potassium (Cozaar) 25 mg DAILY PO 01/07/20 09:00 Cancel Magnesium Hydroxide (Milk Of Magnesia) 30 ml DAILYPRN PRN PO CONSTIPATION 12/22/19 16:15 Meclizine HCl (Antivert) 12.5 mg BIDP PRN PO dizziness 12/26/19 19:30 01/08/20 21:03 Meclizine HCl (Antivert) 12.5 mg TID PO 12/22/19 21:00 12/26/19 19:32 DC 12/26/19 17:12 Menthol/Methyl Salicylate (Bengay Cream) BID TOP 01/05/20 09:00 01/09/20 09:12 Menthol/Methyl Salicylate ([place] Cream) APPLY TO RIGHT ACHIL... BID TOP 12/30/19 09:00 01/09/20 09:12 Non-Formulary Medication ( See Comment Field Below ) REMOVE LIDODERM PATCH DAILY@21 XX 12/28/19 21:00 12/28/19 12:00 DC Non-Formulary Medication ( See Comment Field Below ) REMOVE LIDODERM PATCH DAILY@ XX 12/28/19 21:00 01/08/20 21:03 Non-Formulary Medication ( See Comment Field Below ) REMOVE LIDODERM PATCH DAILY@21 XX 12/23/19 21:00 01/08/20 21:03 Nystatin (Mycostatin Powder, Nystop) Apply BID PRN for Rash un... BIDP PRN TOP RASH 01/02/20 23:00 01/03/20 22:13 Omeprazole (PriLOSEC) 40 mg DAILY PO 12/23/19 09:00 01/09/20 09:07 Ondansetron HCl (Zofran Odt) 4 mg Q6HP PRN PO NAUSEA OR VOMITING 01/04/20 02:45 Scopolamine (Scopolamine) 1 mg Q72H TOP 12/27/19 14:45 12/27/19 14:36 DC Scopolamine (Scopolamine) 1 mg Q72H TOP 12/27/19 16:00 01/08/20 16:55 Sodium Chloride ([place] Nasal [place]) 2 spray BID NA 12/22/19 21:00 01/09/20 09:10 Tramadol HCl (Ultram) 25 mg Q4HP PRN PO SEVERE PAIN (PS 8-10) 12/22/19 16:15 12/28/19 12:52 DC 12/28/19 10:37 Vitamin D (Vitamin D) 2,000 units DAILY PO 12/23/19 09:00 01/09/20 09:08 Warfarin Sodium (Coumadin) 2 mg DAILY@17 PO 12/22/19 17:00 01/08/20 16:52 CABRERA COOLEY MD Jan 09, 2020 13:00
[2020-01-09 14:00] VITALS: BP 148/74
[2020-01-09] MEDS: WARFARIN SOD 2MG TAB PO SCH (16:02)
[2020-01-09 20:00] VITALS: BP 161/73
[2020-01-09] MEDS: **NOTE PATIENT COMMENT** MISC XX SCH ×2 (20:20)
[2020-01-10] MEDS: IPRATROPIUM 0.5MG/ALBUTEROL 2.5MG INH SOL UD 3ML (DUONEB) NEB SCH ×3 (08:06→20:28)
[2020-01-10] MEDS: VITAMIN D 1,000 INTERNATIONAL UNITS TABLET PO SCH (08:29)
[2020-01-10] MEDS: LACTOBACILLUS ACIDOPHILUS CAP (BACID) PO SCH ×3 (08:29→20:54)
[2020-01-10] MEDS: ASPIRIN 81 MG ENTERIC TAB PO SCH (08:29)
[2020-01-10] MEDS: ACETAMINOPHEN 500 MG TAB PO SCH ×3 (08:30→20:55)
[2020-01-10] MEDS: FERROUS GLUCONATE 324 MG TAB PO SCH (08:30)
[2020-01-10] MEDS: OMEPRAZOLE 20 MG CAP PO SCH (08:30)
[2020-01-10] MEDS: ASCORBIC ACID 500 MG TAB PO SCH ×2 (08:30→20:54)
[2020-01-10] MEDS: amLODIPine 5 MG TAB PO SCH (08:33)
[2020-01-10] MEDS: atenoloL 25 MG TAB PO SCH ×2 (08:34→20:55)
[2020-01-10] MEDS: LIDOCAINE 5% (LIDODERM) PATCH TD SCH ×2 (08:35)
[2020-01-10] MEDS: BRIMONIDINE 0.1% OPHTH SOLN 5 ML OU SCH ×2 (08:35→20:56)
[2020-01-10] MEDS: FLUTICASONE PROP 0.05% NASAL SPRAY 16 GM (FLONASE) NARES SCH ×2 (08:35→20:56)
[2020-01-10] MEDS: SODIUM CHLORIDE NASAL 0.65% SPRAY BTL (OCEAN) SCH ×2 (08:35→20:56)
[2020-01-10] MEDS: ANALGESIC BALM CRM 120 GM TOP SCH ×4 (08:37→20:57)
[2020-01-10] MEDS: REMEDY PHYTOPLEX Z-GUARD PASTE 113GM TUBE (FROM STOREROOM PRODUCT) TOP SCH ×3 (09:06→21:00)
[2020-01-10 14:00] VITALS: BP 158/80
[2020-01-10 15:00] VITALS: BP_SYST 136; BP_SYST 154; BP_SYST 163; BP_DIAS 74; BP_DIAS 76; BP_DIAS 81
--- NOTE | 2020-01-10 15:11 | IPNPDOC ---
PM&R Progress Note DATE OF SERVICE: Jan 10, 2020 Light Adjuster Progress Note DATE OF ADMISSION: Dec 22, 2019 at 16:05 INPATIENT REHABILITATION ADMISSION DAY: #19 SUBJECTIVE: Patient is an 89-year-old female on anticoagulation for Afib with vertigo, hypertension with orthostatic hypotension is improving last week with use of leg wraps and abdominal binder, however, has resumed again today, dropping from 186 to 150s. Her condition is further compounded by persisting anemia, episodic headaches, nausea without vomiting, , bilateral episodic left worse than right knee pain after several falling episodes, and intermittent bowel issues. Dizziness has improved with Scopolamine and leg wrapping. Diuresis with Lasix previously helped CHF and respiratory issues, weight holding steady at 95-96 kg. She remains still short of breath at times and limited IC 500. Right lower extremity discomfort improving with wrapping. She has made progress with ambulation, transfers, self-care activities, however continues to be challenged with the dizziness. She is at times able to ambulate for longer distances and ascend stairs, other times can barely sit up, severely nauseous. FUNCTIONAL STATUS: PT- Toilet transfers standby assistance, continues complaints of dizziness. Pt with orthostatic changes and dizziness. CTG to SBA with transfers. She continues to work on strengthening and static balance in standing with wide and narrow base of support with visual distractors. She requires tactile cues to prevent posterior loss of balance. REVIEW OF SYSTEMS: Completed 14 pt review of systems unremarkable except as mentioned in interim subjective history. ALLERGIES: See Below MEDICATIONS: Reviewed, see below, Scopolamine helpful OBJECTIVE: VITAL SIGNS: Please see below. She remains afebrile. PHYSICAL EXAMINATION: GENERAL: Sitting up in WC for breakfast, no acute distress. Brighter affect today. HEENT: Normocephalic, atraumatic. No facial droop. EOMI. No nystagmus. CN II-XII intact CARDIOVASCULAR: S1, S2, irregular rate. LUNGS: Decreased breath sounds, fewer crackles. ABDOMEN: Soft, nontender, obese, soft. Normoactive bowel sounds throughout. MUSCULOSKELETAL: MMT: Healed bilateral TKR scars , no calf tenderness negative Tiffanie's, SOBEIDA hose in place with less edema lower extremities , 5/5 bilateral knee extension. 5/5 strength bilateral elbow flexion [employer], dorsiflexion, plantar flexion. Notes less pain left shoulder girdle bicipital region. NEUROLOGICAL: Answers all question appropriately. SKIN: intact LABORATORY DATA: Reviewed. Please see below. INR stable, continue current alternate dosing, maintaining therapeutic range MICROBIOLOGY: Please see below. ASSESSMENT AND PLAN: 89-year-old hypertensive lady with past medical history of posterior circulation CVA who presents status post recurrent falls, contusing knees and continued vertigo and fairly significant orthostatic hypotensive changes, CHF responded to diuresis, however still with limited cardiopulmonary reserves and regained weight. PLAN: 1. Rehab- PT/OT advance mobility and ADLs, strengthen/stretch/maintain ROM all 4 limbs. Encourage monitoring of O2 levels with exertional activities. Added thigh high SOBEIDA with better control postural BP changes contributing to vertigo, added abdominal binder and that seems to help further with control when going from sit to stand. 2. Neuro- persistent vertigo likely central in etiology due to recent posterior circulation infarct in 2019 limiting her overall mobility and contributing to recurrent falls, possibility of further aggravation from orthostatic hypotension. -c/u ASA for secondary stroke prevention in addition to warfarin for afib 3. Resp- encourage incentive spirometry, monitor for infection. Has Acapella, encourage use of device, still variable IC volumes -Duonebs for wheeze on exam and hx of smoking 4.Cardiac- hx of afib, c/u coumadin with daily INRs and adjust the dose downward alternating 2 and 1 better. SBP spikes, but then big orthostatic shift at times, will continue to monitor, hold on BP med changes for now. Will continue monitoring orthostatic changes. TEDS and binder seem to be helping. 5. continue rehab nursing -medicine consulted to assist in overall management, may need another touch of diuretic for dyspnea if recurs, better today. - fluid restrict 1800cc with daily weights 5. GI ppx- omeprazole 6. DVT ppx on coumadin will continue to adjust and recheck PT/INR now at target. 7. GI- monitor for diarrhea 8. Pain- right knee OA worse after fall, left shoulder, possibly related to transfer/gait leaning on walker, continue tylenol , Lidoderm seem to be helping, can also offer ice, added Biofreeze gel prn. 9. Dispo- family conference held, and realistically if we can get her to goal of independence with toileting and mobility at a wheelchair level, short distances with front-wheeled walker transition possibly transition through subacute rehabilitation and eventual assisted living may be the most practical solution given the physiological and psychosocial circumstances. Son reports great difficulty finding reliable in home 24hr caregiving to accommodate her personal desire and goal to return to her home, also entrance poses a barrier and bathroom not accessible. Ongoing communications with family. TIME SPENT: Chart Review, examination Team meeting and documentation 30 minutes. Allergies Coded Allergies: Penicillins (Verified Allergy, Mild, RASH, 11/23/18) GUDELIA Inhibitors (Verified Allergy, Unknown, UNKNOWN REACTION PER FAMILY, 04/27/19) SEASONAL ALLERGIES (Verified Allergy, Unknown, 11/23/18) doxycycline (Verified Allergy, Unknown, UNKNOWN REACTION PER FAMILY, 04/27/19) prazosin (Verified Allergy, Unknown, UNKNOWN REACTION PER FAMILY, 04/27/19) codeine (Verified Adverse Reaction, Mild, CONFUSION, 11/23/18) ibuprofen (Verified Adverse Reaction, Mild, ORAL THRUSH, 11/26/18) Vital Signs Vital Signs Date Time Temp Pulse Resp B/P (MAP) Pulse Ox O2 Delivery O2 Flow Rate FiO2 01/10/20 14:00 97.9 79 18 158/80 (106) 96 Room Air Current Medications Current Medications Current Medications Medications (Trade) Dose Ordered Sig/Gemini Route PRN Reason Start Time Stop Time Status Last Admin Dose Admin Acetaminophen (Tylenol Tab) 1,000 mg TID PO 12/22/19 21:00 01/10/20 08:30 Albuterol/ Ipratropium (Duoneb (Ipr 0.5mg/Alb 2.5mg)) 3 ml RTID NEB 12/22/19 20:00 01/10/20 08:06 Amlodipine Besylate (Norvasc) 5 mg DAILY PO 01/02/20 09:00 01/10/20 08:33 Ascorbic Acid (Vitamin C) 500 mg BID PO 12/29/19 21:00 01/10/20 08:30 Aspirin (Ecotrin) 81 mg DAILY PO 12/23/19 09:00 01/10/20 08:29 Atenolol (Tenormin) 25 mg BID PO 12/22/19 21:00 01/10/20 08:34 Brimonidine Tartrate (Alphagan P 0.1%) 1 drop BID OU 12/22/19 21:00 01/10/20 08:35 Ferrous Gluconate (Fergon) 324 mg DAILY PO 12/30/19 09:00 01/10/20 08:30 Fludrocortisone Acetate (Florinef) 0.1 mg DAILY PO 12/23/19 09:00 01/01/20 10:35 DC 01/01/20 07:54 Fluticasone Propionate (Flonase 0.05% Nasal [place]) 1 spray BID NARES 12/22/19 21:00 01/09/20 20:19 Lactobacillus Acidophilus (Bacid) 1 ea TID PO 01/06/20 16:00 01/10/20 08:29 Lidocaine (Lidoderm Patch) 1 patch DAILY TD 12/28/19 09:00 01/09/20 09:10 Lidocaine (Lidoderm Patch) 1 patch DAILY TD 12/23/19 09:00 01/09/20 09:07 Losartan Potassium (Cozaar) 25 mg DAILY PO 01/07/20 09:00 Cancel Magnesium Hydroxide (Milk Of Magnesia) 30 ml DAILYPRN PRN PO CONSTIPATION 12/22/19 16:15 Meclizine HCl (Antivert) 12.5 mg BIDP PRN PO dizziness 12/26/19 19:30 01/08/20 21:03 Meclizine HCl (Antivert) 12.5 mg TID PO 12/22/19 21:00 12/26/19 19:32 DC 12/26/19 17:12 Menthol/Methyl Salicylate (Bengay Cream) BID TOP 01/05/20 09:00 01/10/20 08:37 Menthol/Methyl Salicylate (Bengay Cream) APPLY TO RIGHT ACHIL... BID TOP 12/30/19 09:00 01/09/20 20:19 Non-Formulary Medication ( See Comment Field Below ) REMOVE LIDODERM PATCH DAILY@21 XX 12/28/19 21:00 12/28/19 12:00 DC Non-Formulary Medication ( See Comment Field Below ) REMOVE LIDODERM PATCH DAILY@21 XX 12/28/19 21:00 01/09/20 20:20 Non-Formulary Medication ( See Comment Field Below ) REMOVE LIDODERM PATCH DAILY@21 XX 12/23/19 21:00 01/09/20 20:20 Nystatin (Mycostatin Powder, Nystop) Apply BID PRN for Rash un... BIDP PRN TOP RASH 01/02/20 23:00 01/03/20 22:13 Omeprazole (PriLOSEC) 40 mg DAILY PO 12/23/19 09:00 01/10/20 08:30 Ondansetron HCl (Zofran Odt) 4 mg Q6HP PRN PO NAUSEA OR VOMITING 01/04/20 02:45 Scopolamine (Scopolamine) 1 mg Q72H TOP 12/27/19 14:45 12/27/19 14:36 DC Scopolamine (Scopolamine) 1 mg Q72H TOP 12/27/19 16:00 01/08/20 16:55 Sodium Chloride ([place] Nasal [place]) 2 spray BID NA 12/22/19 21:00 01/09/20 20:19 Tramadol HCl (Ultram) 25 mg Q4HP PRN PO SEVERE PAIN (PS 8-10) 12/22/19 16:15 12/28/19 12:52 DC 12/28/19 10:37 Vitamin D (Vitamin D) 2,000 units DAILY PO 12/23/19 09:00 01/10/20 08:29 Warfarin Sodium (Coumadin) 2 mg DAILY@17 PO 12/22/19 17:00 01/09/20 16:02 CABRERA COOLEY MD Jan 10, 2020 15:11
[2020-01-10] MEDS: WARFARIN SOD 2MG TAB PO SCH (16:00)
[2020-01-10 17:50] VITALS: BP_SYST 130; BP_SYST 145; BP_SYST 146; BP_DIAS 76; BP_DIAS 83; BP_DIAS 86
[2020-01-10] MEDS: MECLIZINE 12.5 MG TAB PO PRN (17:50)
[2020-01-10 20:00] VITALS: BP 157/68
[2020-01-10] MEDS: **NOTE PATIENT COMMENT** MISC XX SCH ×2 (21:00)
[2020-01-11 06:00] VITALS: BP 168/81
[2020-01-11] MEDS: IPRATROPIUM 0.5MG/ALBUTEROL 2.5MG INH SOL UD 3ML (DUONEB) NEB SCH ×3 (07:16→19:30)
[2020-01-11] MEDS: SODIUM CHLORIDE NASAL 0.65% SPRAY BTL (OCEAN) SCH ×3 (09:00→22:24)
[2020-01-11] MEDS: REMEDY PHYTOPLEX Z-GUARD PASTE 113GM TUBE (FROM STOREROOM PRODUCT) TOP SCH ×3 (09:00→22:20)
[2020-01-11] MEDS: ANALGESIC BALM CRM 120 GM TOP SCH ×4 (09:00→22:17)
[2020-01-11] MEDS: LIDOCAINE 5% (LIDODERM) PATCH TD SCH ×2 (09:00)
[2020-01-11] MEDS: OMEPRAZOLE 20 MG CAP PO SCH (09:21)
[2020-01-11] MEDS: ASPIRIN 81 MG ENTERIC TAB PO SCH (09:21)
[2020-01-11] MEDS: LACTOBACILLUS ACIDOPHILUS CAP (BACID) PO SCH ×3 (09:21→22:15)
[2020-01-11] MEDS: BRIMONIDINE 0.1% OPHTH SOLN 5 ML OU SCH ×2 (09:21→22:16)
[2020-01-11] MEDS: FLUTICASONE PROP 0.05% NASAL SPRAY 16 GM (FLONASE) NARES SCH ×2 (09:21→22:18)
[2020-01-11] MEDS: MECLIZINE 12.5 MG TAB PO PRN (09:22)
[2020-01-11] MEDS: VITAMIN D 1,000 INTERNATIONAL UNITS TABLET PO SCH (09:22)
[2020-01-11] MEDS: FERROUS GLUCONATE 324 MG TAB PO SCH (09:22)
[2020-01-11] MEDS: ACETAMINOPHEN 500 MG TAB PO SCH ×3 (09:22→22:15)
[2020-01-11] MEDS: ASCORBIC ACID 500 MG TAB PO SCH ×2 (09:22→22:14)
[2020-01-11] MEDS: atenoloL 25 MG TAB PO SCH ×2 (09:25→22:29)
[2020-01-11] MEDS: amLODIPine 5 MG TAB PO SCH (09:25)
--- NOTE | 2020-01-11 11:34 | IPNPDOC ---
PM&R Progress Note DATE OF SERVICE: Jan 11, 2020 Senior Materials Planner Progress Note DATE OF ADMISSION: Dec 22, 2019 at 16:05 INPATIENT REHABILITATION ADMISSION DAY: #[20] SUBJECTIVE: Patient is an 89-year-old female on anticoagulation for Afib with vertigo, hypertension with orthostatic hypotension is improving last week with use of leg wraps and abdominal binder, however, has resumed again today, dropping from 186 to 150s. Her condition is further compounded by persisting anemia, episodic headaches, nausea without vomiting, , bilateral episodic left worse than right knee pain after several falling episodes, and intermittent bowel issues. Dizziness has improved with Scopolamine and leg wrapping. Diuresis with Lasix previously helped CHF and respiratory issues, weight holding steady at 95-96 kg. She remains still short of breath at times and limited IC 500. Right lower extremity discomfort improving with wrapping. She has made progress with ambulation, transfers, self-care activities, however continues to be challenged with the dizziness. She is at times able to ambulate for longer distances and ascend stairs, other times can barely sit up, severely nauseous. Nursing noted this morning some challenges with taking her medicines increased coughing and possible difficulty with previously manageable consistencies of food intake. Patient complained of sore throat. Afebrile. FUNCTIONAL STATUS: PT- Toilet transfers standby assistance, continues complaints of dizziness. Pt with orthostatic changes and dizziness. CTG to SBA with transfers. She continues to work on strengthening and static balance in standing with wide and narrow base of support with visual distractors. She requires tactile cues to prevent posterior loss of balance. REVIEW OF SYSTEMS: Completed 14 pt review of systems unremarkable except as mentioned in interim subjective history. ALLERGIES: See Below MEDICATIONS: Reviewed, see below, Scopolamine helpful OBJECTIVE: VITAL SIGNS: Please see below. She remains afebrile. PHYSICAL EXAMINATION: GENERAL: Sitting up in WC for breakfast, no acute distress. Brighter affect today. HEENT: Normocephalic, atraumatic. No facial droop. EOMI. No nystagmus. No injection, appears a little dry. CN II-XII intact CARDIOVASCULAR: S1, S2, irregular rate. LUNGS: Clear no wheezes, rales, rhonchi ABDOMEN: Soft, nontender, obese, soft. Normoactive bowel sounds throughout. MUSCULOSKELETAL: MMT: Healed bilateral TKR scars , no calf tenderness negative Tiffanie's, SOBEIDA hose in place with less edema lower extremities , 5/5 bilateral knee extension. 5/5 strength bilateral elbow flexion knocker out, dorsiflexion, plantar flexion. NEUROLOGICAL: Answers all question appropriately. SKIN: intact FUNCTIONAL STATUS: Contact-guard assistance for [id number], minimal assistance. Transfers from bed to chair and chair to bed, major challenges remain balance and during weight shifting. Ambulation is with a rolling walker with contact guard assistance LABORATORY DATA: Reviewed. Please see below. INR stable, continue current alternate dosing, maintaining therapeutic range MICROBIOLOGY: Please see below. ASSESSMENT AND PLAN: 89-year-old hypertensive lady with past medical history of posterior circulation CVA who presents status post recurrent falls, contusing knees and continued vertigo and fairly significant orthostatic hypotensive changes, CHF responded to diuresis, however still with limited cardiopulmonary reserves and regained weight. PLAN: 1. Rehab- PT/OT advance mobility and ADLs, strengthen/stretch/maintain ROM all 4 limbs. Encourage monitoring of O2 levels with exertional activities. Added thigh high SOBEIDA with better control postural BP changes contributing to vertigo, added abdominal binder and that seems to help further with control when going from sit to stand. We'll have speech reassessed the report in terms swallowing changes may need to do further imaging studies if significant new neurological deficits evident, enourage fluids with medications. 2. Neuro- persistent vertigo likely central in etiology due to recent posterior circulation infarct in 2019 limiting her overall mobility and contributing to recurrent falls, possibility of further aggravation from orthostatic hypotension. -c/u ASA for secondary stroke prevention in addition to warfarin for afib 3. Resp- encourage incentive spirometry, monitor for infection. Has Acapella, encourage use of device, still variable IC volumes -Duonebs for wheeze on exam and hx of smoking 4.Cardiac- hx of afib, c/u coumadin with daily INRs and adjust the dose downward alternating 2 and 1 better. SBP spikes, but then big orthostatic shift at times, will continue to monitor, hold on BP med changes for now. Will continue monitoring orthostatic changes. TEDS and binder seem to be helping. 5. continue rehab nursing -medicine consulted to assist in overall management, may need another touch of diuretic for dyspnea if recurs, better today. - fluid restrict 1800cc with daily weights 5. GI ppx- omeprazole. Added cepacol lozenges 6. DVT ppx on coumadin will continue to adjust and recheck PT/INR now at target. 7. GI- monitor for diarrhea 8. Pain- right knee OA worse after fall, left shoulder, possibly related to transfer/gait leaning on walker, continue tylenol , Lidoderm seem to be helping, can also offer ice, added Biofreeze gel prn. 9. Dispo- family conference held last week, and realistically if we can get her to goal of independence with toileting and mobility at a wheelchair level, short distances with front-wheeled walker transition possibly transition through subacute rehabilitation and eventual assisted living may be the most practical solution given the physiological and psychosocial circumstances. Son reports great difficulty finding reliable in home 24hr caregiving to accommodate her personal desire and goal to return to her home, also entrance poses a barrier and bathroom not accessible. Ongoing communications with family. TIME SPENT: Chart Review, examination Team meeting and documentation 30 minutes. Allergies Coded Allergies: Penicillins (Verified Allergy, Mild, RASH, 11/23/18) GUDELIA Inhibitors (Verified Allergy, Unknown, UNKNOWN REACTION PER FAMILY, 04/27/19) SEASONAL ALLERGIES (Verified Allergy, Unknown, 11/23/18) doxycycline (Verified Allergy, Unknown, UNKNOWN REACTION PER FAMILY, 04/27/19) prazosin (Verified Allergy, Unknown, UNKNOWN REACTION PER FAMILY, 04/27/19) codeine (Verified Adverse Reaction, Mild, CONFUSION, 11/23/18) ibuprofen (Verified Adverse Reaction, Mild, ORAL THRUSH, 11/26/18) Vital Signs Vital Signs Date Time Temp Pulse Resp B/P (MAP) Pulse Ox O2 Delivery O2 Flow Rate FiO2 01/11/20 09:25 78 150/82 01/11/20 06:00 97.6 18 98 Room Air Laboratory Data Labs 24H Laboratory Tests 2 01/10/20 18:42: Current Medications Current Medications Current Medications Medications (Trade) Dose Ordered Sig/Gemini Route PRN Reason Start Time Stop Time Status Last Admin Dose Admin Acetaminophen (Tylenol Tab) 1,000 mg TID PO 12/22/19 21:00 01/11/20 09:22 Albuterol/ Ipratropium (Duoneb (Ipr 0.5mg/Alb 2.5mg)) 3 ml RTID NEB 12/22/19 20:00 01/11/20 07:16 Amlodipine Besylate (Norvasc) 5 mg DAILY PO 01/02/20 09:00 01/11/20 09:25 Ascorbic Acid (Vitamin C) 500 mg BID PO 12/29/19 21:00 01/11/20 09:22 Aspirin (Ecotrin) 81 mg DAILY PO 12/23/19 09:00 01/11/20 09:21 Atenolol (Tenormin) 25 mg BID PO 12/22/19 21:00 01/11/20 09:25 Brimonidine Tartrate (Alphagan P 0.1%) 1 drop BID OU 12/22/19 21:00 01/11/20 09:21 Ferrous Gluconate (Fergon) 324 mg DAILY PO 12/30/19 09:00 01/11/20 09:22 Fludrocortisone Acetate (Florinef) 0.1 mg DAILY PO 12/23/19 09:00 01/01/20 10:35 DC 01/01/20 07:54 Fluticasone Propionate (Flonase 0.05% Nasal [place]) 1 spray BID NARES 12/22/19 21:00 01/11/20 09:21 Lactobacillus Acidophilus (Bacid) 1 ea TID PO 01/06/20 16:00 01/11/20 09:21 Lidocaine (Lidoderm Patch) 1 patch DAILY TD 12/28/19 09:00 01/09/20 09:10 Lidocaine (Lidoderm Patch) 1 patch DAILY TD 12/23/19 09:00 01/09/20 09:07 Losartan Potassium (Cozaar) 25 mg DAILY PO 01/07/20 09:00 Cancel Magnesium Hydroxide (Milk Of Magnesia) 30 ml DAILYPRN PRN PO CONSTIPATION 12/22/19 16:15 Meclizine HCl (Antivert) 12.5 mg BIDP PRN PO dizziness 12/26/19 19:30 01/11/20 09:22 Meclizine HCl (Antivert) 12.5 mg TID PO 12/22/19 21:00 12/26/19 19:32 DC 12/26/19 17:12 Menthol/Methyl Salicylate (Bengay Cream) BID TOP 01/05/20 09:00 01/11/20 09:21 Menthol/Methyl Salicylate (Bengay Cream) APPLY TO RIGHT ACHIL... BID TOP 10/16/20 09:00 01/10/20 20:57 Non-Formulary Medication ( See Comment Field Below ) REMOVE LIDODERM PATCH DAILY@ XX 12/28/19 21:00 12/28/19 12:00 DC Non-Formulary Medication ( See Comment Field Below ) REMOVE LIDODERM PATCH DAILY@ XX 12/28/19 21:00 01/09/20 20:20 Non-Formulary Medication ( See Comment Field Below ) REMOVE LIDODERM PATCH DAILY@ XX 12/23/19 21:00 01/09/20 20:20 Nystatin (Mycostatin Powder, Nystop) Apply BID PRN for Rash un... BIDP PRN TOP RASH 01/02/20 23:00 01/03/20 22:13 Omeprazole (PriLOSEC) 40 mg DAILY PO 12/23/19 09:00 01/11/20 09:21 Ondansetron HCl (Zofran Odt) 4 mg Q6HP PRN PO NAUSEA OR VOMITING 01/04/20 02:45 Scopolamine (Scopolamine) 1 mg Q72H TOP 12/27/19 14:45 12/27/19 14:36 DC Scopolamine (Scopolamine) 1 mg Q72H TOP 12/27/19 16:00 01/08/20 16:55 Sodium Chloride ([place] Nasal [place]) 2 spray BID NA 12/22/19 21:00 01/10/20 20:56 Tramadol HCl (Ultram) 25 mg Q4HP PRN PO SEVERE PAIN (PS 8-10) 12/22/19 16:15 12/28/19 12:52 DC 12/28/19 10:37 Vitamin D (Vitamin D) 2,000 units DAILY PO 12/23/19 09:00 01/11/20 09:22 Warfarin Sodium (Coumadin) 2 mg DAILY@17 PO 12/22/19 17:00 01/10/20 16:00 CABRERA COOLEY MD Jan 11, 2020 11:34
[2020-01-11] MEDS ORDERED: CEPACOL LOZENGE PO PRN (12:30)
[2020-01-11 12:57] LABS: BASO # 0.1 10^3/uL (0.0-0.2); BASO % 0.9 % (0.0-1.0); EOS # 0.3 10^3/uL (0.0-0.5); EOS % 4.3 % (0.0-3.0); HEMATOCRIT 32.5 % (36.0-47.0); HEMOGLOBIN 10.2 g/dl (12.0-15.5); LYMPH # 2.3 10^3/uL (1.5-5.0); LYMPH % 34.1 % (24.0-44.0); MEAN CORPUSCULAR HEMOGLOBIN 29.7 pg (27.0-33.0); MEAN CORPUSCULAR HGB CONC 31.4 g/dl (32.0-36.5); MEAN CORPUSCULAR VOLUME 94.5 fl (80.0-96.0); MONO # 0.7 10^3/uL (0.0-0.8); NEUTROPHILS # 3.4 10^3/uL (1.5-8.5); NEUTROPHILS % 50.3 % (36.0-66.0); PLATELET COUNT, AUTOMATED 303 10^3/uL (150-450); RED BLOOD COUNT 3.44 10^6/uL (4.00-5.40); WHITE BLOOD COUNT 6.7 10^3/uL (4.0-10.0)
[2020-01-11 14:00] VITALS: BP 133/60
[2020-01-11] MEDS: WARFARIN SOD 2MG TAB PO SCH (16:40)
[2020-01-11] MEDS: SCOPOLAMINE 1MG TRANSDERMAL PATCH TOP SCH (16:41)
[2020-01-11 20:00] VITALS: BP_SYST 119; BP_SYST 132; BP_DIAS 58; BP_DIAS 82
[2020-01-11 22:00] VITALS: BP_SYST 127; BP_SYST 145; BP_SYST 157; BP_DIAS 69; BP_DIAS 73; BP_DIAS 89
[2020-01-11] MEDS: **NOTE PATIENT COMMENT** MISC XX SCH ×2 (22:20)
[2020-01-12 06:00] VITALS: BP 148/71
[2020-01-12 06:42] LABS: BLOOD UREA NITROGEN 14 MG/DL (7-18); CALCIUM LEVEL 8.7 MG/DL (8.8-10.2); CARBON DIOXIDE LEVEL 27 MEQ/L (21-32); CHLORIDE LEVEL 111 MEQ/L (98-107); CREATININE FOR GFR 0.84 MG/DL (0.55-1.30); GLOMERULAR FILTRATION RATE > 60.0 (>32); GLUCOSE, FASTING 95 MG/DL (70-100); SODIUM LEVEL 144 MEQ/L (136-145)
[2020-01-12] MEDS: IPRATROPIUM 0.5MG/ALBUTEROL 2.5MG INH SOL UD 3ML (DUONEB) NEB SCH ×3 (07:49→20:16)
[2020-01-12] MEDS: REMEDY PHYTOPLEX Z-GUARD PASTE 113GM TUBE (FROM STOREROOM PRODUCT) TOP SCH ×3 (09:00→20:36)
[2020-01-12] MEDS: ASPIRIN 81 MG ENTERIC TAB PO SCH (10:37)
[2020-01-12] MEDS: LACTOBACILLUS ACIDOPHILUS CAP (BACID) PO SCH ×3 (10:37→20:34)
[2020-01-12] MEDS: ASCORBIC ACID 500 MG TAB PO SCH ×2 (10:38→20:34)
[2020-01-12] MEDS: VITAMIN D 1,000 INTERNATIONAL UNITS TABLET PO SCH (10:38)
[2020-01-12] MEDS: atenoloL 25 MG TAB PO SCH ×2 (10:38→20:33)
[2020-01-12] MEDS: OMEPRAZOLE 20 MG CAP PO SCH (10:38)
[2020-01-12] MEDS: ACETAMINOPHEN 500 MG TAB PO SCH ×3 (10:38→20:33)
[2020-01-12] MEDS: FERROUS GLUCONATE 324 MG TAB PO SCH (10:39)
[2020-01-12] MEDS: LIDOCAINE 5% (LIDODERM) PATCH TD SCH ×2 (10:39)
[2020-01-12] MEDS: amLODIPine 5 MG TAB PO SCH (10:39)
[2020-01-12] MEDS: FLUTICASONE PROP 0.05% NASAL SPRAY 16 GM (FLONASE) NARES SCH ×2 (10:40→20:34)
[2020-01-12] MEDS: BRIMONIDINE 0.1% OPHTH SOLN 5 ML OU SCH ×2 (10:40→20:35)
[2020-01-12] MEDS: SODIUM CHLORIDE NASAL 0.65% SPRAY BTL (OCEAN) SCH ×2 (10:40→20:34)
[2020-01-12] MEDS: ANALGESIC BALM CRM 120 GM TOP SCH ×4 (10:41→20:35)
[2020-01-12 14:00] VITALS: BP 103/61
[2020-01-12] MEDS: WARFARIN SOD 2MG TAB PO SCH (16:21)
[2020-01-12 20:00] VITALS: BP 145/78
[2020-01-12] MEDS: **NOTE PATIENT COMMENT** MISC XX SCH ×2 (20:36→20:37)
[2020-01-12 21:00] VITALS: BP_SYST 162; BP_SYST 167; BP_SYST 169; BP_DIAS 75; BP_DIAS 86; BP_DIAS 88
[2020-01-13 05:59] VITALS: BP 144/94
[2020-01-13] MEDS: IPRATROPIUM 0.5MG/ALBUTEROL 2.5MG INH SOL UD 3ML (DUONEB) NEB SCH ×3 (07:09→19:44)
[2020-01-13] MEDS: REMEDY PHYTOPLEX Z-GUARD PASTE 113GM TUBE (FROM STOREROOM PRODUCT) TOP SCH ×3 (09:00→21:00)
[2020-01-13] MEDS: OMEPRAZOLE 20 MG CAP PO SCH (09:18)
[2020-01-13] MEDS: FERROUS GLUCONATE 324 MG TAB PO SCH (09:18)
[2020-01-13] MEDS: ASCORBIC ACID 500 MG TAB PO SCH ×2 (09:18→21:19)
[2020-01-13] MEDS: ASPIRIN 81 MG ENTERIC TAB PO SCH (09:18)
[2020-01-13] MEDS: VITAMIN D 1,000 INTERNATIONAL UNITS TABLET PO SCH (09:19)
[2020-01-13] MEDS: atenoloL 25 MG TAB PO SCH ×2 (09:19→21:19)
[2020-01-13] MEDS: ACETAMINOPHEN 500 MG TAB PO SCH ×3 (09:19→21:20)
[2020-01-13] MEDS: amLODIPine 5 MG TAB PO SCH (09:19)
[2020-01-13] MEDS: LACTOBACILLUS ACIDOPHILUS CAP (BACID) PO SCH ×3 (09:19→21:19)
[2020-01-13] MEDS: LIDOCAINE 5% (LIDODERM) PATCH TD SCH ×2 (09:20)
[2020-01-13] MEDS: FLUTICASONE PROP 0.05% NASAL SPRAY 16 GM (FLONASE) NARES SCH ×2 (09:20→21:26)
[2020-01-13] MEDS: SODIUM CHLORIDE NASAL 0.65% SPRAY BTL (OCEAN) SCH ×2 (09:20→21:00)
[2020-01-13] MEDS: BRIMONIDINE 0.1% OPHTH SOLN 5 ML OU SCH ×2 (09:20→21:24)
[2020-01-13] MEDS: ANALGESIC BALM CRM 120 GM TOP SCH ×4 (09:21→21:27)
--- NOTE | 2020-01-13 12:31 | IPNPDOC ---
PM&R Progress Note DATE OF SERVICE: Jan 13, 2020 Lab Aide Progress Note DATE OF ADMISSION: Dec INPATIENT REHABILITATION ADMISSION DAY: #[20] SUBJECTIVE: Patient is an 89-year-old female on anticoagulation for Afib with vertigo, hypertension with orthostatic hypotension is improving last week with use of leg wraps and abdominal binder, however, has resumed again today, dropping from 186 to 150s. Her condition is further compounded by persisting anemia, episodic headaches, nausea without vomiting, , bilateral episodic left worse than right knee pain after several falling episodes, and intermittent bowel issues. Dizziness has improved with Scopolamine and leg wrapping. Diuresis with Lasix previously helped CHF and respiratory issues, weight holding steady at 95-96 kg. She remains still short of breath at times and limited IC 500. Right lower extremity discomfort improving with wrapping. She has made progress with ambulation, transfers, self-care activities, however continues to be challenged with the dizziness. She is at times able to ambulate for longer distances and ascend stairs, other times can barely sit up, severely nauseous. Nursing observed challenges with taking her medicines increased coughing and possible difficulty with previously manageable consistencies of food intake [employer] does not detect specific new neurological abnormalities, suggested more moistening, use of puddings, applesauce to help with swallowing followed by water intake. FUNCTIONAL STATUS: PT- Toilet transfers standby assistance, continues complaints of dizziness. CTG to SBA with transfers. She continues to work on strengthening and static balance in standing with wide and narrow base of support with visual distractors. She requires tactile cues to prevent posterior loss of balance. REVIEW OF SYSTEMS: Completed 14 pt review of systems unremarkable except as mentioned in interim subjective history. ALLERGIES: See Below MEDICATIONS: Reviewed, see below, Scopolamine helpful OBJECTIVE: VITAL SIGNS: Please see below. She remains afebrile. PHYSICAL EXAMINATION: GENERAL: Sitting up in WC for breakfast, no acute distress. Brighter affect today. HEENT: Normocephalic, atraumatic. No facial droop. EOMI. No nystagmus. No injection, appears a little dry. CN II-XII intact CARDIOVASCULAR: S1, S2, irregular rate. LUNGS: Clear no wheezes, rales, rhonchi ABDOMEN: Soft, nontender, obese, soft. Normoactive bowel sounds throughout. MUSCULOSKELETAL: MMT: Healed bilateral TKR scars , no calf tenderness negative Tiffanie's, SOBEIDA hose in place with less edema lower extremities , 5/5 bilateral k nee extension. 5/5 strength bilateral elbow flexion ribbon weaver, dorsiflexion, plantar flexion. NEUROLOGICAL: Answers all question appropriately. SKIN: intact FUNCTIONAL STATUS: Contact-guard assistance for [id number], minimal assistance. Transfers from bed to chair and chair to bed, major challenges remain balance and during weight shifting. Ambulation is with a rolling walker with contact guard assistance LABORATORY DATA: Reviewed. Please see below. INR stable, continue current alter juanjose dosing, maintaining therapeutic range MICROBIOLOGY: Please see below. ASSESSMENT AND PLAN: 89-year-old hypertensive lady with past medical history of posterior circulation CVA who presents status post recurrent falls, contusing knees and continued ve rtigo and fairly significant orthostatic hypotensive changes, CHF responded to diuresis, however still with limited cardiopulmonary reserves and regained weight. PLAN: 1. Rehab- PT/OT advance mobility and ADLs, strengthen/stretch/maintain ROM all 4 limbs. Encourage monitoring of O2 levels with exertional activities. Added thigh high SOBEIDA with better control postural BP changes contributing to vertigo, added abdominal binder and that seems to help further with control when going from sit to stand. We'll have speech reassessed the report in terms swallowing changes may need to do further imaging studies if significant new neurological deficits evident, enourage fluids with medications. 2. Neuro- persistent vertigo likely central in etiology due to recent posterior circulation infarct in 2019 limiting her overall mobility and contributing to recurrent falls, possibility of further aggravation from orthostatic hypotension. -c/u ASA for secondary stroke prevention in addition to warfarin for afib 3. Resp- encourage incentive spirometry, monitor for infection. Has Acapella, encourage use of device, still variable IC volumes -Duonebs for wheeze on exam and hx of smoking 4.Cardiac- hx of afib, c/u coumadin with daily INRs and adjust the dose downward alternating 2 and 1 better. SBP spikes, but then big orthostatic shift at times, will continue to monitor, hold on BP med changes for now. Will continue monitoring orthostatic changes. TEDS and binder seem to be helping. 5. continue rehab nursing -medicine consulted to assist in overall management, may need another touch of diuretic for dyspnea if recurs, better today. - fluid restrict 1800cc with daily weights, weight holding steady. 5. GI ppx- omeprazole. Added cepacol lozenges, helping 6. DVT ppx on coumadin will continue to adjust and recheck PT/INR now at target. 7. GI- monitor for diarrhea 8. Pain- right knee OA worse after fall, left shoulder, possibly related to transfer/gait leaning on walker, continue tylenol , Lidoderm seem to be helping, can also offer ice, added Biofreeze gel prn. 9. Dispo- family conference held last week, and realistically if we can get her to goal of independence with toileting and mobility at a wheelchair level, short distances with front-wheeled walker transition possibly transition through subacute rehabilitation and eventual assisted living may be the most practical solution given the physiological and psychosocial circumstances. Son reports great difficulty finding reliable in home 24hr caregiving to accommodate her personal desire and goal to return to her home, also entrance poses a barrier and bathroom not accessible. Ongoing communications with family. TIME SPENT: Chart Review, examination Team meeting and documentation 30 minutes. Allergies Coded Allergies: Penicillins (Verified Allergy, Mild, RASH, 11/23/18) GUDELIA Inhibitors (Verified Allergy, Unknown, UNKNOWN REACTION PER FAMILY, 04/27/19) SEASONAL ALLERGIES (Verified Allergy, Unknown, 11/23/18) doxycycline (Verified Allergy, Unknown, UNKNOWN REACTION PER FAMILY, 04/27/19) prazosin (Verified Allergy, Unknown, UNKNOWN REACTION PER FAMILY, 04/27/19) codeine (Verified Adverse Reaction, Mild, CONFUSION, 11/23/18) ibuprofen (Verified Adverse Reaction, Mild, ORAL THRUSH, 11/26/18) Vital Signs Vital Signs Date Time Temp Pulse Resp B/P (MAP) Pulse Ox O2 Delivery O2 Flow Rate FiO2 01/13/20 09:19 75 144/94 01/13/20 05:59 97.6 17 97 Room Air Current Medications Current Medications Current Medications Medications (Trade) Dose Ordered Sig/Gemini Route PRN Reason Start Time Stop Time Status Last Admin Dose Admin Acetaminophen (Tylenol Tab) 1,000 mg TID PO 12/22/19 21:00 01/13/20 09:19 Albuterol/ Ipratropium (Duoneb (Ipr 0.5mg/Alb 2.5mg)) 3 ml RTID NEB 12/22/19 20:00 01/13/20 07:09 Amlodipine Besylate (Norvasc) 5 mg DAILY PO 01/02/20 09:00 01/13/20 09:19 Ascorbic Acid (Vitamin C) 500 mg BID PO 12/29/19 21:00 01/13/20 09:18 Aspirin (Ecotrin) 81 mg DAILY PO 12/23/19 09:00 01/13/20 09:18 Atenolol (Tenormin) 25 mg BID PO 12/22/19 21:00 01/13/20 09:19 Brimonidine Tartrate (Alphagan P 0.1%) 1 drop BID OU 12/22/19 21:00 01/13/20 09:20 Cetylpyridinium Chloride (Cepacol) 1 judy Q4HP PRN PO SORE THROAT 01/11/20 12:30 01/11/20 17:56 Ferrous Gluconate (Fergon) 324 mg DAILY PO 12/30/19 09:00 01/13/20 09:18 Fludrocortisone Acetate (Florinef) 0.1 mg DAILY PO 12/23/19 09:00 01/01/20 10:35 DC 01/01/20 07:54 Fluticasone Propionate (Flonase 0.05% Nasal [place]) 1 spray BID NARES 12/22/19 21:00 01/13/20 09:20 Lactobacillus Acidophilus (Bacid) 1 ea TID PO 01/06/20 16:00 01/13/20 09:19 Lidocaine (Lidoderm Patch) 1 patch DAILY TD 12/28/19 09:00 01/13/20 09:20 Lidocaine (Lidoderm Patch) 1 patch DAILY TD 12/23/19 09:00 01/13/20 09:20 Losartan Potassium (Cozaar) 25 mg DAILY PO 01/07/20 09:00 Cancel Magnesium Hydroxide (Milk Of Magnesia) 30 ml DAILYPRN PRN PO CONSTIPATION 12/22/19 16:15 Meclizine HCl (Antivert) 12.5 mg BIDP PRN PO dizziness 12/26/19 19:30 01/11/20 09:22 Meclizine HCl (Antivert) 12.5 mg TID PO 12/22/19 21:00 12/26/19 19:32 DC 12/26/19 17:12 Menthol/Methyl Salicylate (Bengay Cream) BID TOP 01/05/20 09:00 01/13/20 09:21 Menthol/Methyl Salicylate (Bengay Cream) APPLY TO RIGHT ACHIL... BID TOP 12/30/19 09:00 01/13/20 09:21 Non-Formulary Medication ( See Comment Field Below ) REMOVE LIDODERM PATCH DAILY@21 XX 12/28/19 21:00 12/28/19 12:00 DC Non-Formulary Medication ( See Comment Field Below ) REMOVE LIDODERM PATCH DAILY@21 XX 12/28/19 21:00 01/12/20 20:37 Non-Formulary Medication ( See Comment Field Below ) REMOVE LIDODERM PATCH DAILY@ XX 12/23/19 21:00 01/12/20 20:36 Nystatin (Mycostatin Powder, Nystop) Apply BID PRN for Rash un... BIDP PRN TOP RASH 01/02/20 23:00 01/03/20 22:13 Omeprazole (PriLOSEC) 40 mg DAILY PO 12/23/19 09:00 01/13/20 09:18 Ondansetron HCl (Zofran Odt) 4 mg Q6HP PRN PO NAUSEA OR VOMITING 01/04/20 02:45 Scopolamine (Scopolamine) 1 mg Q72H TOP 12/27/19 14:45 12/27/19 14:36 DC Scopolamine (Scopolamine) 1 mg Q72H TOP 12/27/19 16:00 01/13/20 10:13 DC 01/11/20 16:41 Scopolamine (Scopolamine) 1 mg Q72H TOP 01/14/20 16:00 Sodium Chloride ([place] Nasal [place]) 2 spray BID NA 12/22/19 21:00 01/13/20 09:20 Tramadol HCl (Ultram) 25 mg Q4HP PRN PO SEVERE PAIN (PS 8-10) 12/22/19 16:15 12/28/19 12:52 DC 12/28/19 10:37 Vitamin D (Vitamin D) 2,000 units DAILY PO 12/23/19 09:00 01/13/20 09:19 Warfarin Sodium (Coumadin) 2 mg DAILY@17 PO 12/22/19 17:00 01/12/20 16:21 CABRERA COOLEY MD Jan 13, 2020 12:30
[2020-01-13 15:00] VITALS: BP_SYST 140; BP_SYST 146; BP_DIAS 92; BP_DIAS 94
[2020-01-13 16:00] VITALS: BP 147/77
[2020-01-13] MEDS: WARFARIN SOD 2MG TAB PO SCH (17:01)
[2020-01-13 20:20] VITALS: BP_SYST 130; BP_SYST 141; BP_SYST 148; BP_DIAS 77; BP_DIAS 82; BP_DIAS 87
[2020-01-13] MEDS: **NOTE PATIENT COMMENT** MISC XX SCH ×2 (21:28)
[2020-01-14 06:26] VITALS: BP_SYST 140; BP_SYST 144; BP_SYST 146; BP_DIAS 82; BP_DIAS 83; BP_DIAS 86
[2020-01-14] MEDS: IPRATROPIUM 0.5MG/ALBUTEROL 2.5MG INH SOL UD 3ML (DUONEB) NEB SCH ×3 (07:15→20:41)
[2020-01-14] MEDS: amLODIPine 5 MG TAB PO SCH (08:59)
[2020-01-14] MEDS: OMEPRAZOLE 20 MG CAP PO SCH (08:59)
[2020-01-14] MEDS: SODIUM CHLORIDE NASAL 0.65% SPRAY BTL (OCEAN) SCH ×2 (08:59→21:14)
[2020-01-14] MEDS: ASPIRIN 81 MG ENTERIC TAB PO SCH (08:59)
[2020-01-14] MEDS: LACTOBACILLUS ACIDOPHILUS CAP (BACID) PO SCH ×3 (08:59→21:09)
[2020-01-14] MEDS: ACETAMINOPHEN 500 MG TAB PO SCH ×3 (08:59→21:11)
[2020-01-14] MEDS: ASCORBIC ACID 500 MG TAB PO SCH ×2 (08:59→21:09)
[2020-01-14] MEDS: VITAMIN D 1,000 INTERNATIONAL UNITS TABLET PO SCH (08:59)
[2020-01-14] MEDS: FERROUS GLUCONATE 324 MG TAB PO SCH (08:59)
[2020-01-14] MEDS: atenoloL 25 MG TAB PO SCH ×2 (08:59→21:10)
[2020-01-14] MEDS: FLUTICASONE PROP 0.05% NASAL SPRAY 16 GM (FLONASE) NARES SCH ×2 (08:59→21:13)
[2020-01-14] MEDS: ANALGESIC BALM CRM 120 GM TOP SCH ×4 (09:00→21:14)
[2020-01-14] MEDS: REMEDY PHYTOPLEX Z-GUARD PASTE 113GM TUBE (FROM STOREROOM PRODUCT) TOP SCH ×3 (09:00→21:00)
[2020-01-14] MEDS: LIDOCAINE 5% (LIDODERM) PATCH TD SCH ×2 (09:00)
[2020-01-14] MEDS: BRIMONIDINE 0.1% OPHTH SOLN 5 ML OU SCH ×2 (09:01→21:13)
[2020-01-14 14:00] VITALS: BP_SYST 133; BP_SYST 137; BP_SYST 150; BP_DIAS 72; BP_DIAS 75; BP_DIAS 90
[2020-01-14] MEDS ORDERED: SCOPOLAMINE 1MG TRANSDERMAL PATCH TOP SCH (16:00)
[2020-01-14] MEDS: WARFARIN SOD 2MG TAB PO SCH (17:21)
[2020-01-14 20:30] VITALS: BP_SYST 144; BP_SYST 146; BP_DIAS 84; BP_DIAS 88; BP_DIAS 90
[2020-01-14] MEDS: **NOTE PATIENT COMMENT** MISC XX SCH ×2 (21:14)
[2020-01-15 06:59] VITALS: BP_SYST 136; BP_SYST 150; BP_SYST 162; BP_DIAS 74; BP_DIAS 80; BP_DIAS 82
[2020-01-15] MEDS: IPRATROPIUM 0.5MG/ALBUTEROL 2.5MG INH SOL UD 3ML (DUONEB) NEB SCH ×3 (07:09→20:12)
[2020-01-15] MEDS: ASCORBIC ACID 500 MG TAB PO SCH ×2 (09:16→20:19)
[2020-01-15] MEDS: amLODIPine 5 MG TAB PO SCH (09:16)
[2020-01-15] MEDS: atenoloL 25 MG TAB PO SCH ×2 (09:16→20:20)
[2020-01-15] MEDS: LACTOBACILLUS ACIDOPHILUS CAP (BACID) PO SCH ×3 (09:16→20:19)
[2020-01-15] MEDS: ACETAMINOPHEN 500 MG TAB PO SCH ×3 (09:17→20:19)
[2020-01-15] MEDS: FERROUS GLUCONATE 324 MG TAB PO SCH (09:17)
[2020-01-15] MEDS: OMEPRAZOLE 20 MG CAP PO SCH (09:17)
[2020-01-15] MEDS: ASPIRIN 81 MG ENTERIC TAB PO SCH (09:17)
[2020-01-15] MEDS: VITAMIN D 1,000 INTERNATIONAL UNITS TABLET PO SCH (09:17)
[2020-01-15] MEDS: BRIMONIDINE 0.1% OPHTH SOLN 5 ML OU SCH ×2 (09:18→20:20)
[2020-01-15] MEDS: FLUTICASONE PROP 0.05% NASAL SPRAY 16 GM (FLONASE) NARES SCH ×2 (09:18→20:20)
[2020-01-15] MEDS: ANALGESIC BALM CRM 120 GM TOP SCH ×4 (09:18→20:21)
[2020-01-15] MEDS: REMEDY PHYTOPLEX Z-GUARD PASTE 113GM TUBE (FROM STOREROOM PRODUCT) TOP SCH ×3 (09:20→20:21)
[2020-01-15] MEDS: LIDOCAINE 5% (LIDODERM) PATCH TD SCH ×2 (09:29)
[2020-01-15] MEDS: SODIUM CHLORIDE NASAL 0.65% SPRAY BTL (OCEAN) SCH ×2 (09:29→20:20)
[2020-01-15 14:00] VITALS: BP_SYST 142; BP_SYST 147; BP_SYST 149; BP_DIAS 82; BP_DIAS 86
[2020-01-15] MEDS: WARFARIN SOD 2MG TAB PO SCH (17:03)
[2020-01-15 20:00] VITALS: BP 135/76
[2020-01-15] MEDS: **NOTE PATIENT COMMENT** MISC XX SCH ×2 (20:21)
[2020-01-15 20:30] VITALS: BP_SYST 135; BP_SYST 136; BP_SYST 143; BP_DIAS 64; BP_DIAS 76
[2020-01-16 06:25] VITALS: BP 151/90
[2020-01-16 06:43] VITALS: BP_SYST 144; BP_SYST 151; BP_DIAS 73; BP_DIAS 90
[2020-01-16] MEDS: IPRATROPIUM 0.5MG/ALBUTEROL 2.5MG INH SOL UD 3ML (DUONEB) NEB SCH ×3 (07:14→20:00)
[2020-01-16] MEDS: LACTOBACILLUS ACIDOPHILUS CAP (BACID) PO SCH ×3 (07:46→21:45)
[2020-01-16] MEDS: ASPIRIN 81 MG ENTERIC TAB PO SCH (07:46)
[2020-01-16] MEDS: VITAMIN D 1,000 INTERNATIONAL UNITS TABLET PO SCH (07:47)
[2020-01-16] MEDS: ACETAMINOPHEN 500 MG TAB PO SCH ×3 (07:47→21:45)
[2020-01-16] MEDS: OMEPRAZOLE 20 MG CAP PO SCH (07:47)
[2020-01-16] MEDS: ASCORBIC ACID 500 MG TAB PO SCH ×2 (07:47→21:45)
[2020-01-16] MEDS: atenoloL 25 MG TAB PO SCH ×2 (07:48→21:45)
[2020-01-16] MEDS: amLODIPine 5 MG TAB PO SCH (07:48)
[2020-01-16] MEDS: LIDOCAINE 5% (LIDODERM) PATCH TD SCH ×2 (07:49)
[2020-01-16] MEDS: FERROUS GLUCONATE 324 MG TAB PO SCH (07:52)
[2020-01-16] MEDS: SODIUM CHLORIDE NASAL 0.65% SPRAY BTL (OCEAN) SCH ×2 (07:52→21:46)
[2020-01-16] MEDS: FLUTICASONE PROP 0.05% NASAL SPRAY 16 GM (FLONASE) NARES SCH ×2 (07:52→21:46)
[2020-01-16] MEDS: BRIMONIDINE 0.1% OPHTH SOLN 5 ML OU SCH ×2 (07:53→21:47)
[2020-01-16] MEDS: REMEDY PHYTOPLEX Z-GUARD PASTE 113GM TUBE (FROM STOREROOM PRODUCT) TOP SCH ×3 (07:53→21:51)
[2020-01-16] MEDS: ANALGESIC BALM CRM 120 GM TOP SCH ×4 (07:53→21:50)
--- NOTE | 2020-01-16 09:14 | IPNPDOC ---
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 Her condition is impacted by anemia, episodic headaches. Dizziness has improved with Scopolamine. Diuresis with Lasix previously helped CHF and respiratory issues, weight holding steady at 95-96 kg. She has made progress with ambulation, transfers, self-care activities, however continues to be challenged with dizziness and episodic orthostatic hypotension. She is at times able to ambulate for longer distances and ascend stairs, other times can barely sit up, severely nauseous. Last week Nursing observed challenges with administering medicines, increased coughing and possible difficulty with previously manageable consistencies of food intake [employer] does not detect specific new neurological abnormalities, suggested more moistening, use of puddings, applesauce to help with swallowing followed by water intake. That seems to have improved things over weekend. Cough and sore throat improved with lozenges and warm fluids. Nursing and therapy note few more episodes of confusion and inability to carryover safety measures at times, possibly related to attention or fatigue. FUNCTIONAL STATUS: PT- Toilet transfers standby assistance, continues complaints of dizziness. CTG to SBA with transfers. She continues to work on strengthening and static balance in standing with wide and narrow base of support with visual distractors. She requires tactile cues to prevent posterior loss of balance. REVIEW OF SYSTEMS: Completed 14 pt review of systems unremarkable except as mentioned in interim subjective history. ALLERGIES: See Below MEDICATIONS: Reviewed, see below, Scopolamine helpful OBJECTIVE: VITAL SIGNS: Please see below. She remains afebrile. PHYSICAL EXAMINATION: GENERAL: Sitting up dressed in WC for breakfast, no acute distress. Brighter affect today. HEENT: Normocephalic, atraumatic. No facial droop. EOMI. No nystagmus. Dry cough noted CN II-XII intact CARDIOVASCULAR: S1, S2, irregular rate. LUNGS: Clear no wheezes, rales, rhonchi ABDOMEN: Soft, nontender, obese, soft. Normoactive bowel sounds throughout. MUSCULOSKELETAL: MMT: Healed bilateral TKR scars , no calf tenderness negative Tiffanie's, SOBEIDA hose in place with less edema lower extremities , 5/5 bilateral knee extension. 5/5 strength bilateral elbow flexion skein inspector, dorsiflexion, plantar flexion. NEUROLOGICAL: Answers all question appropriately. SKIN: intact FUNCTIONAL STATUS: Contact-guard assistance for [id number], minimal assistance. Transfers from bed to chair and chair to bed, major challenges remain balance and during weight shifting. Ambulation is with a rolling walker with contact guard assistance LABORATORY DATA: Reviewed. Please see below. INR stable, continue current alternate dosing, maintaining therapeutic range MICROBIOLOGY: Please see below. ASSESSMENT AND PLAN: 89-year-old hypertensive lady with past medical history of posterior circulation CVA who presents status post recurrent falls, contusing knees and continued vertigo and fairly significant orthostatic hypotensive changes, CHF responded to diuresis, however still with limited cardiopulmonary reserves and regained weight. PLAN: 1. Rehab- PT/OT advance mobility and ADLs, strengthen/stretch/maintain ROM all 4 limbs. Encourage monitoring of O2 levels with exertional activities. Added thigh high SOBEIDA with better control postural BP changes contributing to vertigo, added abdominal binder and that seems to help further with control when going from sit to stand. Speech reassessed swallowing changes no need to do further imaging studies no significant new neurological deficits evident, enourage fluids with medications. 2. Neuro- persistent vertigo likely central in etiology due to recent posterior circulation infarct in 2019 limiting her overall mobility and contributing to recurrent falls, possibility of further aggravation from orthostatic hypotension. -c/u ASA for secondary stroke prevention in addition to warfarin for afib 3. Resp- encourage incentive spirometry, monitor for infection. Has Acapella, encourage use of device, still variable IC volumes -Will Cecebs has not bee wheezing for over a week and may be aggravating throat irritation. 4.Cardiac- hx of afib, c/u coumadin with daily INRs and adjust the dose downward alternating 2 and 1 better. SBP spikes, but then big orthostatic shift at times, will continue to monitor, hold on BP med changes for now. Will continue monitoring orthostatic changes. TEDS and binder seem to be helping. 5. continue rehab nursing -medicine consulted to assist in overall management, fluid restrict 1800cc with daily weights, weight holding steady. 5. GI ppx- omeprazole. Added cepacol lozenges, helping 6. DVT ppx on coumadin will continue to adjust and recheck PT/INR periodically now at target. 7. GI- monitor for diarrhea 8. Pain- right knee OA worse after fall, left shoulder improved, possibly related to transfer/gait leaning on walker, continue tylenol , Lidoderm seem to be helping, can also offer ice, added Biofreeze gel prn. 9. Dispo- working on consistent goal of independence with toileting and mobility at a wheelchair level, short distances with front-wheeled walker transition to possibly transition through subacute rehabilitation and eventual assisted living appears most practical solution given the physiological and psychosocial circumstances. Son reports great difficulty finding reliable in home 24hr caregiving to accommodate her personal desire and goal to return to her home, also entrance poses a barrier and bathroom not accessible. Ongoing communications with family. TIME SPENT: Chart Review, examination Team meeting and documentation 30 minutes. Allergies Coded Allergies: Penicillins (Verified Allergy, Mild, RASH, 11/23/18) GUDELIA Inhibitors (Verified Allergy, Unknown, UNKNOWN REACTION PER FAMILY, 04/27/19) SEASONAL ALLERGIES (Verified Allergy, Unknown, 11/23/18) doxycycline (Verified Allergy, Unknown, UNKNOWN REACTION PER FAMILY, 04/27/19) prazosin (Verified Allergy, Unknown, UNKNOWN REACTION PER FAMILY, 04/27/19) codeine (Verified Adverse Reaction, Mild, CONFUSION, 11/23/18) ibuprofen (Verified Adverse Reaction, Mild, ORAL THRUSH, 11/26/18) Vital Signs Vital Signs Date Time Temp Pulse Resp B/P (MAP) Pulse Ox O2 Delivery O2 Flow Rate FiO2 01/16/20 07:48 88 140/70 01/16/20 06:25 97.2 20 95 Room Air Current Medications Current Medications Current Medications Medications (Trade) Dose Ordered Sig/Gemini Route PRN Reason Start Time Stop Time Status Last Admin Dose Admin Acetaminophen (Tylenol Tab) 1,000 mg TID PO 12/22/19 21:00 01/16/20 07:47 Albuterol/ Ipratropium (Duoneb (Ipr 0.5mg/Alb 2.5mg)) 3 ml RTID NEB 12/22/19 20:00 01/16/20 07:14 Amlodipine Besylate (Norvasc) 5 mg DAILY PO 01/02/20 09:00 01/16/20 07:48 Ascorbic Acid (Vitamin C) 500 mg BID PO 12/29/19 21:00 01/16/20 07:47 Aspirin (Ecotrin) 81 mg DAILY PO 12/23/19 09:00 01/16/20 07:46 Atenolol (Tenormin) 25 mg BID PO 12/22/19 21:00 01/16/20 07:48 Brimonidine Tartrate (Alphagan P 0.1%) 1 drop BID OU 12/22/19 21:00 01/16/20 07:53 Cetylpyridinium Chloride (Cepacol) 1 judy Q4HP PRN PO SORE THROAT 01/11/20 12:30 01/11/20 17:56 Ferrous Gluconate (Fergon) 324 mg DAILY PO 12/30/19 09:00 01/15/20 09:17 Fludrocortisone Acetate (Florinef) 0.1 mg DAILY PO 12/23/19 09:00 01/01/20 10:35 DC 01/01/20 07:54 Fluticasone Propionate (Flonase 0.05% Nasal [place]) 1 spray BID NARES 12/22/19 21:00 01/16/20 07:52 Lactobacillus Acidophilus (Bacid) 1 ea TID PO 01/06/20 16:00 01/16/20 07:46 Lidocaine (Lidoderm Patch) 1 patch DAILY TD 12/28/19 09:00 01/16/20 07:49 Lidocaine (Lidoderm Patch) 1 patch DAILY TD 12/23/19 09:00 01/16/20 07:49 Losartan Potassium (Cozaar) 25 mg DAILY PO 01/07/20 09:00 Cancel Magnesium Hydroxide (Milk Of Magnesia) 30 ml DAILYPRN PRN PO CONSTIPATION 12/22/19 16:15 Meclizine HCl (Antivert) 12.5 mg BIDP PRN PO dizziness 12/26/19 19:30 01/11/20 09:22 Meclizine HCl (Antivert) 12.5 mg TID PO 12/22/19 21:00 12/26/19 19:32 DC 12/26/19 17:12 Menthol/Methyl Salicylate (Bengay Cream) BID TOP 01/05/20 09:00 01/16/20 07:53 Menthol/Methyl Salicylate ([place] Cream) APPLY TO RIGHT ACHIL... BID TOP 12/30/19 09:00 01/16/20 07:53 Non-Formulary Medication ( See Comment Field Below ) REMOVE LIDODERM PATCH DAILY@21 XX 12/28/19 21:00 12/28/19 12:00 DC Non-Formulary Medication ( See Comment Field Below ) REMOVE LIDODERM PATCH DAILY@21 XX 12/28/19 21:00 01/15/20 20:21 Non-Formulary Medication ( See Comment Field Below ) REMOVE LIDODERM PATCH DAILY@21 XX 12/23/19 21:00 01/15/20 20:21 Nystatin (Mycostatin Powder, Nystop) Apply BID PRN for Rash un... BIDP PRN TOP RASH 01/02/20 23:00 01/03/20 22:13 Omeprazole (PriLOSEC) 40 mg DAILY PO 12/23/19 09:00 01/16/20 07:47 Ondansetron HCl (Zofran Odt) 4 mg Q6HP PRN PO NAUSEA OR VOMITING 01/04/20 02:45 Scopolamine (Scopolamine) 1 mg Q72H TOP 12/27/19 14:45 12/27/19 14:36 DC Scopolamine (Scopolamine) 1 mg Q72H TOP 12/27/19 16:00 01/13/20 10:13 DC 01/11/20 16:41 Scopolamine (Scopolamine) 1 mg Q72H TOP 01/14/20 16:00 01/14/20 15:23 Sodium Chloride ([place] Nasal [place]) 2 spray BID NA 12/22/19 21:00 01/16/20 07:52 Tramadol HCl (Ultram) 25 mg Q4HP PRN PO SEVERE PAIN (PS 8-10) 12/22/19 16:15 12/28/19 12:52 DC 12/28/19 10:37 Vitamin D (Vitamin D) 2,000 units DAILY PO 12/23/19 09:00 01/16/20 07:47 Warfarin Sodium (Coumadin) 2 mg DAILY@17 PO 12/22/19 17:00 01/15/20 17:03 CABRERA COOLEY MD Jan 16, 2020 09:14
[2020-01-16 14:00] VITALS: BP 166/95
[2020-01-16] MEDS: WARFARIN SOD 2MG TAB PO SCH (16:50)
[2020-01-16] MEDS: **NOTE PATIENT COMMENT** MISC XX SCH ×2 (21:00→21:52)
[2020-01-16 21:42] VITALS: BP 141/68
[2020-01-17] MEDS: NYSTATIN 100,000 UNITS/GM TOPICAL PWD 15 GM TOP PRN (03:17)
[2020-01-17 06:04] VITALS: BP 151/80
[2020-01-17 06:12] LABS: INR 2.12; PROTHROMBIN TIME 24.2 SECONDS (12.5-14.3)
[2020-01-17] MEDS: IPRATROPIUM 0.5MG/ALBUTEROL 2.5MG INH SOL UD 3ML (DUONEB) NEB SCH (07:29)
[2020-01-17] MEDS: LIDOCAINE 5% (LIDODERM) PATCH TD SCH ×2 (09:00→10:04)
[2020-01-17] MEDS: ANALGESIC BALM CRM 120 GM TOP SCH ×4 (09:00→21:11)
[2020-01-17] MEDS: SCOPOLAMINE 1MG TRANSDERMAL PATCH TOP SCH (10:08)
[2020-01-17] MEDS: ASPIRIN 81 MG ENTERIC TAB PO SCH (10:08)
[2020-01-17] MEDS: ASCORBIC ACID 500 MG TAB PO SCH ×2 (10:08→21:00)
[2020-01-17] MEDS: FERROUS GLUCONATE 324 MG TAB PO SCH (10:09)
[2020-01-17] MEDS: OMEPRAZOLE 20 MG CAP PO SCH (10:10)
[2020-01-17] MEDS: LACTOBACILLUS ACIDOPHILUS CAP (BACID) PO SCH ×3 (10:10→20:59)
[2020-01-17] MEDS: ACETAMINOPHEN 500 MG TAB PO SCH ×3 (10:10→21:00)
[2020-01-17] MEDS: VITAMIN D 1,000 INTERNATIONAL UNITS TABLET PO SCH (10:10)
[2020-01-17] MEDS: SODIUM CHLORIDE NASAL 0.65% SPRAY BTL (OCEAN) SCH ×2 (10:11→21:13)
[2020-01-17] MEDS: FLUTICASONE PROP 0.05% NASAL SPRAY 16 GM (FLONASE) NARES SCH ×2 (10:11→21:02)
[2020-01-17] MEDS: BRIMONIDINE 0.1% OPHTH SOLN 5 ML OU SCH ×2 (10:11→21:02)
[2020-01-17] MEDS: NYSTATIN 100,000 UNITS/GM TOPICAL PWD 15 GM TOP SCH ×2 (10:13→21:01)
[2020-01-17] MEDS: REMEDY PHYTOPLEX Z-GUARD PASTE 113GM TUBE (FROM STOREROOM PRODUCT) TOP SCH ×3 (10:14→21:01)
[2020-01-17] MEDS: amLODIPine 5 MG TAB PO SCH (10:19)
[2020-01-17] MEDS: atenoloL 25 MG TAB PO SCH ×2 (10:20→21:18)
[2020-01-17 14:00] VITALS: BP 130/70
[2020-01-17] MEDS: WARFARIN SOD 2MG TAB PO SCH (17:10)
[2020-01-17 20:00] VITALS: BP 162/93
[2020-01-17] MEDS ORDERED: COMBIVENT RESPIMAT 100-20MCG INHALER 4GM INH PRN (21:00)
[2020-01-17] MEDS: **NOTE PATIENT COMMENT** MISC XX SCH ×2 (21:13)
[2020-01-18 06:07] VITALS: BP 160/80
[2020-01-18] MEDS: ASPIRIN 81 MG ENTERIC TAB PO SCH (10:11)
[2020-01-18] MEDS: ASCORBIC ACID 500 MG TAB PO SCH ×2 (10:11→21:05)
[2020-01-18] MEDS: atenoloL 25 MG TAB PO SCH ×2 (10:11→21:05)
[2020-01-18] MEDS: amLODIPine 5 MG TAB PO SCH (10:11)
[2020-01-18] MEDS: OMEPRAZOLE 20 MG CAP PO SCH (10:12)
[2020-01-18] MEDS: VITAMIN D 1,000 INTERNATIONAL UNITS TABLET PO SCH (10:12)
[2020-01-18] MEDS: FERROUS GLUCONATE 324 MG TAB PO SCH (10:12)
[2020-01-18] MEDS: ACETAMINOPHEN 500 MG TAB PO SCH ×3 (10:12→21:05)
[2020-01-18] MEDS: LACTOBACILLUS ACIDOPHILUS CAP (BACID) PO SCH ×3 (10:12→21:05)
[2020-01-18] MEDS: FLUTICASONE PROP 0.05% NASAL SPRAY 16 GM (FLONASE) NARES SCH ×2 (10:16→21:07)
[2020-01-18] MEDS: NYSTATIN 100,000 UNITS/GM TOPICAL PWD 15 GM TOP SCH ×2 (10:16→21:09)
[2020-01-18] MEDS: SODIUM CHLORIDE NASAL 0.65% SPRAY BTL (OCEAN) SCH ×2 (10:16→21:11)
[2020-01-18] MEDS: ANALGESIC BALM CRM 120 GM TOP SCH ×4 (10:17→21:07)
[2020-01-18] MEDS: BRIMONIDINE 0.1% OPHTH SOLN 5 ML OU SCH ×2 (10:17→21:08)
[2020-01-18] MEDS: REMEDY PHYTOPLEX Z-GUARD PASTE 113GM TUBE (FROM STOREROOM PRODUCT) TOP SCH ×3 (10:18→21:09)
[2020-01-18] MEDS: LIDOCAINE 5% (LIDODERM) PATCH TD SCH ×2 (10:23)
[2020-01-18 14:00] VITALS: BP 127/91
--- NOTE | 2020-01-18 15:49 | IPNPDOC ---
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 Her condition is impacted by anemia, episodic headaches. Dizziness has improved with Scopolamine. Diuresis with Lasix previously helped CHF and respiratory issues, weight holding steady. She has made progress with ambulation, transfers, self-care activities, fewer challenges with dizziness and episodic orthostatic hypotension, now tranferring with SBA. She is at times able to ambulate for longer distances and ascend stairs, other times can barely sit up, severely nauseous. Cough and sore throat improved with lozenges and warm fluids. On precautions for possible Covid19 exposure. FUNCTIONAL STATUS: PT- Toilet transfers standby assistance, less dizziness. SBA with cues for transfers. She continues to work on strengthening and static balance in standing with wide and narrow base of support with visual distractors. She requires tactile cues to prevent posterior loss of balance. REVIEW OF SYSTEMS: Completed 14 pt review of systems unremarkable except as mentioned in interim subjective history. ALLERGIES: See Below MEDICATIONS: Reviewed, see below, Scopolamine helpful OBJECTIVE: VITAL SIGNS: Please see below. She remains afebrile. PHYSICAL EXAMINATION: GENERAL: no acute distress. Brighter affect today. HEENT: Normocephalic, atraumatic. No facial droop. EOMI. No nystagmus. Dry cough noted CN II-XII intact NEUROLOGICAL: Answers all question appropriately. SKIN: intact LABORATORY DATA: Reviewed. Please see below. INR stable, continue current alternate dosing, maintaining therapeutic range MICROBIOLOGY: Please see below. ASSESSMENT AND PLAN: 89-year-old hypertensive lady with past medical history of posterior circulation CVA who presents status post recurrent falls, contusing knees and continued vertigo and fairly significant orthostatic hypotensive changes, CHF responded to diuresis, however still with limited cardiopulmonary reserves and regained weight. PLAN: 1. Rehab- PT/OT advance mobility and ADLs, strengthen/stretch/maintain ROM all 4 limbs. Continue thigh high SOBEIDA with better control postural BP changes contributing to vertigo, added abdominal binder and that seems to help further with control when going from sit to stand. Speech reassessed swallowing changes no need to do further imaging studies no significant new neurological deficits evident, enourage fluids with medications. 2. Neuro- persistent vertigo likely central in etiology due to recent posterior circulation infarct in 2019 limiting her overall mobility and contributing to recurrent falls, possibility of further aggravation from orthostatic hypotension, improving -c/u ASA for secondary stroke prevention in addition to warfarin for afib 3. Resp- IC, HH inhaler as needed 4.Cardiac- hx of afib, c/u coumadin with daily INRs and adjust the dose downward alternating 2 and 1 better. SBP spikes, but then big orthostatic shift at times, will continue to monitor, hold on BP med changes for now. Will continue monitoring orthostatic changes. TEDS and binder seem to be helping. 5. continue rehab nursing -medicine consulted to assist in overall management, fluid restrict 1800cc with daily weights, weight holding steady. 5. GI ppx- omeprazole. Added cepacol lozenges, helping 6. DVT ppx on coumadin will continue to adjust and recheck PT/INR periodically now at target. 7. GI- monitor for diarrhea 8. Pain- right knee OA worse after fall, left shoulder improved, possibly related to transfer/gait leaning on walker, continue tylenol 9. Dispo- improving consistent goal of independence with toileting and mobility at a wheelchair level, short distances with front-wheeled walkerand transfer to assisted living appears most practical solution given the physiological and psychosocial circumstances. Son reports great difficulty finding reliable in home 24hr caregiving to accommodate her personal desire and goal to return to her home, also entrance poses a barrier and bathroom not accessible. Ongoing co mmunications with family. TIME SPENT: Chart Review, examination Team meeting and documentation 30 minutes. Allergies Coded Allergies: Penicillins (Verified Allergy, Mild, RASH, 11/23/18) GUDELIA Inhibitors (Verified Allergy, Unknown, UNKNOWN REACTION PER FAMILY, 04/27/19) SEASONAL ALLERGIES (Verified Allergy, Unknown, 11/23/18) doxycycline (Verified Allergy, Unknown, UNKNOWN REACTION PER FAMILY, 04/27/19) prazosin (Verified Allergy, Unknown, UNKNOWN REACTION PER FAMILY, 04/27/19) codeine (Verified Adverse Reaction, Mild, CONFUSION, 11/23/18) ibuprofen (Verified Adverse Reaction, Mild, ORAL THRUSH, 11/26/18) Vital Signs Vital Signs Date Time Temp Pulse Resp B/P (MAP) Pulse Ox O2 Delivery O2 Flow Rate FiO2 01/18/20 14:00 97.4 61 20 127/91 (103) 98 Room Air Current Medications Current Medications Current Medications Medications (Trade) Dose Ordered Sig/Gemini Route PRN Reason Start Time Stop Time Status Last Admin Dose Admin Acetaminophen (Tylenol Tab) 1,000 mg TID PO 12/22/19 21:00 01/18/20 10:12 Albuterol/ Ipratropium (Combivent Respimat 100-20mcg) 1 puff BID PRN INH SHORTNESS OF BREATH 01/17/20 21:00 Albuterol/ Ipratropium (Duoneb (Ipr 0.5mg/Alb 2.5mg)) 3 ml RTID NEB 12/22/19 20:00 01/17/20 08:10 DC 01/16/20 13:49 Amlodipine Besylate (Norvasc) 5 mg DAILY PO 01/02/20 09:00 01/18/20 10:11 Ascorbic Acid (Vitamin C) 500 mg BID PO 12/29/19 21:00 01/18/20 10:11 Aspirin (Ecotrin) 81 mg DAILY PO 12/23/19 09:00 01/18/20 10:11 Atenolol (Tenormin) 25 mg BID PO 12/22/19 21:00 01/18/20 10:11 Brimonidine Tartrate (Alphagan P 0.1%) 1 drop BID OU 12/22/19 21:00 01/18/20 10:17 Cetylpyridinium Chloride (Cepacol) 1 judy Q4HP PRN PO SORE THROAT 01/11/20 12:30 01/11/20 17:56 Ferrous Gluconate (Fergon) 324 mg DAILY PO 12/30/19 09:00 01/18/20 10:12 Fludrocortisone Acetate (Florinef) 0.1 mg DAILY PO 12/23/19 09:00 01/01/20 10:35 DC 01/01/20 07:54 Fluticasone Propionate (Flonase 0.05% Nasal [place]) 1 spray BID NARES 12/22/19 21:00 01/18/20 10:16 Lactobacillus Acidophilus (Bacid) 1 ea TID PO 01/06/20 16:00 01/18/20 10:12 Lidocaine (Lidoderm Patch) 1 patch DAILY TD 12/28/19 09:00 01/18/20 10:23 Lidocaine (Lidoderm Patch) 1 patch DAILY TD 12/23/19 09:00 01/18/20 10:23 Losartan Potassium (Cozaar) 25 mg DAILY PO 01/07/20 09:00 Cancel Magnesium Hydroxide (Milk Of Magnesia) 30 ml DAILYPRN PRN PO CONSTIPATION 12/22/19 16:15 Meclizine HCl (Antivert) 12.5 mg BIDP PRN PO dizziness 12/26/19 19:30 01/11/20 09:22 Meclizine HCl (Antivert) 12.5 mg TID PO 12/22/19 21:00 12/26/19 19:32 DC 12/26/19 17:12 Menthol/Methyl Salicylate (Bengay Cream) BID TOP 01/05/20 09:00 01/18/20 10:18 Menthol/Methyl Salicylate (Bengay Cream) APPLY TO RIGHT ACHIL... BID TOP 12/30/19 09:00 01/18/20 10:17 Non-Formulary Medication ( See Comment Field Below ) REMOVE LIDODERM PATCH DAILY@ XX 12/28/19 21:00 12/28/19 12:00 DC Non-Formulary Medication ( See Comment Field Below ) REMOVE LIDODERM PATCH DAILY@ XX 12/28/19 21:00 01/17/20 21:13 Non-Formulary Medication ( See Comment Field Below ) REMOVE LIDODERM PATCH DAILY@ XX 12/23/19 21:00 01/17/20 21:13 Nystatin (Mycostatin Powder, Nystop) Apply BID PRN for Rash un... BIDP PRN TOP RASH 01/02/20 23:00 01/17/20 04:04 DC 01/17/20 03:17 Nystatin (Mycostatin Powder, Nystop) Apply BID for rash un... BID TOP 01/17/20 09:00 01/18/20 10:16 Omeprazole (PriLOSEC) 40 mg DAILY PO 12/23/19 09:00 01/18/20 10:12 Ondansetron HCl (Zofran Odt) 4 mg Q6HP PRN PO NAUSEA OR VOMITING 01/04/20 02:45 Scopolamine (Scopolamine) 1 mg Q3D@0900 TOP 01/17/20 09:00 01/17/20 10:08 Scopolamine (Scopolamine) 1 mg Q72H TOP 12/27/19 14:45 12/27/19 14:36 DC Scopolamine (Scopolamine) 1 mg Q72H TOP 12/27/19 16:00 01/13/20 10:13 DC 01/11/20 16:41 Scopolamine (Scopolamine) 1 mg Q72H TOP 01/14/20 16:00 01/16/20 10:47 DC 01/14/20 15:23 Sodium Chloride ([place] Nasal [place]) 2 spray BID NA 12/22/19 21:00 01/18/20 10:16 Tramadol HCl (Ultram) 25 mg Q4HP PRN PO SEVERE PAIN (PS 8-10) 12/22/19 16:15 12/28/19 12:52 DC 12/28/19 10:37 Vitamin D (Vitamin D) 2,000 units DAILY PO 12/23/19 09:00 01/18/20 10:12 Warfarin Sodium (Coumadin) 2 mg DAILY@17 PO 12/22/19 17:00 01/17/20 17:10 CABRERA COOLEY MD Jan 18, 2020 15:49
[2020-01-18] MEDS: WARFARIN SOD 2MG TAB PO SCH (16:08)
[2020-01-18 20:02] VITALS: BP 162/70
[2020-01-18] MEDS: **NOTE PATIENT COMMENT** MISC XX SCH ×2 (21:09→21:10)
[2020-01-19 06:40] VITALS: BP 156/69
[2020-01-19] MEDS: OMEPRAZOLE 20 MG CAP PO SCH (09:41)
[2020-01-19] MEDS: ASPIRIN 81 MG ENTERIC TAB PO SCH (09:41)
[2020-01-19] MEDS: VITAMIN D 1,000 INTERNATIONAL UNITS TABLET PO SCH (09:41)
[2020-01-19] MEDS: LACTOBACILLUS ACIDOPHILUS CAP (BACID) PO SCH ×3 (09:41→20:34)
[2020-01-19] MEDS: ACETAMINOPHEN 500 MG TAB PO SCH (09:41)
[2020-01-19] MEDS: ASCORBIC ACID 500 MG TAB PO SCH (09:41)
[2020-01-19] MEDS: FERROUS GLUCONATE 324 MG TAB PO SCH (09:41)
[2020-01-19] MEDS: atenoloL 25 MG TAB PO SCH ×2 (09:42→20:34)
[2020-01-19] MEDS: amLODIPine 5 MG TAB PO SCH (09:42)
[2020-01-19] MEDS: SODIUM CHLORIDE NASAL 0.65% SPRAY BTL (OCEAN) SCH ×2 (09:43→20:37)
[2020-01-19] MEDS: FLUTICASONE PROP 0.05% NASAL SPRAY 16 GM (FLONASE) NARES SCH ×2 (09:43→20:37)
[2020-01-19] MEDS: REMEDY PHYTOPLEX Z-GUARD PASTE 113GM TUBE (FROM STOREROOM PRODUCT) TOP SCH ×3 (09:44→20:39)
[2020-01-19] MEDS: ANALGESIC BALM CRM 120 GM TOP SCH ×4 (09:45→20:41)
[2020-01-19] MEDS: NYSTATIN 100,000 UNITS/GM TOPICAL PWD 15 GM TOP SCH ×2 (09:47→20:38)
[2020-01-19] MEDS: LIDOCAINE 5% (LIDODERM) PATCH TD SCH ×2 (09:57)
[2020-01-19] MEDS: BRIMONIDINE 0.1% OPHTH SOLN 5 ML OU SCH ×2 (09:57→20:39)
[2020-01-19] MEDS ORDERED: CALCIUM CARBONATE 500 MG CHEW U/D PO PRN (11:30)
[2020-01-19] MEDS ORDERED: ACETAMINOPHEN TAB 650MG DOSE (2X325MG) PO PRN (11:30)
--- NOTE | 2020-01-19 12:09 | IPNPDOC ---
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 Her condition is impacted by anemia, episodic headaches, nauseau. Dizziness has improved with Scopolamine. Diuresis with Lasix previously helped CHF and respiratory issues, weight holding steady. She has made progress with ambulation, transfers, self-care activities, had fewer challenges with dizziness and episodic orthostatic hypotension, now tranferring with supervision/ SBA. She is at times able to ambulate for longer distances and ascend stairs, other times like today, can barely sit up, severely nauseous. Cough and sore throat improved with lozenges and warm fluids. On precautions for possible Covid19 exposure, limits activities. FUNCTIONAL STATUS: PT- Toilet transfers standby assistance, less dizziness. SBA with cues for transfers. She continues to work on strengthening and static balance in standing with wide and narrow base of support with visual distractors. She requires tactile cues to prevent posterior loss of balance. REVIEW OF SYSTEMS: Completed 14 pt review of systems unremarkable except as mentioned in interim subjective history. ALLERGIES: See Below MEDICATIONS: Reviewed, see below, Scopolamine helpful OBJECTIVE: VITAL SIGNS: Please see below. She remains afebrile. PHYSICAL EXAMINATION: GENERAL: Queasy but communicative, less cough. HEENT: Normocephalic, atraumatic. No facial droop. EOMI. No nystagmus. Dry cough noted CN II-XII intact NEUROLOGICAL: Answers all question appropriately. LUNGS Clear no wheezes rales rhonchi CARDIAC S1 S2 extra beats, pulse steady 70s ABDOMEN: Positive bowel sounds, soft, no point tenderness SKIN: intact LABORATORY DATA: Reviewed. Please see below. INR stable, continue current alternate dosing, maintaining therapeutic range. H/H slid down slightly 11.1/35.2 Dec 22 to 10.2/32.5 on Jan 10, will recheck MICROBIOLOGY: Please see below. ASSESSMENT AND PLAN: 89-year-old hypertensive lady with past medical history of posterior circulation CVA who presents status post recurrent falls, contusing knees and continued vertigo and fairly significant orthostatic hypotensive changes, CHF responded to diuresis, however still with limited cardiopulmonary reserves and escalation of vertigo symptoms today, possibly aggravated by various supplements. PLAN: 1. Rehab- PT/OT advance mobility and ADLs, strengthen/stretch/maintain ROM all 4 limbs. Continue thigh high SOBEIDA with better control postural BP changes contributing to vertigo, added abdominal binder and that seems to help further with control when going from sit to stand. Speech reassessed swallowing raza es no need to do further imaging studies no significant new neurological deficits evident, enourage fluids or pudding with medications and manages to swallow fine. 2. Neuro- persistent vertigo likely central in etiology due to recent posterior circulation infarct in 2019 limiting her overall mobility and contributing to recurrent falls, possibility of further aggravation from orthostatic hypotension, improving -c/u ASA for secondary stroke prevention in addition to warfarin for afib 3. Resp- IC, HH inhaler as needed 4.Cardiac- hx of afib, c/u coumadin with daily INRs and adjust the dose downward alternating 2 and 1 better. SBP spikes, but then big orthostatic shift at times, will continue to monitor, hold on BP med changes for now. Will continue monitoring orthostatic changes. TEDS and binder seem to be helping. 5. continue rehab nursing -medicine consulted to assist in overall management, fluid restrict 1800cc with daily weights, weight holding steady. 5. GI ppx- omeprazole. Added cepacol lozenges, helping, will hold Vit C, Fe, Vit D and add PRN Tums and see if symptoms improve. Recheck BMP, CBC 6. DVT ppx on coumadin will continue to adjust and recheck PT/INR periodically now at target. 7. Pain- right knee OA , left shoulder improved, possibly related to transfer/gait leaning on walker, continue tylenol , lower dose and change to PRN. 9. Dispo- improving consistent goal of independence with toileting and mobility at a wheelchair level, short distances with front-wheeled walkerand transfer to assisted living appears most practical solution given the physiological and psychosocial circumstances. Son reports great difficulty finding reliable in home 24hr caregiving to accommodate her personal desire and goal to return to her home, also entrance poses a barrier and bathroom not accessible. Ongoing communications with family . TIME SPENT: Chart Review, examination Team meeting and documentation 30 minutes. Allergies Coded Allergies: Penicillins (Verified Allergy, Mild, RASH, 11/23/18) GUDELIA Inhibitors (Verified Allergy, Unknown, UNKNOWN REACTION PER FAMILY, 04/27/19) SEASONAL ALLERGIES (Verified Allergy, Unknown, 11/23/18) doxycycline (Verified Allergy, Unknown, UNKNOWN REACTION PER FAMILY, 04/27/19) prazosin (Verified Allergy, Unknown, UNKNOWN REACTION PER FAMILY, 04/27/19) codeine (Verified Adverse Reaction, Mild, CONFUSION, 11/23/18) ibuprofen (Verified Adverse Reaction, Mild, ORAL THRUSH, 11/26/18) Vital Signs Vital Signs Date Time Temp Pulse Resp B/P (MAP) Pulse Ox O2 Delivery O2 Flow Rate FiO2 01/19/20 09:42 70 140/60 01/19/20 06:40 97.9 20 99 Room Air Current Medications Current Medications Current Medications Medications (Trade) Dose Ordered Sig/Gemini Route PRN Reason Start Time Stop Time Status Last Admin Dose Admin Acetaminophen (Tylenol Tab) 650 mg TID PRN PO MILD PAIN (PS 1-4) 01/19/20 11:30 01/27/20 08:00 UNV Acetaminophen (Tylenol Tab) 1,000 mg TID PO 12/22/19 21:00 01/19/20 11:29 DC 01/19/20 09:41 Albuterol/ Ipratropium (Combivent Respimat 100-20mcg) 1 puff BID PRN INH SHORTNESS OF BREATH 01/17/20 21:00 Albuterol/ Ipratropium (Duoneb (Ipr 0.5mg/Alb 2.5mg)) 3 ml RTID NEB 12/22/19 20:00 01/17/20 08:10 DC 01/16/20 13:49 Amlodipine Besylate (Norvasc) 5 mg DAILY PO 01/02/20 09:00 01/19/20 09:42 Ascorbic Acid (Vitamin C) 500 mg BID PO 12/29/19 21:00 Hold 01/19/20 09:41 Aspirin (Ecotrin) 81 mg DAILY PO 12/23/19 09:00 01/19/20 09:41 Atenolol (Tenormin) 25 mg BID PO 12/22/19 21:00 01/19/20 09:42 Brimonidine Tartrate (Alphagan P 0.1%) 1 drop BID OU 12/22/19 21:00 01/19/20 09:57 Calcium Carbonate (Tums) 500 mg DAILY PRN PO INDIGESTION 01/19/20 11:30 UNV Cetylpyridinium Chloride (Cepacol) 1 judy Q4HP PRN PO SORE THROAT 01/11/20 12:30 01/11/20 17:56 Ferrous Gluconate (Fergon) 324 mg DAILY PO 12/30/19 09:00 01/19/20 11:29 DC 01/19/20 09:41 Fludrocortisone Acetate (Florinef) 0.1 mg DAILY PO 12/23/19 09:00 01/01/20 10:35 DC 01/01/20 07:54 Fluticasone Propionate (Flonase 0.05% Nasal [place]) 1 spray BID NARES 12/22/19 21:00 01/19/20 09:43 Lactobacillus Acidophilus (Bacid) 1 ea TID PO 01/06/20 16:00 01/19/20 09:41 Lidocaine (Lidoderm Patch) 1 patch DAILY TD 12/28/19 09:00 01/19/20 09:57 Lidocaine (Lidoderm Patch) 1 patch DAILY TD 12/23/19 09:00 01/19/20 09:57 Losartan Potassium (Cozaar) 25 mg DAILY PO 01/07/20 09:00 Cancel Magnesium Hydroxide (Milk Of Magnesia) 30 ml DAILYPRN PRN PO CONSTIPATION 12/22/19 16:15 Meclizine HCl (Antivert) 12.5 mg BIDP PRN PO dizziness 12/26/19 19:30 01/11/20 09:22 Meclizine HCl (Antivert) 12.5 mg TID PO 12/22/19 21:00 12/26/19 19:32 DC 12/26/19 17:12 Menthol/Methyl Salicylate (Bengay Cream) BID TOP 01/05/20 09:00 01/19/20 09:46 Menthol/Methyl Salicylate (Bengay Cream) APPLY TO RIGHT ACHIL... BID TOP 12/30/19 09:00 01/19/20 09:45 Non-Formulary Medication ( See Comment Field Below ) REMOVE LIDODERM PATCH DAILY@21 XX 12/28/19 21:00 12/28/19 12:00 DC Non-Formulary Medication ( See Comment Field Below ) REMOVE LIDODERM PATCH DAILY@21 XX 12/28/19 21:00 01/18/20 21:10 Non-Formulary Medication ( See Comment Field Below ) REMOVE LIDODERM PATCH DAILY@21 XX 12/23/19 21:00 01/18/20 21:09 Nystatin (Mycostatin Powder, Nystop) Apply BID PRN for Rash un... BIDP PRN TOP RASH 01/02/20 23:00 01/17/20 04:04 DC 01/17/20 03:17 Nystatin (Mycostatin Powder, Nystop) Apply BID for rash un... BID TOP 01/17/20 09:00 01/19/20 09:47 Omeprazole (PriLOSEC) 40 mg DAILY PO 12/23/19 09:00 01/19/20 09:41 Ondansetron HCl (Zofran Odt) 4 mg Q6HP PRN PO NAUSEA OR VOMITING 01/04/20 02:45 01/19/20 09:54 Scopolamine (Scopolamine) 1 mg Q3D@0900 TOP 01/17/20 09:00 01/17/20 10:08 Scopolamine (Scopolamine) 1 mg Q72H TOP 12/27/19 14:45 12/27/19 14:36 DC Scopolamine (Scopolamine) 1 mg Q72H TOP 12/27/19 16:00 01/13/20 10:13 DC 01/11/20 16:41 Scopolamine (Scopolamine) 1 mg Q72H TOP 01/14/20 16:00 01/16/20 10:47 DC 01/14/20 15:23 Sodium Chloride ([place] Nasal [place]) 2 spray BID NA 12/22/19 21:00 01/19/20 09:43 Tramadol HCl (Ultram) 25 mg Q4HP PRN PO SEVERE PAIN (PS 8-10) 12/22/19 16:15 12/28/19 12:52 DC 12/28/19 10:37 Vitamin D (Vitamin D) 2,000 units DAILY PO 12/23/19 09:00 Hold 01/19/20 09:41 Warfarin Sodium (Coumadin) 2 mg DAILY@17 PO 12/22/19 17:00 11/4/20 16:08 CABRERA COOLEY MD Jan 19, 2020 12:09
[2020-01-19 12:45] LABS: BASO # 0.1 10^3/uL (0.0-0.2); BASO % 0.9 % (0.0-1.0); EOS # 0.3 10^3/uL (0.0-0.5); HEMATOCRIT 37.8 % (36.0-47.0); HEMOGLOBIN 11.9 g/dl (12.0-15.5); LYMPH # 2.2 10^3/uL (1.5-5.0); LYMPH % 29.9 % (24.0-44.0); MEAN CORPUSCULAR HEMOGLOBIN 30.2 pg (27.0-33.0); MEAN CORPUSCULAR HGB CONC 31.5 g/dl (32.0-36.5); MEAN CORPUSCULAR VOLUME 95.9 fl (80.0-96.0); MONO # 0.6 10^3/uL (0.0-0.8); MONO % 8.6 % (0.0-5.0); NEUTROPHILS # 4.2 10^3/uL (1.5-8.5); NEUTROPHILS % 56.2 % (36.0-66.0); PLATELET COUNT, AUTOMATED 290 10^3/uL (150-450); RED BLOOD COUNT 3.94 10^6/uL (4.00-5.40); WHITE BLOOD COUNT 7.4 10^3/uL (4.0-10.0)
[2020-01-19 12:58] LABS: BLOOD UREA NITROGEN 13 MG/DL (7-18); CALCIUM LEVEL 9.2 MG/DL (8.8-10.2); CARBON DIOXIDE LEVEL 30 MEQ/L (21-32); CHLORIDE LEVEL 109 MEQ/L (98-107); CREATININE FOR GFR 0.81 MG/DL (0.55-1.30); GLOMERULAR FILTRATION RATE > 60.0 (>32); GLUCOSE, FASTING 92 MG/DL (70-100); POTASSIUM SERUM 3.9 MEQ/L (3.5-5.1); SODIUM LEVEL 143 MEQ/L (136-145)
[2020-01-19] MEDS: WARFARIN SOD 2MG TAB PO SCH (16:21)
[2020-01-19 17:34] VITALS: BP 167/77
[2020-01-19 20:20] VITALS: BP 128/78
[2020-01-19 20:28] VITALS: BP 128/70
[2020-01-19] MEDS: **NOTE PATIENT COMMENT** MISC XX SCH ×2 (20:38)
[2020-01-20 04:02] VITALS: BP 130/70
[2020-01-20] MEDS: SCOPOLAMINE 1MG TRANSDERMAL PATCH TOP SCH (09:07)
[2020-01-20] MEDS: atenoloL 25 MG TAB PO SCH ×2 (09:08→20:55)
[2020-01-20] MEDS: ASPIRIN 81 MG ENTERIC TAB PO SCH (09:08)
[2020-01-20] MEDS: amLODIPine 5 MG TAB PO SCH (09:08)
[2020-01-20] MEDS: LACTOBACILLUS ACIDOPHILUS CAP (BACID) PO SCH ×3 (09:08→20:55)
[2020-01-20] MEDS: OMEPRAZOLE 20 MG CAP PO SCH (09:08)
[2020-01-20] MEDS: FLUTICASONE PROP 0.05% NASAL SPRAY 16 GM (FLONASE) NARES SCH ×2 (09:11→20:55)
[2020-01-20] MEDS: BRIMONIDINE 0.1% OPHTH SOLN 5 ML OU SCH ×2 (09:11→20:58)
[2020-01-20] MEDS: SODIUM CHLORIDE NASAL 0.65% SPRAY BTL (OCEAN) SCH ×2 (09:11→20:58)
[2020-01-20] MEDS: ANALGESIC BALM CRM 120 GM TOP SCH ×4 (09:12→21:05)
[2020-01-20] MEDS: NYSTATIN 100,000 UNITS/GM TOPICAL PWD 15 GM TOP SCH ×2 (09:13→21:06)
[2020-01-20] MEDS: REMEDY PHYTOPLEX Z-GUARD PASTE 113GM TUBE (FROM STOREROOM PRODUCT) TOP SCH ×3 (09:14→21:09)
[2020-01-20] MEDS: LIDOCAINE 5% (LIDODERM) PATCH TD SCH ×2 (09:37)
[2020-01-20 14:00] VITALS: BP 130/63
[2020-01-20] MEDS: WARFARIN SOD 2MG TAB PO SCH (16:48)
[2020-01-20 20:30] VITALS: BP 127/66
[2020-01-20] MEDS: **NOTE PATIENT COMMENT** MISC XX SCH ×2 (20:59→21:00)
[2020-01-21 05:36] VITALS: BP 146/72
[2020-01-21] MEDS: ASPIRIN 81 MG ENTERIC TAB PO SCH (09:56)
[2020-01-21] MEDS: LACTOBACILLUS ACIDOPHILUS CAP (BACID) PO SCH ×3 (09:56→20:20)
[2020-01-21] MEDS: LIDOCAINE 5% (LIDODERM) PATCH TD SCH ×2 (09:57)
[2020-01-21] MEDS: OMEPRAZOLE 20 MG CAP PO SCH (09:57)
[2020-01-21] MEDS: ANALGESIC BALM CRM 120 GM TOP SCH ×4 (09:58→20:25)
[2020-01-21] MEDS: NYSTATIN 100,000 UNITS/GM TOPICAL PWD 15 GM TOP SCH ×2 (09:59→20:22)
[2020-01-21] MEDS: SODIUM CHLORIDE NASAL 0.65% SPRAY BTL (OCEAN) SCH ×2 (10:00→20:21)
[2020-01-21] MEDS: REMEDY PHYTOPLEX Z-GUARD PASTE 113GM TUBE (FROM STOREROOM PRODUCT) TOP SCH ×3 (10:00→20:22)
[2020-01-21] MEDS: BRIMONIDINE 0.1% OPHTH SOLN 5 ML OU SCH ×2 (10:00→20:25)
[2020-01-21] MEDS: FLUTICASONE PROP 0.05% NASAL SPRAY 16 GM (FLONASE) NARES SCH ×2 (10:01→20:21)
[2020-01-21] MEDS: atenoloL 25 MG TAB PO SCH ×2 (10:06→20:34)
[2020-01-21] MEDS: amLODIPine 5 MG TAB PO SCH (10:07)
[2020-01-21 14:00] VITALS: BP 120/60
[2020-01-21] MEDS: WARFARIN SOD 2MG TAB PO SCH (16:57)
[2020-01-21 20:00] VITALS: BP 128/68
[2020-01-21] MEDS: ASCORBIC ACID 500 MG TAB PO SCH (20:20)
[2020-01-21] MEDS: **NOTE PATIENT COMMENT** MISC XX SCH ×2 (20:22→20:23)
[2020-01-22 06:55] VITALS: BP 146/69
[2020-01-22] MEDS: OMEPRAZOLE 20 MG CAP PO SCH (09:25)
[2020-01-22] MEDS: amLODIPine 5 MG TAB PO SCH (09:26)
[2020-01-22] MEDS: LIDOCAINE 5% (LIDODERM) PATCH TD SCH ×2 (09:26→09:27)
[2020-01-22] MEDS: ASCORBIC ACID 500 MG TAB PO SCH ×2 (09:26→21:03)
[2020-01-22] MEDS: VITAMIN D 1,000 INTERNATIONAL UNITS TABLET PO SCH (09:26)
[2020-01-22] MEDS: atenoloL 25 MG TAB PO SCH ×2 (09:26→21:03)
[2020-01-22] MEDS: LACTOBACILLUS ACIDOPHILUS CAP (BACID) PO SCH ×3 (09:26→21:03)
[2020-01-22] MEDS: ASPIRIN 81 MG ENTERIC TAB PO SCH (09:26)
[2020-01-22] MEDS: NYSTATIN 100,000 UNITS/GM TOPICAL PWD 15 GM TOP SCH ×2 (09:27→21:05)
[2020-01-22] MEDS: SODIUM CHLORIDE NASAL 0.65% SPRAY BTL (OCEAN) SCH ×2 (09:30→21:04)
[2020-01-22] MEDS: ANALGESIC BALM CRM 120 GM TOP SCH ×4 (09:30→21:06)
[2020-01-22] MEDS: FLUTICASONE PROP 0.05% NASAL SPRAY 16 GM (FLONASE) NARES SCH ×2 (09:30→21:04)
[2020-01-22] MEDS: BRIMONIDINE 0.1% OPHTH SOLN 5 ML OU SCH ×2 (09:31→21:04)
[2020-01-22] MEDS: REMEDY PHYTOPLEX Z-GUARD PASTE 113GM TUBE (FROM STOREROOM PRODUCT) TOP SCH ×3 (09:32→21:08)
[2020-01-22 14:15] VITALS: BP 138/62
[2020-01-22] MEDS: WARFARIN SOD 2MG TAB PO SCH (17:07)
[2020-01-22 21:00] VITALS: BP 125/88
[2020-01-22] MEDS: **NOTE PATIENT COMMENT** MISC XX SCH ×2 (21:07)
[2020-01-23 06:00] VITALS: BP 154/84
[2020-01-23] MEDS: ASCORBIC ACID 500 MG TAB PO SCH ×2 (08:29→19:59)
[2020-01-23] MEDS: LACTOBACILLUS ACIDOPHILUS CAP (BACID) PO SCH ×3 (08:29→19:59)
[2020-01-23] MEDS: OMEPRAZOLE 20 MG CAP PO SCH (08:29)
[2020-01-23] MEDS: ASPIRIN 81 MG ENTERIC TAB PO SCH (08:29)
[2020-01-23] MEDS: atenoloL 25 MG TAB PO SCH ×2 (08:29→19:59)
[2020-01-23] MEDS: amLODIPine 5 MG TAB PO SCH (08:29)
[2020-01-23] MEDS: BRIMONIDINE 0.1% OPHTH SOLN 5 ML OU SCH ×2 (08:30→19:58)
[2020-01-23] MEDS: VITAMIN D 1,000 INTERNATIONAL UNITS TABLET PO SCH (08:30)
[2020-01-23] MEDS: FLUTICASONE PROP 0.05% NASAL SPRAY 16 GM (FLONASE) NARES SCH ×2 (08:30→19:58)
[2020-01-23] MEDS: SODIUM CHLORIDE NASAL 0.65% SPRAY BTL (OCEAN) SCH ×2 (08:30→19:58)
[2020-01-23] MEDS: NYSTATIN 100,000 UNITS/GM TOPICAL PWD 15 GM TOP SCH ×2 (08:31→19:57)
[2020-01-23] MEDS: ANALGESIC BALM CRM 120 GM TOP SCH ×4 (08:31→19:59)
[2020-01-23] MEDS: SCOPOLAMINE 1MG TRANSDERMAL PATCH TOP SCH (08:33)
[2020-01-23] MEDS: REMEDY PHYTOPLEX Z-GUARD PASTE 113GM TUBE (FROM STOREROOM PRODUCT) TOP SCH ×3 (08:33→19:57)
[2020-01-23] MEDS: LIDOCAINE 5% (LIDODERM) PATCH TD SCH ×2 (08:35)
--- NOTE | 2020-01-23 13:38 | IPNPDOC ---
PM&R Progress Note DATE OF SERVICE: Jan 23, 2020 Subcontract Administrator Progress Note DATE OF ADMISSION: Dec 22, 2019 at 16:05 INPATIENT REHABILITATION ADMISSION DAY: #31 SUBJECTIVE: Patient is an 89-year-old female on anticoagulation for Afib with vertigo, hypertension with orthostatic hypotension using leg wraps and abdo talha binder. Her condition is impacted by anemia, episodic headaches, nausea. Dizziness has improved with Scopolamine. Diuresis with Lasix previously helped CHF and respiratory issues, weight holding steady. She has made progress with ambulation, transfers, self-care activities, had fewer challenges with dizziness and episodic orthostatic hypotension, now transferring with supervision/ SBA. She is at times able to ambulate for longer distances and ascend stairs. Cough and sore throat improved with lozenges and warm fluids and discontinuing breathing rx. Held supplements and most recent episode of GI distress improved. On precautions for possible Covid19 exposure, limits activities. TB test and interim covid tests negative. FUNCTIONAL STATUS: PT- Toilet transfers standby assistance, less dizziness. SBA/CTGA with cues for transfers. She continues to work on strengthening and static balance ambulate 30 feet 2 with wheeled walker with standing rest breaks requiring contact-guard assistance. REVIEW OF SYSTEMS: Completed 14 pt review of systems unremarkable except as mentioned in interim subjective history. ALLERGIES: See Below MEDICATIONS: Reviewed, see below, Scopolamine helpful OBJECTIVE: VITAL SIGNS: Please see below. She remains afebrile. PHYSICAL EXAMINATION: GENERAL: Sitting him to breakfast, no complaint of dizziness today. HEENT: Normocephalic, atraumatic. No facial droop. EOMI. No nystagmus. NEUROLOGICAL: Answers all question appropriately. LUNGS Clear no wheezes, rales, rhonchi, no cough today CARDIAC S1 S2 extra beats, pulse steady 70s ABDOMEN: Positive bowel sounds, soft, no point tenderness SKIN: intact LABORATORY DATA: Reviewed. Please see below. INR stable, maintaining therapeutic range. H/H slid down slightly 11.1/35.2 Dec 22 to 10.2/32.5 on Jan 10, recheck on 01.18 noted stable at 11.9/37.8 and BMP stable. FBS 93 MICROBIOLOGY: Please see below. ASSESSMENT AND PLAN: 89-year-old hypertensive lady with past medical history of posterior circulation CVA who presents status post recurrent falls, contusing knees and continued vertigo and fairly significant orthostatic hypotensive changes, CHF responded to diuresis, however still with limited cardiopulmonary reserves and episodic escalation of vertigo symptoms improved today and nausea improved. PLAN: 1. Rehab- PT/OT advance mobility and ADLs, strengthen/stretch/maintain ROM all 4 limbs. Continue thigh high SOBEIDA with better control postural BP changes contributing to vertigo, added abdominal binder and that seems to help further with control when going from sit to stand. Speech reassessed swallowing changes no need to do further imaging studies no significant new neurological deficits evident, giving fluids or pudding with medications and manages to swallow fine. 2. Neuro- persistent vertigo likely central in etiology due to recent posterior circulation infarct in 2019 limiting her overall mobility and contributing to recurrent falls, possibility of further aggravation from orthostatic hypotension, steadily improving, fewer episodes interfering with ability to participate over the last week. -c/u ASA for secondary stroke prevention in addition to warfarin for afib. 3. Resp- IC, HH inhaler as needed 4.Cardiac- hx of afib, c/u coumadin Evidently, patient has been receiving consistent dose 2 mg Coumadin, maintaining INR within range, will renew and continue. SBP spikes, but then big orthostatic shift at times, will continue to monitor, hold on BP med changes for now. Will continue monitoring orthostatic changes. TEDS and binder seem to be helping. 5. continue rehab nursing -medicine consulted to assist in overall management, fluid restrict 1800cc with regular weights, weight holding steady. 5. GI ppx- omeprazole. Added cepacol lozenges as needed, helping, held Vit C, Fe, Vit D and add PRN Tums and symptoms improved. Recheck BMP, CBC , stable and improving. 6. DVT ppx on coumadin will continue to adjust and recheck PT/INR periodically now at target. 7. Pain- right knee OA , left shoulder improved, possibly related to transfer/gait leaning on walker, continue tylenol , lower dose and change to PRN. 9. Dispo- improving consistent goal of independence with toileting and mobility at a wheelchair level, short distances with front-wheeled walkerand transfer to assisted living appears most practical solution given the physiological and psychosocial circumstances. Son reports great difficulty finding reliable in home 24hr caregiving to accommodate her personal desire and goal to return to her home, also entrance poses a barrier and bathroom not accessible. Ongoing communications with family . TIME SPENT: Chart Review, examination Team meeting and documentation 30 minutes. Allergies Coded Allergies: Penicillins (Verified Allergy, Mild, RASH, 11/23/18) GUDELIA Inhibitors (Verified Allergy, Unknown, UNKNOWN REACTION PER FAMILY, 04/27/19) SEASONAL ALLERGIES (Verified Allergy, Unknown, 11/23/18) doxycycline (Verified Allergy, Unknown, UNKNOWN REACTION PER FAMILY, 04/27/19) prazosin (Verified Allergy, Unknown, UNKNOWN REACTION PER FAMILY, 04/27/19) codeine (Verified Adverse Reaction, Mild, CONFUSION, 11/23/18) ibuprofen (Verified Adverse Reaction, Mild, ORAL THRUSH, 11/26/18) Vital Signs Vital Signs Date Time Temp Pulse Resp B/P (MAP) Pulse Ox O2 Delivery O2 Flow Rate FiO2 01/23/20 08:29 68 154/84 01/23/20 06:00 97.5 16 98 Room Air Laboratory Data Labs 24H Laboratory Tests 2 01/23/20 11:49: Bedside Glucose (Misc Panel) 93 Current Medications Current Medications Current Medications Medications (Trade) Dose Ordered Sig/Gemini Route PRN Reason Start Time Stop Time Status Last Admin Dose Admin Acetaminophen (Tylenol Tab) 650 mg TID PRN PO MILD PAIN (PS 1-4) 01/19/20 11:30 01/27/20 08:00 Acetaminophen (Tylenol Tab) 1,000 mg TID PO 12/22/19 21:00 01/19/20 11:29 DC 01/19/20 09:41 Albuterol/ Ipratropium (Combivent Respimat 100-20mcg) 1 puff BID PRN INH SHORTNESS OF BREATH 01/17/20 21:00 01/22/20 11:32 Albuterol/ Ipratropium (Duoneb (Ipr 0.5mg/Alb 2.5mg)) 3 ml RTID NEB 12/22/19 20:00 01/17/20 08:10 DC 01/16/20 13:49 Amlodipine Besylate (Norvasc) 5 mg DAILY PO 01/02/20 09:00 01/23/20 08:29 Ascorbic Acid (Vitamin C) 500 mg BID PO 12/29/19 21:00 01/23/20 08:29 Aspirin (Ecotrin) 81 mg DAILY PO 12/23/19 09:00 01/23/20 08:29 Atenolol (Tenormin) 25 mg BID PO 12/22/19 21:00 01/23/20 08:29 Brimonidine Tartrate (Alphagan P 0.1%) 1 drop BID OU 12/22/19 21:00 01/23/20 08:30 Calcium Carbonate (Tums) 500 mg DAILY PRN PO INDIGESTION 01/19/20 11:30 Cetylpyridinium Chloride (Cepacol) 1 judy Q4HP PRN PO SORE THROAT 01/11/20 12:30 01/11/20 17:56 Ferrous Gluconate (Fergon) 324 mg DAILY PO 12/30/19 09:00 01/19/20 11:29 DC 01/19/20 09:41 Fludrocortisone Acetate (Florinef) 0.1 mg DAILY PO 12/23/19 09:00 01/01/20 10:35 DC 01/01/20 07:54 Fluticasone Propionate (Flonase 0.05% Nasal [place]) 1 spray BID NARES 12/22/19 21:00 01/23/20 08:30 Lactobacillus Acidophilus (Bacid) 1 ea TID PO 01/06/20 16:00 01/23/20 08:29 Lidocaine (Lidoderm Patch) 1 patch DAILY TD 12/28/19 09:00 01/23/20 08:35 Lidocaine (Lidoderm Patch) 1 patch DAILY TD 12/23/19 09:00 01/23/20 08:35 Losartan Potassium (Cozaar) 25 mg DAILY PO 01/07/20 09:00 Cancel Magnesium Hydroxide (Milk Of Magnesia) 30 ml DAILYPRN PRN PO CONSTIPATION 12/22/19 16:15 01/21/20 16:14 DC Meclizine HCl (Antivert) 12.5 mg BIDP PRN PO dizziness 12/26/19 19:30 01/11/20 09:22 Meclizine HCl (Antivert) 12.5 mg TID PO 12/22/19 21:00 12/26/19 19:32 DC 12/26/19 17:12 Menthol/Methyl Salicylate (Bengay Cream) BID TOP 01/05/20 09:00 01/23/20 08:32 Menthol/Methyl Salicylate (Bengay Cream) APPLY TO RIGHT ACHIL... BID TOP 12/30/19 09:00 01/23/20 08:31 Miscellaneous (Unresolved Clarification Entry) SEE LABEL COMMENTS DAILY XX 01/21/20 09:00 01/21/20 11:54 DC Non-Formulary Medication ( See Comment Field Below ) REMOVE LIDODERM PATCH DAILY@21 XX 12/28/19 21:00 12/28/19 12:00 DC Non-Formulary Medication ( See Comment Field Below ) REMOVE LIDODERM PATCH DAILY@21 XX 12/28/19 21:00 01/22/20 21:07 Non-Formulary Medication ( See Comment Field Below ) REMOVE LIDODERM PATCH DAILY@21 XX 12/23/19 21:00 01/22/20 21:07 Nystatin (Mycostatin Powder, Nystop) Apply BID PRN for Rash un... BIDP PRN TOP RASH 01/02/20 23:00 01/17/20 04:04 DC 01/17/20 03:17 Nystatin (Mycostatin Powder, Nystop) Apply BID for rash un... BID TOP 01/17/20 09:00 01/23/20 08:31 Omeprazole (PriLOSEC) 40 mg DAILY PO 12/23/19 09:00 01/23/20 08:29 Ondansetron HCl (Zofran Odt) 4 mg Q6HP PRN PO NAUSEA OR VOMITING 01/04/20 02:45 01/19/20 09:54 Scopolamine (Scopolamine) 1 mg Q3D@0900 TOP 01/17/20 09:00 01/23/20 08:33 Scopolamine (Scopolamine) 1 mg Q72H TOP 12/27/19 14:45 12/27/19 14:36 DC Scopolamine (Scopolamine) 1 mg Q72H TOP 12/27/19 16:00 01/13/20 10:13 DC 01/11/20 16:41 Scopolamine (Scopolamine) 1 mg Q72H TOP 01/14/20 16:00 01/16/20 10:47 DC 01/14/20 15:23 Sodium Chloride ([place] Nasal [place]) 2 spray BID NA 12/22/19 21:00 01/23/20 08:30 Tramadol HCl (Ultram) 25 mg Q4HP PRN PO SEVERE PAIN (PS 8-10) 12/22/19 16:15 12/28/19 12:52 DC 12/28/19 10:37 Vitamin D (Vitamin D) 2,000 units DAILY PO 12/23/19 09:00 01/23/20 08:30 Warfarin Sodium (Coumadin) 2 mg DAILY@17 PO 12/22/19 17:00 01/22/20 17:07 CABRERA COOLEY MD Jan 23, 2020 13:37
[2020-01-23 14:00] VITALS: BP 137/64
--- NOTE | 2020-01-23 15:16 | IPNPDOC ---
Text Note Date of Service The patient was seen on 01/23/20. VS,Fishbone, I+O VS, Fishbone, I+O Vital Signs Date Time Temp Pulse Resp B/P (MAP) Pulse Ox O2 Delivery O2 Flow Rate FiO2 01/23/20 14:00 97.6 61 18 137/64 (88) 98 Room Air I&O- Last 24 Hours up to 6 AM 01/23/20 06:00 Intake Total 1280 ml Balance 1280 ml IVY FONTANEZ MD Jan 23, 2020 15:16
[2020-01-23] MEDS: WARFARIN SOD 2MG TAB PO SCH (16:41)
[2020-01-23 19:56] VITALS: BP 118/56
[2020-01-23] MEDS: **NOTE PATIENT COMMENT** MISC XX SCH ×2 (20:00)
[2020-01-24 05:20] VITALS: BP 132/82
[2020-01-24] MEDS: SODIUM CHLORIDE NASAL 0.65% SPRAY BTL (OCEAN) SCH ×2 (09:30→20:08)
[2020-01-24] MEDS: BRIMONIDINE 0.1% OPHTH SOLN 5 ML OU SCH ×2 (09:30→20:06)
[2020-01-24] MEDS: FLUTICASONE PROP 0.05% NASAL SPRAY 16 GM (FLONASE) NARES SCH ×2 (09:30→20:07)
[2020-01-24] MEDS: VITAMIN D 1,000 INTERNATIONAL UNITS TABLET PO SCH (09:31)
[2020-01-24] MEDS: NYSTATIN 100,000 UNITS/GM TOPICAL PWD 15 GM TOP SCH ×2 (09:31→20:07)
[2020-01-24] MEDS: ASPIRIN 81 MG ENTERIC TAB PO SCH (09:31)
[2020-01-24] MEDS: OMEPRAZOLE 20 MG CAP PO SCH (09:31)
[2020-01-24] MEDS: LACTOBACILLUS ACIDOPHILUS CAP (BACID) PO SCH ×3 (09:31→20:07)
[2020-01-24] MEDS: ASCORBIC ACID 500 MG TAB PO SCH ×2 (09:31→20:07)
[2020-01-24] MEDS: amLODIPine 5 MG TAB PO SCH (09:31)
[2020-01-24] MEDS: atenoloL 25 MG TAB PO SCH ×2 (09:32→20:07)
[2020-01-24] MEDS: ANALGESIC BALM CRM 120 GM TOP SCH ×4 (09:35→20:09)
[2020-01-24] MEDS: LIDOCAINE 5% (LIDODERM) PATCH TD SCH ×2 (09:35)
[2020-01-24] MEDS: REMEDY PHYTOPLEX Z-GUARD PASTE 113GM TUBE (FROM STOREROOM PRODUCT) TOP SCH ×3 (09:36→20:10)
[2020-01-24 14:00] VITALS: BP 149/79
--- NOTE | 2020-01-24 15:43 | IPNPDOC ---
Text Note Date of Service The patient was seen on 01/24/20. NOTE Patient was seen and examined at the bedside. Patient was seen sitting up in a wheelchair reported that she still experiencing some vertigo-like symptoms. PHYSICAL EXAMINATION: GENERAL: Sitting him to breakfast, no complaint of dizziness today. HEENT: Normocephalic, atraumatic. EOMI. LUNGS Clear no wheezes, rales, rhonchi, no cough today CARDIAC S1 S2 extra beats, pulse steady 70s ABDOMEN: Positive bowel sounds, soft, no point tenderness NEUROLOGICAL: Strength equal on both lower and upper ext EXT: Ankles reveal 1+ pitting edema, negative Calf tenderness ASSESSMENT AND PLAN: Chronic Vertigo with frequent falls - likely 2/2 most recent stroke in 2019. CVA with posterior circulation involvement - Likely acutely worsened with orthostatic hypotension - c/w Meclizine; will adjust parameters - c/w Fludrocortisone and compression stocking / blair wrapping - PT and OT as per ARU Reported shortness of breath - Resolved - Currently not on submental oxygen; saturating well on room air - BNP elevated - CT chest 12/26: Bilateral effusions with pericardial fluid. There is no evidence of pulmonary edema. There is bibasilar atelectasis - ECHO 12/26: 1. Suggestive of moderate elevation of estimated right ventricle systolic pressure (46-52 mmHg). Suggestive of normal central venous pressure (5- 10 mmHg). 2. Normal left ventricle internal dimensions and wall thickness. Normal regional left ventricular (LV) wall motion and wall thickening. Normal left ventricular (LV) systolic function. Left ventricular ejection fraction (LVEF) 55% by visual estimate. Unable to adequately assess left ventricular (LV) diastolic function in the setting of atrial fibrillation. 3. Mild left atrial dilatation. 4. Moderate mitral annular calcification. No mitral regurgitation or stenosis. 5. Moderate aortic valve sclerosis of a 3-cuspid aortic valve. No aortic stenosis. Trace aortic regurgitation. 6. Tiny pericardial effusion observed over the right atrial free wall. No diastolic chamber collapse. 7. Moderately technically difficult echocardiogram. - s/p Furosemide only as needed. - Will likely provide additional diuretics today (will check BMP / CXR) Normocytic anemia - Baseline Hg of 12; Hg yesterday was 10 - No evidence of bleeding - Will repeat CBC HTN with orthostatic hypotension - c/w Atenolol Chronic A. Fib on Coumadin - Patient has remained rate controlled this morning - INR is therapeutic - c/w rate control with atenolol at current dose - Warfarin CVA 2000 and 2018 - c/w ASA Migraines GERD - c/w Omeprazole Knee pain - c/w Pain control w/ Diclofenac patch / Tylenol PRN DVT Prophylaxis - c/w full anticoagulation with Coumadin VS,Fishbone, I+O VS, Fishbone, I+O Vital Signs Date Time Temp Pulse Resp B/P (MAP) Pulse Ox O2 Delivery O2 Flow Rate FiO2 01/24/20 14:00 98.6 78 18 149/79 (102) 95 Room Air I&O- Last 24 Hours up to 6 AM 01/24/20 06:00 Intake Total 1740 ml Balance 1740 ml IVY FONTANEZ MD Jan 24, 2020 14:56
--- NOTE | 2020-01-24 16:17 | IPNPDOC ---
PM&R Progress Note DATE OF SERVICE: Jan 24, 2020 [employer] Progress Note DATE OF ADMISSION: Dec 22, 2019 at 16:05 INPATIENT REHABILITATION ADMISSION DAY: #32 SUBJECTIVE: Patient is an 89-year-old female on anticoagulation for Afib with vertigo, hypertension with orthostatic hypotension using leg wraps and abdo talha binder. Her condition is impacted by anemia, episodic headaches, nausea. Dizziness has improved with Scopolamine. Diuresis with Lasix previously helped CHF and respiratory issues, weight holding steady. Participation varies, feeling a bit isolated since she has been on contact precautions in the room, however overall has made progress with ambulation, transfers, self-care activities often only requiring supervision and has far fewer challenges with dizziness and episodic orthostatic hypotension as long as stockings and acewraps and binder are applied. Minimal complaints today, slept better and good appetite. FUNCTIONAL STATUS: PT- Toilet transfers standby assistance, less dizziness. SBA/supervision with cues for transfers. REVIEW OF SYSTEMS: Completed 14 pt review of systems unremarkable except as mentioned in interim subjective history. ALLERGIES: See Below MEDICATIONS: Reviewed, see below, Scopolamine helpful OBJECTIVE: VITAL SIGNS: Please see below. She remains afebrile. PHYSICAL EXAMINATION: GENERAL: No complaint of dizziness HEENT: Normocephalic, atraumatic. No facial droop. EOMI. No nystagmus. NEUROLOGICAL: Answers all question appropriately. LUNGS Clear no wheezes, rales, rhonchi, no cough today CARDIAC S1 S2 extra beats, pulse steady 70s ABDOMEN: Positive bowel sounds, soft, no point tenderness SKIN: intact LABORATORY DATA: Reviewed. Please see below. INR stable, maintaining therapeutic range. H/H slid down slightly 11.1/35.2 Dec 22 to 10.2/32.5 on Jan 10, recheck on 01.18 noted stable at 11.9/37.8 and BMP stable. FBS 93 MICROBIOLOGY: Please see below. ASSESSMENT AND PLAN: 89-year-old hypertensive lady with past medical history of posterior circulation CVA who presents status post recurrent falls, contusing knees and continued vertigo and fairly significant orthostatic hypotensive changes, CHF responded to diuresis, however still with limited cardiopulmonary reserves and episodic escalation of vertigo symptoms improved today and nausea improved. PLAN: 1. Rehab- PT/OT advance mobility and ADLs, strengthen/stretch/maintain ROM all 4 limbs. Continue thigh high SOBEIDA with better control postural BP changes contributing to vertigo, added abdominal binder and that seems to help further with control when going from sit to stand. 2. Neuro- persistent vertigo steadily improving, fewer episodes interfering with ability to participate. -c/u ASA for secondary stroke prevention in addition to warfarin for afib. 3. Resp- IC, HH inhaler as needed 4.Cardiac- hx of afib, c/u coumadin Evidently, patient has been receiving consistent dose 2 mg Coumadin, maintaining INR within range, will renew and continue. SBP spikes, but then big orthostatic shift at times, will continue to monitor, hold on BP med changes for now. Will continue monitoring orthostatic c hanges. TEDS and binder seem to be helping. 5. continue rehab nursing 5. GI ppx- omeprazole. Recheck BMP, CBC , stable and improving. 6. DVT ppx on coumadin will continue to adjust and recheck PT/INR periodically now at target. 7. Dispo- improving consistent goal of independence with toileting and mobility at a wheelchair level, short distances with front-wheeled walkerand transfer to assisted living appears most practical solution given the physiological and psychosocial circumstances. Son reports great difficulty finding reliable in home 24hr caregiving to accommodate her personal desire and goal to return to her home, also entrance poses a barrier and bathroom not accessible. Ongoing communications with family . TIME SPENT: Chart Review, examination Team meeting and documentation 20 minutes. Allergies Coded Allergies: Penicillins (Verified Allergy, Mild, RASH, 11/23/18) GUDELIA Inhibitors (Verified Allergy, Unknown, UNKNOWN REACTION PER FAMILY, 04/27/19) SEASONAL ALLERGIES (Verified Allergy, Unknown, 11/23/18) doxycycline (Verified Allergy, Unknown, UNKNOWN REACTION PER FAMILY, 04/27/19) prazosin (Verified Allergy, Unknown, UNKNOWN REACTION PER FAMILY, 04/27/19) codeine (Verified Adverse Reaction, Mild, CONFUSION, 11/23/18) ibuprofen (Verified Adverse Reaction, Mild, ORAL THRUSH, 11/26/18) Vital Signs Vital Signs Date Time Temp Pulse Resp B/P (MAP) Pulse Ox O2 Delivery O2 Flow Rate FiO2 01/24/20 14:00 98.6 78 18 149/79 (102) 95 Room Air Current Medications Current Medications Current Medications Medications (Trade) Dose Ordered Sig/Gemini Route PRN Reason Start Time Stop Time Status Last Admin Dose Admin Acetaminophen (Tylenol Tab) 650 mg TID PRN PO MILD PAIN (PS 1-4) 01/19/20 11:30 01/27/20 08:00 Acetaminophen (Tylenol Tab) 1,000 mg TID PO 12/22/19 21:00 01/19/20 11:29 DC 01/19/20 09:41 Albuterol/ Ipratropium (Combivent Respimat 100-20mcg) 1 puff BID PRN INH SHORTNESS OF BREATH 01/17/20 21:00 01/22/20 11:32 Albuterol/ Ipratropium (Duoneb (Ipr 0.5mg/Alb 2.5mg)) 3 ml RTID NEB 12/22/19 20:00 01/17/20 08:10 DC 01/16/20 13:49 Amlodipine Besylate (Norvasc) 5 mg DAILY PO 01/02/20 09:00 01/24/20 09:31 Ascorbic Acid (Vitamin C) 500 mg BID PO 12/29/19 21:00 01/24/20 09:31 Aspirin (Ecotrin) 81 mg DAILY PO 12/23/19 09:00 01/24/20 09:31 Atenolol (Tenormin) 25 mg BID PO 12/22/19 21:00 01/24/20 09:32 Brimonidine Tartrate (Alphagan P 0.1%) 1 drop BID OU 12/22/19 21:00 01/24/20 09:30 Calcium Carbonate (Tums) 500 mg DAILY PRN PO INDIGESTION 01/19/20 11:30 Cetylpyridinium Chloride (Cepacol) 1 judy Q4HP PRN PO SORE THROAT 01/11/20 12:30 01/11/20 17:56 Ferrous Gluconate (Fergon) 324 mg DAILY PO 12/30/19 09:00 01/19/20 11:29 DC 01/19/20 09:41 Fludrocortisone Acetate (Florinef) 0.1 mg DAILY PO 12/23/19 09:00 01/01/20 10:35 DC 01/01/20 07:54 Fluticasone Propionate (Flonase 0.05% Nasal [place]) 1 spray BID NARES 12/22/19 21:00 01/24/20 09:30 Lactobacillus Acidophilus (Bacid) 1 ea TID PO 01/06/20 16:00 01/24/20 09:31 Lidocaine (Lidoderm Patch) 1 patch DAILY TD 12/28/19 09:00 01/24/20 09:35 Lidocaine (Lidoderm Patch) 1 patch DAILY TD 12/23/19 09:00 01/24/20 09:35 Losartan Potassium (Cozaar) 25 mg DAILY PO 01/07/20 09:00 Cancel Magnesium Hydroxide (Milk Of Magnesia) 30 ml DAILYPRN PRN PO CONSTIPATION 12/22/19 16:15 01/21/20 16:14 DC Meclizine HCl (Antivert) 12.5 mg BIDP PRN PO dizziness 12/26/19 19:30 01/11/20 09:22 Meclizine HCl (Antivert) 12.5 mg TID PO 12/22/19 21:00 12/26/19 19:32 DC 12/26/19 17:12 Menthol/Methyl Salicylate (Bengay Cream) BID TOP 01/05/20 09:00 01/24/20 09:36 Menthol/Methyl Salicylate (Beng[place] Cream) APPLY TO RIGHT ACHIL... BID TOP 12/30/19 09:00 01/24/20 09:35 Miscellaneous (Unresolved Clarification Entry) SEE LABEL COMMENTS DAILY XX 01/21/20 09:00 01/21/20 11:54 DC Non-Formulary Medication ( See Comment Field Below ) REMOVE LIDODERM PATCH DAILY@21 XX 12/28/19 21:00 12/28/19 12:00 DC Non-Formulary Medication ( See Comment Field Below ) REMOVE LIDODERM PATCH DAILY@21 XX 12/28/19 21:00 01/23/20 20:00 Non-Formulary Medication ( See Comment Field Below ) REMOVE LIDODERM PATCH DAILY@ XX 12/23/19 21:00 01/23/20 20:00 Nystatin (Mycostatin Powder, Nystop) Apply BID PRN for Rash un... BIDP PRN TOP RASH 01/02/20 23:00 01/17/20 04:04 DC 01/17/20 03:17 Nystatin (Mycostatin Powder, Nystop) Apply BID for rash un... BID TOP 11/3/20 09:00 01/24/20 09:31 Omeprazole (PriLOSEC) 40 mg DAILY PO 12/23/19 09:00 01/24/20 09:31 Ondansetron HCl (Zofran Odt) 4 mg Q6HP PRN PO NAUSEA OR VOMITING 01/04/20 02:45 01/19/20 09:54 Scopolamine (Scopolamine) 1 mg Q3D@0900 TOP 01/17/20 09:00 01/23/20 08:33 Scopolamine (Scopolamine) 1 mg Q72H TOP 12/27/19 14:45 12/27/19 14:36 DC Scopolamine (Scopolamine) 1 mg Q72H TOP 12/27/19 16:00 01/13/20 10:13 DC 01/11/20 16:41 Scopolamine (Scopolamine) 1 mg Q72H TOP 01/14/20 16:00 01/16/20 10:47 DC 01/14/20 15:23 Sodium Chloride ([place] Nasal [place]) 2 spray BID NA 12/22/19 21:00 01/24/20 09:30 Tramadol HCl (Ultram) 25 mg Q4HP PRN PO SEVERE PAIN (PS 8-10) 12/22/19 16:15 12/28/19 12:52 DC 12/28/19 10:37 Vitamin D (Vitamin D) 2,000 units DAILY PO 12/23/19 09:00 01/24/20 09:31 Warfarin Sodium (Coumadin) 2 mg DAILY@17 PO 12/22/19 17:00 01/23/20 16:41 CABRERA COOLEY MD Jan 24, 2020 16:17
[2020-01-24] MEDS: WARFARIN SOD 2MG TAB PO SCH (16:21)
[2020-01-24 19:57] VITALS: BP 146/78
[2020-01-24] MEDS: **NOTE PATIENT COMMENT** MISC XX SCH ×2 (20:10)
[2020-01-25 06:41] VITALS: BP 162/72
[2020-01-25] MEDS: ANALGESIC BALM CRM 120 GM TOP SCH ×4 (08:12→21:32)
[2020-01-25] MEDS: NYSTATIN 100,000 UNITS/GM TOPICAL PWD 15 GM TOP SCH ×2 (08:13→21:28)
[2020-01-25] MEDS: SODIUM CHLORIDE NASAL 0.65% SPRAY BTL (OCEAN) SCH ×2 (08:13→21:28)
[2020-01-25] MEDS: BRIMONIDINE 0.1% OPHTH SOLN 5 ML OU SCH ×2 (08:13→21:28)
[2020-01-25] MEDS: FLUTICASONE PROP 0.05% NASAL SPRAY 16 GM (FLONASE) NARES SCH ×2 (08:13→21:27)
[2020-01-25] MEDS: LIDOCAINE 5% (LIDODERM) PATCH TD SCH ×2 (08:14→08:15)
[2020-01-25] MEDS: REMEDY PHYTOPLEX Z-GUARD PASTE 113GM TUBE (FROM STOREROOM PRODUCT) TOP SCH ×3 (08:14→21:29)
[2020-01-25] MEDS: VITAMIN D 1,000 INTERNATIONAL UNITS TABLET PO SCH (08:15)
[2020-01-25] MEDS: LACTOBACILLUS ACIDOPHILUS CAP (BACID) PO SCH ×3 (08:16→21:26)
[2020-01-25] MEDS: OMEPRAZOLE 20 MG CAP PO SCH (08:16)
[2020-01-25] MEDS: ASPIRIN 81 MG ENTERIC TAB PO SCH (08:16)
[2020-01-25] MEDS: atenoloL 25 MG TAB PO SCH ×2 (08:16→21:27)
[2020-01-25] MEDS: ASCORBIC ACID 500 MG TAB PO SCH ×2 (08:16→21:28)
[2020-01-25] MEDS: amLODIPine 5 MG TAB PO SCH (08:16)
[2020-01-25 14:00] VITALS: BP 144/77
--- NOTE | 2020-01-25 16:53 | IPNPDOC ---
Text Note Date of Service The patient was seen on 01/25/20. NOTE Patient was seen and examined at the bedside. Patient was seen sitting up in a wheelchair reported that she still experiencing some vertigo-like symptoms. PHYSICAL EXAMINATION: GENERAL: Sitting him to breakfast, no complaint of dizziness today. HEENT: Normocephalic, atraumatic. EOMI. LUNGS Clear no wheezes, rales, rhonchi, no cough today CARDIAC S1 S2 extra beats, pulse steady 70s ABDOMEN: Positive bowel sounds, soft, no point tenderness NEUROLOGICAL: Strength equal on both lower and upper ext EXT: Ankles reveal 1+ pitting edema, negative Calf tenderness ASSESSMENT AND PLAN: Chronic Vertigo with frequent falls - likely 2/2 most recent stroke in 2019. CVA with posterior circulation involvement - Likely acutely worsened with orthostatic hypotension - c/w Meclizine; will adjust parameters - c/w Fludrocortisone and compression stocking / blair wrapping - PT and OT as per ARU Reported shortness of breath - Resolved - Currently not on submental oxygen; saturating well on room air - BNP elevated - CT chest 12/26: Bilateral effusions with pericardial fluid. There is no evidence of pulmonary edema. There is bibasilar atelectasis - ECHO 12/26: 1. Suggestive of moderate elevation of estimated right ventricle systolic pressure (46-52 mmHg). Suggestive of normal central venous pressure (5- 10 mmHg). 2. Normal left ventricle internal dimensions and wall thickness. Normal regional left ventricular (LV) wall motion and wall thickening. Normal left ventricular (LV) systolic function. Left ventricular ejection fraction (LVEF) 55% by visual estimate. Unable to adequately assess left ventricular (LV) diastolic function in the setting of atrial fibrillation. 3. Mild left atrial dilatation. 4. Moderate mitral annular calcification. No mitral regurgitation or stenosis. 5. Moderate aortic valve sclerosis of a 3-cuspid aortic valve. No aortic stenosis. Trace aortic regurgitation. 6. Tiny pericardial effusion observed over the right atrial free wall. No diastolic chamber collapse. 7. Moderately technically difficult echocardiogram. - s/p Furosemide only as needed. - Will likely provide additional diuretics today (will check BMP / CXR) Normocytic anemia - Baseline Hg of 12; Hg yesterday was 10 - No evidence of bleeding - Will repeat CBC HTN with orthostatic hypotension - c/w Atenolol Chronic A. Fib on Coumadin - Patient has remained rate controlled this morning - INR is therapeutic - c/w rate control with atenolol at current dose - Warfarin CVA 2000 and 2018 - c/w ASA Migraines GERD - c/w Omeprazole Knee pain - c/w Pain control w/ Diclofenac patch / Tylenol PRN DVT Prophylaxis - c/w full anticoagulation with Coumadin VS,Fishbone, I+O VS, Fishbone, I+O Vital Signs Date Time Temp Pulse Resp B/P (MAP) Pulse Ox O2 Delivery O2 Flow Rate FiO2 01/25/20 14:00 98.4 61 18 144/77 (99) 98 Room Air I&O- Last 24 Hours up to 6 AM 01/25/20 05:59 Intake Total 1060 ml Balance 1060 ml IVY FONTANEZ MD Jan 25, 2020 16:53
[2020-01-25] MEDS: WARFARIN SOD 2MG TAB PO SCH (17:12)
[2020-01-25 19:17] VITALS: BP 161/67
[2020-01-25] MEDS: **NOTE PATIENT COMMENT** MISC XX SCH ×2 (21:30)
[2020-01-26 06:00] VITALS: BP 148/76
[2020-01-26] MEDS: REMEDY PHYTOPLEX Z-GUARD PASTE 113GM TUBE (FROM STOREROOM PRODUCT) TOP SCH ×3 (09:00→20:21)
[2020-01-26] MEDS: SODIUM CHLORIDE NASAL 0.65% SPRAY BTL (OCEAN) SCH ×3 (09:00→20:19)
[2020-01-26] MEDS: NYSTATIN 100,000 UNITS/GM TOPICAL PWD 15 GM TOP SCH ×2 (09:00→20:22)
[2020-01-26] MEDS: SCOPOLAMINE 1MG TRANSDERMAL PATCH TOP SCH (10:22)
[2020-01-26] MEDS: LIDOCAINE 5% (LIDODERM) PATCH TD SCH ×2 (10:23→10:24)
[2020-01-26] MEDS: ASPIRIN 81 MG ENTERIC TAB PO SCH (10:24)
[2020-01-26] MEDS: OMEPRAZOLE 20 MG CAP PO SCH (10:24)
[2020-01-26] MEDS: ASCORBIC ACID 500 MG TAB PO SCH ×2 (10:24→20:18)
[2020-01-26] MEDS: LACTOBACILLUS ACIDOPHILUS CAP (BACID) PO SCH ×3 (10:24→20:18)
[2020-01-26] MEDS: VITAMIN D 1,000 INTERNATIONAL UNITS TABLET PO SCH (10:24)
[2020-01-26] MEDS: amLODIPine 5 MG TAB PO SCH (10:28)
[2020-01-26] MEDS: FLUTICASONE PROP 0.05% NASAL SPRAY 16 GM (FLONASE) NARES SCH ×2 (10:29→20:19)
[2020-01-26] MEDS: atenoloL 25 MG TAB PO SCH ×2 (10:29→20:18)
[2020-01-26] MEDS: BRIMONIDINE 0.1% OPHTH SOLN 5 ML OU SCH ×2 (10:29→20:20)
[2020-01-26] MEDS: ANALGESIC BALM CRM 120 GM TOP SCH ×4 (10:30→20:20)
--- NOTE | 2020-01-26 11:50 | IPNPDOC ---
PM&R Progress Note DATE OF SERVICE: Jan 26, 2020 [employer] Rol[employer] Progress Note DATE OF ADMISSION: Dec 22, 2019 at 16:05 INPATIENT REHABILITATION ADMISSION DAY: #34 SUBJECTIVE: Patient is an 89-year-old female on anticoagulation for Afib with vertigo, hypertension with orthostatic hypotension using leg wraps and abd ominal binder to stabilize blood pressure. Her condition is impacted by anemia, episodic headaches, nausea. Dizziness has improved with Scopolamine. Diuresis with Lasix previously helped CHF and respiratory issues, weight holding steady. Participation varies, feeling a bit isolated since she has been on contact precautions in the room, however overall she has made progress with ambulation, transfers, self-care activities often only requiring supervision and has far fewer challenges with dizziness and episodic orthostatic hypotension as long as stockings and acewraps and binder are applied. She feels confident in her ability to function independently in her own environment. No complaints today, slept better and good appetite, minimal dizziness. FUNCTIONAL STATUS: PT- Had some increased back pain, required CGA for mobility and transfer activities. REVIEW OF SYSTEMS: Completed 14 pt review of systems unremarkable except as mentioned in interim subjective history. ALLERGIES: See Below MEDICATIONS: Reviewed, see below, Scopolamine helpful OBJECTIVE: VITAL SIGNS: Please see below. She remains afebrile. PHYSICAL EXAMINATION: GENERAL: No complaint of dizziness HEENT: Normocephalic, atraumatic. No facial droop. EOMI. No nystagmus. NEUROLOGICAL: Answers all question appropriately. LUNGS Clear no wheezes, rales, rhonchi, no cough today CARDIAC S1 S2 extra beats, pulse steady 70s ABDOMEN: Positive bowel sounds, soft, no point tenderness SKIN: intact LABORATORY DATA: Reviewed. Please see below. INR stable, maintaining therapeutic range. H/H slid down slightly 11.1/35.2 Dec 22 to 10.2/32.5 on Jan 10, recheck on 01.18 noted stable at 11.9/37.8 and BMP stable. FBS 93 MICROBIOLOGY: Please see below. ASSESSMENT AND PLAN: 89-year-old hypertensive lady with past medical history of posterior circulation CVA who presents status post recurrent falls, contusing knees and continued vertigo and fairly significant orthostatic hypotensive changes, CHF responded to diuresis, however still with limited cardiopulmonary reserves and episodic escalation of vertigo symptoms improved today and nausea improved. PLAN: 1. Rehab- PT/OT advance mobility and ADLs, strengthen/stretch/maintain ROM all 4 limbs. Continue thigh high SOBEIDA with better control postural BP changes contributing to vertigo, added abdominal binder and that seems to help further with control when going from sit to stand. Patient will need manual wheelchair on discharge for longer distance mobility needs. She fatigues easily and some days dizziness is too severe to permit safe ambulation or performance of activities of daily living from a standing position. This deficit and mobility limitation cannot be sufficiently nor safely resolved with use of a cane or walker and will significantly impair the ability to participate in mobility related activity of daily living within the home. 2. Neuro- persistent vertigo steadily improving, fewer episodes interfering with ability to participate. -c/u ASA for secondary stroke prevention in addition to warfarin for afib. 3. Resp- IC, HH inhaler as needed 4.Cardiac- hx of afib, c/u coumadin Evidently, patient has been receiving consistent dose 2 mg Coumadin, maintaining INR within range, will renew and continue. SBP spikes, but then big orthostatic shift at times, will continue to monitor, hold on BP med changes for now. Will continue monitoring orthostatic changes. TEDS and binder seem to be helping. 5. continue rehab nursing 5. GI ppx- omeprazole. 6. DVT ppx on coumadin now at target. 7. Dispo- improving consistent goal of independence with toileting and mobility at a wheelchair level, short distances with front-wheeled walker. Transfer to assisted living appears most practical solution given the physiological and psychosocial circumstances. TIME SPENT: Chart Review, examination Team meeting and documentation 20 minutes. Allergies Coded Allergies: Penicillins (Verified Allergy, Mild, RASH, 11/23/18) GUDELIA Inhibitors (Verified Allergy, Unknown, UNKNOWN REACTION PER FAMILY, 04/27/19) SEASONAL ALLERGIES (Verified Allergy, Unknown, 11/23/18) doxycycline (Verified Allergy, Unknown, UNKNOWN REACTION PER FAMILY, 04/27/19) prazosin (Verified Allergy, Unknown, UNKNOWN REACTION PER FAMILY, 04/27/19) codeine (Verified Adverse Reaction, Mild, CONFUSION, 11/23/18) ibuprofen (Verified Adverse Reaction, Mild, ORAL THRUSH, 11/26/18) Vital Signs Vital Signs Date Time Temp Pulse Resp B/P (MAP) Pulse Ox O2 Delivery O2 Flow Rate FiO2 01/26/20 10:28 68 158/82 11/12/20 06:00 97.0 20 98 Room Air Current Medications Current Medications Current Medications Medications (Trade) Dose Ordered Sig/Gemini Route PRN Reason Start Time Stop Time Status Last Admin Dose Admin Acetaminophen (Tylenol Tab) 650 mg TID PRN PO MILD PAIN (PS 1-4) 01/19/20 11:30 01/27/20 08:00 Acetaminophen (Tylenol Tab) 1,000 mg TID PO 12/22/19 21:00 01/19/20 11:29 DC 01/19/20 09:41 Albuterol/ Ipratropium (Combivent Respimat 100-20mcg) 1 puff BID PRN INH SHORTNESS OF BREATH 01/17/20 21:00 01/22/20 11:32 Albuterol/ Ipratropium (Duoneb (Ipr 0.5mg/Alb 2.5mg)) 3 ml RTID NEB 12/22/19 20:00 01/17/20 08:10 DC 01/16/20 13:49 Amlodipine Besylate (Norvasc) 5 mg DAILY PO 01/02/20 09:00 01/26/20 10:28 Ascorbic Acid (Vitamin C) 500 mg BID PO 12/29/19 21:00 01/26/20 10:24 Aspirin (Ecotrin) 81 mg DAILY PO 12/23/19 09:00 01/26/20 10:24 Atenolol (Tenormin) 25 mg BID PO 12/22/19 21:00 01/26/20 10:29 Brimonidine Tartrate (Alphagan P 0.1%) 1 drop BID OU 12/22/19 21:00 01/26/20 10:29 Calcium Carbonate (Tums) 500 mg DAILY PRN PO INDIGESTION 01/19/20 11:30 Cetylpyridinium Chloride (Cepacol) 1 judy Q4HP PRN PO SORE THROAT 01/11/20 12:30 01/11/20 17:56 Ferrous Gluconate (Fergon) 324 mg DAILY PO 12/30/19 09:00 01/19/20 11:29 DC 01/19/20 09:41 Fludrocortisone Acetate (Florinef) 0.1 mg DAILY PO 12/23/19 09:00 01/01/20 10:35 DC 01/01/20 07:54 Fluticasone Propionate (Flonase 0.05% Nasal [place]) 1 spray BID NARES 12/22/19 21:00 01/26/20 10:29 Lactobacillus Acidophilus (Bacid) 1 ea TID PO 01/06/20 16:00 01/26/20 10:24 Lidocaine (Lidoderm Patch) 1 patch DAILY TD 12/28/19 09:00 01/26/20 10:23 Lidocaine (Lidoderm Patch) 1 patch DAILY TD 12/23/19 09:00 01/26/20 10:24 Losartan Potassium (Cozaar) 25 mg DAILY PO 01/07/20 09:00 Cancel Magnesium Hydroxide (Milk Of Magnesia) 30 ml DAILYPRN PRN PO CONSTIPATION 12/22/19 16:15 01/21/20 16:14 DC Meclizine HCl (Antivert) 12.5 mg BIDP PRN PO dizziness 12/26/19 19:30 01/11/20 09:22 Meclizine HCl (Antivert) 12.5 mg TID PO 12/22/19 21:00 12/26/19 19:32 DC 12/26/19 17:12 Menthol/Methyl Salicylate (Bengay Cream) BID TOP 01/05/20 09:00 01/26/20 10:30 Menthol/Methyl Salicylate (Bengay Cream) APPLY TO RIGHT ACHIL... BID TOP 12/30/19 09:00 01/26/20 10:30 Miscellaneous (Unresolved Clarification Entry) SEE LABEL COMMENTS DAILY XX 01/24/20 09:00 01/25/20 11:01 DC Miscellaneous (Unresolved Clarification Entry) SEE LABEL COMMENTS DAILY XX 01/21/20 09:00 01/21/20 11:54 DC Non-Formulary Medication ( See Comment Field Below ) REMOVE LIDODERM PATCH DAILY@21 XX 12/28/19 21:00 12/28/19 12:00 DC Non-Formulary Medication ( See Comment Field Below ) REMOVE LIDODERM PATCH DAILY@21 XX 12/28/19 21:00 01/25/20 21:30 Non-Formulary Medication ( See Comment Field Below ) REMOVE LIDODERM PATCH DAILY@21 XX 12/23/19 21:00 01/25/20 21:30 Nystatin (Mycostatin Powder, Nystop) Apply BID PRN for Rash un... BIDP PRN TOP RASH 01/02/20 23:00 01/17/20 04:04 DC 01/17/20 03:17 Nystatin (Mycostatin Powder, Nystop) Apply BID for rash un... BID TOP 01/17/20 09:00 01/25/20 21:28 Omeprazole (PriLOSEC) 40 mg DAILY PO 12/23/19 09:00 01/26/20 10:24 Ondansetron HCl (Zofran Odt) 4 mg Q6HP PRN PO NAUSEA OR VOMITING 01/04/20 02:45 01/19/20 09:54 Scopolamine (Scopolamine) 1 mg Q3D@0900 TOP 01/17/20 09:00 01/26/20 10:22 Scopolamine (Scopolamine) 1 mg Q72H TOP 12/27/19 14:45 12/27/19 14:36 DC Scopolamine (Scopolamine) 1 mg Q72H TOP 12/27/19 16:00 01/13/20 10:13 DC 01/11/20 16:41 Scopolamine (Scopolamine) 1 mg Q72H TOP 01/14/20 16:00 01/16/20 10:47 DC 01/14/20 15:23 Sodium Chloride ([place] Nasal [place]) 2 spray BID NA 12/22/19 21:00 01/25/20 21:28 Tramadol HCl (Ultram) 25 mg Q4HP PRN PO SEVERE PAIN (PS 8-10) 12/22/19 16:15 12/28/19 12:52 DC 12/28/19 10:37 Vitamin D (Vitamin D) 2,000 units DAILY PO 12/23/19 09:00 01/26/20 10:24 Warfarin Sodium (Coumadin) 2 mg DAILY@17 PO 12/22/19 17:00 01/25/20 17:12 CABRERA COOLEY MD Jan 26, 2020 11:50
[2020-01-26 14:00] VITALS: BP 137/78
[2020-01-26] MEDS: WARFARIN SOD 2MG TAB PO SCH (17:04)
[2020-01-26 20:00] VITALS: BP 158/80
[2020-01-26] MEDS: **NOTE PATIENT COMMENT** MISC XX SCH ×2 (20:23)
[2020-01-27 06:00] VITALS: BP 162/72
[2020-01-27 08:11] VITALS: BP 170/80
[2020-01-27] MEDS: ANALGESIC BALM CRM 120 GM TOP SCH ×4 (09:00→22:08)
[2020-01-27] MEDS: SODIUM CHLORIDE NASAL 0.65% SPRAY BTL (OCEAN) SCH ×2 (09:00→22:07)
[2020-01-27] MEDS: OMEPRAZOLE 20 MG CAP PO SCH (09:13)
[2020-01-27] MEDS: ASPIRIN 81 MG ENTERIC TAB PO SCH (09:13)
[2020-01-27] MEDS: VITAMIN D 1,000 INTERNATIONAL UNITS TABLET PO SCH (09:13)
[2020-01-27] MEDS: amLODIPine 5 MG TAB PO SCH (09:15)
[2020-01-27] MEDS: ASCORBIC ACID 500 MG TAB PO SCH ×2 (09:15→22:06)
[2020-01-27] MEDS: LACTOBACILLUS ACIDOPHILUS CAP (BACID) PO SCH ×3 (09:15→22:06)
[2020-01-27] MEDS: atenoloL 25 MG TAB PO SCH ×2 (09:15→22:06)
[2020-01-27] MEDS: LIDOCAINE 5% (LIDODERM) PATCH TD SCH ×2 (09:16)
[2020-01-27] MEDS: NYSTATIN 100,000 UNITS/GM TOPICAL PWD 15 GM TOP SCH ×2 (09:17→22:08)
[2020-01-27] MEDS: REMEDY PHYTOPLEX Z-GUARD PASTE 113GM TUBE (FROM STOREROOM PRODUCT) TOP SCH ×3 (09:18→22:09)
[2020-01-27] MEDS: BRIMONIDINE 0.1% OPHTH SOLN 5 ML OU SCH ×2 (09:18→22:07)
[2020-01-27] MEDS: FLUTICASONE PROP 0.05% NASAL SPRAY 16 GM (FLONASE) NARES SCH ×2 (09:18→22:07)
--- NOTE | 2020-01-27 11:31 | IPNPDOC ---
Text Note Date of Service The patient was seen on 01/27/20. NOTE Patient was seen and examined at the bedside. Patient was seen sitting up in a wheelchair reported that she still experiencing some vertigo-like symptoms. PHYSICAL EXAMINATION: GENERAL: AOO3 HEENT: Normocephalic, atraumatic. EOMI. LUNGS Clear no wheezes, rales, rhonchi, no cough today CARDIAC S1 S2 extra beats, pulse steady 70s ABDOMEN: Positive bowel sounds, soft, no point tenderness NEUROLOGICAL: Strength equal on both lower and upper ext EXT: Ankles reveal 1+ pitting edema, negative Calf tenderness ASSESSMENT AND PLAN: 89-year-old hypertensive lady with past medical history of posterior circulation CVA who presents status post recurrent falls and vertigo and fairly significant orthostatic hypotensive changes now on Fludrocortisone and compression stocking , Pulmonary HTN on PRN diuresis, currently admitted to ARU for vertigo symptoms 1) Chronic Vertigo with frequent falls -Multifactorial, likely 2/2 most recent stroke in 2019 with posterior circulation involvement and now orthostatic hypotension, c/w Meclizine; will adjust parameters , c/w Fludrocortisone and compression stocking / blair wrapping. PT and OT as per ARU 2) Reported shortness of breath - Resolved ECHO 12/26: 1. Suggestive of moderate elevation of estimated right ventricle systolic pressure (46-52 mmHg) and Left ventricular ejection fraction (LVEF) 55% by visual estimate. Unable to adequately assess left ventricular (LV) diastolic function in the setting of atrial fibrillation. Furosemide only as needed. 3) Normocytic anemia: Hb at baseline. No evidence of bleeding 4) Chronic A. Fib on Coumadin . Patient has remained rate controlled this morning. INR is therapeutic, c/w rate control with atenolol at current dose and Warfarin 5) CVA 2000 and 2018. c/w ASA 6) Knee pain. c/w Pain control w/ Diclofenac patch / Tylenol PRN DVT Prophylaxis . c/w full anticoagulation with Coumadin Disposition as per primary VS,Bong, I+O VS, Bong, I+O Vital Signs Date Time Temp Pulse Resp B/P (MAP) Pulse Ox O2 Delivery O2 Flow Rate FiO2 01/27/20 09:15 62 160/80 01/27/20 06:00 98.2 17 99 Room Air I&O- Last 24 Hours up to 6 AM 01/27/20 05:59 Intake Total 1140 ml Balance 1140 ml IVY FONTANEZ MD Jan 27, 2020 11:31
[2020-01-27 14:00] VITALS: BP 124/86
[2020-01-27] MEDS: WARFARIN SOD 2MG TAB PO SCH (16:50)
[2020-01-27 20:00] VITALS: BP 132/75
[2020-01-27] MEDS: **NOTE PATIENT COMMENT** MISC XX SCH ×2 (21:00)
[2020-01-28 06:04] VITALS: BP 139/77
[2020-01-28] MEDS: ANALGESIC BALM CRM 120 GM TOP SCH ×4 (09:00→21:20)
[2020-01-28] MEDS: ASPIRIN 81 MG ENTERIC TAB PO SCH (09:14)
[2020-01-28] MEDS: VITAMIN D 1,000 INTERNATIONAL UNITS TABLET PO SCH (09:14)
[2020-01-28] MEDS: OMEPRAZOLE 20 MG CAP PO SCH (09:15)
[2020-01-28] MEDS: LACTOBACILLUS ACIDOPHILUS CAP (BACID) PO SCH ×3 (09:15→21:18)
[2020-01-28] MEDS: ASCORBIC ACID 500 MG TAB PO SCH ×2 (09:15→21:18)
[2020-01-28] MEDS: BRIMONIDINE 0.1% OPHTH SOLN 5 ML OU SCH ×2 (09:16→21:20)
[2020-01-28] MEDS: amLODIPine 5 MG TAB PO SCH (09:16)
[2020-01-28] MEDS: atenoloL 25 MG TAB PO SCH ×2 (09:16→21:18)
[2020-01-28] MEDS: SODIUM CHLORIDE NASAL 0.65% SPRAY BTL (OCEAN) SCH ×2 (09:16→21:19)
[2020-01-28] MEDS: FLUTICASONE PROP 0.05% NASAL SPRAY 16 GM (FLONASE) NARES SCH ×2 (09:16→21:19)
[2020-01-28] MEDS: LIDOCAINE 5% (LIDODERM) PATCH TD SCH ×2 (09:17)
[2020-01-28] MEDS: NYSTATIN 100,000 UNITS/GM TOPICAL PWD 15 GM TOP SCH ×2 (09:18→21:19)
[2020-01-28] MEDS: REMEDY PHYTOPLEX Z-GUARD PASTE 113GM TUBE (FROM STOREROOM PRODUCT) TOP SCH ×3 (09:19→21:21)
[2020-01-28 14:00] VITALS: BP 127/62
[2020-01-28] MEDS: WARFARIN SOD 2MG TAB PO SCH (16:56)
[2020-01-28 20:30] VITALS: BP 142/87
[2020-01-28] MEDS: **NOTE PATIENT COMMENT** MISC XX SCH ×2 (21:21)
[2020-01-29 05:58] VITALS: BP 127/62
[2020-01-29] MEDS: ASPIRIN 81 MG ENTERIC TAB PO SCH (09:19)
[2020-01-29] MEDS: LACTOBACILLUS ACIDOPHILUS CAP (BACID) PO SCH ×3 (09:19→21:02)
[2020-01-29] MEDS: VITAMIN D 1,000 INTERNATIONAL UNITS TABLET PO SCH (09:20)
[2020-01-29] MEDS: ASCORBIC ACID 500 MG TAB PO SCH ×2 (09:20→21:02)
[2020-01-29] MEDS: OMEPRAZOLE 20 MG CAP PO SCH (09:20)
[2020-01-29] MEDS: atenoloL 25 MG TAB PO SCH ×2 (09:20→21:03)
[2020-01-29] MEDS: amLODIPine 5 MG TAB PO SCH (09:20)
[2020-01-29] MEDS: LIDOCAINE 5% (LIDODERM) PATCH TD SCH ×2 (09:21→09:22)
[2020-01-29] MEDS: SCOPOLAMINE 1MG TRANSDERMAL PATCH TOP SCH (09:21)
[2020-01-29] MEDS: SODIUM CHLORIDE NASAL 0.65% SPRAY BTL (OCEAN) SCH ×2 (09:22→21:01)
[2020-01-29] MEDS: FLUTICASONE PROP 0.05% NASAL SPRAY 16 GM (FLONASE) NARES SCH ×2 (09:23→21:02)
[2020-01-29] MEDS: BRIMONIDINE 0.1% OPHTH SOLN 5 ML OU SCH ×2 (09:24→21:01)
[2020-01-29] MEDS: NYSTATIN 100,000 UNITS/GM TOPICAL PWD 15 GM TOP SCH ×2 (09:25→21:02)
[2020-01-29] MEDS: ANALGESIC BALM CRM 120 GM TOP SCH (09:26)
[2020-01-29] MEDS: REMEDY PHYTOPLEX Z-GUARD PASTE 113GM TUBE (FROM STOREROOM PRODUCT) TOP SCH ×3 (09:26→21:02)
[2020-01-29 14:00] VITALS: BP 130/58
[2020-01-29 15:26] LABS: INR 2.46; PROTHROMBIN TIME 27.2 SECONDS (12.5-14.3)
[2020-01-29] MEDS: WARFARIN SOD 2MG TAB PO SCH (16:33)
[2020-01-29 20:00] VITALS: BP 179/85
[2020-01-29] MEDS: **NOTE PATIENT COMMENT** MISC XX SCH ×2 (21:03→21:04)
[2020-01-30] MEDS ORDERED: ACETAMINOPHEN 500 MG TAB PO ONE (01:15)
[2020-01-30] MEDS ORDERED: ACETAMINOPHEN 500 MG TAB PO PRN (01:15)
[2020-01-30 01:30] VITALS: BP 143/64
[2020-01-30 06:05] VITALS: BP 127/80
[2020-01-30] MEDS: ASPIRIN 81 MG ENTERIC TAB PO SCH (08:56)
[2020-01-30] MEDS: VITAMIN D 1,000 INTERNATIONAL UNITS TABLET PO SCH (08:56)
[2020-01-30] MEDS: ASCORBIC ACID 500 MG TAB PO SCH ×2 (08:56→21:50)
[2020-01-30] MEDS: OMEPRAZOLE 20 MG CAP PO SCH (08:56)
[2020-01-30] MEDS: LACTOBACILLUS ACIDOPHILUS CAP (BACID) PO SCH ×3 (08:56→21:50)
[2020-01-30] MEDS: atenoloL 25 MG TAB PO SCH ×2 (08:57→21:50)
[2020-01-30] MEDS: amLODIPine 5 MG TAB PO SCH (08:57)
[2020-01-30] MEDS: LIDOCAINE 5% (LIDODERM) PATCH TD SCH ×2 (08:58)
[2020-01-30] MEDS: NYSTATIN 100,000 UNITS/GM TOPICAL PWD 15 GM TOP SCH ×2 (09:01→21:50)
[2020-01-30] MEDS: REMEDY PHYTOPLEX Z-GUARD PASTE 113GM TUBE (FROM STOREROOM PRODUCT) TOP SCH ×3 (09:02→21:51)
[2020-01-30] MEDS: FLUTICASONE PROP 0.05% NASAL SPRAY 16 GM (FLONASE) NARES SCH ×2 (09:02→21:51)
[2020-01-30] MEDS: BRIMONIDINE 0.1% OPHTH SOLN 5 ML OU SCH ×2 (09:02→21:51)
[2020-01-30] MEDS: SODIUM CHLORIDE NASAL 0.65% SPRAY BTL (OCEAN) SCH ×2 (09:02→21:51)
[2020-01-30 14:00] VITALS: BP_SYST 136; BP_SYST 137; BP_DIAS 63; BP_DIAS 65
[2020-01-30] MEDS: WARFARIN SOD 2MG TAB PO SCH (17:09)
[2020-01-30 20:00] VITALS: BP 133/60
[2020-01-30] MEDS: **NOTE PATIENT COMMENT** MISC XX SCH ×2 (21:51)
[2020-01-31 05:56] VITALS: BP 143/65
[2020-01-31] MEDS: OMEPRAZOLE 20 MG CAP PO SCH (07:31)
[2020-01-31] MEDS: LACTOBACILLUS ACIDOPHILUS CAP (BACID) PO SCH ×3 (07:31→20:02)
[2020-01-31] MEDS: ASCORBIC ACID 500 MG TAB PO SCH ×2 (07:31→20:02)
[2020-01-31] MEDS: ASPIRIN 81 MG ENTERIC TAB PO SCH (07:31)
[2020-01-31] MEDS: atenoloL 25 MG TAB PO SCH ×2 (07:32→20:10)
[2020-01-31] MEDS: VITAMIN D 1,000 INTERNATIONAL UNITS TABLET PO SCH (07:32)
[2020-01-31] MEDS: LIDOCAINE 5% (LIDODERM) PATCH TD SCH ×2 (07:33)
[2020-01-31] MEDS: REMEDY PHYTOPLEX Z-GUARD PASTE 113GM TUBE (FROM STOREROOM PRODUCT) TOP SCH ×3 (07:34→19:57)
[2020-01-31] MEDS: NYSTATIN 100,000 UNITS/GM TOPICAL PWD 15 GM TOP SCH ×2 (07:34→19:58)
[2020-01-31] MEDS: SODIUM CHLORIDE NASAL 0.65% SPRAY BTL (OCEAN) SCH ×2 (07:35→19:58)
[2020-01-31] MEDS: FLUTICASONE PROP 0.05% NASAL SPRAY 16 GM (FLONASE) NARES SCH ×2 (07:36→19:58)
[2020-01-31] MEDS: BRIMONIDINE 0.1% OPHTH SOLN 5 ML OU SCH ×2 (07:37→19:59)
[2020-01-31] MEDS: amLODIPine 5 MG TAB PO SCH (07:38)
[2020-01-31 14:00] VITALS: BP 144/72
--- NOTE | 2020-01-31 15:03 | IPNPDOC ---
PM&R Progress Note DATE OF SERVICE: Jan 31, 2020 [employer] Progress Note DATE OF ADMISSION: Dec 22, 2019 at 16:05 01.31.2020 SUBJECTIVE: Patient is an 89-year-old female on anticoagulation for Afib with vertigo, hypertension with orthostatic hypotension using leg wraps and abdominal binder to stabilize blood pressure. Her condition is impacted by anemia, episodic headaches, nausea. Dizziness has improved with Scopolamine, careful use of support hose and abdominal binder. She was feeling a bit isolated on contact precautions in the room, but she has made progress with ambulation, transfers, self-care activities requiring supervision to SBA and has far fewer challenges with dizziness and episodic orthostatic hypotension as long as stockings and acewraps and binder are applied. She feels confident in her ability to function independently in her own environment. No complaints sleeping well, good appetite, minimal dizziness, moving bowels well. Sometimes has morning cough, but clears as day goes on.Team notes a bit of forgetfulness at times. FUNCTIONAL STATUS: Discussed in Team Rounds today PT- CGA for mobility and transfer activities. Continent. REVIEW OF SYSTEMS: Completed 14 pt review of systems unremarkable except as mentioned in interim subjective history. ALLERGIES: See Below MEDICATIONS: Reviewed, see below. OBJECTIVE: VITAL SIGNS: Please see below. She remains afebrile. PHYSICAL EXAMINATION: GENERAL: No complaint of dizziness HEENT: Normocephalic, atraumatic. No facial droop. EOMI. No nystagmus. NEUROLOGICAL: Answers all question appropriately. LUNGS Clear no wheezes, rales, rhonchi CARDIAC S1 S2 extra beats, pulse steady 70s ABDOMEN: Positive bowel sounds, soft, no point tenderness SKIN: intact EXTREMITIES: No point tenderness, usual min edema, negative Homans. LABORATORY DATA: Reviewed. Please see below. INR stable, maintaining therapeutic range. MICROBIOLOGY: Please see below. ASSESSMENT AND PLAN: 89-year-old hypertensive lady with past medical history of posterior circulation CVA who presents status post recurrent falls, contusing knees and continued vertigo and fairly significant orthostatic hypotensive changes, CHF responded to diuresis, however still with limited cardiopulmonary reserves and episodic escalation of vertigo symptoms improved today and nausea improved. PLAN: 1. Rehab- PT/OT advance mobility and ADLs, strengthen/stretch/maintain ROM all 4 limbs. Continue thigh high SOBEIDA with better control postural BP changes contributing to vertigo, added abdominal binder and that seems to help further with control when going from sit to stand. Patient will need manual wheelchair on discharge for longer distance mobility needs. She fatigues easily and some days dizziness is too severe to permit safe ambulation or performance of activities of daily living from a standing position. This deficit and mobility limitation cannot be sufficiently nor safely resolved with use of a cane or walker and will significantly impair the ability to participate in mobility related activity of daily living within the home. 2. Neuro- persistent vertigo steadily improving, fewer episodes interfering with ability to participate. -c/u ASA for secondary stroke prevention in addition to warfarin for afib. 3. Resp- IC, HH inhaler as needed, lozenges help with throat scratchiness and cough. 4.Cardiac- hx of afib, c/u coumadin Evidently, patient has been receiving consistent dose 2 mg Coumadin, maintaining INR within range, will renew and continue. SBP spikes, but then big orthostatic shift at times, will continue to monitor. Will continue monitoring orthostatic changes. TEDS and binder seem to be helping. 5. continue rehab nursing 5. GI ppx- omeprazole. 6. DVT ppx on coumadin now at target. 7. Dispo- improving consistent goal of independence with toileting and mobility at a wheelchair level, short distances with front-wheeled walker. Transfer to assisted living appears most practical solution given the physiological and psychosocial circumstances. TIME SPENT: Chart Review, examination Team meeting and documentation 20 minutes. Allergies Coded Allergies: Penicillins (Verified Allergy, Mild, RASH, 11/23/18) GUDELIA Inhibitors (Verified Allergy, Unknown, UNKNOWN REACTION PER FAMILY, 04/27/19) SEASONAL ALLERGIES (Verified Allergy, Unknown, 11/23/18) doxycycline (Verified Allergy, Unknown, UNKNOWN REACTION PER FAMILY, 04/27/19) prazosin (Verified Allergy, Unknown, UNKNOWN REACTION PER FAMILY, 04/27/19) codeine (Verified Adverse Reaction, Mild, CONFUSION, 11/23/18) ibuprofen (Verified Adverse Reaction, Mild, ORAL THRUSH, 11/26/18) Vital Signs Vital Signs Date Time Temp Pulse Resp B/P (MAP) Pulse Ox O2 Delivery O2 Flow Rate FiO2 01/31/20 14:00 98.6 83 18 144/72 (96) 96 Room Air Current Medications Current Medications Current Medications Medications (Trade) Dose Ordered Sig/Gemini Route PRN Reason Start Time Stop Time Status Last Admin Dose Admin Acetaminophen (Tylenol Tab) 500 mg Q6HP PRN PO pain/fever/headache 01/30/20 01:15 Acetaminophen (Tylenol Tab) 650 mg TID PRN PO MILD PAIN (PS 1-4) 01/19/20 11:30 01/27/20 08:00 DC Acetaminophen (Tylenol Tab) 1,000 mg TID PO 12/22/19 21:00 01/19/20 11:29 DC 01/19/20 09:41 Albuterol/ Ipratropium (Combivent Respimat 100-20mcg) 1 puff BID PRN INH SHORTNESS OF BREATH 01/17/20 21:00 01/22/20 11:32 Albuterol/ Ipratropium (Duoneb (Ipr 0.5mg/Alb 2.5mg)) 3 ml RTID NEB 12/22/19 20:00 01/17/20 08:10 DC 01/16/20 13:49 Amlodipine Besylate (Norvasc) 5 mg DAILY PO 01/02/20 09:00 01/31/20 07:38 Ascorbic Acid (Vitamin C) 500 mg BID PO 12/29/19 21:00 01/31/20 07:31 Aspirin (Ecotrin) 81 mg DAILY PO 12/23/19 09:00 01/31/20 07:31 Atenolol (Tenormin) 25 mg BID PO 12/22/19 21:00 01/31/20 07:32 Brimonidine Tartrate (Alphagan P 0.1%) 1 drop BID OU 12/22/19 21:00 01/31/20 07:37 Calcium Carbonate (Tums) 500 mg DAILY PRN PO INDIGESTION 01/19/20 11:30 Cetylpyridinium Chloride (Cepacol) 1 judy Q4HP PRN PO SORE THROAT 01/11/20 12:30 01/11/20 17:56 Ferrous Gluconate (Fergon) 324 mg DAILY PO 12/30/19 09:00 01/19/20 11:29 DC 01/19/20 09:41 Fludrocortisone Acetate (Florinef) 0.1 mg DAILY PO 12/23/19 09:00 01/01/20 10:35 DC 01/01/20 07:54 Fluticasone Propionate (Flonase 0.05% Nasal [place]) 1 spray BID NARES 12/22/19 21:00 01/31/20 07:36 Lactobacillus Acidophilus (Bacid) 1 ea TID PO 01/06/20 16:00 01/31/20 07:31 Lidocaine (Lidoderm Patch) 1 patch DAILY TD 12/28/19 09:00 01/31/20 07:33 Lidocaine (Lidoderm Patch) 1 patch DAILY TD 12/23/19 09:00 01/31/20 07:33 Losartan Potassium (Cozaar) 25 mg DAILY PO 01/07/20 09:00 Cancel Magnesium Hydroxide (Milk Of Magnesia) 30 ml DAILYPRN PRN PO CONSTIPATION 12/22/19 16:15 01/21/20 16:14 DC Meclizine HCl (Antivert) 12.5 mg BIDP PRN PO dizziness 12/26/19 19:30 01/11/20 09:22 Meclizine HCl (Antivert) 12.5 mg TID PO 12/22/19 21:00 12/26/19 19:32 DC 12/26/19 17:12 Menthol/Methyl Salicylate (Bengay Cream) BID TOP 01/05/20 09:00 01/29/20 09:27 DC 01/29/20 09:26 Menthol/Methyl Salicylate (Bengay Cream) APPLY TO RIGHT ACHIL... BID TOP 12/30/19 09:00 01/29/20 08:59 DC 01/28/20 21:20 Miscellaneous (Unresolved Clarification Entry) SEE LABEL COMMENTS DAILY XX 01/24/20 09:00 01/25/20 11:01 DC Miscellaneous (Unresolved Clarification Entry) SEE LABEL COMMENTS DAILY XX 01/29/20 09:00 01/29/20 17:23 DC Miscellaneous (Unresolved Clarification Entry) SEE LABEL COMMENTS DAILY XX 01/21/20 09:00 01/21/20 11:54 DC Non-Formulary Medication ( See Comment Field Below ) REMOVE LIDODERM PATCH DAILY@21 XX 12/28/19 21:00 12/28/19 12:00 DC Non-Formulary Medication ( See Comment Field Below ) REMOVE LIDODERM PATCH DAILY@21 XX 12/28/19 21:00 01/30/20 21:51 Non-Formulary Medication ( See Comment Field Below ) REMOVE LIDODERM PATCH DAILY@21 XX 12/23/19 21:00 01/30/20 21:51 Nystatin (Mycostatin Powder, Nystop) Apply BID PRN for Rash un... BIDP PRN TOP RASH 01/02/20 23:00 01/17/20 04:04 DC 01/17/20 03:17 Nystatin (Mycostatin Powder, Nystop) Apply BID for rash un... BID TOP 01/17/20 09:00 01/31/20 07:34 Omeprazole (PriLOSEC) 40 mg DAILY PO 12/23/19 09:00 01/31/20 07:31 Ondansetron HCl (Zofran Odt) 4 mg Q6HP PRN PO NAUSEA OR VOMITING 01/04/20 02:45 01/19/20 09:54 Scopolamine (Scopolamine) 1 mg Q3D@0900 TOP 01/17/20 09:00 01/29/20 09:21 Scopolamine (Scopolamine) 1 mg Q72H TOP 12/27/19 14:45 12/27/19 14:36 DC Scopolamine (Scopolamine) 1 mg Q72H TOP 12/27/19 16:00 01/13/20 10:13 DC 01/11/20 16:41 Scopolamine (Scopolamine) 1 mg Q72H TOP 01/14/20 16:00 01/16/20 10:47 DC 01/14/20 15:23 Sodium Chloride ([place] Nasal [place]) 2 spray BID NA 12/22/19 21:00 01/31/20 07:35 Tramadol HCl (Ultram) 25 mg Q4HP PRN PO SEVERE PAIN (PS 8-10) 12/22/19 16:15 12/28/19 12:52 DC 12/28/19 10:37 Vitamin D (Vitamin D) 2,000 units DAILY PO 12/23/19 09:00 01/31/20 07:32 Warfarin Sodium (Coumadin) 2 mg DAILY@17 PO 12/22/19 17:00 01/30/20 17:09 CABRERA COOLEY MD Jan 31, 2020 15:03
[2020-01-31] MEDS: WARFARIN SOD 2MG TAB PO SCH (16:58)
[2020-01-31] MEDS: **NOTE PATIENT COMMENT** MISC XX SCH ×2 (19:59→20:00)
[2020-01-31 20:00] VITALS: BP 136/65
[2020-02-01 06:00] VITALS: BP 137/67
[2020-02-01 07:31] LABS: BASO # 0.1 10^3/uL (0.0-0.2); BASO % 0.8 % (0.0-1.0); EOS # 0.5 10^3/uL (0.0-0.5); EOS % 6.3 % (0.0-3.0); HEMATOCRIT 34.6 % (36.0-47.0); HEMOGLOBIN 10.8 g/dl (12.0-15.5); LYMPH # 2.5 10^3/uL (1.5-5.0); LYMPH % 33.5 % (24.0-44.0); MEAN CORPUSCULAR HEMOGLOBIN 29.7 pg (27.0-33.0); MEAN CORPUSCULAR HGB CONC 31.2 g/dl (32.0-36.5); MEAN CORPUSCULAR VOLUME 95.1 fl (80.0-96.0); MONO # 0.9 10^3/uL (0.0-0.8); MONO % 11.3 % (0.0-5.0); NEUTROPHILS # 3.6 10^3/uL (1.5-8.5); PLATELET COUNT, AUTOMATED 230 10^3/uL (150-450); RED BLOOD COUNT 3.64 10^6/uL (4.00-5.40); WHITE BLOOD COUNT 7.5 10^3/uL (4.0-10.0)
[2020-02-01 07:42] LABS: INR 2.51; PROTHROMBIN TIME 27.7 SECONDS (12.5-14.3)
[2020-02-01] MEDS: VITAMIN D 1,000 INTERNATIONAL UNITS TABLET PO SCH (07:42)
[2020-02-01] MEDS: amLODIPine 5 MG TAB PO SCH (07:42)
[2020-02-01] MEDS: OMEPRAZOLE 20 MG CAP PO SCH (07:42)
[2020-02-01] MEDS: ASPIRIN 81 MG ENTERIC TAB PO SCH (07:42)
[2020-02-01] MEDS: LACTOBACILLUS ACIDOPHILUS CAP (BACID) PO SCH ×3 (07:42→20:33)
[2020-02-01] MEDS: atenoloL 25 MG TAB PO SCH ×2 (07:43→20:35)
[2020-02-01] MEDS: SCOPOLAMINE 1MG TRANSDERMAL PATCH TOP SCH (07:44)
[2020-02-01] MEDS: REMEDY PHYTOPLEX Z-GUARD PASTE 113GM TUBE (FROM STOREROOM PRODUCT) TOP SCH ×3 (07:44→20:36)
[2020-02-01] MEDS: NYSTATIN 100,000 UNITS/GM TOPICAL PWD 15 GM TOP SCH ×2 (07:44→20:36)
[2020-02-01] MEDS: SODIUM CHLORIDE NASAL 0.65% SPRAY BTL (OCEAN) SCH ×2 (07:45→20:35)
[2020-02-01] MEDS: ASCORBIC ACID 500 MG TAB PO SCH ×2 (07:45→20:35)
[2020-02-01] MEDS: BRIMONIDINE 0.1% OPHTH SOLN 5 ML OU SCH ×2 (07:45→20:35)
[2020-02-01] MEDS: FLUTICASONE PROP 0.05% NASAL SPRAY 16 GM (FLONASE) NARES SCH ×2 (07:45→20:35)
[2020-02-01 07:59] LABS: BLOOD UREA NITROGEN 18 MG/DL (7-18); CARBON DIOXIDE LEVEL 28 MEQ/L (21-32); CHLORIDE LEVEL 110 MEQ/L (98-107); CREATININE FOR GFR 0.89 MG/DL (0.55-1.30); GLOMERULAR FILTRATION RATE > 60.0 (>32); GLUCOSE, FASTING 99 MG/DL (70-100); POTASSIUM SERUM 3.7 MEQ/L (3.5-5.1); SODIUM LEVEL 143 MEQ/L (136-145)
[2020-02-01] MEDS: LIDOCAINE 5% (LIDODERM) PATCH TD SCH ×2 (09:36)
[2020-02-01 14:00] VITALS: BP 150/71
[2020-02-01] MEDS ORDERED: SORE15LO PO (14:46)
[2020-02-01] MEDS ORDERED: JANT2TAB PO (14:46)
[2020-02-01] MEDS ORDERED: AMLO1TAB24 PO (14:46)
[2020-02-01] MEDS ORDERED: CALC200T15 PO (14:46)
[2020-02-01] MEDS ORDERED: ACET-683 PO (14:46)
[2020-02-01] MEDS ORDERED: SCOP1PAT2 TOP (14:46)
[2020-02-01] MEDS ORDERED: COMBAER6 INH (14:46)
[2020-02-01] MEDS: WARFARIN SOD 2MG TAB PO SCH (16:15)
[2020-02-01 20:00] VITALS: BP 134/99
[2020-02-01] MEDS: **NOTE PATIENT COMMENT** MISC XX SCH ×2 (20:36→20:37)
[2020-02-02 06:00] VITALS: BP 140/77
[2020-02-02] MEDS: OMEPRAZOLE 20 MG CAP PO SCH (08:36)
[2020-02-02] MEDS: ASCORBIC ACID 500 MG TAB PO SCH (08:36)
[2020-02-02] MEDS: LACTOBACILLUS ACIDOPHILUS CAP (BACID) PO SCH (08:37)
[2020-02-02] MEDS: ASPIRIN 81 MG ENTERIC TAB PO SCH (08:37)
[2020-02-02 08:38] VITALS: BP 130/74
[2020-02-02] MEDS: atenoloL 25 MG TAB PO SCH (08:38)
[2020-02-02] MEDS: amLODIPine 5 MG TAB PO SCH (08:38)
[2020-02-02] MEDS: FLUTICASONE PROP 0.05% NASAL SPRAY 16 GM (FLONASE) NARES SCH (08:40)
[2020-02-02] MEDS: BRIMONIDINE 0.1% OPHTH SOLN 5 ML OU SCH (08:40)
[2020-02-02] MEDS: NYSTATIN 100,000 UNITS/GM TOPICAL PWD 15 GM TOP SCH (08:40)
[2020-02-02] MEDS: SODIUM CHLORIDE NASAL 0.65% SPRAY BTL (OCEAN) SCH (08:40)
[2020-02-02] MEDS: VITAMIN D 1,000 INTERNATIONAL UNITS TABLET PO SCH (08:46)
[2020-02-02] MEDS: REMEDY PHYTOPLEX Z-GUARD PASTE 113GM TUBE (FROM STOREROOM PRODUCT) TOP SCH (08:47)
[2020-02-02] MEDS: LIDOCAINE 5% (LIDODERM) PATCH TD SCH ×2 (08:47)
[2020-02-02 09:27] LABS: INR 2.3; PROTHROMBIN TIME 25.8 SECONDS (12.5-14.3)
--- NOTE | 2020-02-02 09:54 | DS.PDOC ---
PM&R Discharge Summary S[facility] Discharge Note DATE OF ADMISSION: Dec 22, 2019 at 16:05 DATE OF DISCHARGE: 02.02.2020 DISCHARGE DIAGNOSES: Hypertension. Migraines. GERD. History of posterior circulation CVA with persisting dizziness Orthostatic hypotension. Leukocytosis. CHF Anemia PAST MEDICAL HISTORY: Hypertension. H/O Afib Migraines. GERD. History of posterior circulation CVA with persisting dizziness. PAST SURGICAL HISTORY: Bilateral total knee replacement. Cholecystectomy HOSPITAL COURSE: 89-year-old hypertensive lady with past medical history of posterior circulation CVA who presented status post recurrent falls, contusing knees and continued vertigo and fairly significant orthostatic hypotensive changes, the unit on 12/22/2019. She had CHF responded to diuresis, however still with limited cardiopulmonary reserves and episodic escalation of vertigo symptoms , further aggravated by orthostatic changes. Patient initially managed with Florinef high doses of meclizine, change to scopolamine patch and with PRN meclizine with less cognitive confusion. Soreness in the knees from when she fell responded to icing, coupled with applications of Lidoderm and joint wrapping. Coumadin dosing settled out at therapeutic range 2mg/day. Orthostatics improved with addition of abdominal binder, TEDS and leg wrappings and continued PT/OT therapeutic interventions, permitting time to slowly equilibrate when first up in the morning, elevating head of bed, then sitting on side of bed for period of time with wraps on, before beginning to ambulate. She tends to have a morning cough, improved with respiratory rx and lozenges and spent couple weeks on quarantine after possible staff exposure to Covid 19, remained negative. Patient family conference held regarding difficult options for supportive care [place] and decision made for her to transfer to an interim assisted living environment with support for higher order ADLS like meal prep, laundry and housekeeping and support for mild memory challenges. Functional capacity at time of discharge included ambulation with walker. PHYSICAL EXAMINATION: GENERAL: No complaint of dizziness HEENT: Normocephalic, atraumatic. No facial droop. EOMI. No nystagmus. NEUROLOGICAL: Answers all question appropriately. LUNGS Clear no wheezes, rales, rhonchi CARDIAC: S1 S2 extra beats, pulse steady 70s ABDOMEN: Positive bowel sounds, soft, no point tenderness SKIN: intact EXTREMITIES: No point tenderness, usual min edema, negative Homans. FUNCTIONAL STATUS AT DISCHARGE: N monitor with the rolling walker with standby assist to supervision. Bed mobility-rolling w/o rail mod I, supine-sit w/ rail at mod I. Performed supine and sitting exercise w/ SBA-supv LABORATORY DATA: Please see below. Covid 19 neg 02.01.2020 INR 2.3 ALLERGIES: See below. MEDICATIONS: See Below. DISCHARGE DISPOSITION: to [facility] [facility]. Continued monitoring cardiopulmonary status and vertigo. TIME SPENT: Chart Review, examination and documentation 30 minutes. This document is generated using speech recognition software which may result in grammatical, typographical and individual word errors. Vital Signs/I&O Vital Sign - Last 24 Hours 02/01/20 02/01/20 02/01/20 02/02/20 14:00 20:00 20:35 06:00 Temp 98.1 98.9 98.1 Pulse 71 65 65 60 Resp 19 17 18 B/P (MAP) 150/71 (97) 134/99 (111) 134/99 140/77 (98) Pulse Ox 98 96 95 O2 Delivery Room Air Room Air Room Air 02/02/20 08:38 Pulse 70 B/P (MAP) 130/74 I&O- Last 24 Hours up to 6 AM 02/02/20 05:59 Intake Total 1280 ml Balance 1280 ml Laboratory Data CBC/BMP Laboratory Tests 02/01/20 07:20 Labs 48H Laboratory Tests 02/01/20 07:20: White Blood Count 7.5, Red Blood Count 3.64L, Hemoglobin 10.8L, Hematocrit 34.6L, Mean Corpuscular Volume 95.1, Mean Corpuscular Hemoglobin 29.7, Mean Corpuscular Hemoglobin Concent 31.2L, Red Cell Distribution Width 14.6H, Platelet Count 230, Immature Granulocyte % (Auto) 0.1, Neutrophils (%) (Auto) 48.0, Lymphocytes (%) (Auto) 33.5, Monocytes (%) (Auto) 11.3H, Eosinophils (%) (Auto) 6.3H, Basophils (%) (Auto) 0.8, Neutrophils # (Auto) 3.6, Lymphocytes # (Auto) 2.5, Monocytes # (Auto) 0.9H, Eosinophils # (Auto) 0.5, Basophils # (Auto) 0.1, Nucleated Red Blood Cells % (auto) 0.0, Prothrombin Time 27.7H, Prothromb Time International Ratio 2.51, Sodium Level 143, Potassium Level 3.7, Chloride Level 110H, Carbon Dioxide Level 28, Anion Gap 5L, Blood Urea Nitrogen 18, Creatinine 0.89, Glomerular Filtration Rate > 60.0, Fasting Glucose 99, Calc ium Level 9.0 02/01/20 07:55: Coronavirus (COVID-19)(PCR) NEGATIVE 02/02/20 08:01: Prothrombin Time 25.8H, Prothromb Time International Ratio 2.30 Medications Medications Current Medications Medications (Trade) Dose Ordered Sig/Gemini Route PRN Reason Start Time Stop Time Status Last Admin Dose Admin Acetaminophen (Tylenol Tab) 500 mg Q6HP PRN PO pain/fever/headache 01/30/20 01:15 Acetaminophen (Tylenol Tab) 650 mg TID PRN PO MILD PAIN (PS 1-4) 01/19/20 11:30 01/27/20 08:00 DC Acetaminophen (Tylenol Tab) 1,000 mg TID PO 12/22/19 21:00 01/19/20 11:29 DC 01/19/20 09:41 Albuterol/ Ipratropium (Combivent Respimat 100-20mcg) 1 puff BID PRN INH SHORTNESS OF BREATH 01/17/20 21:00 01/22/20 11:32 Albuterol/ Ipratropium (Duoneb (Ipr 0.5mg/Alb 2.5mg)) 3 ml RTID NEB 12/22/19 20:00 01/17/20 08:10 DC 01/16/20 13:49 Amlodipine Besylate (Norvasc) 5 mg DAILY PO 01/02/20 09:00 02/02/20 08:38 Ascorbic Acid (Vitamin C) 500 mg BID PO 12/29/19 21:00 02/02/20 08:36 Aspirin (Ecotrin) 81 mg DAILY PO 12/23/19 09:00 02/02/20 08:37 Atenolol (Tenormin) 25 mg BID PO 12/22/19 21:00 02/02/20 08:38 Brimonidine Tartrate (Alphagan P 0.1%) 1 drop BID OU 12/22/19 21:00 02/02/20 08:40 Calcium Carbonate (Tums) 500 mg DAILY PRN PO INDIGESTION 01/19/20 11:30 Cetylpyridinium Chloride (Cepacol) 1 agus Q4HP PRN PO SORE THROAT 01/11/20 12:30 01/11/20 17:56 Ferrous Gluconate (Fergon) 324 mg DAILY PO 12/30/19 09:00 01/19/20 11:29 DC 01/19/20 09:41 Fludrocortisone Acetate (Florinef) 0.1 mg DAILY PO 12/23/19 09:00 01/01/20 10:35 DC 01/01/20 07:54 Fluticasone Propionate (Flonase 0.05% Nasal [place]) 1 spray BID NARES 12/22/19 21:00 02/02/20 08:40 Lactobacillus Acidophilus (Bacid) 1 ea TID PO 01/06/20 16:00 02/02/20 08:37 Lidocaine (Lidoderm Patch) 1 patch DAILY TD 12/28/19 09:00 02/01/20 09:36 Lidocaine (Lidoderm Patch) 1 patch DAILY TD 12/23/19 09:00 02/01/20 09:36 Losartan Potassium (Cozaar) 25 mg DAILY PO 01/07/20 09:00 Cancel Magnesium Hydroxide (Milk Of Magnesia) 30 ml DAILYPRN PRN PO CONSTIPATION 12/22/19 16:15 01/21/20 16:14 DC Meclizine HCl (Antivert) 12.5 mg BIDP PRN PO dizziness 12/26/19 19:30 01/11/20 09:22 Meclizine HCl (Antivert) 12.5 mg TID PO 12/22/19 21:00 12/26/19 19:32 DC 12/26/19 17:12 Menthol/Methyl Salicylate (Bengay Cream) BID TOP 01/05/20 09:00 01/29/20 09:27 DC 01/29/20 09:26 Menthol/Methyl Salicylate (Bengay Cream) APPLY TO RIGHT ACHIL... BID TOP 12/30/19 09:00 01/29/20 08:59 DC 01/28/20 21:20 Miscellaneous (Unresolved Clarification Entry) SEE LABEL COMMENTS DAILY XX 01/24/20 09:00 01/25/20 11:01 DC Miscellaneous (Unresolved Clarification Entry) SEE LABEL COMMENTS DAILY XX 01/29/20 09:00 01/29/20 17:23 DC Miscellaneous (Unresolved Clarification Entry) SEE LABEL COMMENTS DAILY XX 02/02/20 09:00 Miscellaneous (Unresolved Clarification Entry) SEE LABEL COMMENTS DAILY XX 01/21/20 09:00 01/21/20 11:54 DC Non-Formulary Medication ( See Comment Field Below ) REMOVE LIDODERM PATCH DAILY@21 XX 12/28/19 21:00 12/28/19 12:00 DC Non-Formulary Medication ( See Comment Field Below ) REMOVE LIDODERM PATCH DAILY@21 XX 12/28/19 21:00 02/01/20 20:37 Non-Formulary Medication ( See Comment Field Below ) REMOVE LIDODERM PATCH DAILY@21 XX 12/23/19 21:00 02/01/20 20:36 Nystatin (Mycostatin Powder, Nystop) Apply BID PRN for Rash un... BIDP PRN TOP RASH 01/02/20 23:00 01/17/20 04:04 DC 01/17/20 03:17 Nystatin (Mycostatin Powder, Nystop) Apply BID for rash un... BID TOP 01/17/20 09:00 02/02/20 08:40 Omeprazole (PriLOSEC) 40 mg DAILY PO 12/23/19 09:00 02/02/20 08:36 Ondansetron HCl (Zofran Odt) 4 mg Q6HP PRN PO NAUSEA OR VOMITING 01/04/20 02:45 01/19/20 09:54 Scopolamine (Scopolamine) 1 mg Q3D@0900 TOP 01/17/20 09:00 02/01/20 07:44 Scopolamine (Scopolamine) 1 mg Q72H TOP 12/27/19 14:45 12/27/19 14:36 DC Scopolamine (Scopolamine) 1 mg Q72H TOP 12/27/19 16:00 01/13/20 10:13 DC 01/11/20 16:41 Scopolamine (Scopolamine) 1 mg Q72H TOP 01/14/20 16:00 01/16/20 10:47 DC 01/14/20 15:23 Sodium Chloride ([place] Nasal [place]) 2 spray BID NA 12/22/19 21:00 02/02/20 08:40 Tramadol HCl (Ultram) 25 mg Q4HP PRN PO SEVERE PAIN (PS 8-10) 12/22/19 16:15 12/28/19 12:52 DC 12/28/19 10:37 Vitamin D (Vitamin D) 2,000 units DAILY PO 12/23/19 09:00 02/02/20 08:46 Warfarin Sodium (Coumadin) 2 mg DAILY@17 PO 12/22/19 17:00 02/01/20 16:15 Scheduled Amlodipine Besylate (Amlodipine Besylate) 5 Mg Tablet, 5 MG PO DAILY Aspirin (Aspirin EC) 81 Mg Tablet.dr, 81 MG PO DAILY, (Reported) Atenolol (Atenolol) 50 Mg Tablet, 25 MG PO BID Brimonidine Tartrate (Alphagan P) 0.1% 5ML Drops, 1 DROP OU BID, (Reported) Cholecalciferol (Vitamin D3) (Vitamin D3) 1,000 Unit Tablet, 2,000 UNITS PO DAILY, (Reported) Diclofenac Epolamine (Diclofenac Epolamine) 1 Each Patch.td12, 1 PATCH TOP Q12H Omeprazole (Omeprazole) 40 Mg Cap, 40 MG PO DAILY, (Reported) Scopolamine (Transderm-Scop) 1 Each Patch.td.3, 1 MG TOP Q3D@0900 Warfarin Sodium (Jantoven) 2 Mg Tablet, 2 MG PO DAILY@17 Scheduled PRN Acetaminophen (Acetaminophen) 500 Mg Tablet, 500 MG PO Q6HP PRN for pain/fever/headache Benzocaine/Menthol (Sore Throat Lozenge) 1 Each Lozenge, 1 AGUS PO Q4HP PRN for SORE THROAT Calcium Carbonate (Calcium Carbonate) 200 Mg Tab.chew, 500 MG PO DAILY PRN for INDIGESTION Ipratropium/Albuterol Sulfate (Combivent Respimat 20-100 Mcg) 4 Gm Mist.inhal, 1 PUFF INH BID PRN for SHORTNESS OF BREATH Polyethylene Glycol 3350 (Polyethylene Glycol 3350) 17 Gm Powd.pack, 1 PKT PO DAILYPRN PRN for CONSTIPATION Allergies Coded Allergies: Penicillins (Verified Allergy, Mild, RASH, 11/23/18) GUDELIA Inhibitors (Verified Allergy, Unknown, UNKNOWN REACTION PER FAMILY, 04/27/19) SEASONAL ALLERGIES (Verified Allergy, Unknown, 11/23/18) doxycycline (Verified Allergy, Unknown, UNKNOWN REACTION PER FAMILY, 04/27/19) prazosin (Verified Allergy, Unknown, UNKNOWN REACTION PER FAMILY, 04/27/19) codeine (Verified Adverse Reaction, Mild, CONFUSION, 11/23/18) ibuprofen (Verified Adverse Reaction, Mild, ORAL THRUSH, 11/26/18) CABRERA COOLEY MD Feb 02, 2020 09:54
== END 2020-02-02 11:38 | DRG 57 ==
LOC: M PM&R 16:05
PROVIDERS: ADMIT Physical Medicine & Rehabilitation; ATTEND Physical Medicine & Rehabilitation
DX: I69.398 Other sequelae of cerebral infarction (principal); I48.20 Chronic atrial fibrillation, unspecified; R42 Dizziness and giddiness; I11.0 Hypertensive heart disease with heart failure; G43.909 Migraine, unspecified, not intractable, without status migrainosus; K21.9 Gastro-esophageal reflux disease without esophagitis; R29.6 Repeated falls; R26.89 Other abnormalities of gait and mobility; J30.2 Other seasonal allergic rhinitis; Z66 Do not resuscitate; Z96.653 Presence of artificial knee joint, bilateral; Z90.49 Acquired absence of other specified parts of digestive tract; Z87.891 Personal history of nicotine dependence; Z79.01 Long term (current) use of anticoagulants; Z79.82 Long term (current) use of aspirin; Z79.899 Other long term (current) drug therapy; Z88.0 Allergy status to penicillin; Z88.1 Allergy status to other antibiotic agents; Z88.5 Allergy status to narcotic agent; Z88.6 Allergy status to analgesic agent; Z88.8 Allergy status to other drugs, medicaments and biological substances; I50.9 Heart failure, unspecified; I95.1 Orthostatic hypotension; D72.829 Elevated white blood cell count, unspecified; D64.9 Anemia, unspecified

== ENCOUNTER → 2020-02-06 | Outpatient (REF) | payer MEDICARE ==
[~2020-02-06] MED LIST changes: +ACET-683 PO; +AMLO1TAB24 PO; +BISA10SU PR; +CALC200T15 PO; +COMBAER6 INH; +DICL1PAT6 TOP; +FLUD0.1T PO; +JANT2TAB PO; +JANT3TAB PO; +MECL12.589 PO; +PEG1POW PO; +SCOP1PAT2 TOP; +SENN-52 PO; +SORE15LO PO; +TRAM50TA2 PO
[2020-02-06 09:37] LABS: HEMATOCRIT 37.1 % (36.0-47.0); HEMOGLOBIN 11.8 g/dl (12.0-15.5); MEAN CORPUSCULAR HEMOGLOBIN 29.5 pg (27.0-33.0); MEAN CORPUSCULAR HGB CONC 31.8 g/dl (32.0-36.5); MEAN CORPUSCULAR VOLUME 92.8 fl (80.0-96.0); PLATELET COUNT, AUTOMATED 307 10^3/uL (150-450); WHITE BLOOD COUNT 7.4 10^3/uL (4.0-10.0)
[2020-02-06 10:58] LABS: CALCIUM LEVEL 9.4 MG/DL (8.8-10.2); CREATININE FOR GFR 0.96 MG/DL (0.55-1.30); GLOMERULAR FILTRATION RATE 58.4 (>32); POTASSIUM SERUM 4.1 MEQ/L (3.5-5.1)
== END ==
PROVIDERS: ATTEND Physician Assistant
DX: I10 Essential (primary) hypertension (principal)

== ENCOUNTER → 2020-02-08 | Outpatient (REF) ==
[~2020-02-08] MED LIST changes: -MECL12.589 PO; +MECL12.590 PO
[2020-02-08 10:52] LABS: INR 2.53; PROTHROMBIN TIME 27.8 SECONDS (12.5-14.3)
== END ==
PROVIDERS: ATTEND Physician Assistant
DX: I48.91 Unspecified atrial fibrillation (principal); Z79.899 Other long term (current) drug therapy

== ENCOUNTER → 2020-02-08 | Outpatient (REF) | LOC: EDSTATUS 02-28 06:45 | PROVIDERS: ATTEND Internal Medicine | DX: Z20.828 Contact with and (suspected) exposure to other viral communicable diseases (principal) ==

== ENCOUNTER → 2020-02-14 | Outpatient (REF) ==
[2020-02-14 11:15] LABS: HEMATOCRIT 37.5 % (36.0-47.0); HEMOGLOBIN 11.6 g/dl (12.0-15.5); MEAN CORPUSCULAR HEMOGLOBIN 28.9 pg (27.0-33.0); MEAN CORPUSCULAR HGB CONC 30.9 g/dl (32.0-36.5); MEAN CORPUSCULAR VOLUME 93.3 fl (80.0-96.0); PLATELET COUNT, AUTOMATED 306 10^3/uL (150-450); RED BLOOD COUNT 4.02 10^6/uL (4.00-5.40); WHITE BLOOD COUNT 7.1 10^3/uL (4.0-10.0)
[2020-02-14 11:48] LABS: CALCIUM LEVEL 9.3 MG/DL (8.8-10.2); CREATININE FOR GFR 0.94 MG/DL (0.55-1.30); GLOMERULAR FILTRATION RATE 59.8 (>32); POTASSIUM SERUM 4.1 MEQ/L (3.5-5.1)
== END ==
PROVIDERS: ATTEND Physician Assistant
DX: I10 Essential (primary) hypertension (principal)

== ENCOUNTER → 2020-02-15 | Outpatient (REF) ==
[2020-02-15 11:58] LABS: INR 3.63
== END ==
PROVIDERS: ATTEND Physician Assistant
DX: I48.91 Unspecified atrial fibrillation (principal); Z79.899 Other long term (current) drug therapy

== ENCOUNTER → 2020-02-20 | Outpatient (REF) ==
[2020-02-20 10:16] LABS: HEMATOCRIT 40.2 % (36.0-47.0); HEMOGLOBIN 12.7 g/dl (12.0-15.5); MEAN CORPUSCULAR HEMOGLOBIN 29.7 pg (27.0-33.0); MEAN CORPUSCULAR HGB CONC 31.6 g/dl (32.0-36.5); MEAN CORPUSCULAR VOLUME 93.9 fl (80.0-96.0); PLATELET COUNT, AUTOMATED 283 10^3/uL (150-450); RED BLOOD COUNT 4.28 10^6/uL (4.00-5.40)
[2020-02-20 10:31] LABS: INR 2.15; PROTHROMBIN TIME 24.5 SECONDS (12.5-14.3)
[2020-02-20 10:47] LABS: BLOOD UREA NITROGEN 21 MG/DL (7-18); CARBON DIOXIDE LEVEL 29 MEQ/L (21-32); CHLORIDE LEVEL 109 MEQ/L (98-107); CREATININE FOR GFR 0.89 MG/DL (0.55-1.30); GLOMERULAR FILTRATION RATE > 60.0 (>32); GLUCOSE, FASTING 84 MG/DL (70-100); SODIUM LEVEL 142 MEQ/L (136-145)
== END ==
PROVIDERS: ATTEND Physician Assistant
DX: I10 Essential (primary) hypertension (principal)

== ENCOUNTER → 2020-02-22 | Outpatient (REF) ==
[2020-02-22 14:23] LABS: INR 1.75; PROTHROMBIN TIME 20.8 SECONDS (12.5-14.3)
== END ==
PROVIDERS: ATTEND Physician Assistant
DX: I48.91 Unspecified atrial fibrillation (principal); Z79.899 Other long term (current) drug therapy

== ENCOUNTER → 2020-02-26 | Outpatient (REF) | payer MEDICARE | PROVIDERS: ATTEND Internal Medicine | DX: Z20.828 Contact with and (suspected) exposure to other viral communicable diseases (principal) ==

== ENCOUNTER → 2020-02-27 | Outpatient (REF) ==
[2020-02-27 10:19] LABS: PROTHROMBIN TIME 23.1 SECONDS (12.5-14.3)
== END ==
PROVIDERS: ATTEND Physician Assistant
DX: I48.91 Unspecified atrial fibrillation (principal)

== ENCOUNTER → 2020-02-29 | Outpatient (REF) ==
[2020-02-29 10:35] LABS: INR 2.23; PROTHROMBIN TIME 25.2 SECONDS (12.5-14.3)
== END ==
PROVIDERS: ATTEND Physician Assistant
DX: I48.91 Unspecified atrial fibrillation (principal)

== ENCOUNTER → 2020-03-01 | Outpatient (REF) ==
[2020-03-01 14:05] LABS: HEMOGLOBIN 13.3 g/dl (12.0-15.5); MEAN CORPUSCULAR HEMOGLOBIN 29.6 pg (27.0-33.0); MEAN CORPUSCULAR HGB CONC 31.7 g/dl (32.0-36.5); MEAN CORPUSCULAR VOLUME 93.3 fl (80.0-96.0); PLATELET COUNT, AUTOMATED 274 10^3/uL (150-450); WHITE BLOOD COUNT 7.1 10^3/uL (4.0-10.0)
[2020-03-01 14:31] LABS: CALCIUM LEVEL 9.4 MG/DL (8.8-10.2); CREATININE FOR GFR 0.94 MG/DL (0.55-1.30); GLOMERULAR FILTRATION RATE 59.8 (>32); POTASSIUM SERUM 4.5 MEQ/L (3.5-5.1)
--- NOTE | 2020-03-01 16:21 | REPPI ---
INDICATION: Leg swelling /ORTEGA room s101. COMPARISON: December 29, 2019.. TECHNIQUE: Erect AP portable radiograph. FINDINGS: The lungs are symmetrically aerated and clear. Mild cardiomegaly is again observed. There is no evidence of pleural effusion or pulmonary edema. Pulmonary vasculature is not increased. No infiltrate is seen. No significant bony abnormality is appreciated. IMPRESSION: No active disease. <Electronically signed by Ismael Smith > 03/01/20 [id number]
== END ==
PROVIDERS: ATTEND Internal Medicine
DX: R60.0 Localized edema (principal)

== ENCOUNTER → 2020-03-01 | Outpatient (REF) ==
[2020-03-01 12:39] LABS: INFLUENZA A AMPLIFICATION NEGATIVE (NEGATIVE); INFLUENZA B AMPLIFICATION NEGATIVE (NEGATIVE)
== END ==
PROVIDERS: ATTEND Internal Medicine
DX: Z20.828 Contact with and (suspected) exposure to other viral communicable diseases (principal)

== ENCOUNTER → 2020-03-05 | Outpatient (REF) ==
[2020-03-05 09:01] LABS: HEMATOCRIT 40.5 % (36.0-47.0); HEMOGLOBIN 12.7 g/dl (12.0-15.5); MEAN CORPUSCULAR HEMOGLOBIN 29.1 pg (27.0-33.0); MEAN CORPUSCULAR HGB CONC 31.4 g/dl (32.0-36.5); MEAN CORPUSCULAR VOLUME 92.7 fl (80.0-96.0); PLATELET COUNT, AUTOMATED 214 10^3/uL (150-450); RED BLOOD COUNT 4.37 10^6/uL (4.00-5.40); WHITE BLOOD COUNT 4.6 10^3/uL (4.0-10.0)
[2020-03-05 09:38] LABS: CALCIUM LEVEL 8.7 MG/DL (8.8-10.2); CREATININE FOR GFR 1.11 MG/DL (0.55-1.30); GLOMERULAR FILTRATION RATE 49.4 (>32); POTASSIUM SERUM 3.5 MEQ/L (3.5-5.1)
== END ==
PROVIDERS: ATTEND Internal Medicine
DX: R60.9 Edema, unspecified (principal)

== ENCOUNTER → 2020-03-07 | Outpatient (REF) ==
[2020-03-07 12:25] LABS: INR 2.09; PROTHROMBIN TIME 23.9 SECONDS (12.5-14.3)
== END ==
PROVIDERS: ATTEND Internal Medicine
DX: Z20.828 Contact with and (suspected) exposure to other viral communicable diseases (principal)

== ENCOUNTER → 2020-03-22 | Outpatient (REF) | payer MEDICARE ==
[2020-03-22 09:29] LABS: INR 3.36; PROTHROMBIN TIME 34.8 SECONDS (12.5-14.3)
== END ==
PROVIDERS: ATTEND Internal Medicine
DX: I48.91 Unspecified atrial fibrillation (principal)

== ENCOUNTER → 2020-03-28 | Outpatient (REF) | payer MEDICARE ==
[2020-03-28 09:00] LABS: HEMOGLOBIN 12.8 g/dl (12.0-15.5); MEAN CORPUSCULAR HEMOGLOBIN 29.2 pg (27.0-33.0); MEAN CORPUSCULAR HGB CONC 31.2 g/dl (32.0-36.5); MEAN CORPUSCULAR VOLUME 93.4 fl (80.0-96.0); PLATELET COUNT, AUTOMATED 265 10^3/uL (150-450); RED BLOOD COUNT 4.39 10^6/uL (4.00-5.40); WHITE BLOOD COUNT 7.4 10^3/uL (4.0-10.0)
[2020-03-28 09:07] LABS: CREATININE FOR GFR 1.02 MG/DL (0.55-1.30); GLOMERULAR FILTRATION RATE 54.4 (>32); POTASSIUM SERUM 3.8 MEQ/L (3.5-5.1)
[2020-03-28 09:28] LABS: INR 2.75; PROTHROMBIN TIME 29.7 SECONDS (12.5-14.3)
== END ==
PROVIDERS: ATTEND Internal Medicine
DX: I48.91 Unspecified atrial fibrillation (principal)

== ENCOUNTER → 2020-04-04 | Outpatient (REF) | payer MEDICARE | PROVIDERS: ATTEND Internal Medicine | DX: Z20.828 Contact with and (suspected) exposure to other viral communicable diseases (principal) ==

== ENCOUNTER → 2020-04-04 | Outpatient (REF) | payer MEDICARE ==
[2020-04-04 11:00] LABS: INR 2.94; PROTHROMBIN TIME 31.3 SECONDS (12.5-14.3)
== END ==
PROVIDERS: ATTEND Physician Assistant
DX: I48.91 Unspecified atrial fibrillation (principal)

== ENCOUNTER → 2020-04-11 | Outpatient (REF) | payer MEDICARE ==
[2020-04-11 12:12] LABS: INR 2.47; PROTHROMBIN TIME 27.3 SECONDS (12.5-14.3)
== END ==
PROVIDERS: ATTEND Physician Assistant
DX: I48.91 Unspecified atrial fibrillation (principal)

== ENCOUNTER → 2020-04-18 | Outpatient (REF) ==
[2020-04-18 12:12] LABS: INR 2.69; PROTHROMBIN TIME 29.2 SECONDS (12.5-14.3)
== END ==
PROVIDERS: ATTEND Internal Medicine
DX: I48.91 Unspecified atrial fibrillation (principal)

== ENCOUNTER → 2020-04-24 | Outpatient (REF) | payer MEDICARE ==
[2020-04-24 13:15] LABS: RSV AMPLIFICATION NEGATIVE (NEGATIVE)
== END ==
PROVIDERS: ATTEND Internal Medicine
DX: Z20.822 Contact with and (suspected) exposure to COVID-19 (principal)

== ENCOUNTER → 2020-04-25 | Outpatient (REF) ==
[2020-04-25 09:40] LABS: HEMATOCRIT 44.5 % (36.0-47.0); HEMOGLOBIN 13.8 g/dl (12.0-15.5); MEAN CORPUSCULAR HEMOGLOBIN 28.8 pg (27.0-33.0); MEAN CORPUSCULAR VOLUME 92.7 fl (80.0-96.0); PLATELET COUNT, AUTOMATED 270 10^3/uL (150-450); WHITE BLOOD COUNT 8.5 10^3/uL (4.0-10.0)
[2020-04-25 10:04] LABS: INR 2.88; PROTHROMBIN TIME 30.8 SECONDS (12.5-14.3)
[2020-04-25 10:24] LABS: CALCIUM LEVEL 9.4 MG/DL (8.8-10.2); CREATININE FOR GFR 1.1 MG/DL (0.55-1.30); GLOMERULAR FILTRATION RATE 49.9 (>32); POTASSIUM SERUM 3.6 MEQ/L (3.5-5.1)
== END ==
PROVIDERS: ATTEND Internal Medicine
DX: I48.91 Unspecified atrial fibrillation (principal)

== ENCOUNTER → 2020-05-02 | Outpatient (REF) | payer MEDICARE ==
[2020-05-02 11:40] LABS: INR 3.45; PROTHROMBIN TIME 35.5 SECONDS (12.5-14.3)
== END ==
PROVIDERS: ATTEND Physician Assistant
DX: I48.91 Unspecified atrial fibrillation (principal)

== ENCOUNTER → 2020-05-03 | Outpatient (REF) | payer MEDICARE ==
[2020-05-03 09:39] LABS: INR 2.97; PROTHROMBIN TIME 31.6 SECONDS (12.5-14.3)
== END ==
PROVIDERS: ATTEND Physician Assistant
DX: I48.91 Unspecified atrial fibrillation (principal); Z79.899 Other long term (current) drug therapy

== ENCOUNTER → 2020-05-07 | Outpatient (REF) | payer MEDICARE ==
[2020-05-07 12:17] LABS: INR 1.92; PROTHROMBIN TIME 22.4 SECONDS (12.5-14.3)
== END ==
PROVIDERS: ATTEND Physician Assistant
DX: R79.1 Abnormal coagulation profile (principal)

== ENCOUNTER → 2020-05-09 | Outpatient (REF) ==
[2020-05-09 10:01] LABS: INR 2.07; PROTHROMBIN TIME 23.8 SECONDS (12.5-14.3)
== END ==
PROVIDERS: ATTEND Physician Assistant
DX: I48.91 Unspecified atrial fibrillation (principal)

== ENCOUNTER → 2020-05-16 | Outpatient (REF) | payer MEDICARE ==
[~2020-05-16] MED LIST changes: +MECL-136 PO; -MECL12.590 PO; -PEG1POW PO; +POLY17PO18 PO
[2020-05-16 10:22] LABS: INR 2.16; PROTHROMBIN TIME 24.6 SECONDS (12.5-14.3)
== END ==
PROVIDERS: ATTEND Physician Assistant
DX: I48.91 Unspecified atrial fibrillation (principal)

== ENCOUNTER → 2020-05-23 | Outpatient (REF) | payer MEDICARE ==
[2020-05-23 11:47] LABS: INR 2.14; PROTHROMBIN TIME 24.4 SECONDS (12.5-14.3)
== END ==
PROVIDERS: ATTEND Internal Medicine
DX: I48.91 Unspecified atrial fibrillation (principal)

== ENCOUNTER → 2020-05-30 | Outpatient (REF) | payer MEDICARE ==
[2020-05-30 10:26] LABS: INR 2.17; PROTHROMBIN TIME 24.7 SECONDS (12.5-14.3)
== END ==
PROVIDERS: ATTEND Physician Assistant
DX: I48.91 Unspecified atrial fibrillation (principal)

== ENCOUNTER → 2020-06-06 | Outpatient (REF) | payer MEDICARE ==
[2020-06-06 10:20] LABS: INR 1.93; PROTHROMBIN TIME 22.5 SECONDS (12.5-14.3)
== END ==
PROVIDERS: ATTEND Physician Assistant
DX: I48.91 Unspecified atrial fibrillation (principal)

== ENCOUNTER → 2020-06-13 | Outpatient (REF) | payer MEDICARE ==
[2020-06-13 10:19] LABS: INR 1.88
== END ==
PROVIDERS: ATTEND Physician Assistant
DX: I10 Essential (primary) hypertension (principal); I48.91 Unspecified atrial fibrillation

== ENCOUNTER → 2020-06-20 | Outpatient (REF) | payer MEDICARE ==
[2020-06-20 09:59] LABS: INR 2.09; PROTHROMBIN TIME 23.9 SECONDS (12.5-14.3)
== END ==
PROVIDERS: ATTEND Physician Assistant
DX: I10 Essential (primary) hypertension (principal); I48.91 Unspecified atrial fibrillation

== ENCOUNTER → 2020-06-22 | Outpatient (REF) | payer MEDICARE ==
[2020-06-22 19:38] LABS: RSV AMPLIFICATION NEGATIVE (NEGATIVE)
== END ==
PROVIDERS: ATTEND Internal Medicine
DX: Z11.52 Encounter for screening for COVID-19 (principal)

== ENCOUNTER → 2020-06-22 | Outpatient (REF) | payer MEDICARE ==
[2020-06-22 09:32] LABS: CREATININE FOR GFR 1.04 MG/DL (0.55-1.30); GLOMERULAR FILTRATION RATE 53.2 (>32); POTASSIUM SERUM 3.9 MEQ/L (3.5-5.1)
== END ==
PROVIDERS: ATTEND Internal Medicine
DX: N18.9 Chronic kidney disease, unspecified (principal)

== ENCOUNTER → 2020-06-27 | Outpatient (REF) | payer MEDICARE ==
[2020-06-27 11:04] LABS: INR 2.17; PROTHROMBIN TIME 24.6 SECONDS (12.5-14.3)
== END ==
PROVIDERS: ATTEND Physician Assistant
DX: I48.91 Unspecified atrial fibrillation (principal)

== ENCOUNTER → 2020-07-04 | Outpatient (REF) | payer MEDICARE ==
[2020-07-04 09:33] LABS: INR 1.97; PROTHROMBIN TIME 22.9 SECONDS (12.5-14.3)
== END ==
PROVIDERS: ATTEND Physician Assistant
DX: I48.91 Unspecified atrial fibrillation (principal)

== ENCOUNTER → 2020-07-11 | Outpatient (REF) | payer MEDICARE ==
[2020-07-11 10:48] LABS: INR 1.94; PROTHROMBIN TIME 22.6 SECONDS (12.5-14.3)
== END ==
PROVIDERS: ATTEND Internal Medicine
DX: I48.91 Unspecified atrial fibrillation (principal)

== ENCOUNTER → 2020-07-18 | Outpatient (REF) | payer MEDICARE ==
[2020-07-18 10:19] LABS: INR 2.03; PROTHROMBIN TIME 23.4 SECONDS (12.5-14.3)
== END ==
PROVIDERS: ATTEND Physician Assistant
DX: I48.91 Unspecified atrial fibrillation (principal)

== ENCOUNTER → 2020-07-25 | Outpatient (REF) | payer MEDICARE ==
[2020-07-25 10:04] LABS: INR 2.04; PROTHROMBIN TIME 23.5 SECONDS (12.5-14.3)
== END ==
PROVIDERS: ATTEND Physician Assistant
DX: I48.91 Unspecified atrial fibrillation (principal)

== ENCOUNTER → 2020-08-01 | Outpatient (REF) | payer MEDICARE ==
[2020-08-01 11:20] LABS: INR 1.89; PROTHROMBIN TIME 22.1 SECONDS (12.5-14.3)
== END ==
PROVIDERS: ATTEND Physician Assistant
DX: I48.91 Unspecified atrial fibrillation (principal)

== ENCOUNTER → 2020-08-08 | Outpatient (REF) | payer MEDICARE ==
[2020-08-08 10:15] LABS: INR 2.04; PROTHROMBIN TIME 23.5 SECONDS (12.5-14.3)
== END ==
PROVIDERS: ATTEND Internal Medicine
DX: I48.91 Unspecified atrial fibrillation (principal)

== ENCOUNTER → 2020-08-15 | Outpatient (REF) | payer MEDICARE ==
[2020-08-15 09:50] LABS: INR 2.26; PROTHROMBIN TIME 25.5 SECONDS (12.5-14.3)
== END ==
PROVIDERS: ATTEND Physician Assistant
DX: I48.91 Unspecified atrial fibrillation (principal); I10 Essential (primary) hypertension

== ENCOUNTER → 2020-08-21 | Outpatient (REF) | payer MEDICARE ==
[2020-08-21 11:34] LABS: BLOOD UREA NITROGEN 21 MG/DL (7-18); CALCIUM LEVEL 9.4 MG/DL (8.8-10.2); CARBON DIOXIDE LEVEL 31 MEQ/L (21-32); CHLORIDE LEVEL 106 MEQ/L (98-107); CREATININE FOR GFR 0.93 MG/DL (0.55-1.30); GLOMERULAR FILTRATION RATE > 60.0 (>32); GLUCOSE, FASTING 130 MG/DL (70-100); POTASSIUM SERUM 3.7 MEQ/L (3.5-5.1); SODIUM LEVEL 143 MEQ/L (136-145)
== END ==
PROVIDERS: ATTEND Internal Medicine
DX: R60.9 Edema, unspecified (principal)

== ENCOUNTER → 2020-08-22 | Outpatient (REF) | payer MEDICARE ==
[2020-08-22 10:25] LABS: INR 2.48; PROTHROMBIN TIME 27.4 SECONDS (12.5-14.3)
== END ==
PROVIDERS: ATTEND Physician Assistant
DX: I48.91 Unspecified atrial fibrillation (principal)

== ENCOUNTER → 2020-08-29 | Outpatient (REF) | payer MEDICARE ==
[2020-08-29 10:22] LABS: INR 2.65; PROTHROMBIN TIME 28.9 SECONDS (12.5-14.3)
== END ==
PROVIDERS: ATTEND Internal Medicine
DX: I48.91 Unspecified atrial fibrillation (principal)

== ENCOUNTER → 2020-09-04 | Outpatient (REF) | payer MEDICARE ==
[~2020-09-04] MED LIST changes: +OMEP40CA4 PO; -OMEP40CA97 PO
[2020-09-04 10:32] LABS: HEMOGLOBIN 12.8 g/dl (12.0-15.5); MEAN CORPUSCULAR HEMOGLOBIN 29.8 pg (27.0-33.0); MEAN CORPUSCULAR VOLUME 93.2 fl (80.0-96.0); PLATELET COUNT, AUTOMATED 256 10^3/uL (150-450); RED BLOOD COUNT 4.29 10^6/uL (4.00-5.40); WHITE BLOOD COUNT 7.7 10^3/uL (4.0-10.0)
[2020-09-04 11:02] LABS: BLOOD UREA NITROGEN 20 MG/DL (7-18); CALCIUM LEVEL 9.2 MG/DL (8.8-10.2); CARBON DIOXIDE LEVEL 31 MEQ/L (21-32); CHLORIDE LEVEL 106 MEQ/L (98-107); CREATININE FOR GFR 0.93 MG/DL (0.55-1.30); GLOMERULAR FILTRATION RATE > 60.0 (>32); GLUCOSE, FASTING 128 MG/DL (70-100); NT-PRO BNP 1313 PG/ML (<450); POTASSIUM SERUM 3.8 MEQ/L (3.5-5.1); SODIUM LEVEL 142 MEQ/L (136-145)
== END ==
PROVIDERS: ATTEND Physician Assistant
DX: I50.9 Heart failure, unspecified (principal)

== ENCOUNTER → 2020-09-05 | Outpatient (REF) | payer MEDICARE ==
[2020-09-05 11:34] LABS: INR 2.7; PROTHROMBIN TIME 29.3 SECONDS (12.5-14.3)
== END ==
PROVIDERS: ATTEND Physician Assistant
DX: I48.91 Unspecified atrial fibrillation (principal)

== ENCOUNTER → 2020-09-12 | Outpatient (REF) | payer MEDICARE ==
[~2020-09-12] MED LIST changes: +LOSA50TA28 PO; -LOSA50TA88 PO; +POTA-151 PO; -POTA20TA6 PO; -SCOP1PAT2 TOP; +TRAN1DIS4 TOP
[2020-09-12 10:52] LABS: HEMATOCRIT 39.2 % (36.0-47.0); HEMOGLOBIN 12.6 g/dl (12.0-15.5); MEAN CORPUSCULAR HEMOGLOBIN 29.8 pg (27.0-33.0); MEAN CORPUSCULAR HGB CONC 32.1 g/dl (32.0-36.5); MEAN CORPUSCULAR VOLUME 92.7 fl (80.0-96.0); PLATELET COUNT, AUTOMATED 229 10^3/uL (150-450); RED BLOOD COUNT 4.23 10^6/uL (4.00-5.40); WHITE BLOOD COUNT 6.5 10^3/uL (4.0-10.0)
[2020-09-12 11:08] LABS: INR 3.17; PROTHROMBIN TIME 33.2 SECONDS (12.5-14.3)
[2020-09-12 11:25] LABS: CALCIUM LEVEL 8.8 MG/DL (8.8-10.2); CREATININE FOR GFR 0.97 MG/DL (0.55-1.30); GLOMERULAR FILTRATION RATE 57.7 (>32); POTASSIUM SERUM 3.6 MEQ/L (3.5-5.1)
== END ==
PROVIDERS: ATTEND Physician Assistant
DX: I48.91 Unspecified atrial fibrillation (principal); I50.9 Heart failure, unspecified

== ENCOUNTER → 2020-09-19 | Outpatient (REF) | payer MEDICARE ==
[~2020-09-19] MED LIST changes: -LOSA50TA28 PO; +LOSA50TA88 PO; -POTA-151 PO; +POTA20TA6 PO; +SCOP1PAT2 TOP; -TRAN1DIS4 TOP
[2020-09-19 10:58] LABS: HEMATOCRIT 36.9 % (36.0-47.0); HEMOGLOBIN 11.9 g/dl (12.0-15.5); MEAN CORPUSCULAR HEMOGLOBIN 30.1 pg (27.0-33.0); MEAN CORPUSCULAR HGB CONC 32.2 g/dl (32.0-36.5); MEAN CORPUSCULAR VOLUME 93.4 fl (80.0-96.0); PLATELET COUNT, AUTOMATED 210 10^3/uL (150-450); RED BLOOD COUNT 3.95 10^6/uL (4.00-5.40); WHITE BLOOD COUNT 6.6 10^3/uL (4.0-10.0)
[2020-09-19 11:05] LABS: INR 2.64; PROTHROMBIN TIME 28.8 SECONDS (12.5-14.3)
[2020-09-19 11:29] LABS: CALCIUM LEVEL 8.5 MG/DL (8.8-10.2); CREATININE FOR GFR 1.08 MG/DL (0.55-1.30); POTASSIUM SERUM 3.7 MEQ/L (3.5-5.1)
== END ==
PROVIDERS: ATTEND Physician Assistant
DX: I50.9 Heart failure, unspecified (principal)

== ENCOUNTER → 2020-09-26 | Outpatient (REF) | payer MEDICARE ==
[2020-09-26 10:29] LABS: INR 2.79; PROTHROMBIN TIME 30.1 SECONDS (12.5-14.3)
== END ==
PROVIDERS: ATTEND Physician Assistant
DX: I48.91 Unspecified atrial fibrillation (principal)

== ENCOUNTER → 2020-10-03 | Outpatient (REF) | payer MEDICARE ==
[~2020-10-03] MED LIST changes: +LOSA50TA28 PO; -LOSA50TA88 PO; +POTA-151 PO; -POTA20TA6 PO; -SCOP1PAT2 TOP; +TRAN1DIS4 TOP
[2020-10-03 13:07] LABS: INR 2.75; PROTHROMBIN TIME 29.7 SECONDS (12.5-14.3)
== END ==
PROVIDERS: ATTEND Physician Assistant
DX: I48.91 Unspecified atrial fibrillation (principal)

== ENCOUNTER → 2020-10-10 | Outpatient (REF) | payer MEDICARE ==
[2020-10-10 10:52] LABS: HEMOGLOBIN 13.5 g/dl (12.0-15.5); MEAN CORPUSCULAR HGB CONC 32.1 g/dl (32.0-36.5); MEAN CORPUSCULAR VOLUME 93.3 fl (80.0-96.0); PLATELET COUNT, AUTOMATED 235 10^3/uL (150-450); WHITE BLOOD COUNT 6.7 10^3/uL (4.0-10.0)
[2020-10-10 11:05] LABS: INR 2.58; PROTHROMBIN TIME 28.3 SECONDS (12.5-14.3)
[2020-10-10 11:20] LABS: CALCIUM LEVEL 9.1 MG/DL (8.8-10.2); CREATININE FOR GFR 0.95 MG/DL (0.55-1.30); GLOMERULAR FILTRATION RATE 59.1 (>32); POTASSIUM SERUM 3.8 MEQ/L (3.5-5.1)
== END ==
PROVIDERS: ATTEND Physician Assistant
DX: I48.91 Unspecified atrial fibrillation (principal)

== ENCOUNTER → 2020-10-24 | Outpatient (REF) | payer MEDICARE ==
[~2020-10-24] MED LIST changes: -LOSA50TA28 PO; +LOSA50TA88 PO; -POTA-151 PO; +POTA20TA6 PO; +SCOP1PAT2 TOP; -TRAN1DIS4 TOP
[2020-10-24 12:38] LABS: INR 2.7
== END ==
PROVIDERS: ATTEND Physician Assistant
DX: I48.91 Unspecified atrial fibrillation (principal)

== ENCOUNTER → 2020-11-07 | Outpatient (REF) | payer MEDICARE ==
[2020-11-07 12:05] LABS: INR 3.55; PROTHROMBIN TIME 35.8 SECONDS (12.7-14.5)
== END ==
PROVIDERS: ATTEND Physician Assistant
DX: I48.91 Unspecified atrial fibrillation (principal)

== ENCOUNTER → 2020-11-08 | Outpatient (REF) | payer MEDICARE ==
[2020-11-08 11:26] LABS: INR 2.95; PROTHROMBIN TIME 31.1 SECONDS (12.7-14.5)
== END ==
PROVIDERS: ATTEND Internal Medicine
DX: I48.91 Unspecified atrial fibrillation (principal)

== ENCOUNTER → 2020-11-14 | Outpatient (REF) | payer MEDICARE ==
[~2020-11-14] MED LIST changes: +LOSA50TA28 PO; -LOSA50TA88 PO; +POTA-151 PO; -POTA20TA6 PO; -SCOP1PAT2 TOP; +TRAN1DIS4 TOP
[2020-11-14 11:18] LABS: INR 2.41; PROTHROMBIN TIME 26.6 SECONDS (12.7-14.5)
== END ==
PROVIDERS: ATTEND Physician Assistant
DX: I48.91 Unspecified atrial fibrillation (principal)

== ENCOUNTER → 2020-11-21 | Outpatient (REF) | payer MEDICARE ==
[~2020-11-21] MED LIST changes: -LOSA50TA28 PO; +LOSA50TA88 PO; -POTA-151 PO; +POTA20TA6 PO; +SCOP1PAT2 TOP; -TRAN1DIS4 TOP
[2020-11-21 13:00] LABS: INR 2.94
== END ==
PROVIDERS: ATTEND Physician Assistant
DX: I48.91 Unspecified atrial fibrillation (principal)

== ENCOUNTER → 2020-11-23 | Outpatient (REF) | payer MEDICARE ==
[2020-11-23 15:59] LABS: CALCIUM LEVEL 9.1 MG/DL (8.8-10.2); CREATININE FOR GFR 1.06 MG/DL (0.55-1.30); GLOMERULAR FILTRATION RATE 52.1 (>32); POTASSIUM SERUM 3.8 MEQ/L (3.5-5.1)
== END ==
PROVIDERS: ATTEND Internal Medicine
DX: R60.9 Edema, unspecified (principal)

== ENCOUNTER → 2020-11-28 | Outpatient (REF) | payer MEDICARE ==
[~2020-11-28] MED LIST changes: -SCOP1PAT2 TOP; +TRAN1DIS4 TOP
[2020-11-28 11:55] LABS: INR 2.43; PROTHROMBIN TIME 26.8 SECONDS (12.7-14.5)
[2020-11-28 12:22] LABS: CALCIUM LEVEL 9.1 MG/DL (8.8-10.2); CREATININE FOR GFR 1.07 MG/DL (0.55-1.30); GLOMERULAR FILTRATION RATE 51.5 (>32); POTASSIUM SERUM 3.2 MEQ/L (3.5-5.1)
== END ==
PROVIDERS: ATTEND Internal Medicine
DX: R60.0 Localized edema (principal); I48.91 Unspecified atrial fibrillation

== ENCOUNTER → 2020-12-05 | Outpatient (REF) | payer MEDICARE ==
[2020-12-05 11:00] LABS: INR 2.24; PROTHROMBIN TIME 25.1 SECONDS (12.7-14.5)
[2020-12-05 11:20] LABS: CALCIUM LEVEL 8.5 MG/DL (8.8-10.2); CREATININE FOR GFR 1.26 MG/DL (0.55-1.30); GLOMERULAR FILTRATION RATE 42.7 (>32); POTASSIUM SERUM 3.5 MEQ/L (3.5-5.1)
== END ==
PROVIDERS: ATTEND Physician Assistant
DX: E87.6 Hypokalemia (principal); I48.91 Unspecified atrial fibrillation

== ENCOUNTER → 2020-12-12 | Outpatient (REF) | payer MEDICARE ==
[2020-12-12 11:15] LABS: INR 2.34
== END ==
PROVIDERS: ATTEND Physician Assistant
DX: I48.91 Unspecified atrial fibrillation (principal)

== ENCOUNTER → 2020-12-19 | Outpatient (REF) | payer MEDICARE ==
[2020-12-19 11:21] LABS: INR 2.29; PROTHROMBIN TIME 25.6 SECONDS (12.7-14.5)
== END ==
PROVIDERS: ATTEND Physician Assistant
DX: I48.91 Unspecified atrial fibrillation (principal)

== ENCOUNTER → 2020-12-26 | Outpatient (REF) | payer MEDICARE ==
[2020-12-26 10:48] LABS: INR 2.58
== END ==
PROVIDERS: ATTEND Internal Medicine
DX: I48.91 Unspecified atrial fibrillation (principal)

== ENCOUNTER → 2021-01-02 | Outpatient (REF) | payer MEDICARE ==
[2021-01-02 11:02] LABS: INR 2.48; PROTHROMBIN TIME 27.2 SECONDS (12.7-14.5)
== END ==
PROVIDERS: ATTEND Internal Medicine
DX: I48.91 Unspecified atrial fibrillation (principal)

== ENCOUNTER → 2021-01-09 | Outpatient (REF) | payer MEDICARE ==
[2021-01-09 11:58] LABS: INR 2.48; PROTHROMBIN TIME 27.2 SECONDS (12.7-14.5)
== END ==
PROVIDERS: ATTEND Physician Assistant
DX: I48.91 Unspecified atrial fibrillation (principal)

== ENCOUNTER → 2021-01-16 | Outpatient (REF) | payer MEDICARE ==
[2021-01-16 12:36] LABS: HEMATOCRIT 40.7 % (36.0-47.0); MEAN CORPUSCULAR HEMOGLOBIN 29.3 pg (27.0-33.0); MEAN CORPUSCULAR HGB CONC 31.9 g/dl (32.0-36.5); MEAN CORPUSCULAR VOLUME 91.9 fl (80.0-96.0); PLATELET COUNT, AUTOMATED 237 10^3/uL (150-450); RED BLOOD COUNT 4.43 10^6/uL (4.00-5.40); WHITE BLOOD COUNT 8.2 10^3/uL (4.0-10.0)
[2021-01-16 12:45] LABS: INR 2.22
[2021-01-16 13:05] LABS: CALCIUM LEVEL 9.2 MG/DL (8.8-10.2); CREATININE FOR GFR 1.23 MG/DL (0.55-1.30); GLOMERULAR FILTRATION RATE 43.8 (>32); POTASSIUM SERUM 3.9 MEQ/L (3.5-5.1)
== END ==
PROVIDERS: ATTEND Internal Medicine
DX: I48.91 Unspecified atrial fibrillation (principal)

== ENCOUNTER → 2021-01-23 | Outpatient (REF) | payer MEDICARE ==
[2021-01-23 11:39] LABS: INR 2.42; PROTHROMBIN TIME 26.7 SECONDS (12.7-14.5)
== END ==
PROVIDERS: ATTEND Internal Medicine
DX: I48.91 Unspecified atrial fibrillation (principal)

== ENCOUNTER → 2021-01-28 | Outpatient (REF) | payer MEDICARE | PROVIDERS: ATTEND Internal Medicine | DX: Z53.9 Procedure and treatment not carried out, unspecified reason (principal) ==

== ENCOUNTER → 2021-01-30 | Outpatient (REF) | payer MEDICARE ==
[2021-01-30 11:45] LABS: INR 2.37; PROTHROMBIN TIME 26.3 SECONDS (12.7-14.5)
== END ==
PROVIDERS: ATTEND Internal Medicine
DX: I48.91 Unspecified atrial fibrillation (principal)

== ENCOUNTER → 2021-02-04 | Outpatient (REF) | payer MEDICARE ==
[~2021-02-04] MED LIST changes: +LOSA50TA28 PO; -LOSA50TA88 PO; +POTA-151 PO; -POTA20TA6 PO
[2021-02-04 11:01] LABS: INR 2.52; PROTHROMBIN TIME 27.5 SECONDS (12.7-14.5)
== END ==
PROVIDERS: ATTEND Internal Medicine
DX: I48.91 Unspecified atrial fibrillation (principal)

== ENCOUNTER → 2021-02-13 | Outpatient (REF) | payer MEDICARE ==
[~2021-02-13] MED LIST changes: -LOSA50TA28 PO; +LOSA50TA88 PO; -POTA-151 PO; +POTA20TA6 PO
[2021-02-13 11:25] LABS: INR 2.68; PROTHROMBIN TIME 28.9 SECONDS (12.7-14.5)
== END ==
PROVIDERS: ATTEND Internal Medicine
DX: I48.91 Unspecified atrial fibrillation (principal)

== ENCOUNTER → 2021-02-20 | Outpatient (REF) | payer MEDICARE ==
[2021-02-20 12:38] LABS: INR 2.15; PROTHROMBIN TIME 24.4 SECONDS (12.7-14.5)
== END ==
PROVIDERS: ATTEND Internal Medicine
DX: I48.91 Unspecified atrial fibrillation (principal)

== ENCOUNTER → 2021-02-27 | Outpatient (REF) | payer MEDICARE ==
[~2021-02-27] MED LIST changes: +LOSA50TA28 PO; -LOSA50TA88 PO; +POTA-151 PO; -POTA20TA6 PO
[2021-02-27 11:24] LABS: INR 1.82; PROTHROMBIN TIME 21.5 SECONDS (12.7-14.5)
== END ==
PROVIDERS: ATTEND Internal Medicine
DX: I48.91 Unspecified atrial fibrillation (principal)

== ENCOUNTER → 2021-03-01 | Outpatient (REF) | payer MEDICARE ==
[~2021-03-01] MED LIST changes: -LOSA50TA28 PO; +LOSA50TA88 PO; -POTA-151 PO; +POTA20TA6 PO
[2021-03-02 05:26] LABS: INR 1.95; PROTHROMBIN TIME 22.6 SECONDS (12.7-14.5)
== END ==
PROVIDERS: ATTEND Physician Assistant
DX: I48.91 Unspecified atrial fibrillation (principal)

== ENCOUNTER → 2021-03-04 | Outpatient (REF) | payer MEDICARE ==
[~2021-03-04] MED LIST changes: +LOSA50TA28 PO; -LOSA50TA88 PO; +POTA-151 PO; -POTA20TA6 PO
[2021-03-04 11:33] LABS: INR 2.09; PROTHROMBIN TIME 23.8 SECONDS (12.7-14.5)
== END ==
PROVIDERS: ATTEND Internal Medicine
DX: I48.91 Unspecified atrial fibrillation (principal)

== ENCOUNTER → 2021-03-06 | Outpatient (REF) | payer MEDICARE ==
[~2021-03-06] MED LIST changes: -LOSA50TA28 PO; +LOSA50TA88 PO; -POTA-151 PO; +POTA20TA6 PO
[2021-03-06 11:55] LABS: INR 2.61; PROTHROMBIN TIME 28.3 SECONDS (12.7-14.5)
== END ==
PROVIDERS: ATTEND Internal Medicine
DX: I48.91 Unspecified atrial fibrillation (principal)

== ENCOUNTER → 2021-03-13 | Outpatient (REF) | payer MEDICARE ==
[2021-03-13 10:23] LABS: INR 2.54; PROTHROMBIN TIME 27.7 SECONDS (12.7-14.5)
== END ==
PROVIDERS: ATTEND Internal Medicine
DX: I48.91 Unspecified atrial fibrillation (principal)

== ENCOUNTER → 2021-03-20 | Outpatient (REF) | payer MEDICARE ==
[~2021-03-20] MED LIST changes: +LOSA50TA28 PO; -LOSA50TA88 PO; +POTA-151 PO; -POTA20TA6 PO
[2021-03-20 11:54] LABS: HEMATOCRIT 42.3 % (36.0-47.0); HEMOGLOBIN 13.4 g/dl (12.0-15.5); MEAN CORPUSCULAR HEMOGLOBIN 29.9 pg (27.0-33.0); MEAN CORPUSCULAR HGB CONC 31.7 g/dl (32.0-36.5); MEAN CORPUSCULAR VOLUME 94.4 fl (80.0-96.0); PLATELET COUNT, AUTOMATED 266 10^3/uL (150-450); RED BLOOD COUNT 4.48 10^6/uL (4.00-5.40); WHITE BLOOD COUNT 7.4 10^3/uL (4.0-10.0)
[2021-03-20 12:04] LABS: INR 2.33; PROTHROMBIN TIME 25.9 SECONDS (12.7-14.5)
[2021-03-20 12:29] LABS: CALCIUM LEVEL 9.5 MG/DL (8.8-10.2); CREATININE FOR GFR 1.19 MG/DL (0.55-1.30); GLOMERULAR FILTRATION RATE 45.5 (>32); POTASSIUM SERUM 3.5 MEQ/L (3.5-5.1)
== END ==
PROVIDERS: ATTEND Internal Medicine
DX: I48.91 Unspecified atrial fibrillation (principal)

== ENCOUNTER → 2021-03-27 | Outpatient (REF) | payer MEDICARE ==
[2021-03-27 11:08] LABS: INR 2.49; PROTHROMBIN TIME 27.3 SECONDS (12.7-14.5)
== END ==
PROVIDERS: ATTEND Internal Medicine
DX: I48.91 Unspecified atrial fibrillation (principal)

== ENCOUNTER → 2021-04-08 | Outpatient (REF) | payer MEDICARE ==
[2021-04-08 10:36] LABS: INR 2.29; PROTHROMBIN TIME 25.6 SECONDS (12.7-14.5)
== END ==
PROVIDERS: ATTEND Internal Medicine
DX: I48.91 Unspecified atrial fibrillation (principal)

== ENCOUNTER → 2021-04-10 | Outpatient (REF) | payer MEDICARE ==
[2021-04-10 09:30] LABS: INR 2.3; PROTHROMBIN TIME 25.7 SECONDS (12.7-14.5)
== END ==
PROVIDERS: ATTEND Internal Medicine
DX: I48.91 Unspecified atrial fibrillation (principal)

== ENCOUNTER → 2021-04-17 | Outpatient (REF) | payer MEDICARE ==
[~2021-04-17] MED LIST changes: -D31000TA2 PO; +VITA100093 PO
[2021-04-17 13:22] LABS: INR 2.84; PROTHROMBIN TIME 30.2 SECONDS (12.7-14.5)
== END ==
PROVIDERS: ATTEND Internal Medicine
DX: I48.91 Unspecified atrial fibrillation (principal); Z79.01 Long term (current) use of anticoagulants

== ENCOUNTER → 2021-04-24 | Outpatient (REF) | payer MEDICARE ==
[~2021-04-24] MED LIST changes: +D31000TA2 PO; -VITA100093 PO
[2021-04-24 10:22] LABS: INR 2.37; PROTHROMBIN TIME 26.3 SECONDS (12.7-14.5)
== END ==
PROVIDERS: ATTEND Internal Medicine
DX: I48.91 Unspecified atrial fibrillation (principal)

== ENCOUNTER → 2021-05-01 | Outpatient (REF) | payer MEDICARE ==
[~2021-05-01] MED LIST changes: -D31000TA2 PO; +VITA100093 PO
[2021-05-01 12:01] LABS: INR 2.41; PROTHROMBIN TIME 26.6 SECONDS (12.7-14.5)
== END ==
PROVIDERS: ATTEND Internal Medicine
DX: I48.91 Unspecified atrial fibrillation (principal)

== ENCOUNTER → 2021-05-08 | Outpatient (REF) | payer MEDICARE ==
[~2021-05-08] MED LIST changes: +D31000TA2 PO; -VITA100093 PO
[2021-05-08 12:00] LABS: INR 2.42; PROTHROMBIN TIME 26.7 SECONDS (12.7-14.5)
== END ==
PROVIDERS: ATTEND Internal Medicine
DX: I48.91 Unspecified atrial fibrillation (principal)

== ENCOUNTER → 2021-05-15 | Outpatient (REF) | payer MEDICARE ==
[~2021-05-15] MED LIST changes: -D31000TA2 PO; +VITA100093 PO
[2021-05-15 12:17] LABS: INR 2.12; PROTHROMBIN TIME 24.1 SECONDS (12.7-14.5)
== END ==
PROVIDERS: ATTEND Internal Medicine
DX: I48.91 Unspecified atrial fibrillation (principal)

== ENCOUNTER → 2021-05-21 | Outpatient (REF) | payer MEDICARE ==
[2021-05-21 16:17] LABS: CALCIUM LEVEL 8.7 MG/DL (8.8-10.2); CREATININE FOR GFR 1.2 MG/DL (0.55-1.30); POTASSIUM SERUM 4.2 MEQ/L (3.5-5.1)
== END ==
PROVIDERS: ATTEND Physician Assistant
DX: R60.9 Edema, unspecified (principal)

== ENCOUNTER → 2021-05-22 | Outpatient (REF) | payer MEDICARE ==
[2021-05-22 10:10] LABS: INR 1.97; PROTHROMBIN TIME 22.8 SECONDS (12.7-14.5)
== END ==
PROVIDERS: ATTEND Internal Medicine
DX: I48.91 Unspecified atrial fibrillation (principal)

== ENCOUNTER → 2021-05-29 | Outpatient (REF) | payer MEDICARE ==
[2021-05-29 10:01] LABS: INR 2.17; PROTHROMBIN TIME 24.6 SECONDS (12.7-14.5)
== END ==
PROVIDERS: ATTEND Internal Medicine
DX: I48.91 Unspecified atrial fibrillation (principal)

== ENCOUNTER → 2021-06-05 | Outpatient (REF) | payer MEDICARE | PROVIDERS: ATTEND Internal Medicine | DX: I48.91 Unspecified atrial fibrillation (principal); Z53.9 Procedure and treatment not carried out, unspecified reason ==

== ENCOUNTER → 2021-06-19 | Outpatient (REF) | payer MEDICARE ==
[2021-06-19 12:05] LABS: INR 3.09; PROTHROMBIN TIME 32.2 SECONDS (12.7-14.5)
== END ==
PROVIDERS: ATTEND Internal Medicine
DX: I48.91 Unspecified atrial fibrillation (principal)

== ENCOUNTER → 2021-06-24 | Outpatient (REF) | payer MEDICARE ==
[2021-06-24 12:41] LABS: INR 2.23; PROTHROMBIN TIME 25.1 SECONDS (12.7-14.5)
== END ==
PROVIDERS: ATTEND Physician Assistant
DX: I48.91 Unspecified atrial fibrillation (principal)

== ENCOUNTER → 2021-06-26 | Outpatient (REF) | payer MEDICARE ==
[2021-06-26 11:24] LABS: INR 2.58
== END ==
PROVIDERS: ATTEND Internal Medicine
DX: I48.91 Unspecified atrial fibrillation (principal)

== ENCOUNTER → 2021-07-03 | Outpatient (REF) | payer MEDICARE ==
[2021-07-03 12:09] LABS: INR 3.18; PROTHROMBIN TIME 32.9 SECONDS (12.7-14.5)
== END ==
PROVIDERS: ATTEND Internal Medicine
DX: I48.91 Unspecified atrial fibrillation (principal)

== ENCOUNTER → 2021-07-10 | Outpatient (REF) | payer MEDICARE ==
[2021-07-10 11:25] LABS: INR 2.49; PROTHROMBIN TIME 27.3 SECONDS (12.7-14.5)
== END ==
PROVIDERS: ATTEND Internal Medicine
DX: I48.91 Unspecified atrial fibrillation (principal)

== ENCOUNTER → 2021-07-17 | Outpatient (REF) | payer MEDICARE ==
[2021-07-17 13:15] LABS: HEMATOCRIT 40.4 % (36.0-47.0); HEMOGLOBIN 12.7 g/dl (12.0-15.5); MEAN CORPUSCULAR HEMOGLOBIN 29.6 pg (27.0-33.0); MEAN CORPUSCULAR HGB CONC 31.4 g/dl (32.0-36.5); MEAN CORPUSCULAR VOLUME 94.2 fl (80.0-96.0); PLATELET COUNT, AUTOMATED 264 10^3/uL (150-450); RED BLOOD COUNT 4.29 10^6/uL (4.00-5.40); WHITE BLOOD COUNT 7.1 10^3/uL (4.0-10.0)
[2021-07-17 13:24] LABS: INR 2.17; PROTHROMBIN TIME 24.6 SECONDS (12.7-14.5)
[2021-07-17 16:06] LABS: CALCIUM LEVEL 9.5 MG/DL (8.8-10.2); CREATININE FOR GFR 1.15 MG/DL (0.55-1.30); GLOMERULAR FILTRATION RATE 47.3 (>32); POTASSIUM SERUM 3.8 MEQ/L (3.5-5.1)
== END ==
PROVIDERS: ATTEND Internal Medicine
DX: I48.91 Unspecified atrial fibrillation (principal)

== ENCOUNTER → 2021-07-24 | Outpatient (REF) | payer MEDICARE ==
[2021-07-24 10:51] LABS: INR 2.05; PROTHROMBIN TIME 23.5 SECONDS (12.7-14.5)
== END ==
PROVIDERS: ATTEND Internal Medicine
DX: I48.91 Unspecified atrial fibrillation (principal)

== ENCOUNTER → 2021-07-31 | Outpatient (REF) | payer MEDICARE ==
[2021-07-31 12:42] LABS: INR 2.08; PROTHROMBIN TIME 23.8 SECONDS (12.7-14.5)
== END ==
PROVIDERS: ATTEND Internal Medicine
DX: I48.91 Unspecified atrial fibrillation (principal)

== ENCOUNTER → 2021-08-07 | Outpatient (REF) | payer MEDICARE ==
[2021-08-07 12:27] LABS: INR 2.13; PROTHROMBIN TIME 24.2 SECONDS (12.7-14.5)
== END ==
PROVIDERS: ATTEND Internal Medicine
DX: I48.91 Unspecified atrial fibrillation (principal)

== ENCOUNTER → 2021-08-14 | Outpatient (REF) | payer MEDICARE ==
[2021-08-14 12:27] LABS: INR 2.05; PROTHROMBIN TIME 23.5 SECONDS (12.7-14.5)
== END ==
PROVIDERS: ATTEND Internal Medicine
DX: I48.91 Unspecified atrial fibrillation (principal)

== ENCOUNTER → 2021-08-28 | Outpatient (REF) | payer MEDICARE ==
[2021-08-28 11:12] LABS: INR 2.77; PROTHROMBIN TIME 29.6 SECONDS (12.7-14.5)
== END ==
PROVIDERS: ATTEND Internal Medicine
DX: I48.91 Unspecified atrial fibrillation (principal)

== ENCOUNTER → 2021-09-04 | Outpatient (REF) | payer MEDICARE ==
[2021-09-04 11:38] LABS: INR 1.76; PROTHROMBIN TIME 20.9 SECONDS (12.7-14.5)
== END ==
PROVIDERS: ATTEND Internal Medicine
DX: I48.91 Unspecified atrial fibrillation (principal)

== ENCOUNTER → 2021-09-11 | Outpatient (REF) | payer MEDICARE ==
[2021-09-11 11:17] LABS: INR 2.46
== END ==
PROVIDERS: ATTEND Internal Medicine
DX: I48.91 Unspecified atrial fibrillation (principal)

== ENCOUNTER → 2021-09-18 | Outpatient (REF) | payer MEDICARE ==
[2021-09-18 13:47] LABS: INR 2.52; PROTHROMBIN TIME 27.5 SECONDS (12.7-14.5)
== END ==
PROVIDERS: ATTEND Internal Medicine
DX: I48.91 Unspecified atrial fibrillation (principal)

== ENCOUNTER → 2021-09-25 | Outpatient (REF) | payer MEDICARE ==
[2021-09-25 12:35] LABS: HEMATOCRIT 40.4 % (36.0-47.0); HEMOGLOBIN 12.9 g/dl (12.0-15.5); MEAN CORPUSCULAR HEMOGLOBIN 29.1 pg (27.0-33.0); MEAN CORPUSCULAR HGB CONC 31.9 g/dl (32.0-36.5); PLATELET COUNT, AUTOMATED 235 10^3/uL (150-450); RED BLOOD COUNT 4.44 10^6/uL (4.00-5.40)
[2021-09-25 12:45] LABS: INR 2.42; PROTHROMBIN TIME 26.7 SECONDS (12.7-14.5)
[2021-09-25 14:27] LABS: CREATININE FOR GFR 1.22 MG/DL (0.55-1.30); GLOMERULAR FILTRATION RATE 44.2 (>32); POTASSIUM SERUM 3.8 MEQ/L (3.5-5.1)
== END ==
PROVIDERS: ATTEND Internal Medicine
DX: I48.91 Unspecified atrial fibrillation (principal)

== ENCOUNTER → 2021-10-02 | Outpatient (REF) | payer MEDICARE ==
[2021-10-02 13:08] LABS: INR 2.59; PROTHROMBIN TIME 28.1 SECONDS (12.7-14.5)
== END ==
PROVIDERS: ATTEND Internal Medicine
DX: I48.91 Unspecified atrial fibrillation (principal)

== ENCOUNTER → 2021-10-09 | Outpatient (REF) | payer MEDICARE ==
[2021-10-09 12:27] LABS: INR 2.61; PROTHROMBIN TIME 28.3 SECONDS (12.7-14.5)
== END ==
PROVIDERS: ATTEND Internal Medicine
DX: I48.91 Unspecified atrial fibrillation (principal)

== ENCOUNTER → 2021-10-30 | Outpatient (REF) | payer MEDICARE ==
[2021-10-30 12:04] LABS: INR 2.5; PROTHROMBIN TIME 27.4 SECONDS (12.7-14.5)
== END ==
PROVIDERS: ATTEND Internal Medicine
DX: I48.91 Unspecified atrial fibrillation (principal)

== ENCOUNTER → 2021-11-06 | Outpatient (REF) | payer MEDICARE ==
[2021-11-06 10:56] LABS: INR 2.83; PROTHROMBIN TIME 30.1 SECONDS (12.7-14.5)
== END ==
PROVIDERS: ATTEND Internal Medicine
DX: I48.91 Unspecified atrial fibrillation (principal)

== ENCOUNTER → 2021-11-13 | Outpatient (REF) | payer MEDICARE ==
[2021-11-13 09:31] LABS: INR 3.02; PROTHROMBIN TIME 31.6 SECONDS (12.7-14.5)
== END ==
PROVIDERS: ATTEND Internal Medicine
DX: I48.91 Unspecified atrial fibrillation (principal)

== ENCOUNTER → 2021-11-15 | Outpatient (REF) | payer MEDICARE ==
[2021-11-15 14:47] LABS: INR 2.11; PROTHROMBIN TIME 24.1 SECONDS (12.7-14.5)
== END ==
PROVIDERS: ATTEND Physician Assistant
DX: I48.91 Unspecified atrial fibrillation (principal)

== ENCOUNTER → 2021-11-20 | Outpatient (REF) | payer MEDICARE ==
[2021-11-20 11:58] LABS: HEMATOCRIT 39.6 % (36.0-47.0); HEMOGLOBIN 12.7 g/dl (12.0-15.5); MEAN CORPUSCULAR HEMOGLOBIN 29.9 pg (27.0-33.0); MEAN CORPUSCULAR HGB CONC 32.1 g/dl (32.0-36.5); MEAN CORPUSCULAR VOLUME 93.2 fl (80.0-96.0); PLATELET COUNT, AUTOMATED 248 10^3/uL (150-450); RED BLOOD COUNT 4.25 10^6/uL (4.00-5.40); WHITE BLOOD COUNT 7.3 10^3/uL (4.0-10.0)
[2021-11-20 12:14] LABS: INR 2.35; PROTHROMBIN TIME 26.1 SECONDS (12.7-14.5)
[2021-11-20 12:47] LABS: CALCIUM LEVEL 9.4 MG/DL (8.8-10.2); CREATININE FOR GFR 1.01 MG/DL (0.55-1.30); GLOMERULAR FILTRATION RATE 54.9 (>32); POTASSIUM SERUM 3.9 MEQ/L (3.5-5.1)
== END ==
PROVIDERS: ATTEND Internal Medicine
DX: E87.6 Hypokalemia (principal); I48.91 Unspecified atrial fibrillation

== ENCOUNTER → 2021-11-27 | Outpatient (REF) | payer MEDICARE ==
[2021-11-27 11:00] LABS: INR 2.37; PROTHROMBIN TIME 26.3 SECONDS (12.7-14.5)
== END ==
PROVIDERS: ATTEND Internal Medicine
DX: I48.91 Unspecified atrial fibrillation (principal)

== ENCOUNTER → 2021-12-04 | Outpatient (REF) | payer MEDICARE ==
[2021-12-04 12:43] LABS: INR 2.35; PROTHROMBIN TIME 26.1 SECONDS (12.7-14.5)
== END ==
PROVIDERS: ATTEND Internal Medicine
DX: I48.91 Unspecified atrial fibrillation (principal)

== ENCOUNTER → 2021-12-10 | Outpatient (REF) | payer MEDICARE ==
[2021-12-10 14:08] LABS: HEMATOCRIT 42.4 % (36.0-47.0); HEMOGLOBIN 13.4 g/dl (12.0-15.5); MEAN CORPUSCULAR HEMOGLOBIN 29.1 pg (27.0-33.0); MEAN CORPUSCULAR HGB CONC 31.6 g/dl (32.0-36.5); MEAN CORPUSCULAR VOLUME 92.2 fl (80.0-96.0); PLATELET COUNT, AUTOMATED 274 10^3/uL (150-450)
[2021-12-10 14:37] LABS: ALBUMIN 3.6 GM/DL (3.2-5.2); BILIRUBIN,DIRECT 0.2 MG/DL (0.0-0.2); BILIRUBIN,TOTAL 0.6 MG/DL (0.2-1.0); CALCIUM LEVEL 9.4 MG/DL (8.8-10.2); CREATININE FOR GFR 1.12 MG/DL (0.55-1.30); GLOMERULAR FILTRATION RATE 48.8 (>32); MAGNESIUM LEVEL 2.1 MG/DL (1.8-2.4); POTASSIUM SERUM 3.9 MEQ/L (3.5-5.1); TOTAL PROTEIN 7.7 GM/DL (6.4-8.2)
[2021-12-10 16:21] LABS: CK-MB VALUE MASS < 1.0 NG/ML (<3.6); CPK CREATINE PHOSPHOKINASE 41 U/L (26-192); MB/CK RELATIVE INDEX 2.44 (< OR =4)
== END ==
PROVIDERS: ATTEND Physician Assistant
DX: I95.9 Hypotension, unspecified (principal); R11.10 Vomiting, unspecified

== ENCOUNTER → 2021-12-11 | Outpatient (REF) | payer MEDICARE ==
[2021-12-11 11:10] LABS: INR 2.41; PROTHROMBIN TIME 26.6 SECONDS (12.7-14.5)
== END ==
PROVIDERS: ATTEND Internal Medicine
DX: I48.91 Unspecified atrial fibrillation (principal)